=== PATIENT | female | born 1985 | race Caucasian/White ===

== ENCOUNTER 2022-05-28 12:52 | Outpatient (REF) | payer OTHER, SELFPAY ==
[2022-05-28 13:58] LABS: Appearance Urine Clear; Color Urine Yellow; Glucose Urine UA Negative (Negative); Leukocyte Esterase Urine Trace (Negative); Nitrite Urine Negative (Negative); Specific Gravity - Urine >= 1.030 (1.005-1.025); UMIC TRIGGER UA YES; Urine Blood Negative (Negative); Urine Ketones Trace mg/dL (Negative); Urine Protein Trace mg/dL (Neg-Trace)
[2022-05-28 13:59] LABS: C Reactive Protein 0.04 mg/dL (< or = 0.50)
[2022-05-28 14:08] LABS: Bacteria Urine 1+ (None Seen); Hyaline Casts Urine 0-2 /LPF (0-2); WBC Urine 0-5 /HPF (0-5)
[2022-05-28 14:21] LABS: Thyroid Stimulating Hormone 0.66 uIU/mL (0.32-4.0)
[2022-05-28 14:38] LABS: Creatinine Urine 254.25 mg/dL; Protein/Creatinine Ratio, Ur 0.06 (<0.2); Total Protein Urine Random 15 mg/dL (<12)
[2022-05-28 14:41] LABS: Erythrocyte Sedimentation Rate 3 MM/HR (0-20)
[2022-05-31 11:17] LABS: Complement C3 103 mg/dL (83-193)
[2022-05-31 23:21] LABS: Anti DNA DS Antibody 4 IU/mL; Antibody to SS-A Antigen <1.0 NEG AI (<1.0 NEG); Antibody to SS-B Antigen <1.0 NEG AI (<1.0 NEG); SM/Ribonucleoprotein Ab <1.0 NEG AI (<1.0 NEG); Scleroderma 70 Antibody <1.0 NEG AI (<1.0 NEG); Smith Protein <1.0 NEG AI (<1.0 NEG)
[2022-06-01 05:32] LABS: Cardiolipin IgG Ab <2.0 GPL-U/mL; Cardiolipin IgM Ab <2.0 MPL-U/mL
[2022-06-01 10:12] LABS: Anti-Centromere B Antibodies <1.0 NEG AI (<1.0 NEG)
[2022-06-01 15:21] LABS: Anti Nuclear Antibody Screen NEGATIVE (NEGATIVE)
[2022-06-02 12:32] LABS: Vitamin D 25-OH, D2 <4 ng/mL; Vitamin D 25-OH, D3 28 ng/mL; Vitamin D 25-OH, Total 28 ng/mL (30-100)
[2022-06-02 22:02] LABS: DRVVT 1:1 Mix Interpretation Not Indicated; Hexagonal Phase Neutralization Negative (Negative); PTT (LAC) Screen 42 sec (<=40)
[2022-06-04 17:48] LABS: Beta-2 Glycoprotein IgA <2.0 U/mL (<20.0); Beta-2 Glycoprotein IgG <2.0 U/mL (<20.0); Beta-2 Glycoprotein IgM <2.0 U/mL (<20.0)
== END 2022-05-28 12:53 | disposition home or self-care (01) ==
LOC: HO.10HDL 12:52
PROVIDERS: Visit Provider Student in an Organized Health Care Education/Training Program
DX: Z13.21 Encounter for screening for nutritional disorder (principal); I73.00 Raynaud's syndrome without gangrene; M79.10 Myalgia, unspecified site; M32.9 Systemic lupus erythematosus, unspecified
CPT/HCPCS: 36415; 81001; 82306; 82550; 84156; 84443; 85597; 85613; 85652; 85730; 86038; 86039; 86140; 86146; 86147; 86160; 86225; 86235

== ENCOUNTER → 2022-09-29 10:03 | Outpatient (BNVA) | payer OTHER, SELFPAY | PROVIDERS: PCP Family Medicine; Visit Provider Nurse Practitioner Family | DX: G43.109 Migraine with aura, not intractable, without status migrainosus (principal) ==

== ENCOUNTER → 2022-12-13 13:01 | Outpatient (BNVA) | payer OTHER, SELFPAY | PROVIDERS: PCP Family Medicine; Visit Provider Nurse Practitioner Family | DX: Z13.89 Encounter for screening for other disorder (principal) ==

== ENCOUNTER → 2022-12-28 10:59 | Outpatient (BNVA) | payer OTHER, SELFPAY | PROVIDERS: PCP Family Medicine; Visit Provider Student in an Organized Health Care Education/Training Program | DX: Z13.89 Encounter for screening for other disorder (principal) ==

== ENCOUNTER → 2023-02-08 13:01 | Outpatient (REF) | payer OTHER, SELFPAY ==
--- NOTE | 2023-02-08 13:05 | ECG_ITS ---
Test Reason : R42 Blood Pressure : / mmHG Vent. Rate : 093 BPM Atrial Rate : 093 BPM P-R Int : 122 ms QRS Dur : 076 ms QT Int : 368 ms P-R-T Axes : 077 076 032 degrees QTc Int : 457 ms Normal sinus rhythm Possible Left atrial enlargement Nonspecific ST abnormality Abnormal ECG No previous ECGs available Referred By: Randi Quiles Electronically Signed By:ZOE KNOWLES MD
== END ==
LOC: HO.CARD 13:01
PROVIDERS: PCP Family Medicine; Visit Provider Nurse Practitioner Family
DX: R00.0 Tachycardia, unspecified (principal); R42 Dizziness and giddiness
CPT/HCPCS: 93005

== ENCOUNTER 2023-05-02 14:33 | Outpatient (AMB) | payer OTHER, SELFPAY ==
--- NOTE | 2023-05-02 14:34 | MHC.OFFVIS ---
Intake Vital Signs 05/02/23 14:35 Height 5 ft 2 in Weight 127 lb 2 oz BMI 23.2 BP 118/72 Blood Pressure Location Rt brachial Position Sitting Pulse 107 H Pulse Source Pulse Oximeter Pulse Oximetry (%) 99 Oxygen Delivery Method Room Air Intake Visit Reasons: 3m follow up migraines - Confirmed Intake Note: Patient presents for 3 month follow up migraines. Patient states I think the injection might of helped but I think I'm overdue.my insurance was actin weird. Allergies acetaminophen [From Percocet] Allergy (Unknown, Verified 05/02/23 14:40) Unknown latex Allergy (Unknown, Verified 05/02/23 14:40) Unknown oxycodone [From Percocet] Allergy (Unknown, Verified 05/02/23 14:40) Unknown mylar cream Allergy (Mild, Uncoded 05/02/23 14:40) Blister Medication List - Last Reconciled 05/02/23 by ALEXIS Fairchild albuterol sulfate 90 mcg/actuation 2 puffs inhalation Q4H PRN amitriptyline 10 - 20 mg (1 - 2 x 10 mg) PO BEDTIME 30 days cetirizine (Zyrtec) 10 mg PO DAILY PRN clonazepam 0.5 mg PO BID cyclobenzaprine 10 mg PO BID PRN dextroamphetamine-amphetamine 20 mg 1 tab PO BID fluocinonide 0.05% appl topical BID galcanezumab-gnlm (Emgality Pen) 120 mg subcut ONCE 28 days ibuprofen 800 mg PO Q8H meclizine 25 mg PO BEDTIME PRN omeprazole 20 mg PO DAILY ondansetron 4 mg PO Q8H PRN riboflavin (vitamin B2) 50 mg PO DAILY sumatriptan succinate 50 - 100 mg orally at onset of headache, may repeat in 2 hrs PRN; max 2 tabs per day or 4 tabs/week (may take with Ibuprofen) 30 days HPI HPI Comments History of Present Illness Details 38-yr-old female presents for f/u visit. She has not been tolerating CPAP. Her AHI on HST was 5/hr. She has episodes of spacing out and memory issues. She states no one can watch a movie w/ her as she always talk, gets up, changes position. She endorses restlessness in her whole body- when at rest. Her girlfriend tells her she moves a lot in her sleep. She endorses a creepy crawling sensation. She has a hx of nocturnal leg cramps. Has h/o anemia- had ITTP- last ferritin 60s (December 2022). Her brother has RLS. She is currently overdue for the Emgality. She is having 2 headache days per week. She thinks the Rizatriptan works better w/ less side effects than Sumatriptan. [facility] Medical History (Updated 05/07/23 @ 18:32 by ALEXIS Fairchild) ADHD Allergic rhinitis Anemia Anxiety Cutaneous lupus erythematosus Riki-Danlos disease GERD (gastroesophageal reflux disease) History of ITP Insomnia Post concussive syndrome Sleep difficulties Subacute cutaneous lupus erythematosus Surgical History H/O wisdom tooth extraction History of ankle surgery History of kidney surgery Family History Maternal Aunt Breast cancer Acute leukemia Mother Breast cancer CAD (coronary artery disease) Lupus Congenital heart defect Osteoporosis Precancerous skin lesion Paternal Grandmother Melanoma Brain cancer Father Hypertension Graves disease Hypercholesterolemia Kidney stones Brother Hypertension Hypercholesterolemia Social History Alcohol intake: current Alcohol intake frequency: a few times a month Patient Tobacco Use Status: Never used Tobacco Substance Use Type: Marijuana 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 Review of Systems Const All systems reviewed & are unremarkable except as noted in HPI and below Physical Exam Vital Signs: Last Vital Signs Pulse 107 H 05/02/23 14:35 BP 118/72 05/02/23 14:35 Pulse Ox 99 05/02/23 14:35 Oxygen Delivery Method Room Air 05/02/23 14:35 BMI result Body Mass Index 23.2 Const General: cooperative and no acute distress Orientation/consciousness: patient oriented x3 HEENT Head: Yes normocephalic Resp Effort & Inspection: normal respiratory effort and able to speak in complete sentences Neuro General: patient oriented x3, gait normal and CN's II-XI intact bilaterally Cognition (Neuro): normal cognition Motor exam (neuro): 5/5 motor strength present throughout Psych Appearance: grossly normal Mental Status: mental status grossly normal Speech and movement: Normal speech and movement present Affect: normal affect Attitude: cooperative Thought process: Normal thought process present Thought content: Normal thought content present Insight: Good insight present (Psych) Judgement: Good judgement present (Psych) Assessment & Plan Assessment & Plan (1) Altered mental status: Comment: episodes of passing out Code(s): R41.82 - Altered mental status, unspecified (2) Post concussive syndrome: Code(s): F07.81 - Postconcussional syndrome (3) Mild obstructive sleep apnea: Code(s): G47.33 - Obstructive sleep apnea (adult) (pediatric) (4) Migraine with aura: Code(s): G43.109 - Migraine with aura, not intractable, without status migrainosus Plan Pt advised to undergo EEG- d/t spacing out episodes- ? absence seizures vs ADHD. Will check labs for common etiologies of RLS s/s. Continue to try to use CPAP- however can consider mandibular device, PAP titration study. Pt has had normal head CT. Future considerations: Brain MRI. ? For acute headache treatment: Trial Rizatriptan 10mg tab, 1/2 - 1 tab (5-10mg) at onset of headache, may repeat in 2 hours. Max of 2 tabs (200mg) per 24 hours. May adjunct with OTC Tylenol 650mg q 4 hours, Ibuprofen (liquigel) 600mg q 6 hours, or Naproxen (liquigel) 440mg q 12 hrs prn. Previous acute migraine medication trials: Sinus headache tabs. Sumatriptan- worked but not tolerated. Acute migraine medication contraindications: None at this time ? For headache prevention medication: Discussed that preventative medications should be taken routinely as prescribed for best effect, it may take several weeks for full effect to take effect. Continue Riboflavin- take 400mg every am Continue Magnesium- goal is 400mg qhs Continue Amitriptyline 20mg daily at bedtime (taken 9 hrs before need to wake up in am)- would not increase further d/t lightheadedness. Continue Emgality 120mg sc q 4 weeks, as pt is having good clinical effect. Previous migraine prevention medication trials: None Migraine prevention medication contraindications: BBs d/t h/o asthma. Topiramate d/t h/o kidney stones. Aimovig d/t h/o Raynaud's. Future considerations: Botox. ? f/u in 3 months or sooner prn. Orders: Orders EEG electroencephalogram 05/02/23 R41.82 - Altered mental status, unspecified MR head/brain wo con 05/02/23 F07.81 - Postconcussional syndrome, R41.82 - Altered mental status, unspecified, R42 - Dizziness and giddiness Complete Blood Count Auto Diff 05/02/23 D64.9 - Anemia, unspecified IRON PROFILE 05/02/23 D64.9 - Anemia, unspecified Ferritin 05/02/23 D64.9 - Anemia, unspecified Erythrocyte Sedimentation Rate 05/02/23 D64.9 - Anemia, unspecified Medications: New rizatriptan max 2 tabs per day or 4 tabs per week 5 - 10 mg (0.5 - 1 x 10 mg) PO Q2H 21 days PRN 12 tabs 3RF migraine headache rizatriptan max 2 tabs per day or 4 tabs per week 5 - 10 mg (0.5 - 1 x 10 mg) PO Q2H 21 days PRN 12 tabs 3RF migraine headache Discontinued sumatriptan succinate Discontinued Reason: Doctor's Order (0.5 - 1 x 100 mg) 50 - 100 mg orally at onset of headache, may repeat in 2 hrs PRN; max 2 tabs per day or 4 tabs/week (may take with Ibuprofen) 30 days 12 tabs 6RF migraine headache Coding Level of Care Code Est Pt Level 4 (15404) Diagnoses Altered mental status R41.82 Post concussive syndrome F07.81 Mild obstructive sleep apnea G47.33 Migraine with aura G43.109
[2023-05-02 14:35] VITALS: BP 118/72; PULSE 107; O2SAT 99; BMI 23.2
== END 2023-05-02 15:33 | disposition home or self-care (01) ==
PROVIDERS: Visit Provider Nurse Practitioner Family
DX: R41.82 Altered mental status, unspecified (principal); F07.81 Postconcussional syndrome; G47.33 Obstructive sleep apnea (adult) (pediatric); G43.109 Migraine with aura, not intractable, without status migrainosus
CPT/HCPCS: 99214

== ENCOUNTER → 2023-05-02 14:33 | Outpatient (BNVA) | payer OTHER, SELFPAY | PROVIDERS: Visit Provider Nurse Practitioner Family ==

== ENCOUNTER 2023-06-01 12:56 | Outpatient (REF) | payer OTHER, SELFPAY ==
--- NOTE | 2023-06-01 12:59 | EEG_ITS ---
This is a 16 channel EEG with an EKG lead. The patient is reported awake during the tracing. Background EEG rhythm is 12 to 16 hertz 5 to 20 microvolt posteriorly and lower amplitude fast anteriorly. Photic stimulation does not produce any significant abnormality. Hyperventilation is unremarkable. Cardiac lead does not reveal any significant abnormality. No sharp wave spikes or paroxysmal tendency noted. IMPRESSION: Unremarkable EEG. MD KALI Sanabria/ROBERT / [id number]
== END 2023-06-01 12:57 | disposition home or self-care (01) ==
LOC: HO.NEURO 12:56
PROVIDERS: PCP Family Medicine; Visit Provider Nurse Practitioner Family
DX: R41.82 Altered mental status, unspecified (principal)
CPT/HCPCS: 95816

== ENCOUNTER 2023-06-03 19:28 | Outpatient (REF) | payer OTHER, SELFPAY ==
--- NOTE | ~2023-06-03 | MR_ITS ---
EXAMINATION: MR BRAIN WITHOUT CONTRAST CLINICAL INFORMATION: 38-year-old with altered mental status, unspecified. Self-reported lightheadedness and sensitivity to light, migraine. Self-reported history of concussion in 2020. COMPARISON: None TECHNIQUE: Multiplanar multisequence MR imaging of the brain was done without IV contrast. FINDINGS: Brain Volume: Within normal limits within the limitations of qualitative assessment. Structural: No malformations. Brain and Meninges: DWI sequence demonstrates no restricted diffusion to suggest acute or subacute cerebral ischemia. The brain is normal in morphology and signal intensity. No extra-axial fluid collections, space-occupying process or mass effect are identified. Gradient refocused imaging demonstrates no abnormal susceptibility-weighted signal loss to suggest hemorrhage, hemosiderin staining or abnormal mineralization. Ventricles and Subarachnoid Spaces: The ventricular system and subarachnoid spaces are within normal range; there is no hydrocephalus. Orbital Structures: The visualized orbital structures are grossly unremarkable within the limitations of the study. Vascular: Signal voids are noted in the visualized major intracranial vessels. Osseous Structures, Sinuses/Mastoids, Extracranial Soft Tissues: Unremarkable MR/MR head/brain wo con IMPRESSION: Normal noncontrast MRI of the brain.
== END 2023-06-03 19:29 | disposition home or self-care (01) ==
LOC: HO.MRI 19:28
PROVIDERS: PCP Family Medicine; Visit Provider Nurse Practitioner Family
DX: R41.82 Altered mental status, unspecified (principal); F07.81 Postconcussional syndrome; R42 Dizziness and giddiness
CPT/HCPCS: 70551

== ENCOUNTER 2023-08-17 11:36 | Outpatient (AMB) | payer OTHER, SELFPAY ==
--- NOTE | 2023-08-17 11:39 | MHC.OFFVIS ---
Intake Vital Signs 08/17/23 11:44 BP 108/70 Blood Pressure Location Rt brachial Position Sitting Pulse 91 Pulse Source Pulse Oximeter Pulse Oximetry (%) 100 Oxygen Delivery Method Room Air Intake Visit Reasons: 3m follow up migraines / Confirmed Intake Note: Patient presents for 3 month migraines. migraines are still the same. Allergies acetaminophen [From Percocet] Allergy (Unknown, Verified 08/17/23 11:42) Unknown latex Allergy (Unknown, Verified 08/17/23 11:42) Unknown oxycodone [From Percocet] Allergy (Unknown, Verified 08/17/23 11:42) Unknown mylar cream Allergy (Mild, Uncoded 08/17/23 11:42) Blister Medication List - Last Reconciled 08/17/23 by ALEXIS Fairchild albuterol sulfate 90 mcg/actuation 2 puffs inhalation Q4H PRN amitriptyline 10 - 20 mg (1 - 2 x 10 mg) PO BEDTIME 30 days cetirizine (Zyrtec) 10 mg PO DAILY PRN clonazepam 0.5 mg PO BID cyclobenzaprine 10 mg PO BID PRN dextroamphetamine-amphetamine 20 mg 1 tab PO BID fluocinonide 0.05% appl topical BID galcanezumab-gnlm (Emgality Pen) 120 mg subcut ONCE 28 days ibuprofen 800 mg PO Q8H meclizine 25 mg PO BEDTIME PRN omeprazole 20 mg PO DAILY ondansetron 4 mg PO Q8H PRN riboflavin (vitamin B2) 50 mg PO DAILY rizatriptan 5 - 10 mg (0.5 - 1 x 10 mg) PO Q2H PRN 21 days HPI HPI Comments History of Present Illness Details 38-yr-old female presents for f/u visit. Pt denies any significant interval medical changes. Pt reports that she has been having worsening- menstrual cramps and heavy periods. She feels her Emgality is helping, however she continues to have a daily headache. She does not think that Amitriptyline is still helping. She is having increased migraine during her menses. She is having vestibular s/s- feels off-balance especially with certain light exposure. She did send her CPAP back- as she was not tolerating it. Feels more anxious- not sure if anxiety is causing or is d/t her her migraines, h/o concussion. She is undergoing cardiac work-up. Tilt table test was read as normal, however pt states she had orthostatic tachycardia but it was not captured during the test. [facility] Medical History (Updated 05/07/23 @ 18:32 by ALEXIS Fairchild) Allergic rhinitis History of ITP Riki-Danlos disease Anemia Sleep difficulties GERD (gastroesophageal reflux disease) Subacute cutaneous lupus erythematosus Insomnia Cutaneous lupus erythematosus ADHD Anxiety Post concussive syndrome Surgical History History of kidney surgery H/O wisdom tooth extraction History of ankle surgery Family History Maternal Aunt Breast cancer Acute leukemia Mother Breast cancer CAD (coronary artery disease) Lupus Congenital heart defect Osteoporosis Precancerous skin lesion Paternal Grandmother Melanoma Brain cancer Father Hypertension Graves disease Hypercholesterolemia Kidney stones Brother Hypertension Hypercholesterolemia Social History Alcohol intake: current Alcohol intake frequency: a few times a month Patient Tobacco Use Status: Never used Tobacco Substance Use Type: Marijuana 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 Review of Systems Const All systems reviewed & are unremarkable except as noted in HPI and below Physical Exam Vital Signs: Last Vital Signs Pulse 91 08/17/23 11:44 BP 108/70 08/17/23 11:44 Pulse Ox 100 08/17/23 11:44 Oxygen Delivery Method Room Air 08/17/23 11:44 Const General: cooperative and no acute distress Orientation/consciousness: patient oriented x3 HEENT Head: Yes normocephalic Resp Effort & Inspection: normal respiratory effort and able to speak in complete sentences Neuro General: patient oriented x3, gait normal and CN's II-XI intact bilaterally Cognition (Neuro): normal cognition Motor exam (neuro): 5/5 motor strength present throughout Psych Appearance: grossly normal Mental Status: mental status grossly normal Speech and movement: Normal speech and movement present Affect: normal affect Attitude: cooperative Thought process: Normal thought process present Thought content: Normal thought content present Insight: Good insight present (Psych) Judgement: Good judgement present (Psych) Assessment & Plan Assessment & Plan (1) Post concussive syndrome: Code(s): F07.81 - Postconcussional syndrome (2) Migraine with aura: Code(s): G43.109 - Migraine with aura, not intractable, without status migrainosus (3) Tachycardia: Code(s): R00.0 - Tachycardia, unspecified (4) Lightheadedness: Code(s): R42 - Dizziness and giddiness Plan Pt advsied to check standing HR x's 10 min x's 3- ? POTs vs ADHD tx effect. Reviewed tilt-table- read as normal. Reviewed EEG- normal. Reviewed labs for common etiologies of RLS s/s- CBC, ESR- 3, Ferritin- 124, Iron studies- NL Pt returned CPAP- not tolerated. Pt has had normal head CT. Future considerations: Brain MRI. ? For acute headache treatment: Rizatriptan 10mg tab, 1/2 - 1 tab (5-10mg) at onset of headache, may repeat in 2 hours. Max of 2 tabs (200mg) per 24 hours. May adjunct with OTC Tylenol 650mg q 4 hours, Ibuprofen (liquigel) 600mg q 6 hours, or Naproxen (liquigel) 440mg q 12 hrs prn. Start Nerivio qd prn- form signed Previous acute migraine medication trials: Sinus headache tabs. Sumatriptan- worked but not tolerated. Acute migraine medication contraindications: None at this time ? For headache prevention medication: Discussed that preventative medications should be taken routinely as prescribed for best effect, it may take several weeks for full effect to take effect. Continue Riboflavin- take 400mg every am Continue Magnesium- goal is 400mg qhs May wean off Amitriptyline 20mg qhs. Start Venlafaxine ER 37.5mg qd. Start Nerivio neuromodulation stimulation qod. Continue Emgality 120mg sc q 4 weeks, as pt is having good clinical effect. Previous migraine prevention medication trials: None Migraine prevention medication contraindications: BBs d/t h/o asthma. Topiramate d/t h/o kidney stones. Aimovig d/t h/o Raynaud's. Future considerations: Botox. ? f/u in 3 months or sooner prn. Medications: New venlafaxine ER 37.5 mg PO DAILY 30 days 30 caps 3RF Coding Level of Care Code Est Pt Level 4 (32926) Diagnoses Post concussive syndrome F07.81 Migraine with aura G43.109 Tachycardia R00.0 Lightheadedness R42
[2023-08-17 11:44] VITALS: BP 108/70; PULSE 91; O2SAT 100
== END 2023-08-17 12:20 | disposition home or self-care (01) ==
PROVIDERS: PCP Family Medicine; Visit Provider Nurse Practitioner Family
DX: R00.0 Tachycardia, unspecified (principal); F07.81 Postconcussional syndrome; G44.309 Post-traumatic headache, unspecified, not intractable
CPT/HCPCS: 99214

== ENCOUNTER → 2023-08-17 11:36 | Outpatient (BNVA) | payer OTHER, SELFPAY | PROVIDERS: PCP Family Medicine; Visit Provider Nurse Practitioner Family | DX: G43.109 Migraine with aura, not intractable, without status migrainosus (principal); F07.81 Postconcussional syndrome; R00.0 Tachycardia, unspecified; R42 Dizziness and giddiness | CPT/HCPCS: 99212 ==

== ENCOUNTER 2023-12-07 10:00 | Outpatient (AMB) | payer OTHER, SELFPAY ==
[2023-12-07 10:02] VITALS: BP 118/74; PULSE 86; O2SAT 100; BMI 21.4
--- NOTE | 2023-12-07 10:02 | A.OFFVIS_ITS ---
Intake Vital Signs 12/07/23 10:02 Height 5 ft 2 in Weight 117 lb BMI 21.4 BP 118/74 Blood Pressure Location Rt brachial Position Sitting Pulse 86 Pulse Source Pulse Oximeter Pulse Oximetry (%) 100 Oxygen Delivery Method Room Air Intake Visit Reasons: 3 mnts f/u for migraines-Conf Intake Note: Patient presents for 3 month follow up migraines. migraines are good only been getting them around menstruation. Allergies acetaminophen [From Percocet] Allergy (Unknown, Verified 12/07/23 10:05) Unknown latex Allergy (Unknown, Verified 12/07/23 10:05) Unknown oxycodone [From Percocet] Allergy (Unknown, Verified 12/07/23 10:05) Unknown mylar cream Allergy (Mild, Uncoded 12/07/23 10:05) Blister Medication List - Last Reconciled 12/07/23 by ALEXIS Fairchild albuterol sulfate 90 mcg/actuation 2 puffs inhalation Q4H PRN amitriptyline 10 - 20 mg (1 - 2 x 10 mg) PO BEDTIME 30 days cetirizine (Zyrtec) 10 mg PO DAILY PRN clonazepam 0.5 mg PO BID cyclobenzaprine 10 mg PO BID PRN dextroamphetamine-amphetamine 20 mg 1 tab PO BID fluocinonide 0.05% appl topical BID galcanezumab-gnlm (Emgality Pen) 120 mg subcut ONCE 28 days ibuprofen 800 mg PO Q8H meclizine 25 mg PO BEDTIME PRN omeprazole 20 mg PO DAILY ondansetron 4 mg PO Q8H PRN riboflavin (vitamin B2) 50 mg PO DAILY rizatriptan 5 - 10 mg (0.5 - 1 x 10 mg) PO Q2H PRN 21 days venlafaxine ER 37.5 mg PO DAILY 30 days HPI HPI Comments History of Present Illness Details 38-yr-old female presents for f/u visit. Pt denies any significant interval medical changes. Pt has been having some GI s/s- constipation, nausea, anorexia. Is seeing GI- had had work-up, schedued ofr colonoscopy in March, is trying FODmap diet. She has been started on BB d/t POTs. She has noted that she is having increased hand coldness, numbness, tingling, and seeing small reddish dots on her finger sthat feel like tiny scrapes. Her last Ferritin was 124 NL- so stopped Iron. She did not tolerate the Venlafaxine- caused N/V. She can still find herself spacing out at times. Her migraines are better on Emgality. May still have some breakthrough around her menses. Baseline headache characteristics: Severe, aching and throbbing and tightness- some stabbing starts in bi-temporal region and moves up into bifrontal region and up into crown of the head. A/w blurred vision, photophobia, phonophobia, nausea, vomiting, not right in space dizziness, brain fog, fatigue, generalized, red eyes (more so on left), BUE hands and forearms pins and needles. She has noticed more left facial asymmetry. Prodrome symptoms of feels more body tension and congestion. [facility] Medical History (Updated 12/07/23 @ 19:25 by ALEXIS Fairchild) Allergic rhinitis History of ITP Riki-Danlos disease Anemia Sleep difficulties GERD (gastroesophageal reflux disease) Subacute cutaneous lupus erythematosus Insomnia Cutaneous lupus erythematosus ADHD Anxiety Post concussive syndrome Surgical History History of kidney surgery H/O wisdom tooth extraction History of ankle surgery Family History Maternal Aunt Breast cancer Acute leukemia Mother Breast cancer CAD (coronary artery disease) Lupus Congenital heart defect Osteoporosis Precancerous skin lesion Paternal Grandmother Melanoma Brain cancer Father Hypertension Graves disease Hypercholesterolemia Kidney stones Brother Hypertension Hypercholesterolemia Social History Alcohol intake: current Alcohol intake frequency: a few times a month Patient Tobacco Use Status: Never used Tobacco Substance Use Type: Marijuana 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 Physical Exam Vital Signs: Last Vital Signs Pulse 86 12/07/23 10:02 BP 118/74 12/07/23 10:02 Pulse Ox 100 12/07/23 10:02 Oxygen Delivery Method Room Air 12/07/23 10:02 BMI result Body Mass Index 21.4 Const General: cooperative and no acute distress Orientation/consciousness: patient oriented x3 Resp Effort & Inspection: normal respiratory effort and able to speak in complete sentences Neuro General: patient oriented x3 Cranial nerves: Yes CN's II-XII intact bilaterally Cognition (Neuro): normal cognition Psych Appearance: grossly normal Mental Status: mental status grossly normal Speech and movement: Normal speech and movement present Affect: normal affect Attitude: cooperative Assessment & Plan Assessment & Plan (1) Migraine with aura: Code(s): G43.109 - Migraine with aura, not intractable, without status migrainosus (2) Paresthesia of both hands: Code(s): R20.2 - Paresthesia of skin (3) POTS (postural orthostatic tachycardia syndrome): Code(s): G90.A - Postural orthostatic tachycardia syndrome [POTS] (4) Raynaud phenomenon: Code(s): I73.00 - Raynaud's syndrome without gangrene Qualifiers: Raynaud?s-associated gangrene presence: without gangrene Qualified Code(s): I73.00 - Raynaud's syndrome without gangrene Plan Patient is aware of her spacing out episodes: Advised to discuss with her med prescriber adjusting her Adderall dose. For hand coldness and paresthesias: Check labs for common etiologies. It is possible that her beta-fox may be exacerbating her Raynaud's symptoms. Follow-up with her vp celebrity services. Reviewed tilt-table- read as normal. Reviewed EEG- normal. Pt returned CPAP- not tolerated. Pt has had normal head CT. Future considerations: Brain MRI. ? For acute headache treatment: Rizatriptan 10mg tab, 1/2 - 1 tab (5-10mg) at onset of headache, may repeat in 2 hours. Max of 2 tabs (200mg) per 24 hours. May adjunct with OTC Tylenol 650mg q 4 hours, Ibuprofen (liquigel) 600mg q 6 hours, or Naproxen (liquigel) 440mg q 12 hrs prn. Nerivio qd prn- form signed Previous acute migraine medication trials: Sinus headache tabs. Sumatriptan- worked but not tolerated. Acute migraine medication contraindications: None at this time ? For headache prevention medication: Continue Riboflavin- take 400mg every am Continue Magnesium- goal is 400mg qhs May wean off Amitriptyline 20mg qhs. Discontinue Venlafaxine ER 37.5mg qd- not tolerated. Nerivio neuromodulation stimulation qod. Continue Emgality 120mg sc q 4 weeks, as pt is having good clinical effect. Previous migraine prevention medication trials: Venlafaxine ER 37.5mg- not tolerated caused N/V. Migraine prevention medication contraindications: BBs d/t h/o asthma. Topiramate d/t h/o kidney stones. Aimovig d/t h/o Raynaud's. Future considerations: Botox. ? f/u in 6 months or sooner prn. Orders: Orders Complete Blood Count Auto Diff Today D64.9 - Anemia, unspecified, I73.00 - Raynaud's syndrome without gangrene, M32.9 - Systemic lupus erythematosus, unspecified, R20.2 - Paresthesia of skin, R42 - Dizziness and giddiness Vitamin B12 and Folate Today D64.9 - Anemia, unspecified, I73.00 - Raynaud's syndrome without gangrene, M32.9 - Systemic lupus erythematosus, unspecified, R20.2 - Paresthesia of skin, R42 - Dizziness and giddiness Erythrocyte Sedimentation Rate Today D64.9 - Anemia, unspecified, I73.00 - Raynaud's syndrome without gangrene, M32.9 - Systemic lupus erythematosus, unspecified, R20.2 - Paresthesia of skin, R42 - Dizziness and giddiness CRP High Sensitivity Today D64.9 - Anemia, unspecified, I73.00 - Raynaud's syndrome without gangrene, M32.9 - Systemic lupus erythematosus, unspecified, R20.2 - Paresthesia of skin, R42 - Dizziness and giddiness DEYA Reflex Titer and Pattern Today D64.9 - Anemia, unspecified, I73.00 - Raynaud's syndrome without gangrene, M32.9 - Systemic lupus erythematosus, unspecified, R20.2 - Paresthesia of skin, R42 - Dizziness and giddiness Rheumatoid Factor Today D64.9 - Anemia, unspecified, I73.00 - Raynaud's syndrome without gangrene, M32.9 - Systemic lupus erythematosus, unspecified, R20.2 - Paresthesia of skin, R42 - Dizziness and giddiness Comprehensive Met. Panel Today D64.9 - Anemia, unspecified, I73.00 - Raynaud's syndrome without gangrene, M32.9 - Systemic lupus erythematosus, unspecified, R20.2 - Paresthesia of skin, R42 - Dizziness and giddiness TSH reflex Free T4 Today D64.9 - Anemia, unspecified, I73.00 - Raynaud's syndrome without gangrene, M32.9 - Systemic lupus erythematosus, unspecified, R20.2 - Paresthesia of skin, R42 - Dizziness and giddiness Medications: Discontinued venlafaxine ER Discontinued Reason: Doctor's Order 37.5 mg PO DAILY 30 days 30 caps 3RF Coding Level of Care Code Est Pt Level 4 (84140) Diagnoses Migraine with aura G43.109 Paresthesia of both hands R20.2 POTS (postural orthostatic tachycardia syndrome) G90.A Raynaud's phenomenon without gangrene I73.00 Raynaud?s-associated gangrene presence: without gangrene
== END 2023-12-07 11:16 | disposition home or self-care (01) ==
PROVIDERS: PCP Family Medicine; Visit Provider Nurse Practitioner Family
DX: G43.109 Migraine with aura, not intractable, without status migrainosus (principal); R20.2 Paresthesia of skin; G90.A Postural orthostatic tachycardia syndrome [POTS]; I73.00 Raynaud's syndrome without gangrene
CPT/HCPCS: 99214

== ENCOUNTER → 2023-12-07 10:00 | Outpatient (BNVA) | payer OTHER, SELFPAY | PROVIDERS: PCP Family Medicine; Visit Provider Nurse Practitioner Family | DX: G43.109 Migraine with aura, not intractable, without status migrainosus (principal); G90.A Postural orthostatic tachycardia syndrome [POTS]; R20.2 Paresthesia of skin; I73.00 Raynaud's syndrome without gangrene | CPT/HCPCS: 99212 ==

== ENCOUNTER 2023-12-07 11:22 | Outpatient (REF) | payer OTHER, SELFPAY ==
[2023-12-07 18:21] LABS: MANUAL DIFF FLAG NO
[2023-12-07 18:38] LABS: Basophils Absolute Auto 0.1 X10*3/uL (0.0-0.2); Basophils Percent Auto 0.6 % (0-2); Eosinophils Absolute Auto 0.1 X10*3/uL (0.0-0.4); Eosinophils Percent Auto 1.2 % (0-4); Hemoglobin 14.2 g/dl (12.0-16.0); Imm Gran Abs Auto 0.03 X10*3/uL (0.00-0.03); Imm Gran Pct Auto 0.3 % (0.0-0.4); Lymphocytes Absolute Auto 2.4 X10*3/uL (1.2-4.9); Lymphocytes Percent Auto 22.5 % (20-40); Mean Corpuscular HGB Conc 34.6 g/dl (31.0-35.0); Mean Corpuscular Hemoglobin 32.6 pg (27.0-33.0); Mean Corpuscular Volume 94.3 fL (80.0-98.0); Mean Platelet Volume 10.3 fL (9.4-12.3); Monocytes Absolute Auto 0.5 X10*3/uL (0.1-1.2); Monocytes Percent Auto 4.8 % (2-11); Neutrophils Absolute Auto 7.5 x10*3/uL (2.0-8.3); Neutrophils Percent Auto 70.6 % (45-73); Platelet Count 259 X10*3/uL (160-400); Red Blood Count 4.35 X10*6/uL (4.20-5.50); Red Cell Distribution Width 11.9 % (11.0-16.0); White Blood Count 10.6 X10*3/uL (4.8-10.8)
[2023-12-07 19:02] LABS: Rheumatoid Factor < 13.0 IU/mL (<15.0)
[2023-12-07 19:08] LABS: Alanine Aminotransferase 11 U/L (0-31); Albumin Level 4.7 g/dL (3.5-5.0); Alkaline Phosphatase 60 U/L (39-117); Anion Gap 10 (12-20); Aspartate Amino Transferase 15 U/L (5-31); Bilirubin Total 0.4 mg/dL (0.0-1.0); Blood Urea Nitrogen 12 mg/dL (9-16); Calcium 9.5 mg/dL (8.4-10.2); Carbon Dioxide 27 mmol/L (22-29); Chloride 105 mmol/L (96-108); Estimated Glomerular Filt Rate > 60; Glucose Random 97 mg/dL (60-115); Potassium 4.1 mmol/L (3.3-5.1); Sodium 138 mmol/L (135-145); Total Protein 7.4 g/dL (6.5-8.0)
[2023-12-07 19:16] LABS: Erythrocyte Sedimentation Rate 4 MM/HR (0-20)
[2023-12-07 19:29] LABS: Folate 9.2 ng/mL (> or = 4.0); Vitamin B12 421 pg/mL (200-900)
[2023-12-07 21:42] LABS: TSH reflex Free T4 1.68 uIU/mL (0.32-4.0)
[2023-12-08 19:08] LABS: CRP High Sensitivity <0.3 mg/L
[2023-12-12 15:03] LABS: Anti Nuclear Antibody Screen NEGATIVE (NEGATIVE)
== END 2023-12-07 11:23 | disposition home or self-care (01) ==
LOC: HO.HKASLDS 11:22
PROVIDERS: Visit Provider Nurse Practitioner Family
DX: D64.9 Anemia, unspecified (principal); R20.2 Paresthesia of skin; R42 Dizziness and giddiness; M32.9 Systemic lupus erythematosus, unspecified; I73.00 Raynaud's syndrome without gangrene
CPT/HCPCS: 36415; 80053; 82607; 82746; 84443; 85025; 85652; 86038; 86141; 86431

== ENCOUNTER 2024-02-02 14:20 | Outpatient (AMB) | payer OTHER, SELFPAY ==
--- NOTE | 2024-02-02 14:35 | MHC.OFFVIS ---
Vital Signs 02/02/24 14:46 Height 5 ft 2 in Weight 117 lb 8.102 oz BMI 21.5 BP 100/70 Blood Pressure Location Lt brachial Position Sitting Pulse 83 Pulse Oximetry (%) 99 Intake Visit Reasons: Numbness and Tingling in fingers and feet. Intake Note: Patient last seen 06/29/22 presents today with complaints of numbness and tingling of the feet and fingers x 6 months. Patient reports she was diagnosed with POTS and started on propranalol. Since then, she's had a rash that has worsened in different areas of her body. Patient also reports her Raynaud's worsened this winter when compared to others. Allergies acetaminophen [From Percocet] Allergy (Unknown, Verified 02/02/24 14:36) Unknown latex Allergy (Unknown, Verified 02/02/24 14:36) Unknown oxycodone [From Percocet] Allergy (Unknown, Verified 02/02/24 14:36) Unknown mylar cream Allergy (Mild, Uncoded 02/02/24 14:36) Blister Medication List - Last Reconciled 02/02/24 by Ken Herring MD albuterol sulfate 90 mcg/actuation 2 puffs inhalation Q4H PRN amitriptyline 10 - 20 mg (1 - 2 x 10 mg) PO BEDTIME 30 days cetirizine (Zyrtec) 10 mg PO DAILY PRN clonazepam 0.5 mg PO BID dextroamphetamine-amphetamine 20 mg 1 tab PO BID fluocinonide 0.05% appl topical BID galcanezumab-gnlm (Emgality Pen) 120 mg subcut ONCE 28 days ibuprofen 800 mg PO Q8H meclizine 25 mg PO BEDTIME PRN omeprazole 20 mg PO DAILY ondansetron 4 mg PO Q8H PRN riboflavin (vitamin B2) 50 mg PO DAILY rizatriptan 5 - 10 mg (0.5 - 1 x 10 mg) PO Q2H PRN 21 days HPI Comments Details: 39-year-old female with cutaneous lupus returns for follow-up. Patient states that over the last 3-4 months she was diagnosed with POTS after a positive tilt-table test and was started on propranolol. She stated that propranolol did not help her much but been having she has as well as rashes on her fingers associated with tingling, numbness, hands not feeling well. Similar symptoms affecting her feet. She has not had any digital tip ulcers. Propranolol was discontinued about a month ago. She states that she has not getting lupus rashes on her arms but they are not different from before. She has been trying to keep as warm as possible. She has been having worsening migraines and was evaluated recently by neurologist and started on Emgality with significant improvement. Has been having worsening GI issues and scheduled for a colonoscopy soon. Initial history: This is a 37-year-old female With past medical history of ADHD, anxiety, depression, post concussive syndrome, Riki-Danlos and cutaneous lupus who presents for evaluation of SLE. She stated she was diagnosed with cutaneous lupus about 10 years ago. Rashes usually start when she is exposed to the sun. She has had numerous biopsies which all showed SLE. Last of which was this past summer. He was evaluated by green building architect 10 years ago and was not started on meds. She was started on hydroxychloroquine about 10 years ago by teacher of the visually impaired and she took it for 2-3 years which reduced the frequency and severity of her cutaneous lupus. She mentions that recently she has been having more frequent rashes in the summer She had COVID about 1 year ago and she was diagnosed with long COVID over the past few months she has been having worsening upper back and neck pain, as well as sensation of things crawling on her skin as well as tingling and numbness of her extremities. As well as fatigue. She denies blood or froth in urine. She never attempted . Denies DVT/PE Over the last year she has had Raynaud's episodes usually affecting her feet more than her hands, her feet turn white then turn purplish. She rubs her feet and up put socks on and warm up time is about 10 minutes. Never had to go to the emergency room for this condition. Never developed any ulcers. She has difficulty falling and staying asleep. She has been quite anxious recently. There has been a in the family. One of her cousins of an overdose. She mentions that exercise helps her symptoms, she does hot yoga which she likes but she was was counseled to avoid yoga due to her history of Riki-Danlos [facility] Medical History POTS (postural orthostatic tachycardia syndrome) Allergic rhinitis History of ITP Riki-Danlos disease Anemia Sleep difficulties GERD (gastroesophageal reflux disease) Subacute cutaneous lupus erythematosus Insomnia Cutaneous lupus erythematosus ADHD Anxiety Post concussive syndrome Surgical History History of kidney surgery H/O wisdom tooth extraction History of ankle surgery Family History Maternal Aunt Breast cancer Acute leukemia Mother Breast cancer CAD (coronary artery disease) Lupus Congenital heart defect Osteoporosis Precancerous skin lesion Paternal Grandmother Melanoma Brain cancer Father Hypertension Graves disease Hypercholesterolemia Kidney stones Brother Hypertension Hypercholesterolemia Social History Alcohol intake: current Alcohol intake frequency: a few times a month Patient Tobacco Use Status: Never used Tobacco Substance Use Type: Marijuana 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 Review of Systems [employer] Reports tingling Skin/Breast Reports erythema and Reports rash Neuro Reports tingling Physical Exam Vital Signs: Last Vital Signs Pulse 83 02/02/24 14:46 BP 100/70 02/02/24 14:46 Pulse Ox 99 02/02/24 14:46 BMI result Body Mass Index 21.5 Const General: cooperative, healthy appearing, comfortable, no acute distress and well developed Nutritional Appearance: average body habitus Orientation/consciousness: patient oriented x3 Limitations: no limitations HEENT Head: Yes normocephalic and Yes atraumatic Resp Effort & Inspection: normal respiratory effort and able to speak in complete sentences Neuro General: patient oriented x3 Extrem Other: No synovitis today. Few fibromyalgia tender points Normal nailfold capillaroscopy of her fingers and toes On exam patient has a purplish hue to her fingertips. Fingers are cool. picture consistent with Raynaud's. No digital tip ulcers. Livedo reticularis on her ankles today Results Reviewed Results Reviewed: Laboratory Tests 05/28/22 05/28/22 05/28/22 13:00 13:00 13:00 ESR 3 Lupus Anticoag Interp see note Urine RBC Protein/Creatinin Ratio DEYA Screen SS-A/Ro Antibody SS-B/La Antibody Sm (Sarmiento) Antibody SM/JOINT YARNER IgG Antibody Scl-70 Scleroderma Ab Double Strand DNA Ab Centromere B Antibody Beta-2-GPI IgG Ab <2.0 Beta-2-GPI IgA Ab <2.0 Beta-2-GPI IgM Ab <2.0 Anti-Cardiolipin IgG Ab <2.0 Anti-Cardiolipin IgM Ab <2.0 Complement C3 Complement C4 05/28/22 05/28/22 05/28/22 13:00 13:00 13:00 ESR Lupus Anticoag Interp Urine RBC Protein/Creatinin Ratio DEYA Screen NEGATIVE SS-A/Ro Antibody <1.0 NEG SS-B/La Antibody <1.0 NEG Sm (Sarmiento) Antibody <1.0 NEG SM/JOINT YARNER IgG Antibody <1.0 NEG Scl-70 Scleroderma Ab <1.0 NEG Double Strand DNA Ab 4 Centromere B Antibody <1.0 NEG Beta-2-GPI IgG Ab Beta-2-GPI IgA Ab Beta-2-GPI IgM Ab Anti-Cardiolipin IgG Ab Anti-Cardiolipin IgM Ab Complement C3 103 Complement C4 05/28/22 05/28/22 13:30 13:30 ESR Lupus Anticoag Interp Urine RBC 3-5 H Protein/Creatinin Ratio 0.06 DEYA Screen SS-A/Ro Antibody SS-B/La Antibody Sm (Sarmiento) Antibody SM/JOINT YARNER IgG Antibody Scl-70 Scleroderma Ab Double Strand DNA Ab Centromere B Antibody Beta-2-GPI IgG Ab Beta-2-GPI IgA Ab Beta-2-GPI IgM Ab Anti-Cardiolipin IgG Ab Anti-Cardiolipin IgM Ab Complement C3 Complement C4 Assessment & Plan Assessment & Plan (1) Raynaud phenomenon: Code(s): I73.00 - Raynaud's syndrome without gangrene Category: Medical Qualifiers: Raynaud?s-associated gangrene presence: without gangrene Qualified Code(s): I73.00 - Raynaud's syndrome without gangrene Plan: This is a 39-year-old female with biopsy-proven cutaneous lupus who presents for evaluation of new symptoms. Patient was diagnosed with POTS over the last few months and started on propranolol. After propranolol was started it seems like her Raynaud's symptoms have worsened and she has been having erythematous rashes on her hands. Propranolol has been discontinued about a month ago. She has not had any digital tip ulcers. We discussed management of Raynaud's. I suggested optimizing conservative measures for Raynaud's such as keeping core and extremity temperature extra warmth. Consider using a space heaters. Wear gloves. If medication is to be considered, amlodipine can be considered, will start at 2.5 mg daily for 1 week then 5 mg daily. Fluoxetine can be considered but there is some risk of medication interaction with patient's current meds. Patient will think about it. She states that she was referred to an autonomic fisher pound net or trap in [place]. She does not have an appointment yet. Follow-up with me as needed Plan I spent 30 minutes reviewing patient's chart, evaluating patient, counseling patient and documenting in the chart Coding Level of Care Code Est Pt Level 3 (05319) Diagnoses Raynaud's phenomenon without gangrene I73.00 Raynaud?s-associated gangrene presence: without gangrene
[2024-02-02 14:46] VITALS: BP 100/70; PULSE 83; O2SAT 99; BMI 21.5
== END 2024-02-02 15:26 | disposition home or self-care (01) ==
PROVIDERS: PCP Family Medicine; Visit Provider Student in an Organized Health Care Education/Training Program
DX: I73.00 Raynaud's syndrome without gangrene (principal)
CPT/HCPCS: 99213

== ENCOUNTER → 2024-02-02 14:20 | Outpatient (BNVA) | payer OTHER, SELFPAY | PROVIDERS: PCP Family Medicine; Visit Provider Student in an Organized Health Care Education/Training Program | DX: I73.00 Raynaud's syndrome without gangrene (principal); G90.A Postural orthostatic tachycardia syndrome [POTS] | CPT/HCPCS: 99212 ==

== ENCOUNTER 2024-05-10 09:32 | Outpatient (AMB) | payer OTHER, SELFPAY ==
--- NOTE | 2024-05-10 09:32 | MHC.OFFVIS ---
Intake Visit Reasons: Follow up migraines Intake Note: patient presents for follow up Allergies acetaminophen [From Percocet] Allergy (Unknown, Verified 05/10/24 09:33) Unknown latex Allergy (Unknown, Verified 05/10/24 09:33) Unknown oxycodone [From Percocet] Allergy (Unknown, Verified 05/10/24 09:33) Unknown mylar cream Allergy (Mild, Uncoded 05/10/24 09:33) Blister Medication List - Last Reconciled 05/10/24 by ALEXIS Fairchild albuterol sulfate 90 mcg/actuation 2 puffs inhalation Q4H PRN amitriptyline 10 - 20 mg (1 - 2 x 10 mg) PO BEDTIME 30 days cetirizine (Zyrtec) 10 mg PO DAILY PRN clonazepam 0.5 mg PO BID dextroamphetamine-amphetamine 20 mg 1 tab PO BID fluocinonide 0.05% appl topical BID gabapentin 300 mg PO BEDTIME galcanezumab-gnlm (Emgality Pen) 120 mg subcut ONCE 28 days ibuprofen 800 mg PO Q8H meclizine 25 mg PO BEDTIME PRN omeprazole 20 mg PO DAILY ondansetron 4 mg PO Q8H PRN riboflavin (vitamin B2) 50 mg PO DAILY rizatriptan 5 - 10 mg (0.5 - 1 x 10 mg) PO Q2H PRN 21 days HPI Comments Details: 39-yr-old female presents for f/u [facility] visit via [facility]. Pt reports she had CT s/s yrs ago, which were treated. Then a few months ago, she started having increased BUE, R > L, increased hand moving up into her elbows, which includes coldness, numbness, tingling, and seeing small white dots on her fingers. She was having a scraping sensation in her toes and fingertips, maybe like tiny blisters or rash- this did worsen on Propranolol and then improved some after stopping Propranolol. She wonders if some of this sensation is d/t using her hands slightly differently due to the numbness. She feels like her hands and arms feel . She wakes up w/ her hands numb. She states yesterday she had difficulty opening a bag of chips. She has to keep cracking her arms. Since these s/s started, she has seen molecular geneticist- dx'd her w/ POTs, rheumatology- dx;d her w/ Raynaud's, and more recently orthopedics at [facility], who advised her to f/u w/ neuro- as they ?'d if her nerves were on overdrive . Recent BUE EMG/NCS was normal. Pt reports that her migraines are much better. She has been drinking more water, more active. But she has been having more photophobia. She has not taken her Emgality in the last few months. Has not needed to take the Rizatriptan often. She was going to take Rizatriptan twice last week, but was driving and was worried she could have side effects. Thinks her migraines have been worse when her menstrual cycle is worse, but this has also been better. Baseline headache characteristics: Severe, aching and throbbing and tightness- some stabbing starts in bi-temporal region and moves up into bifrontal region and up into crown of the head. A/w blurred vision, photophobia, phonophobia, nausea, vomiting, not right in space dizziness, brain fog, fatigue, generalized, red eyes (more so on left), BUE hands and forearms pins and needles. She has noticed more left facial asymmetry. Prodrome symptoms of feels more body tension and congestion. She is noticing a bit more forgetfulness, prone to trailing off when speaking. She feels her speech is more articulate than after the concussion. She is still prone to spacing out. She may be doing everything or nothing at all. 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 [facility] Medical History (Updated 05/10/24 @ 10:10 by ALEXIS Fairchild) POTS (postural orthostatic tachycardia syndrome) Allergic rhinitis History of ITP Riki-Danlos disease Anemia Sleep difficulties GERD (gastroesophageal reflux disease) Subacute cutaneous lupus erythematosus Insomnia Cutaneous lupus erythematosus ADHD Anxiety Post concussive syndrome Surgical History (Updated 05/10/24 @ 09:35 by KENNY Davis) Hx of colonoscopy History of kidney surgery H/O wisdom tooth extraction History of ankle surgery Family History Maternal Aunt Breast cancer Acute leukemia Mother Breast cancer CAD (coronary artery disease) Lupus Congenital heart defect Osteoporosis Precancerous skin lesion Paternal Grandmother Melanoma Brain cancer Father Hypertension Graves disease Hypercholesterolemia Kidney stones Brother Hypertension Hypercholesterolemia Social History Alcohol intake: current Alcohol intake frequency: a few times a month Patient Tobacco Use Status: Never used Tobacco Substance Use Type: Marijuana 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 Physical Exam Const General: cooperative and no acute distress Orientation/consciousness: patient oriented x3 Resp Effort & Inspection: normal respiratory effort and able to speak in complete sentences Neuro General: patient oriented x3 Cognition (Neuro): normal cognition Psych Appearance: grossly normal Mental Status: mental status grossly normal Speech and movement: Normal speech and movement present Affect: normal affect Attitude: cooperative Telehealth Telehealth Telehealth Platform: [facility]adi Location of provider rendering services: practice address Location of patient: address on file Patient Identification confirmed using: Name, : Yes Telehealth method: video Patient verbally consented to treatment: Yes Patient verbally consented to billing insurance company: Yes Patient informed of any privacy concerns related to visit: Yes Minutes spent on Phone/Video with Pt.: 30 Assessment & Plan Assessment & Plan (1) Paresthesia of both hands: Code(s): R20.2 - Paresthesia of skin Category: Medical (2) Raynaud phenomenon: Code(s): I73.00 - Raynaud's syndrome without gangrene Category: Medical Qualifiers: Raynaud?s-associated gangrene presence: without gangrene Qualified Code(s): I73.00 - Raynaud's syndrome without gangrene (3) Post concussive syndrome: Code(s): F07.81 - Postconcussional syndrome Category: Medical (4) Migraine with aura: Code(s): G43.109 - Migraine with aura, not intractable, without status migrainosus Category: Medical Plan For hand coldness and paresthesias: Reviewed labs- WNL. Tilt-table- read as normal. EEG- normal. Head CT- normal. Sleep study- mild KRANTHI. Pt returned CPAP- not tolerated. Pt stopped propranolol- helped POTs s/s but appears to have worsened Raynaud's symptoms. Discussed low suspicion, but possible that Emgality along w/ Propranol may have exacerbated her Raynaud's s/s- it will take a full 5 months for Emgality to clear from her system. Trial nifedipine 10mg cap- 1 cap qhs x's 2 weeks, then 1 cap bid x's 2 weeks, then 1 cap tid- in hopes this helps BUE paresthesias. Monitor for OH. Increase fluids, salt, electrolytes, sports drinks etc. F/u w/ molecular geneticist as scheduled. Future considerations: Brain MRI. For post-concussive cognitive difficulties: DISPATCHER REFINERY eval & tx for cognitive tx. ? For acute headache treatment: Rizatriptan 10mg tab, 1/2 - 1 tab (5-10mg) at onset of headache, may repeat in 2 hours. Max of 2 tabs (200mg) per 24 hours. May adjunct with OTC Tylenol 650mg q 4 hours, Ibuprofen (liquigel) 600mg q 6 hours, or Naproxen (liquigel) 440mg q 12 hrs prn. Nerivio qd prn- when available Previous acute migraine medication trials: Sinus headache tabs. Sumatriptan- worked but not tolerated. Acute migraine medication contraindications: None at this time ? For headache prevention medication: Continue Riboflavin- take 400mg every am Continue Magnesium- goal is 400mg qhs May continue to hold Emgality 120mg. Previous migraine prevention medication trials: Venlafaxine ER 37.5mg- not tolerated caused N/V. Amitriptyline 20mg qhs- ineffective. Venlafaxine ER 37.5mg qd- not tolerated. Migraine prevention medication contraindications: BBs d/t h/o asthma. Topiramate d/t h/o kidney stones. Aimovig d/t h/o Raynaud's. Future considerations: Botox. ? f/u in 6 months or sooner prn. Orders: Referrals Speech and Hearing Referral F07.81 - Postconcussional syndrome, R41.89 - Other symptoms and signs involving cognitive functions and awareness Medications: New nifedipine 1 cap qhs x's 2 weeks, then 1 cap bid x's 2 weeks,then 1 cap tid orally .; 90 caps 3RF 30 days I73.00 - Raynaud's syndrome without gangrene Coding Level of Care Code Tele Est Pt Level 4 (79674) Diagnoses Paresthesia of both hands R20.2 Raynaud's phenomenon without gangrene I73.00 Raynaud?s-associated gangrene presence: without gangrene Post concussive syndrome F07.81 Migraine with aura G43.109
--- OUTSIDE RECORDS SUMMARY | 2024-05-10 09:34 | XMS_ITS | Continuity of Care Document ---
Author Organization [facility] Address [address] [place] [address]- Care Team Providers Care Lens Mounter Name Role Phone Gian Andrade MD Primary Care Physician Encounter [facility] [place] Date(s): 10/13/20 - 11/12/20 [facility] [address] [place] [address]- Allergies, Adverse Reactions, Alerts Substance Reaction Severity Status Latex Active Percocet 325 Active Immunizations Given and Recorded Vaccine Date Status Refusal Reason tetanus/diphtheria/pertussis, acel(Tdap) 08/30/16 Given influenza virus vaccine, inactivated 1 07/01/16 Re corded 1Location History: Employee health Medications albuterol 0.083% inhalation solution 3 mL = 2.5 mg, Inhalation, Every 4 hours, PRN asthma, # 360 mL, 2 Refills, Maintenance, 12/10/19 14:54:00 EDT, Solution, [facility], 160, cm, 10/31/19 10:52:00 EST, Height Start Date: 12/10/19 Status: Ordered albuterol 90 mcg/inh inhalation powder 2 puffs, Inhalation, Every 4 hours, PRN Wheezing/Shortness of Breath, # 1 each, 1 Refills, Maintenance, 12/11/19 9:37:00 EDT, Powder, [facility], 2 puffs Inhalation Every 4 hours,PRN:Wheezing/Shortness of Breath, 160, cm, 10/31/19 10:52:00 EST... Start Date: 12/11/19 Status: Ordered amphetamine-dextroamphetamine 20 mg oral tablet 1 tablet = 20 mg, By Mouth, 2 times a day, masspat checked may fill for less, # 56 tablet, 0 Refills, Maintenance, 11/12/20 13:31:00 EST, Tablet, [facility]/pharmacy #2024, 1 tablet By Mouth 2 times a day,x28 days,Instr:masspat checked ; may fill for less,... Start Date: 11/12/20 Stop Date: 12/10/20 Status: Ordered busPIRone 10 mg oral tablet 10 mg, 1, tablet, By Mouth, 2 times a day, # 180 tablet, Refills 1, Tot. Refills 1, Soft Stop, 09/02/20 8:17:00 EST, Route to Pharmacy Electronically, [facility]/pharmacy #2024, 160, cm, 07/30/20 9:37:00 EST, Height, 49.9, kg, 02/07/20 10:53:00 EDT, Dry Weight Start Date: 09/02/20 Status: Ordered cyclobenzaprine 10 mg oral tablet 10 mg, 1, tablet, By Mouth, 2 times a day, PRN, # 30 tablet, Refills 1, Tot. Refills 1, Maintenance, for spasm, 01/14/21 9:27:00 EDT, Route to Pharmacy Electronically, [facility]/pharmacy #2024, 160, cm, 02/07/20 10:53:00 EDT, Height, 49.9, kg, 02/07/20 10:5... Start Date: 01/14/21 Status: Ordered cyclobenzaprine 10 mg oral tablet 10 mg, 1, tablet, By Mouth, 2 times a day, PRN, # 30 tablet, Refills 1, Tot. Refills 1, Acute 01/14/21 9:27:00 EDT, for spasm, 01/15/20 9:27:00 EDT, Route to Pharmacy Electronically, [facility]/pharmacy #2024, 160, cm, 01/09/20 9:04:00 EDT, Height Start Date: 01/15/20 Stop Date: 01/14/21 Status: Ordered KlonoPIN 0.5 mg oral tablet 1 tablet = 0.5 mg, By Mouth, 2 times a day, PRN Anxiety, Masspat checked 08/01/2020 May fill for less, # 60 tablet, 1 Refills, Maintenance, 08/01/20 15:29:00 EST, Tablet, [facility]/pharmacy #2024, increasing dose, 08/06/20, 160, cm, 07/30/20 9:37:00 EST, H... Start Date: 08/01/20 Status: Ordered omeprazole 20 mg oral enteric coated capsule 1 capsule = 20 mg, By Mouth, Daily, # 90 capsule, 0 Refills, Maintenance, 10/06/20 12:13:00 EST, ECCapsule, [facility]/pharmacy #2025, aware of celexa, 160, cm, 07/30/20 9:37:00 EST, Height, 49.9, kg, 02/07/20 10:53:00 EDT, Dry Weight Start Date: 10/06/20 Status: Ordered ondansetron 4 mg oral tablet, disintegrating = 4 mg, By Mouth, 3 times a day, PRN Nausea, # 60 tablet, 1 Refills, Maintenance, 03/13/20 16:39:00EDT, Tablet, [facility], 160, cm, 03/05/20 9:49:00 EDT, Height, 49.9, kg, 02/07/20 10:53:00EDT, Dry Weight Start Date: 03/13/20 Status: Ordered Plaquenil = 200 mg, By Mouth, Daily, 0 Refills, Maintenance, 10/11/16 10:18:04 Start Date: 10/11/16 Status: Ordered ZyrTEC-D 5 mg-120 mg oral tablet, extended release 1 tablet, By Mouth, 2 times a day, # 180 tablet, 1 Refills, Maintenance, 03/13/20 15:14:00 EDT, ER Tablet, [facility], 1 tablet By Mouth 2 times a day,x90 days, 160, cm, 03/05/20 9:49:00 EDT,Height, 49.9, kg, 02/07/20 10:53:00 EDT, Dry Weight Start Date: 03/13/20 Stop Date: 09/09/20 Status: Ordered Problem List Condition Effective Dates Status Health Status Inform ant Abdominal pain(Confirmed) Active Perennial allergic rhinitis(Confirmed) Active Perennial allergic rhinitis(Confirmed) Active Anemia(Confirmed) Active Chronic lower back pain(Confirmed) Active Cutaneous lupus erythematosus(Confirmed) Active Ovarian cyst(Confirmed) Active Riki-Danlos disease(Confirmed) Active History of ITP(Confirmed) Active Kidney stone(Confirmed) Active Asthma(Confirmed) Active Depression with anxiety(Confirmed) Active Small intestinal bacterial overgrowth(Confirmed) 01/06/16 Active Social History Social History Type Response Smoking Status Never smoker entered on: 04/21/15 Sex
--- OUTSIDE RECORDS SUMMARY | 2024-05-10 09:34 | XMS_ITS | Continuity of Care Document ---
Author Organization [facility] Address [address] [place] [address]- Care Team Providers Care Rn Neurosurgical Name Role Phone Gian Andrade MD Primary Care Physician [place] [facility] 01/14/22 [facility] [address] [place] [address]- Encounter Diagnosis ADD (attention deficit disorder)(Discharge Diagnosis) - 01/07/22 Benzodiazepine dependence(Discharge Diagnosis) - 01/07/22 Cutaneous lupus erythematosus(Discharge Diagnosis) - 01/07/22 Riki-Danlos disease(Discharge Diagnosis) - 01/07/22 Dizziness(Discharge Diagnosis) - 01/07/22 Insomnia(Discharge Diagnosis) - 01/07/22 Postconcussion syndrome(Discharge Diagnosis) - 01/07/22 History of COVID-19(Discharge Diagnosis) - 01/07/22 Attending Physician: Gian Andrade MD Allergies, Adverse Reactions, Alerts Substance Reaction Severity Status Latex Active Percocet Active Immunizations Given and Recorded Vaccine Date Status Refusal Reason influenza virus vaccine, inactivated 09/22/21 Michael rded influenza virus vaccine, inactivated 07/23/20 Michael rded influenza virus vaccine, inactivated 06/19/18 Michael rded influenza virus vaccine, inactivated 1 07/01/16 Re corded SARS-CoV-2 (COVID-19) mRNA BNT-162b2 vac 10/07/20 Recorded SARS-CoV-2 (COVID-19) mRNA BNT-162b2 vac 09/16/20 Recorded tetanus/diphtheria/pertussis, acel(Tdap) 08/30/16 Given 1Location History: Employee health Medications albuterol 0.083% inhalation solution 3 mL = 2.5 mg, Inhalation, Every 4 hours, PRN asthma, # 360 mL, 2 Refills, Maintenance, 12/10/19 14:54:00 EDT, Solution, [facility]/pharmacy #2025, 160, cm, 10/31/19 10:52:00 EST, Height Start Date: 12/10/19 Status: Ordered amphetamine-dextroamphetamine 20 mg oral tablet 1 tablet = 20 mg, By Mouth, 2 times a day, for 90 days, masspat checked may fill for less, # 180 tablet, 0 Refills, Hard Stop 02/02/22 15:51:00 EDT, 11/04/21 15:51:00 EST, Tablet, [facility], cm, 10/12/21 10:40:00 EST, Height, 60, kg, 0... Start Date: 11/04/21 Stop Date: 02/02/22 Status: Ordered amphetamine-dextroamphetamine 20 mg oral tablet 1 tablet = 20 mg, By Mouth, 2 times a day, masspat checked may fill for less, # 180 tablet, 0 Refills, Maintenance, 12/31/21 14:04:00 EDT, Tablet, [facility]/pharmacy #2025, 1 tablet By Mouth 2 times a day,x90 days,Instr:masspat checked ; may fill for less... Start Date: 12/31/21 Stop Date: 03/31/22 Status: Ordered busPIRone 10 mg oral tablet 10 mg, 1, tablet, By Mouth, 2 times a day, # 180 tablet, Refills 1, Tot. Refills 1, Soft Stop, 11/02/21 14:38:00 EST, Route to Pharmacy Electronically, [facility], 160, cm, 10/12/21 10:40:00 EST, Height, 60, kg, 05/29/21 10:55:00 ED... Start Date: 11/02/21 Status: Ordered cyclobenzaprine 10 mg oral tablet 10 mg, 1, tablet, By Mouth, 2 times a day, PRN, # 30 tablet, Refills 1, Tot. Refills 1, Maintenance, for spasm, 01/14/21 9:27:00 EDT, Route to Pharmacy Electronically, [facility]/pharmacy #2025, 160, cm, 02/07/20 10:53:00 EDT, Height, 49.9, kg, 02/07/20 10:5... Start Date: 01/14/21 Status: Ordered fluticasone 50 mcg/inh nasal spray 1 sprays, Nares, Both, 2 times a day, For post nasal drip, # 3 each, 1 Refills, Maintenance, 11/05/21 10:04:00 EST, [place], [facility], Partial fill upon patient request if the prescription is for a schedule II opioid drug., 1 sprays... Start Date: 11/05/21 Status: Ordered ibuprofen 800 mg oral tablet 1, tablet, By Mouth, 3 times a day, # 270 tablet, Refills 1, Tot. Refills 1, Maintenance, 04/21/21 8:59:00 EDT, Route to Pharmacy Electronically, [facility], 160, cm, 01/22/21 13:16:00 EDT, Height, 54.6, kg, 01/22/21 13:16:00 EDT, D... Start Date: 04/21/21 Status: Ordered KlonoPIN 0.5 mg oral tablet 1 tablet = 0.5 mg, By Mouth, 2 times a day, PRN Anxiety, for 90 days, Masspat checked May fill for less, # 180 tablet, 1 Refills, Hard Stop 05/02/22 14:59:00 EDT, 11/03/21 14:59:00 EST, Tablet, [facility]/pharmacy #2024, increasing dose, 160, cm, 10/12/21... Start Date: 11/03/21 Stop Date: 05/02/22 Status: Ordered KlonoPIN 0.5 mg oral tablet 1 tablet = 0.5 mg, By Mouth, 2 times a day, PRN Anxiety, Masspat checked May fill for less, # 180 tablet, 1 Refills, Maintenance, 12/31/21 14:05:00 EDT, Tablet, [facility]/pharmacy #202, increasing dose, 160, cm, 12/16/21 10:34:00 EDT, Height, 60, kg, ... Start Date: 12/31/21 Stop Date: 06/29/22 Status: Ordered meclizine 25 mg oral tablet 1 tablet = 25 mg, By Mouth, Daily at bedtime, PRN Other, take one tab po qhs prn moderate vertigo, # 8 tablet, 1 Refills, Soft Stop, 12/16/21 11:06:00 EDT, [facility]/pharmacy #2024, Partial fill upon patient request if the prescription is for a schedule II... Start Date: 12/16/21 Status: Ordered omeprazole 20 mg oral enteric coated capsule 1 capsule = 20 mg, By Mouth, Daily, # 90 capsule, 0 Refills, Maintenance, 11/02/21 10:38:00 EST, ECCapsule, [facility]/pharmacy #2024, aware of celexa, 160, cm, 10/12/21 10:40:00 EST, Height, 60, kg, 05/29/21 10:55:00 EDT, Dry Weight Start Date: 11/02/21 Status: Ordered ondansetron 4 mg oral tablet, disintegrating = 4 mg, By Mouth, 3 times a day, PRN Nausea, # 60 tablet, 1 Refills, Maintenance, 11/04/21 15:52:00EST, Tablet, [facility]/pharmacy #2024, 160, cm, 10/12/21 10:40:00 EST, Height, 60, kg, 05/29/21 10:55:00 EDT, Dry Weight Start Date: 11/04/21 Status: Ordered ZyrTEC-D 5 mg-120 mg oral tablet, extended release 1 tablet, By Mouth, 2 times a day, # 180 tablet, 1 Refills, Maintenance, 12/25/20 15:51:00 EDT, ER Tablet, [facility], 1 tablet By Mouth 2 times a day,x90 days, 160, cm, 07/30/20 9:37:00 EST, Height, 49.9, kg, 02/07/20 10:53:00 EDT,... Start Date: 12/25/20 Stop Date: 06/23/21 Status: Ordered Problem List Condition Effective Dates Status Health Status Inform ant Perennial allergic rhinitis(Confirmed) Active ADD (attention deficit disorder)(Confirmed) Active Back pain(Confirmed) Active Benzodiazepine dependence(Confirmed) Active Post-COVID syndrome(Confirmed) Active 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 History of nephrolithiasis(Confirmed) Active History of ITP(Confirmed) Active History of COVID-19(Confirmed) Active Insomnia(Confirmed) Active Postconcussion syndrome(Confirmed) Active Small intestinal bacterial overgrowth(Confirmed) 01/06/16 Active Diagnosis Diagnosis Type Effective Dates Health Status Clinical Service Informant ADD (attention deficit disorder) Discharge Diagnosis 01/07/22 Benzodiazepine dependence Discharge Diagnosis 01/07/22 Cutaneous lupus erythematosus Discharge Diagnosis 01/07/22 Riki-Danlos disease Discharge Diagnosis 01/07/22 Dizziness Discharge Diagnosis 01/07/22 Insomnia Discharge Diagnosis 01/07/22 Postconcussion syndrome Discharge Diagnosis 01/07/22 History of COVID-19 Discharge Diagnosis 01/07/22 Vital Signs Most recent to oldest [Reference Range]: 1 Height 160 cm (01/07/22 9:42 AM) Weight 58.3 kg (01/07/22 9:42 AM) Oxygen Saturation [94-100 %] 99 % (01/07/22 9:42 AM) Pulse Rate [55-90 bpm] 88 bpm (01/07/22 9:42 AM) Body Mass Index [18.5-24.99] 22.77 (01/07/22 9:42 AM) Blood Pressure [90-138/55-84 mm Hg] 110/ 78mm Hg (01/07/22 9:42 AM) Blood pressure sites Arm, left (01/07/22 9:42 AM) Weight Obtained Via Standing scale (01/07/22 9:42 AM) Social History Social History Type Response Smoking Status Never smoker entered on: 04/21/15 Sex
--- OUTSIDE RECORDS SUMMARY | 2024-05-10 09:34 | XMS_ITS | Continuity of Care Document ---
Author Organization [facility] Address [address] [place] [address]- Care Team Providers Care Patternmaker All Around Name Role Phone Gian Andrade MD Primary Care Physician Encounter [facility] [place] Date(s): 02/10/22 - 03/12/22 [facility] [address] [place] [address]- Allergies, Adverse Reactions, Alerts Substance Reaction Severity [...] Refills, Maintenance, 12/10/19 14:54:00 EDT, Solution, [facility], 160, cm, 10/31/19 10:52:00 EST, Height Start Date: 12/10/19 Status: Ordered amphetamine-dextroamphetamine 20 mg oral tablet 1 tablet = 20 mg, By Mouth, 2 times a day, masspat checked may fill for less, # 180 tablet, 0 Refills, Maintenance, 02/11/22 17:00:00 EDT, Tablet, [facility], 1 tablet By Mouth 2 times a day,x90 days,Instr:masspat checked ; january... Start Date: 02/11/22 Stop Date: 05/12/22 Status: Ordered busPIRone 10 mg oral tablet [...] 01/14/21 9:27:00 EDT, Route to Pharmacy Electronically, [facility]/pharmacy #2025, 160, cm, 02/07/20 10:53:00 EDT, Height, 49.9, kg, 02/07/20 10:5... Start Date: 01/14/21 Status: Ordered fluticasone 50 mcg/inh nasal spray 1 sprays, Nares, Both, 2 times a day, For post nasal drip, # 3 each, 1 Refills, Maintenance, 11/05/21 10:04:00 EST, [place], [facility], Partial fill upon patient request if the prescription is for a schedule II opioid drug., 1 sprays... Start Date: 11/05/21 Status: Ordered ibuprofen 800 mg oral tablet 1, tablet, By Mouth, 3 times a day, # 270 tablet, Refills 1, Tot. Refills 1, Maintenance, 04/21/21 8:59:00 EDT, Route to Pharmacy Electronically, [facility], 160, cm, 01/22/21 13:16:00 EDT, Height, 54.6, kg, 01/22/21 13:16:00 EDT, D... Start Date: 04/21/21 Status: Ordered KlonoPIN 0.5 mg oral tablet 1 tablet = 0.5 mg, By Mouth, 2 times a day, PRN Anxiety, for 90 days, Masspat checked May fill for less, # 180 tablet, 1 Refills, Hard Stop 08/10/22 17:00:00 EST, 02/11/22 17:00:00 EDT, Tablet, [facility], increasing dose, 160, cm... Start Date: 02/11/22 Stop Date: 08/10/22 Status: Ordered meclizine 25 mg oral tablet 1 tablet = 25 mg, By Mouth, Daily at bedtime, PRN Other, take one tab po qhs prn moderate vertigo, # 8 tablet, 1 Refills, Soft Stop, 12/16/21 11:06:00 EDT, [facility], Partial fill upon patient request if the prescription is for a schedule II... Start Date: 12/16/21 Status: Ordered omeprazole 20 mg oral enteric coated capsule 1 capsule = 20 mg, By Mouth, Daily, # 90 capsule, 0 Refills, Maintenance, 02/11/22 14:21:00 EDT, ECCapsule, [facility], aware of celexa, 160, cm, 01/07/22 9:42:00 EDT, Height, 60,kg, 05/29/21 10:55:00 EDT, Dry Weight Start Date: 02/11/22 Status: Ordered ondansetron 4 mg oral tablet, disintegrating = 4 mg, By Mouth, 3 times a day, PRN Nausea, TAKE ONLY NEEDED, # 120 tablet, 0 Refills, Maintenance, 02/11/22 14:20:00 EDT, Tablet, [facility], 160, cm, 01/07/22 9:42:00 EDT, Height, 60, kg, 05/29/21 10:55:00 EDT, Dry Weight Start Date: 02/11/22 Status: Ordered ZyrTEC-D 5 mg-120 mg oral [...]
--- OUTSIDE RECORDS SUMMARY | 2024-05-10 09:34 | XMS_ITS | Continuity of Care Document ---
Author Organization [facility] Address [address] [place] [address]- Care Team Providers Care Taxicab Driver Name Role Phone Gian Andrade MD Primary Care Physician Encounter [facility] Date(s): 12/16/21 - 12/23/21 [facility] [address] [place] [address]- Encounter Diagnosis Vertigo(Discharge Diagnosis) - 12/16/21 ADD (attention deficit disorder)(Discharge Diagnosis) - 12/16/21 Benzodiazepine dependence(Discharge Diagnosis) - 12/16/21 Depression with anxiety(Discharge Diagnosis) - 12/16/21 Post-COVID syndrome(Discharge Diagnosis) - 12/16/21 Attending Physician: Libra Perez NP Referring Physician: Gian Andrade MD Allergies, Adverse Reactions, Alerts Substance Reaction Severity Status Latex Active Percocet Active Immunizations Given and Recorded Vaccine Date Status Refusal Reason SARS-CoV-2 (COVID-19) mRNA BNT-162b2 vac 10/07/20 Recorded SARS-CoV-2 (COVID-19) mRNA BNT-162b2 vac 09/16/20 Recorded influenza virus vaccine, inactivated 07/23/20 Michael rded influenza virus vaccine, inactivated 06/19/18 Michael rded influenza virus vaccine, inactivated 1 07/01/16 Re corded tetanus/diphtheria/pertussis, acel(Tdap) 08/30/16 Given 1Location History: Employee [...] less, # 180 tablet, 0 Refills, Maintenance, 11/04/21 15:51:00 EST, Tablet, [facility]/pharmacy #2025, 1 tablet By Mouth 2 times a day,x90 days,Instr:masspat checked ; may fill for less... Start Date: 11/04/21 Stop Date: 02/02/22 Status: Ordered busPIRone 10 mg oral tablet [...] 01/14/21 9:27:00 EDT, Route to Pharmacy Electronically, [facility]/pharmacy #2025, 160, cm, 02/07/20 10:53:00 EDT, Height, 49.9, kg, 02/07/20 10:5... Start Date: 01/14/21 Status: Ordered fluticasone 50 mcg/inh nasal spray 1 sprays, Nares, Both, 2 times a day, For post nasal drip, # 3 each, 1 Refills, Maintenance, 11/05/21 10:04:00 EST, [place], [facility], Partial fill upon [...] less, # 180 tablet, 1 Refills, Maintenance, 11/03/21 14:59:00 EST, Tablet, [facility], increasing dose, 160, cm, 10/12/21 10:40:00 EST, Height, 60, kg, ... Start Date: 11/03/21 Stop Date: 05/02/22 Status: Ordered meclizine 25 mg oral tablet 1 tablet = 25 mg, By Mouth, Daily at bedtime, PRN Other, take one tab po qhs prn moderate vertigo, # 8 tablet, 1 Refills, Soft Stop, 12/16/21 11:06:00 EDT, [facility], Partial fill upon patient request if the prescription is for a schedule II... Start Date: 12/16/21 Status: Ordered omeprazole 20 mg oral enteric coated capsule 1 capsule = 20 mg, By Mouth, Daily, # 90 capsule, 0 Refills, Maintenance, 11/02/21 10:38:00 EST, ECCapsule, [facility], aware of celexa, 160, cm, 10/12/21 10:40:00 EST, Height, 60, kg, 05/29/21 10:55:00 EDT, Dry Weight Start Date: 11/02/21 Status: Ordered ondansetron 4 mg oral tablet, disintegrating = 4 mg, By Mouth, 3 times a day, PRN Nausea, # 60 tablet, 1 Refills, Maintenance, 11/04/21 15:52:00EST, Tablet, [facility], 160, cm, 10/12/21 10:40:00 EST, Height, 60, [...] of nephrolithiasis(Confirmed) Active History of ITP(Confirmed) Active Depression with anxiety(Confirmed) Active Encounter for well woman exa m with routine gynecological exam(Confirmed) Active Small intestinal bacterial overgrowth(Confirmed) 01/06/16 Active Diagnosis Diagnosis Type Effective Dates Health Status Clinical Service Informant Vertigo Discharge Diagnosis 12/16/21 ADD (attention deficit disorder) Discharge Diagnosis 12/16/21 Benzodiazepine dependence Discharge Diagnosis 12/16/21 Depression with anxiety Discharge Diagnosis 12/16/21 Post-COVID syndrome Discharge Diagnosis 12/16/21 Vital Signs Most recent to oldest [Reference Range]: 1 2 Height 160 cm (12/16/21 10:34 AM) 160 cm (12/16/21 10:30 AM) Weight 55.9 kg (12/16/21 10:30 AM) Oxygen Saturation [94-100 %] 96 % (12/16/21 10:30 AM) Pulse Rate [55-90 bpm] 93 bpm *H* (12/16/21 10:30 AM) Body Mass Index [18.5-24.99] 21.84 (12/16/21 10:30 AM) Blood Pressure [90-138/55-84 mm Hg] 139/ 70mm Hg *H* (12/16/21 10:30 AM) Respiratory Rate [16-30 br/min] 20 br/mi n (12/16/21 10:30 AM) Blood pressure sites Arm, left (4/6/22 10:30 AM) Social History Social History Type Response Smoking Status Never smoker entered on: 04/21/15 Sex
--- OUTSIDE RECORDS SUMMARY | 2024-05-10 09:34 | XMS_ITS | Continuity of Care Document ---
Author Organization [facility] Address [address] [place] [address]- Care Team Providers Care Admitting Office Escort Name Role Phone Gian Andrade MD Primary Care Physician Encounter [facility] Date(s): 01/22/21 - 01/29/21 [facility] [address] [place] [address]- Encounter Diagnosis Back pain(Discharge Diagnosis) - 01/22/21 Depression with anxiety(Discharge Diagnosis) - 01/22/21 ADD (attention deficit disorder)(Discharge Diagnosis) - 01/22/21 Benzodiazepine dependence(Discharge Diagnosis) - 01/22/21 Attending Physician: Gian Andrade MD Allergies, Adverse [...] 1 Refills, Maintenance, 12/11/19 9:37:00 EDT, Powder, [facility]/pharmacy #2024, 2 puffs Inhalation Every 4 hours,PRN:Wheezing/Shortness of Breath, 160, cm, 10/31/19 10:52:00 EST... Start Date: 12/11/19 Status: Ordered amphetamine-dextroamphetamine 20 mg oral tablet 1 tablet = 20 mg, By Mouth, 2 times a day, masspat checked may fill for less, # 56 tablet, 0 Refills, Maintenance, 12/17/20 15:58:00 EDT, Tablet, [facility]/pharmacy #2024, 1 tablet By Mouth 2 times a day,x28 days,Instr:masspat checked ; may fill for less,... Start Date: 12/17/20 Stop Date: 01/14/21 Status: Ordered busPIRone 10 mg oral tablet 10 mg, 1, tablet, By Mouth, 2 times a day, # 180 tablet, Refills 1, Tot. Refills 1, Soft Stop, 12/25/20 11:32:00 EDT, Route to Pharmacy Electronically, [facility], 160, cm, 07/30/20 9:37:00 EST, Height, 49.9, kg, 02/07/20 10:53:00 E... Start Date: 12/25/20 Status: Ordered cyclobenzaprine 10 mg oral tablet 10 mg, 1, tablet, By Mouth, 2 times a day, PRN, # 30 tablet, Refills 1, Tot. Refills 1, Maintenance, for spasm, 01/14/21 9:27:00 EDT, Route to Pharmacy Electronically, [facility]/pharmacy #202, 160, cm, 02/07/20 10:53:00 EDT, Height, 49.9, kg, 02/07/20 10:5... Start Date: 01/14/21 Status: Ordered KlonoPIN 0.5 mg oral tablet 1 tablet = 0.5 mg, By Mouth, 2 times a day, PRN Anxiety, Masspat checked May fill for less, # 60 tablet, 1 Refills, Maintenance, 11/21/20 12:12:00 EST, Tablet, [facility]/pharmacy #2024, increasing dose, 160, cm, 07/30/20 9:37:00 EST, Height, 49.9, kg, ... Start Date: 11/21/20 Status: Ordered omeprazole 20 mg oral enteric coated capsule 1 capsule = 20 mg, By Mouth, Daily, # 90 capsule, 0 Refills, Maintenance, 12/29/20 13:29:00 EDT, ECCapsule, [facility]/pharmacy #202, aware of celexa, 160, cm, 07/30/20 9:37:00 EST, Height, 49.9, kg, 02/07/20 10:53:00 EDT, Dry Weight Start Date: 12/29/20 Status: Ordered ondansetron 4 mg oral tablet, disintegrating = 4 mg, By Mouth, 3 times a day, PRN Nausea, # 60 tablet, 1 Refills, Maintenance, 12/31/20 14:47:00EDT, Tablet, [facility]/pharmacy #2024, 160, cm, 07/30/20 9:37:00 EST, Height, 49.9, kg, 02/07/20 10:53:00EDT, Dry Weight Start Date: 12/31/20 Status: Ordered ZyrTEC-D 5 mg-120 mg oral [...] Active Back pain(Confirmed) Active Benzodiazepine dependence(Confirmed) Active 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 History of nephrolithiasis(Confirmed) Active History of ITP(Confirmed) Active Depression with anxiety(Confirmed) Active Encounter for well woman exa m with routine gynecological exam(Confirmed) Active Small intestinal bacterial overgrowth(Confirmed) 01/06/16 Active Diagnosis Diagnosis Type Effective Dates Health Status Clinical Service Informant Depression with anxiety Discharge Diagnosis 01/22/21 ADD (attention deficit disorder) Discharge Diagnosis 01/22/21 Back pain Discharge Diagnosis 01/22/21 Benzodiazepine dependence Discharge Diagnosis 01/22/21 Vital Signs Most recent to oldest [Reference Range]: 1 Height 160 cm (01/22/21 11:13 AM) Pulse Rate [55-90 bpm] 92 bpm *H* (01/22/21 11:13 AM) Blood Pressure [90-138/55-84 mm Hg] 120/ 77mm Hg (01/22/21 11:13 AM) Blood pressure sites Arm, left (01/22/21 11:13 AM) Social History Social History Type Response Smoking Status Never smoker entered on: 04/21/15 Sex
--- OUTSIDE RECORDS SUMMARY | 2024-05-10 09:34 | XMS_ITS | Continuity of Care Document ---
Author Organization [facility] Address [address] [place] [address]- Care Team Providers Care Bankman Name Role Phone Lupe EL, Gian Lincoln Primary Care Physician Encounter [facility] Date(s): 07/29/20 - 08/28/20 [facility] [address] [place] [address]- Allergies, Adverse Reactions, Alerts Substance Reaction Severity [...] Refills, Maintenance, 12/11/19 9:37:00 EDT, Powder, [facility], 2 puffs Inhalation Every 4 hours,PRN:Wheezing/Shortness of Breath, 160, cm, 10/31/19 10:52:00 EST... Start Date: 12/11/19 Status: Ordered amphetamine-dextroamphetamine 20 mg oral tablet 1 tablet = 20 mg, By Mouth, 2 times a day, masspat checked 08/27/2020 may fill for less, # 56 tablet, 0 Refills, Maintenance, 08/28/20 14:11:00 EST, Tablet, [facility]/pharmacy #2024, 1 tablet By Mouth 2 times a day,x28 days,Instr:masspat checked 08/27/2020... Start Date: 08/28/20 Stop Date: 09/25/20 Status: Ordered busPIRone 10 mg oral tablet See Instructions, TAKE 1 TABLET BY MOUTH TWICE A DAY, # 180 tablet, Refills 3, Tot. Refills 3, SoftStop, 07/06/19 14:25:16 EDT, Instructions Replace Required Details, Route to Pharmacy Electronically, [id number], [facility] Start Date: 07/06/19 Status: Ordered cyclobenzaprine 10 mg oral tablet 10 mg, 1, tablet, By Mouth, 2 times a day, PRN, # 30 tablet, Refills 1, Tot. Refills 1, Maintenance, for spasm, 01/14/21 9:27:00 EDT, Route to Pharmacy Electronically, [facility]/pharmacy #2024, 160, cm, 02/07/20 10:53:00 EDT, Height, 49.9, kg, 02/07/20 10:5... Start Date: 01/14/21 Status: Ordered cyclobenzaprine 10 mg oral tablet 10 mg, 1, tablet, By Mouth, 2 times a day, PRN, # 30 tablet, Refills 1, Tot. Refills 1, Acute 01/14/21 9:27:00 EDT, for spasm, 01/15/20 9:27:00 EDT, Route to Pharmacy Electronically, [facility]/pharmacy #2024, 160, cm, 01/09/20 9:04:00 EDT, Height Start Date: 01/15/20 Stop Date: 01/14/21 Status: Ordered KlonoPIN 0.5 mg oral tablet 1 tablet = 0.5 mg, By Mouth, 2 times a day, PRN Anxiety, Masspat checked 08/01/2020 May fill for less, # 60 tablet, 1 Refills, Maintenance, 08/01/20 15:29:00 EST, Tablet, [facility]/pharmacy #2024, increasing dose, 08/06/20, 160, cm, 07/30/20 9:37:00 EST, H... Start Date: 08/01/20 Status: Ordered omeprazole 20 mg oral enteric coated capsule 1 capsule = 20 mg, By Mouth, Daily, # 90 capsule, 1 Refills, Maintenance, 12/10/19 14:55:00 EDT, ECCapsule, [facility], aware of celexa, 160, cm, 10/31/19 10:52:00 EST, Height Start Date: 12/10/19 Status: Ordered ondansetron 4 mg oral tablet, [...] Maintenance, 03/13/20 15:14:00 EDT, ER Tablet, [facility], 1 tablet By Mouth 2 times [...]
--- OUTSIDE RECORDS SUMMARY | 2024-05-10 09:34 | XMS_ITS | Continuity of Care Document ---
Author Organization [facility] Address [address] [place] [id number]- Care Team Providers Care Internal Communications Specialist Name Role Phone Gian Andrade MD Primary Care Physician Encounter [facility] Date(s): 03/27/24 - 04/26/[address] [address]- Allergies, Adverse Reactions, Alerts Substance Reaction Severity Status lidocaine-prilocaine topical Eruption Active Percocet 5/325 Active Latex Active Immunizations Given and Recorded Vaccine Date [...] mg, By Mouth, 2 times a day, Masspat checked DNF 04/08/2024, # 56 tablet, 0 Refills, Maintenance, 03/30/24 16:39:00 EDT, Tablet, [facility], Ok to fill early, Masspat checked , Patient may fill for less, 1 tablet By Mouth 2 time... Start Date: 03/30/24 Stop Date: 04/27/24 Status: Ordered clonazePAM 0.5 mg oral tablet 1 tablet = 0.5 mg, By Mouth, 2 times a day, PRN Anxiety, # 60 tablet, 1 Refills, Maintenance, 04/13/24 15:16:00 EDT, Tablet, [facility]/pharmacy #202, Partial fill upon patient request if the prescription is for a schedule II opioid drug., 160, cm, 03/28/24... Start Date: 04/13/24 Status: Ordered cyclobenzaprine 10 mg oral tablet 1, tablet, By Mouth, 2 times a day, PRN, # 30 tablet, Refills 1, Maintenance, NEEDED FOR SPASMS,FOR, 01/24/24 8:14:00 EDT, Route to Pharmacy Electronically, [id number], 158, cm, 01/03/24 14:54:00 EDT, Height, 56.3, kg, 08/25/23 14:33:00 EST, D... Start Date: 01/24/24 Stop Date: 02/08/24 Status: Ordered Emgality 0 Refills, Maintenance, 04/19/23 15:48:00 EDT, Partial fill upon patient request if the prescription is for a schedule II opioid drug. Start Date: 04/19/23 Status: Ordered fluticasone 50 mcg/inh nasal spray 1 sprays, Nares, Both, 2 times a day, For post nasal drip, # 3 each, 1 Refills, Maintenance, 11/05/21 10:04:00 EST, [place], [facility], Partial fill upon patient request if the prescription is for a schedule II opioid drug., 1 sprays... Start Date: 11/05/21 Status: Ordered gabapentin 300 mg oral capsule 300 mg, 1, capsule, By Mouth, Daily at bedtime, # 30 capsule, Refills 0, Tot. Refills 0, Maintenance, 02/15/24 16:16:00 EDT, Route to Pharmacy Electronically, [facility]/pharmacy #2024, Partial fill upon patient request if the prescription is for a schedule... Start Date: 02/15/24 Status: Ordered meclizine 25 mg oral tablet 1 tablet = 25 mg, By Mouth, Daily at bedtime, PRN Other, take one tab po qhs prn moderate vertigo, # 8 tablet, 1 Refills, Soft Stop, 12/16/21 11:06:00 EDT, [facility]/pharmacy #2025, Partial fill upon patient request if the prescription is for a schedule II... Start Date: 12/16/21 Status: Ordered ondansetron 4 mg oral tablet, disintegrating = 4 mg, By Mouth, 3 times a day, PRN Nausea, TAKE ONLY NEEDED, # 120 tablet, 0 Refills, Maintenance, 02/11/22 14:20:00 EDT, Tablet, [facility], 160, cm, 01/07/22 9:42:00 EDT, Height, 60, kg, 05/29/21 10:55:00 EDT, Dry Weight Start Date: 02/11/22 Status: Ordered propranolol 10 mg oral tablet 1, tablet, By Mouth, 3 times a day, # 270 tablet, Refills 1, Maintenance, 02/07/24 8:11:00 EDT, Route to [facility]acy Electronically, [id number], 158, cm, 01/03/24 14:54:00 EDT, Height, 56.3, kg, 08/25/23 14:33:00 EST, Dry Weight Start Date: 02/07/24 Status: Ordered rizatriptan 10 mg oral tablet 0 Refills, Maintenance, 09/23/23 12:44:00 EST, Partial fill upon patient request if the prescription is for a schedule II opioid drug. Start Date: 09/23/23 Status: Ordered Vitamin B2 By Mouth, Daily, 0 Refills, Maintenance, 09/23/23 12:43:00 EST, Partial fill upon patient request if the prescription is for a schedule II opioid drug. Start Date: 09/23/23 Status: Ordered ZyrTEC-D 5 mg-120 mg oral tablet, extended release 1 tablet, By Mouth, 2 times a day, for 90 days, # 180 tablet, 1 Refills, Hard Stop 10/15/24 14:59:00 EST, 04/18/24 14:59:00 EDT, ER Tablet, [facility]/pharmacy #2025, 1 tablet By Mouth 2 times a day,x90 days, 160, cm, 03/28/24 10:28:00 EDT, Height, 52.7, kg,... Start Date: 04/18/24 Stop Date: 10/15/24 Status: Ordered ZyrTEC-D 5 mg-120 mg oral tablet, extended release 1 tablet, By Mouth, 2 times a day, # 180 tablet, 1 Refills, Maintenance, 12/25/23 14:07:00 EDT, ER Tablet, [facility], 1 tablet By Mouth 2 times a day,x90 days, 160, cm, 06/30/23 14:20:00 EDT, Height Start Date: 12/25/23 Stop Date: 06/22/24 Status: Ordered Problem List Condition Confirmation Course Effective Dates Status H ealth Status Informant Perennial allergic rhinitis Confirmed Active Anxiety Confirmed Active ADD (attention deficit disorder) Confirmed Active Back pain Confirmed Active Benzodiazepine dependence Confirmed Active Chronic insomnia Confirmed Active Post-COVID syndrome Confirmed Active Cutaneous lupus erythematosus Confirmed Active Dysmenorrhea Confirmed Active Riki-Danlos disease Confirmed Active Family history of breast cancer Confirmed Active History of nephrolithiasis Confirmed Active History of ITP Confirmed Active History of COVID-19 Confirmed Active Postconcussion syndrome Confirmed Active RLS (restless legs syndrome) Confirmed Active Social History Social History Type Response Smoking Status Never smoker entered on: 04/21/15 Sex Patient Care team information Care Team Personnel Name: Gian Andrade MD Position: [facility] Physician - Primary Care Member Role: PCP Address: Address: [address] [place] [id number] Name: Delfino Barber RN Position: [facility] RN Member Role: Primary Care Nurse Care Team Related Persons Name: VERONICA ANDREWS Address: [address] [place] [address] Name: KEY OVALLE Address: [address] [place], [place] Name: ALCON BAIG Address[address] [place] [address]
--- OUTSIDE RECORDS SUMMARY | 2024-05-10 09:34 | XMS_ITS | Continuity of Care Document ---
Author Organization [facility] Address [address] [place] [address]- Care Team Providers Care Highway Painter Helper Name Role Phone Gian Andrade MD Primary Care Physician Encounter 08/18/23 - 08/25/23 [facility] [address], [address] [place] [address]- Attending Physician: Negra Robbins MD Admitting Physician: Negra Robbins MD Referring Physician: Negra Robbins MD Allergies, Adverse Reactions, Alerts Substance Reaction Severity Status lidocaine-prilocaine topical Eruption Active Latex Active Percocet 5/325 Active Immunizations Given and Recorded Vaccine Date [...] PRN Wheezing/Shortness of Breath, # 1 each, 11 Refills, Maintenance, 08/10/21 10:44:00 EST, Powder, [facility]/pharmacy #2024, 2 puffs Inhalation Every 4 hours,PRN:Wheezing/Shortness of Breath, 160, cm, 08/10/21 9:23:00 ES... Start Date: 08/10/21 Status: Ordered amiTRIPTYLINE By Mouth, Daily at bedtime, 0 Refills, Maintenance, 10/26/22 8:56:00 EST, Partial fill upon patientrequest if the prescription is for a schedule II opioid drug. Start Date: 10/26/22 Status: Ordered amphetamine-dextroamphetamine 20 mg oral tablet 1 tablet = 20 mg, By Mouth, 2 times a day, Masspat checked DNF 08/19/2023, # 56 tablet, 0 Refills, Maintenance, 08/09/23 10:59:00 EST, Tablet, [facility]/pharmacy #2024, Ok to fill early, Masspat checked , Patient may fill for less, 1 tablet By Mouth 2 time... Start Date: 08/09/23 Stop Date: 09/06/23 Status: Ordered cyclobenzaprine 10 mg oral tablet 1, tablet, By Mouth, 2 times a day, PRN, TAKE ONLY NEEDED FOR SPASMS, # 30 tablet, Refills 1, Tot. Refills 1, Maintenance, NEEDED FOR SPASMS, 06/28/23 14:05:00 EDT, Route to Pharmacy Electronically, [facility]/pharmacy #2024, 160, cm, 05/25/23 16:00:00... Start Date: 06/28/23 Stop Date: 07/28/23 Status: Ordered Emgality 0 Refills, Maintenance, 04/19/23 15:48:00 EDT, Partial fill upon patient request if the prescription is for a schedule II opioid drug. Start Date: 04/19/23 Status: Ordered fluticasone 50 mcg/inh nasal spray 1 sprays, Nares, Both, 2 times a day, For post nasal drip, # 3 each, 1 Refills, Maintenance, 11/05/21 10:04:00 EST, [place], [facility], Partial fill upon [...] 2 times a day, PRN Anxiety, for 30 days, Masspat checked May fill for less, # 60 tablet, 1 Refills, Hard Stop 08/27/23 15:43:00 EST, 06/28/23 15:43:00 EDT, Tablet, [facility]/pharmacy #2024, increasing dose, 160, cm, 05/25/23 1... Start Date: 06/28/23 Stop Date: 08/27/23 Status: Ordered KlonoPIN 0.5 mg oral tablet 1 tablet = 0.5 mg, By Mouth, 2 times a day, PRN Anxiety, for 30 days, Masspat checked May fill for less, # 60 tablet, 1 Refills, Hard Stop 08/29/23 14:42:00 EST, 06/30/23 14:42:00 EDT, Tablet, [facility]/pharmacy #2024, increasing dose, 160, cm, 06/30/23 1... Start Date: 06/30/23 Stop Date: 08/29/23 Status: Ordered meclizine 25 mg oral tablet [...] 20 mg oral enteric coated capsule 1 capsule, By Mouth, Daily, # 90 capsule, 0 Refills, Maintenance, 06/08/22 5:58:00 EDT, [facility], 160, cm, 01/07/22 9:42:00 EDT, Height, 60, kg, 05/29/21 10:55:00 EDT, Dry Weight Start Date: 06/08/22 Status: Ordered ondansetron 4 mg oral tablet, [...] # 180 tablet, 1 Refills, Hard Stop 12/25/23 14:07:00 EDT, 06/28/23 14:07:00 EDT, ER Tablet, [facility], 160, cm, 05/25/23 16:00:00 EDT, Height Start Date: 06/28/23 Stop Date: 12/25/23 Status: Ordered ZyrTEC-D 5 mg-120 mg oral [...] Confirmed Active Cutaneous lupus erythematosus Confirmed Active Excessive daytime sleepiness Confirmed Active Dysmenorrhea Confirmed Active Riki-Danlos disease Confirmed Active Family history of breast cancer Confirmed Active History of nephrolithiasis Confirmed Active History of ITP Confirmed Active History of COVID-19 Confirmed Active Postconcussion syndrome Confirmed Active RLS (restless legs syndrome) Confirmed Active Results Radiology Reports * Exam Date Time Procedure Performing Provider Status 08/18/23 1:10 PM US Pelvic Transvaginal Belinda Murdock; Auth (Verified) Notes: (US Pelvic Transvaginal) Reason For Exam: Dysmenorrhea RESULT: US Pelvic Transvaginal US Pelvic Transabdominal, US Pelvic Transvaginal Reason: Dysmenorrhea. COMPARISON: CT Abdomen and Pelvis 12/28/2015. TECHNIQUE: Transabdominal and transvaginal ultrasound with grayscale and color Doppler analysis. FINDINGS: UTERUS: Size: 7.7 x 3.4 x 4.8 cm, volume 65.7 cc. Endometrial thickness: 1.3 cm. Morphology: Possible arcuate configuration with normal echotexture. RIGHT OVARY: Size: 3.5 x 3.0 x 2.0 cm, volume 11.3 cc. Morphology: Normal echotexture. Physiologic corpus luteum is visualized. No pathologic cysts or mass. Normal color Doppler appearance. LEFT OVARY: Size: 2.3 x 1.6 x 2.4 cm, volume 4.5 cc. Morphology: Normal echotexture. No pathologic cysts or mass. Normal color Doppler appearance. ADNEXA: Small amount of free fluid in the right adnexa, likely physiologic. IMPRESSION: Normal pelvic ultrasound. WSN: [id number] Ordering Physician: Negra Robbins Dictated By: Luis Bernabe MD Dictated Date/Time: 08/18/23 5:33 pm Reviewed By: Luis Bernabe MD Signed By: Luis Bernabe MD Signed Date/Time: 08/18/23 5:33 pm Transcribed By: GINA Transcribed Date/Time: 08/18/23 3:48 pm * Exam Date Time Procedure Performing Provider Status 08/18/23 1:10 PM US Pelvic Transabdominal Harsh Murdock a; Auth (Verified) Notes: (US Pelvic Transabdominal) Reason For Exam: Dysmenorrhea RESULT: US Pelvic Transabdominal US Pelvic Transabdominal, US Pelvic Transvaginal Reason: Dysmenorrhea. COMPARISON: CT Abdomen and Pelvis 12/28/2015. TECHNIQUE: Transabdominal and transvaginal ultrasound with grayscale and color Doppler analysis. FINDINGS: UTERUS: Size: 7.7 x 3.4 x 4.8 cm, volume 65.7 cc. Endometrial thickness: 1.3 cm. Morphology: Possible arcuate configuration with normal echotexture. RIGHT OVARY: Size: 3.5 x 3.0 x 2.0 cm, volume 11.3 cc. Morphology: Normal echotexture. Physiologic corpus luteum is visualized. No pathologic cysts or mass. Normal color Doppler appearance. LEFT OVARY: Size: 2.3 x 1.6 x 2.4 cm, volume 4.5 cc. Morphology: Normal echotexture. No pathologic cysts or mass. Normal color Doppler appearance. ADNEXA: Small amount of free fluid in the right adnexa, likely physiologic. IMPRESSION: Normal pelvic ultrasound. WSN: [id number] Ordering Physician: Negra Robbins Dictated By: Luis Bernabe MD Dictated Date/Time: 08/18/23 5:33 pm Reviewed By: Luis Bernabe MD Signed By: Luis Bernabe MD Signed Date/Time: 08/18/23 5:33 pm Transcribed By: GINA Transcribed Date/Time: 08/18/23 3:48 pm Social History Social History Type Response Smoking Status Never smoker entered on: 04/21/15 Sex Patient Care team information Care Team Personnel Name: Gian Andrade MD Position: [facility] Physician - Primary Care Member Role: PCP Address: Address: [address] [place] [address] Name: Delfino Barber RN Position: [facility] RN Member Role: Primary Care Nurse Name: Negra Robbins MD Position: [facility] DIGITAL ASSOCIATE MEDIA DIRECTOR MD Med Service: Vascular Surgery Member Role: Referring Physician Address: Address: [address] [place] [address] Women's Health Dehydrator Operator - [address] Care Team Related Persons Name: VERONICA ANDREWS Address: [address] [place] [address] Name: KEY OVALLE Address: [address] [place] [address] Name: ALCON BAIG Address: [address] [place] [address]
--- OUTSIDE RECORDS SUMMARY | 2024-05-10 09:34 | XMS_ITS | Continuity of Care Document ---
Author Organization [facility] Address [address] [place] [address]- Care Team Providers Care Services Host Name Role Phone Gian Andrade MD Primary Care Physician Encounter [facility] Date(s): 03/29/24 - 04/28/24 [facility] [address] [place] [address]- Allergies, Adverse Reactions, Alerts Substance Reaction Severity Status lidocaine-prilocaine topical Eruption Active Percocet 325 Active Latex Active Immunizations Given and Recorded [...] Refills, Maintenance, 12/10/19 14:54:00 EDT, [facility], [facility] 160, cm, 10/31/19 10:52:00 EST, Height Start Date: 12/10/19 Status: Ordered amphetamine-dextroamphetamine 20 mg oral tablet 1 tablet = 20 mg, By Mouth, 2 times a day, Masspat checked DNF 04/08/2024, # 56 tablet, 0 Refills, Maintenance, 03/30/24 16:39:00 EDT, Tablet, [facility]/pharmacy #2025, Ok to fill early, Masspat checked , Patient may fill for less, 1 tablet By Mouth 2 time... Start Date: 03/30/24 Stop Date: 04/27/24 Status: Ordered clonazePAM 0.5 mg oral tablet 1 tablet = 0.5 mg, By Mouth, 2 times a day, PRN Anxiety, # 60 tablet, 1 Refills, Maintenance, 04/13/24 15:16:00 EDT, Tablet, [facility]/pharmacy #202, Partial fill upon patient request if the prescription is for a schedule II opioid drug., 160, cm, 03/28/24... Start Date: 04/13/24 Status: Ordered cyclobenzaprine 10 mg oral tablet 1, tablet, By Mouth, 2 times a day, PRN, # 30 tablet, Refills 1, Maintenance, NEEDED FOR SPASMS,FOR, 01/24/24 8:14:00 EDT, Route to Pharmacy Electronically, [id number], 158, cm, 01/03/24 14:54:00 EDT, Height, 56.3, [...] each, 1 Refills, Maintenance, 11/05/21 10:04:00 EST, [place], [facility], Partial fill upon patient request if the prescription is for a schedule II opioid drug., 1 sprays... Start Date: 11/05/21 Status: Ordered gabapentin 300 mg oral capsule 300 mg, 1, capsule, By Mouth, Daily at bedtime, # 30 capsule, Refills 0, Tot. Refills 0, Maintenance, 02/15/24 16:16:00 EDT, Route to Pharmacy Electronically, [facility]/pharmacy #2024, Partial fill upon patient request if the prescription is for a schedule... Start Date: 02/15/24 Status: Ordered meclizine 25 mg oral tablet 1 tablet = 25 mg, By Mouth, Daily at bedtime, PRN Other, take one tab po qhs prn moderate vertigo, # 8 tablet, 1 Refills, Soft Stop, 12/16/21 11:06:00 EDT, [facility]/pharmacy #2025, Partial fill upon patient request if [...] 02/07/24 8:11:00 EDT, Route to Pharmacy Electronically, [id number], 158, cm, 01/03/24 14:54:00 EDT, Height, 56.3, [...] 14:59:00 EST, 04/18/24 14:59:00 EDT, ER Tablet, [facility], 1 tablet [...] Team Personnel Name: Gian Andrade MD Position: [facility] Physician - Primary Care Member Role: PCP Address: Address: [address] [place] [id number] Name: Delfino Barber RN Position: [facility] RN Member Role: Primary Care Nurse Care Team Related Persons Name: VERONICA ANDREWS Address: [address] [place] [address] Name: KEY OVALLE Address: [address] [place], [place] Name: ALCON BAIG Address: [address] [address]
--- OUTSIDE RECORDS SUMMARY | 2024-05-10 09:34 | XMS_ITS | Continuity of Care Document ---
Author Organization [facility] Address [address] [place] [id number]- Care Team Providers Care First Aid Nurse Name Role Phone Lupe EL, Gian Lincoln Primary Care Physician Encounter [facility] Date(s): 09/29/22 - 10/29/22 [facility] [address] [place] [id number] Attending Physician: AdmPercy teague Admitting Physician: AdmtrPercy Referring Physician: Admtr, Ar8 Allergies, Adverse Reactions, Alerts Substance Reaction Severity Status Latex Active Percocet 5325 Active Immunizations Given and Recorded Vaccine Date [...] 11 Refills, Maintenance, 08/10/21 10:44:00 EST, Pow[place], [facility]/pharmacy #2025, 2 puffs Inhalation Every 4 hours,PRN:Wheezing/Shortness [...] less, # 180 tablet, 0 Refills, Maintenance, 08/27/22 12:40:00 EST, Tablet, [facility]/pharmacy #2025, 1 tablet By Mouth 2 times a day,x90 days,Instr:masspat checked ; may fill for less... Start Date: 08/27/22 Stop Date: 11/25/22 Status: Ordered amphetamine-dextroamphetamine 20 mg oral tablet 1 tablet = 20 mg, By Mouth, 2 times a day, masspat checked may fill for less, # 180 tablet, 0 Refills, Maintenance, 09/24/22 17:21:00 EST, Tablet, [facility]/pharmacy #2025, 1 tablet By Mouth 2 times a day,x90 days,Instr:masspat checked ; may fill for less... Start Date: 09/24/22 Stop Date: 12/23/22 Status: Ordered busPIRone 10 mg oral tablet [...] 1, Tot. Refills 1, Maintenance, for spasm, 08/30/22 13:33:00 EST, [facility] to [facility], [facility], 160, cm, 01/07/22 9:42:00 EDT, Height, 60, kg, 05/29/21 10:55:... Start Date: 08/30/22 Status: Ordered fluticasone 50 mcg/inh nasal spray 1 sprays, Nares, Both, 2 times a day, For post nasal drip, # 3 each, 1 Refills, Maintenance, 11/05/21 10:04:00 EST, [place], [facility], Partial fill upon [...] # 180 tablet, 1 Refills, Hard Stop 02/23/23 16:52:00 EDT, 08/27/22 16:52:00 EST, Tablet, [facility], increasing dose, 160, cm... 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 Confirmed Active Excessive daytime sleepiness Confirmed Active Riki-Danlos disease Confirmed Active Family history of breast cancer Confirmed Active History of nephrolithiasis Confirmed Active History of ITP Confirmed Active History of COVID-19 Confirmed Active Postconcussion syndrome Confirmed Active RLS (restless legs syndrome) Confirmed Active Small intestinal bacterial overgrowth Confirmed 01/06/16 Active Social History Social History Type Response Smoking Status Never smoker entered on: 04/21/15 Sex Patient Care team information Care Team Personnel Name: Gian Andrade MD Position: [facility] Primary Care Physician Member Role: PCP Address: Address: [address] [place] [address]- [place] Name: Delfino Barber Position: S RN Member Role: Primary Care Nurse Care Team Related Persons Name: ALCON BAIG Address: [address] [place] [address]
--- OUTSIDE RECORDS SUMMARY | 2024-05-10 09:34 | XMS_ITS | Continuity of Care Document ---
Author Organization [facility] Address [address] [place] [address]- Care Team Providers Care Tenant Selector Name Role Phone Lupe EL, Gian Lincoln Primary Care Physician Encounter [facility] Date(s): 08/22/23 - 09/21/23 [facility] [address] [place] [address]- Allergies, Adverse Reactions, Alerts Substance Reaction Severity Status lidocaine-prilocaine topical Eruption Active Percocet Active Latex Active Immunizations Given and Recorded [...] 11 Refills, Maintenance, 08/10/21 10:44:00 EST, [place], [facility], 2 puffs Inhalation Every [...] 0 Refills, Maintenance, 08/09/23 10:59:00 EST, Tablet, [facility]/pharmacy #2024, Ok to fill early, Masspat checked [...] 06/28/23 14:05:00 EDT, Route to Pharmacy Electronically, [facility]/pharmacy #2024, 160, cm, 05/25/23 16:00:00... Start Date: [...] each, 1 Refills, Maintenance, 11/05/21 10:04:00 EST, [place], [facility], Partial fill upon [...] EDT, D... Start Date: 04/21/21 Status: Ordered meclizine 25 mg oral tablet [...] Refills, Maintenance, 02/11/22 14:20:00 EDT, Tablet, [facility], 160, cm, 01/07/22 9:42:00 EDT, Height, 60, kg, 05/29/21 10:55:00 EDT, Dry Weight Start Date: 02/11/22 Status: Ordered Cheri 3 mg-0.03 mg oral tablet 1 tablet, By Mouth, Daily, # 28 tablet, 11 Refills, Maintenance, 09/01/23 11:42:00 EST, Tablet, [facility], Partial fill upon patient request if the prescription is for a schedule II opioid drug., 1 tablet By Mouth Daily, 158, cm, 08/25/23 14:... Start Date: 09/01/23 Status: Ordered ZyrTEC-D 5 mg-120 mg oral [...] Team Personnel Name: Gian Andrade MD Position: [facility] Physician - Primary Care Member Role: PCP Address: Address: [address] [place] [id number]- Name: Delfino Barber RN Position: [facility] RN Member Role: Primary Care Nurse Care Team Related Persons Name: VERONICA ANDREWS Address: [address] [place] [address] Name: KEY OVALLE Address: [address] [place], [place] Name: ALCON BAIG Address: [address] [place] [address]
--- OUTSIDE RECORDS SUMMARY | 2024-05-10 09:34 | XMS_ITS | Continuity of Care Document ---
Author Organization [facility] Address [address] [place] [address]- Care Team Providers Care Airframe Technical Officer Name Role Phone Gian Andrade MD Primary Care Physician Encounter [facility] Date(s): 06/05/21 - 07/05/21 [facility] [address] [place] [address]- Allergies, Adverse Reactions, Alerts Substance Reaction Severity [...] less, # 180 tablet, 0 Refills, Maintenance, 06/12/21 14:42:00 EDT, Tablet, [facility], 1 tablet By Mouth 2 times a day,x90 days,Instr:masspat checked ; january fi... Start Date: 06/12/21 Stop Date: 09/10/21 Status: Ordered busPIRone 10 mg oral tablet 10 mg, 1, tablet, By Mouth, 2 times a day, # 180 tablet, Refills 1, Tot. Refills 1, Soft Stop, 12/25/20 11:32:00 EDT, Route to Pharmacy Electronically, [facility], 160, cm, 07/30/20 9:37:00 EST, Height, 49.9, kg, 02/07/20 10:53:00 E... Start Date: 12/25/20 Status: Ordered cyclobenzaprine 10 mg oral tablet 10 mg, 1, tablet, By Mouth, 2 times a day, PRN, # 30 tablet, Refills 1, Tot. Refills 1, Maintenance, for spasm, 01/14/21 9:27:00 EDT, Route to Pharmacy Electronically, [facility]/pharmacy #2025, 160, cm, 02/07/20 10:53:00 EDT, Height, 49.9, kg, 02/07/20 10:5... Start Date: 01/14/21 Status: Ordered ibuprofen 800 mg oral tablet 1, tablet, By Mouth, 3 times a day, # 270 tablet, Refills 1, Tot. Refills 1, Maintenance, 04/21/21 8:59:00 EDT, Route to Pharmacy Electronically, [facility], 160, cm, 01/22/21 13:16:00 EDT, Height, 54.6, kg, 01/22/21 13:16:00 EDT, D... Start Date: 04/21/21 Status: Ordered KlonoPIN 0.5 mg oral tablet 1 tablet = 0.5 mg, By Mouth, 2 times a day, PRN Anxiety, Masspat checked May fill for less, # 180 tablet, 1 Refills, Maintenance, 02/11/21 12:38:00 EDT, Tablet, [facility], increasing dose, 160, cm, 01/22/21 13:16:00 EDT, Height,... Start Date: 02/11/21 Status: Ordered omeprazole 20 mg oral enteric coated capsule 1 capsule = 20 mg, By Mouth, Daily, # 90 capsule, 1 Refills, Maintenance, 04/21/21 9:00:00 EDT, EC Capsule, [facility], aware of celexa, 160, cm, 01/22/21 13:16:00 EDT, Height, 54.6, kg, 01/22/21 13:16:00 EDT, Dry Weight Start Date: 04/21/21 Status: Ordered ondansetron 4 mg oral tablet, disintegrating = 4 mg, By Mouth, 3 times a day, PRN Nausea, # 60 tablet, 1 Refills, Maintenance, 03/23/21 15:52:00EDT, Tablet, [facility]/pharmacy #2025, 160, cm, 01/22/21 13:16:00 EDT, Height, 54.6, kg, 01/22/21 13:16:00 EDT, Dry Weight Start Date: 03/23/21 Status: Ordered ZyrTEC-D 5 mg-120 mg oral [...]
--- OUTSIDE RECORDS SUMMARY | 2024-05-10 09:34 | XMS_ITS | Continuity of Care Document ---
Author Organization [facility] Address [address] [place] [address]- Care Team Providers Care Cop Examiner Name Role Phone Gian Andrade MD Primary Care Physician Encounter [facility] Date(s): 01/22/21 - 02/21/21 [facility] [address] [place] [address]- Attending Physician: Admtr, Percy Admitting Physician: Admtr, Percy Referring Physician: Admtr, Ar8 Allergies, Adverse Reactions, [...] 1 Refills, Maintenance, 12/11/19 9:37:00 EDT, Powder, [facility]/pharmacy #2024, 2 puffs Inhalation Every 4 hours,PRN:Wheezing/Shortness of Breath, 160, cm, 10/31/19 10:52:00 EST... Start Date: 12/11/19 Status: Ordered amphetamine-dextroamphetamine 20 mg oral tablet 1 tablet = 20 mg, By Mouth, 2 times a day, masspat checked may fill for less, # 56 tablet, 0 Refills, Maintenance, 12/17/20 15:58:00 EDT, Tablet, [facility]/pharmacy #2024, 1 tablet By Mouth 2 times [...] 01/14/21 9:27:00 EDT, Route to Pharmacy Electronically, [facility]/pharmacy #2024, 160, cm, 02/07/20 10:53:00 EDT, Height, [...] 0 Refills, Maintenance, 12/29/20 13:29:00 EDT, ECCapsule, [facility]/pharmacy #202, aware of celexa, 160, cm, 07/30/20 9:37:00 EST, Height, 49.9, kg, 02/07/20 10:53:00 EDT, Dry Weight Start Date: 12/29/20 Status: Ordered ondansetron 4 mg oral tablet, disintegrating = 4 mg, By Mouth, 3 times a day, PRN Nausea, # 60 tablet, 1 Refills, Maintenance, 12/31/20 14:47:00EDT, Tablet, [facility]/pharmacy #2024, 160, cm, 07/30/20 9:37:00 EST, Height, [...]
--- OUTSIDE RECORDS SUMMARY | 2024-05-10 09:34 | XMS_ITS | Continuity of Care Document ---
Author Organization [facility] Address [address] [place] [address]- Care Team Providers Care Undercover Cop Name Role Phone Gian Andrade MD Primary Care Physician Encounter [facility] [place] Date(s): 12/26/23 - 01/25/24 [facility] [address] [place] [address]- Allergies, Adverse Reactions, Alerts Substance Reaction Severity Status lidocaine-prilocaine topical Eruption Active Latex Active Percocet Active Immunizations Given and [...] 2 times a day, Masspat checked DNF 01/06/2024, # 56 tablet, 0 Refills, Maintenance, 12/30/23 12:00:00 EDT, Tablet, [facility]/pharmacy #2025, Ok to fill early, Masspat checked , Patient may fill for less, 1 tablet By Mouth 2 time... Start Date: 12/30/23 Stop Date: 01/27/24 Status: Ordered clonazePAM 0.5 mg oral tablet 1 tablet = 0.5 mg, By Mouth, 2 times a day, PRN Anxiety, # 60 tablet, 1 Refills, Maintenance, 12/27/23 14:42:00 EDT, Tablet, [facility]/pharmacy #202, Partial fill upon patient request if the prescription is for a schedule II opioid drug., 158, cm, 11/22/23... Start Date: 12/27/23 Status: Ordered cyclobenzaprine 10 mg oral tablet 1, tablet, By Mouth, 2 times a day, PRN, # 30 tablet, Refills 1, Maintenance, NEEDED FOR SPASMS,FOR, 01/24/24 8:14:00 EDT, Route to Pharmacy Electronically, [facility] STORE [id number], 158, cm, 01/03/24 14:54:00 EDT, Height, 56.3, [...] each, 1 Refills, Maintenance, 11/05/21 10:04:00 EST, [place], [facility], Partial fill upon patient request if the prescription is for a schedule II opioid drug., 1 sprays... Start Date: 11/05/21 Status: Ordered meclizine 25 mg oral tablet [...] Dry Weight Start Date: 02/11/22 Status: Ordered PEG-3350 with Electrolytes Lemon (Eqv-GoLYTELY) oral powder for reconstitution See Instructions, By Mouth Drink 8 oz of the fluid every hour X 4 hours. Take a 4 hour rest. May then take 8 oz o the fluid every hour X 2 hours., # 1 each, 0 Refills, Maintenance, 11/25/23 17:27:00 EDT, [facility]/pharmacy #2025, Partial fill upon higinio... Start Date: 11/25/23 Status: Ordered propranolol 10 mg oral tablet 10 mg, 1, tablet, By Mouth, 3 times a day, # 90 tablet, Refills 3, Tot. Refills 3, Maintenance, 11/09/23 9:56:00 EST, Route to Pharmacy Electronically, [facility]/pharmacy #202, Partial fill upon patient request if the prescription is for a schedule II opio... Start Date: 11/09/23 Status: Ordered rizatriptan 10 mg oral tablet [...] Care team information Care Team Personnel Name: Lupe EL, Gian Lincoln Position: [facility] Physician - Primary Care Member Role: PCP Address: Address: [address] [place] [address] Name: Delfino Barber RN Position: [facility] RN Member Role: Primary Care Nurse Care Team Related Persons Name: VERONICA ANDREWS Address: [address] [place] [address] Name: KEY OVALLE Address: [address] [place] [address] Name: ALCON BAIG Address: [address] [place] [address]
--- OUTSIDE RECORDS SUMMARY | 2024-05-10 09:34 | XMS_ITS | Continuity of Care Document ---
Author Organization [facility] Address [address] [place] [address]- Care Team Providers Care Sales Specialist Name Role Phone Lupe EL, Gian Lincoln Primary Care Physician [place] [facility] 10/26/22 - 11/25/22 [facility] [address] [place] [address]- Attending Physician: AdmPercy teague Admitting Physician: AdmtrPercy Referring Physician: Admtr ArCalin Allergies, Adverse Reactions, Alerts Substance Reaction Severity Status Percocet Active Latex Active Immunizations Given and [...] 11 Refills, Maintenance, 08/10/21 10:44:00 EST, Powder, [facility]/pharmacy #2024, 2 puffs Inhalation Every 4 [...] 0 Refills, Maintenance, 08/27/22 12:40:00 EST, Tablet, [facility]/pharmacy #2024, 1 tablet By Mouth 2 times a day,x90 days,Instr:masspat checked ; may fill for less... Start Date: 08/27/22 Stop Date: 11/25/22 Status: Ordered amphetamine-dextroamphetamine 20 mg oral tablet 1 tablet = 20 mg, By Mouth, 2 times a day, masspat checked may fill for less, # 180 tablet, 0 Refills, Maintenance, 09/24/22 17:21:00 EST, Tablet, [facility]/pharmacy #2024, 1 tablet By Mouth 2 times a day,x90 days,Instr:masspat checked ; may fill for less... Start Date: 09/24/22 Stop Date: 12/23/22 Status: Ordered cyclobenzaprine 10 mg oral tablet 10 mg, 1, tablet, By Mouth, 2 times a day, PRN, # 30 tablet, Refills 1, Tot. Refills 1, Maintenance, for spasm, 08/30/22 13:33:00 EST, Route to Pharmacy Electronically, [facility]/pharmacy #2024, 160, cm, 01/07/22 9:42:00 EDT, Height, 60, kg, 05/29/21 10:55:... Start Date: 08/30/22 Status: Ordered fluticasone 50 mcg/inh nasal spray 1 sprays, Nares, Both, 2 times a day, For post nasal drip, # 3 each, 1 Refills, Maintenance, 11/05/21 10:04:00 EST, [place], [facility], Partial fill upon [...] 1 Refills, Soft Stop, 12/16/21 11:06:00 EDT, [facility]/pharmacy #2024, Partial fill upon [...] Team Personnel Name: Gian Andrade MD Position: [facility] Primary Care Physician Member Role: PCP Address: Address: [address] [place] [id number]- Name: Delfino Barber Position: [facility] RN Member Role: Primary Care Nurse Care Team Related Persons Name: ALCON BAIG Address: home [address] [place] [address]
--- OUTSIDE RECORDS SUMMARY | 2024-05-10 09:34 | XMS_ITS | Continuity of Care Document ---
Author Organization [facility] Address [address] [place] [address]- Care Team Providers Care Furniture Packer Name Role Phone Gian Andrade MD Primary Care Physician Encounter [facility] [place] Date(s): 01/11/22 - 02/10/[address] [address] Attending Physician: Admtr, Ar8 Admitting Physician: Admtr, Ar8 Referring Physician: Admtr, Ar8 Allergies, Adverse Reactions, [...] 0 Refills, Maintenance, 12/31/21 14:04:00 EDT, Tablet, [facility]/pharmacy #2025, 1 tablet By Mouth 2 times a day,x90 days,Instr:masspat checked ; may fill for less... Start Date: 12/31/21 Stop Date: 03/31/22 Status: Ordered busPIRone 10 mg oral tablet 10 mg, 1, tablet, By Mouth, 2 times a day, # 180 tablet, Refills 1, Tot. Refills 1, Soft Stop, 11/02/21 14:38:00 EST, Route to Pharmacy Electronically, [facility], 160, cm, 10/12/21 10:40:00 EST, Height, 60, kg, 05/29/21 10:55:00 ED... Start Date: 11/02/21 Status: Ordered cyclobenzaprine 10 mg oral tablet 10 mg, 1, tablet, By Mouth, 2 times a day, PRN, # 30 tablet, Refills 1, Tot. Refills 1, Maintenance, for spasm, 01/14/21 9:27:00 EDT, Route to Pharmacy Electronically, [facility]/pharmacy #2025, 160, cm, 02/07/20 10:53:00 EDT, Height, 49.9, kg, 02/07/20 10:5... Start Date: 01/14/21 Status: Ordered fluticasone 50 mcg/inh nasal spray 1 sprays, Nares, Both, 2 times a day, For post nasal drip, # 3 each, 1 Refills, Maintenance, 11/05/21 10:04:00 EST, [place], [facility], Partial fill upon patient request if the prescription is for a schedule II opioid drug., 1 sprays... Start Date: 11/05/21 Status: Ordered ibuprofen 800 mg oral tablet 1, tablet, By Mouth, 3 times a day, # 270 tablet, Refills 1, Tot. Refills 1, Maintenance, 04/21/21 8:59:00 EDT, Route to Pharmacy Electronically, [facility], 160, cm, 01/22/21 13:16:00 EDT, Height, 54.6, kg, 01/22/21 13:16:00 EDT, D... Start Date: 04/21/21 Status: Ordered KlonoPIN 0.5 mg oral tablet 1 tablet = 0.5 mg, By Mouth, 2 times a day, PRN Anxiety, for 90 days, Masspat checked May fill for less, # 180 tablet, 1 Refills, Hard Stop 05/02/22 14:59:00 EDT, 11/03/21 14:59:00 EST, Tablet, [facility], increasing dose, 160, cm, 10/12/21... Start Date: 11/03/21 Stop Date: 05/02/22 Status: Ordered KlonoPIN 0.5 mg oral tablet 1 tablet = 0.5 mg, By Mouth, 2 times a day, PRN Anxiety, Masspat checked May fill for less, # 180 tablet, 1 Refills, Maintenance, 02/09/22 7:25:00 EDT, Tablet, [facility], increasing dose, 160, cm, 01/07/22 9:42:00 EDT, Height, 60, kg, 05/29... Start Date: 02/09/22 Stop Date: 08/08/22 Status: Ordered KlonoPIN 0.5 mg oral tablet 1 tablet = 0.5 mg, By Mouth, 2 times a day, PRN Anxiety, for 90 days, Masspat checked May fill for less, # 180 tablet, 1 Refills, Hard Stop 06/29/22 14:05:00 EDT, 12/31/21 14:05:00 EDT, Tablet, [facility], increasing dose, 160, cm, 12/16/21... Start Date: 12/31/21 Stop Date: 06/29/22 Status: [...] Refills, Maintenance, 11/02/21 10:38:00 EST, ECCapsule, [facility], aware of celexa, 160, cm, 10/12/21 10:40:00 EST, Height, 60, kg, 05/29/21 10:55:00 EDT, Dry Weight Start Date: 11/02/21 Status: Ordered ondansetron 4 mg oral tablet, disintegrating = 4 mg, By Mouth, 3 times a day, PRN Nausea, # 60 tablet, 1 Refills, Maintenance, 11/04/21 15:52:00EST, Tablet, [facility]/pharmacy #2024, 160, cm, 10/12/21 10:40:00 EST, Height, [...]
--- OUTSIDE RECORDS SUMMARY | 2024-05-10 09:34 | XMS_ITS | Continuity of Care Document ---
Author Organization [facility] Address [address] [place] [address]- Care Team Providers Care Compliance Testing Analyst Name Role Phone Lupe EL, Gian Lincoln Primary Care Physician Encounter [facility] [place] Date(s): 08/19/23 - 09/18/23 [facility] [address] [place] [address]- Allergies, Adverse Reactions, Alerts Substance Reaction Severity [...] Refills, Maintenance, 08/09/23 10:59:00 EST, Tablet, [facility]/pharmacy #2024, Ok to fill early, Masspat [...] 14:05:00 EDT, Route to Pharmacy Electronically, [facility]/pharmacy #2024, 160, cm, 05/25/23 16:00:00... Start [...] each, 1 Refills, Maintenance, 11/05/21 10:04:00 EST, [place], [facility], Partial fill upon [...] Refills, Maintenance, 02/11/22 14:20:00 EDT, Tablet, [facility], 160, cm, 01/07/22 9:42:00 EDT, [...] Team Personnel Name: Gian Andrade MD Position: [facility] Physician - Primary Care Member Role: PCP Address: Address: [address] [place] [id number]- Name: Delfino Barber RN Position: [facility] RN Member Role: Primary Care Nurse Care Team Related Persons Name: VERONICA ANDREWS Address: [address] [place] [address] Name: KEY OVALLE Address: [address] [place], [place] Name: ALCON BAIG Address: [address] [place] [address]
--- OUTSIDE RECORDS SUMMARY | 2024-05-10 09:34 | XMS_ITS | Continuity of Care Document ---
Author Organization [facility] Address [address] [place] [address]- Care Team Providers Care Aquatic Instructor Name Role Phone Lupe EL, Gian Lincoln Primary Care Physician Encounter [facility] [place] Date(s): 09/08/23 - 10/08/23 [facility] [address] [place], [place] [address] Allergies, Adverse Reactions, Alerts Substance Reaction Severity [...] 2 times a day, Masspat checked DNF 10/06/2023, # 56 tablet, 0 Refills, Maintenance, 09/29/23 22:15:00 EST, Tablet, [facility]/pharmacy #2025, Ok to fill early, Masspat checked , Patient may fill for less, 1 tablet By Mouth 2 time... Start Date: 09/29/23 Stop Date: 10/27/23 Status: Ordered clonazePAM 0.5 mg oral tablet 0 Refills, Maintenance, 09/23/23 12:44:00 EST, Partial fill upon patient request if the prescription is for a schedule II opioid drug. Start Date: 09/23/23 Status: Ordered cyclobenzaprine 10 mg oral tablet 1, tablet, By Mouth, 2 times a day, PRN, TAKE ONLY NEEDED FOR SPASMS, # 30 tablet, Refills 1, Tot. Refills 1, Maintenance, NEEDED FOR SPASMS, 06/28/23 14:05:00 EDT, Route to Pharmacy Electronically, [facility]/pharmacy #2024, 160, cm, 05/25/23 16:00:00... Start [...] each, 1 Refills, Maintenance, 11/05/21 10:04:00 EST, [place], [facility], Partial fill upon patient request if the prescription is for a schedule II opioid drug., 1 sprays... Start Date: 11/05/21 Status: Ordered meclizine 25 mg oral tablet 1 tablet = 25 mg, By Mouth, Daily at bedtime, PRN Other, take one tab po qhs prn moderate vertigo, # 8 tablet, 1 Refills, Soft Stop, 12/16/21 11:06:00 EDT, [facility]/pharmacy #202, Partial fill upon patient request if [...] By Mouth, 2 times a day, # 60 tablet, Refills 3, Tot. Refills 3, Maintenance, 09/23/23 13:04:00 EST, Route to Pharmacy Electronically, [facility]/pharmacy #2025, Partial fill upon patient request if the prescription is for a schedule II opi... Start Date: 09/23/23 Status: Ordered rizatriptan 10 mg oral tablet [...] Refills, Maintenance, 12/25/23 14:07:00 EDT, ER Tablet, [facility]/pharmacy #2025, 1 tablet By Mouth [...] Team Personnel Name: Gian Andrade MD Position: [facility] Physician - Primary Care Member Role: PCP Address: Address: [address] [place] [address] Name: Delfino Barber RN Position: [facility] RN Member Role: Primary Care Nurse Care Team Related Persons Name: VERONICA ANDREWS Address: [address] [place] [address] Name: KEY OVALLE Address: [address] [place] [address] Name: ALCON BAIG Address: [address] [place] [address]
--- OUTSIDE RECORDS SUMMARY | 2024-05-10 09:34 | XMS_ITS | Continuity of Care Document ---
Author Organization [facility] Address [address] [place] [address]- Care Team Providers Care Line Installation Supervisor Name Role Phone Gian Andrade MD Primary Care Physician [place] [facility] [place] Date(s): 12/31/20 - 01/30/21 [facility] [address] [place] [address]- Allergies, Adverse Reactions, Alerts Substance Reaction Severity [...] 0 Refills, Maintenance, 12/17/20 15:58:00 EDT, Tablet, [facility]/pharmacy #2024, 1 tablet By Mouth 2 times [...] to Pharmacy Electronically, [facility]/pharmacy #2024, 160, cm, 02/07/20 10:53:00 EDT, Height, 49.9, kg, 02/07/20 10:5... Start Date: 01/14/21 Status: Ordered KlonoPIN 0.5 mg oral tablet 1 tablet = 0.5 mg, By Mouth, 2 times a day, PRN Anxiety, Masspat checked May fill for less, # 60 tablet, 1 Refills, Maintenance, 11/21/20 12:12:00 EST, Tablet, [facility]/pharmacy #202, increasing dose, 160, cm, 07/30/20 9:37:00 EST, Height, 49.9, kg, 05/... Start Date: 11/21/20 Status: Ordered omeprazole 20 mg oral enteric coated capsule 1 capsule = 20 mg, By Mouth, Daily, # 90 capsule, 0 Refills, Maintenance, 12/29/20 13:29:00 EDT, ECCapsule, [facility], aware of celexa, 160, cm, 07/30/20 9:37:00 EST, Height, 49.9, kg, 02/07/20 10:53:00 EDT, Dry Weight Start Date: 12/29/20 Status: Ordered ondansetron 4 mg oral tablet, disintegrating = 4 mg, By Mouth, 3 times a day, PRN Nausea, # 60 tablet, 1 Refills, Maintenance, 12/31/20 14:47:00EDT, Tablet, [facility], 160, cm, 07/30/20 9:37:00 EST, Height, 49.9, [...]
--- OUTSIDE RECORDS SUMMARY | 2024-05-10 09:34 | XMS_ITS | Continuity of Care Document ---
Author Organization [facility] Address [address] [place] [address]- Care Team Providers Care Hair Rooting Machine Operator Name Role Phone Gian Andrade MD Primary Care Physician Encounter [facility] [place] Date(s): 05/08/22 - 09/05/22 [facility] [address] [place] [id number] Attending Physician: Ricky Lauren MD Admitting Physician: Ricky Lauren MD Referring Physician: Gian Andrade MD Allergies, Adverse Reactions, Alerts Substance Reaction Severity Status Latex Active Percocet 5/325 Active Immunizations Given [...] 11 Refills, Maintenance, 08/10/21 10:44:00 EST, Powder, [facility]/pharmacy #2024, 2 puffs Inhalation Every 4 hours,PRN:Wheezing/Shortness of Breath, 160, cm, 08/10/21 9:23:00 ES... Start Date: 08/10/21 Status: Ordered amphetamine-dextroamphetamine 20 mg oral tablet 1 tablet = 20 mg, By Mouth, 2 times a day, masspat checked may fill for less, # 180 tablet, 0 Refills, Maintenance, 08/27/22 12:40:00 EST, Tablet, [facility]/pharmacy #2024, 1 tablet By Mouth 2 times a day,x90 days,Instr:masspat checked ; may fill for less... Start Date: 08/27/22 Stop Date: 11/25/22 Status: Ordered amphetamine-dextroamphetamine 20 mg oral tablet 1 tablet = 20 mg, By Mouth, 2 times a day, for 90 days, masspat checked may fill for less, # 180 tablet, 0 Refills, Hard Stop 09/07/22 19:57:00 EST, 06/09/22 19:57:00 EDT, Tablet, [facility], 160, cm, 01/07/22 9:42:00 EDT, Height,... Start Date: 06/09/22 Stop Date: 09/07/22 Status: Ordered amphetamine-dextroamphetamine 20 mg oral tablet 1 tablet = 20 mg, By Mouth, 2 times a day, masspat checked may fill for less, # 180 tablet, 0 Refills, Maintenance, 08/27/22 16:52:00 EST, Tablet, [facility], 1 tablet By Mouth 2 times a day,x90 days,Instr:masspat checked ; may fi... Start Date: 08/27/22 Stop Date: 11/25/22 Status: Ordered busPIRone 10 mg oral tablet [...] 08/30/22 13:33:00 EST, Route to Pharmacy Electronically, [facility]/pharmacy #2025, 160, cm, 01/07/22 9:42:00 EDT, Height, 60, kg, 05/29/21 10:55:... 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 History of nephrolithiasis Confirmed Active History of ITP Confirmed Active History of COVID-19 Confirmed Active Insomnia Confirmed Active Postconcussion syndrome Confirmed Active Small intestinal bacterial overgrowth Confirmed 01/06/16 Active Social History Social History Type Response Smoking Status Never smoker entered on: 04/21/15 Sex Patient Care team information Care Team Personnel Name: Gian Andrade MD Position: [facility] Primary Care Physician Member Role: PCP Address: Address: [address] [place] [address]- Name: Delfino Barber Position: [facility] RN Member Role: Primary Care Nurse Care Team Related Persons Name: ALCON BAIG Address: [address] [address]
--- OUTSIDE RECORDS SUMMARY | 2024-05-10 09:34 | XMS_ITS | Continuity of Care Document ---
Author Organization [facility] Address [address] [place] [address]- Care Team Providers Care Rug Backing Stenciler Name Role Phone Lupe EL, Gian Lincoln Primary Care Physician Encounter [facility] [place] Date(s): 05/17/23 - 06/16/23 [facility] [address] [place], [place] [address] Allergies, Adverse Reactions, Alerts Substance Reaction [...] Mouth, 2 times a day, masspat checked DNF 06/21/2023, # 56 tablet, 0 Refills, Maintenance, 06/10/23 17:29:00 EDT, Tablet, [facility], 1 tablet By Mouth 2 times a day,x28 days,Instr:masspat checked; DNF 06/21/2023, 160, cm... Start Date: 06/10/23 Stop Date: 07/08/23 Status: Ordered amphetamine-dextroamphetamine 20 mg oral tablet 1 tablet = 20 mg, By Mouth, 2 times a day, masspat checked may fill for less, # 180 tablet, 0 Refills, Maintenance, 08/27/22 12:40:00 EST, Tablet, [facility]/pharmacy #2024, 1 tablet By Mouth 2 times a day,x90 days,Instr:masspat checked ; may fill for less... Start Date: 08/27/22 Stop Date: 11/25/22 Status: Ordered amphetamine-dextroamphetamine 20 mg oral tablet 1 tablet = 20 mg, By Mouth, 2 times a day, for 28 days, masspat checked may fill for less, # 56 tablet, 0 Refills, Hard Stop 06/20/23 15:30:00 EDT, 05/23/23 15:30:00 EDT, Tablet, [facility], 160, cm, 04/26/23 12:59:00 EDT, Height, 60, kg, ... Start Date: 05/23/23 Stop Date: 06/20/23 Status: Ordered cyclobenzaprine 10 mg oral tablet 1, tablet, By Mouth, 2 times a day, PRN, # 30 tablet, Refills 1, Maintenance, NEEDED FOR SPASMS,12/20/22 11:12:00 EDT, Route to Pharmacy Electronically, [id number], 160, cm, 10/26/22 8:55:00EST, Height, 60, kg, 05/29/21 10:55:00 EDT, Dry Weight Start Date: 12/20/22 Status: Ordered Emgality 0 Refills, Maintenance, 04/19/23 15:48:00 EDT, Partial fill upon patient request if the prescription is for a schedule II opioid drug. Start Date: 04/19/23 Status: Ordered fluticasone 50 mcg/inh nasal spray 1 sprays, Nares, Both, 2 times a day, For post nasal drip, # 3 each, 1 Refills, Maintenance, 11/05/21 10:04:00 EST, [place], [facility], Partial fill upon patient request if the prescription is for a schedule II opioid drug., 1 sprays... Start Date: 11/05/21 Status: Ordered ibuprofen 800 mg oral tablet 1, tablet, By Mouth, 3 times a day, # 270 tablet, Refills 1, Tot. Refills 1, Maintenance, 04/21/21 8:59:00 EDT, Route to Pharmacy Electronically, [facility], 160, cm, 01/22/21 13:16:00 EDT, [...] Team Personnel Name: Gian Andrade MD Position: [facility] Physician - Primary Care Member Role: PCP Address: Address: [address] [place] [id number]- Name: Delfino Barber RN Position: [facility] RN Member Role: Primary Care Nurse Care Team Related Persons Name: VERONICA ANDREWS Address: home [address] [place] [id number] Name: KEY OVALLE Address: [address] [place] [address] Name: ALCON BAIG Address: [address] [place] [address]
--- OUTSIDE RECORDS SUMMARY | 2024-05-10 09:34 | XMS_ITS | Continuity of Care Document ---
Author Organization [facility] Address [address] [place] [address]- Care Team Providers Care Hydro Generation Manager Name Role Phone Gian Andrade MD Primary Care Physician [facility] [facility] [place] 01/03/23 - 02/02/23 [facility] [address] [place] [address]- Allergies, Adverse Reactions, Alerts Substance Reaction Severity [...] 0 Refills, Maintenance, 08/27/22 12:40:00 EST, Tablet, [facility]/pharmacy #2025, 1 tablet By Mouth 2 times a day,x90 days,Instr:masspat checked ; may fill for less... Start Date: 08/27/22 Stop Date: 11/25/22 Status: Ordered amphetamine-dextroamphetamine 20 mg oral tablet 1 tablet = 20 mg, By Mouth, 2 times a day, masspat checked may fill for less, # 60 tablet, 0 Refills, Maintenance, 12/30/22 23:23:00 EDT, Tablet, [facility]/pharmacy #2025, 1 tablet By Mouth 2 times a day,x30 days,Instr:masspat checked ; may fill for less,... Start Date: 12/30/22 Stop Date: 01/29/23 Status: Ordered cyclobenzaprine 10 mg oral tablet 1, tablet, By Mouth, 2 times a day, PRN, # 30 tablet, Refills 1, Maintenance, NEEDED FOR SPASMS,12/20/22 11:12:00 EDT, Route to Pharmacy Electronically, [id number], 160, cm, 10/26/22 8:55:00EST, Height, 60, kg, 05/29/21 10:55:00 EDT, Dry Weight Start Date: 12/20/22 Status: Ordered fluticasone 50 mcg/inh nasal spray 1 sprays, Nares, Both, 2 times a day, For post nasal drip, # 3 each, 1 Refills, Maintenance, 11/05/21 10:04:00 EST, [place], [facility], Partial fill upon [...] 1 Refills, Soft Stop, 12/16/21 11:06:00 EDT, [facility]/pharmacy #2024, Partial fill upon patient request [...] Name: Gian Andrade MD Position: [facility] Physician - Primary Care Member Role: PCP Address: Address: [address] [place] [phone]- Name: Delfino Barber Position: [facility] RN Member Role: Primary Care Nurse Care Team Related Persons Name: VERONICA ANDREWS Address: [place] [address] [place] [address] Name: KEY OVALLE Address: [address] [place], [place] Name: ALCON BAIG Address: [address] [address] [place] [address]
--- OUTSIDE RECORDS SUMMARY | 2024-05-10 09:34 | XMS_ITS | Continuity of Care Document ---
Author Organization [facility] Address [address] [place] [address]- Care Team Providers Care Flame Gouger Name Role Phone Gian Andrade MD Primary Care Physician [place] [facility] [place]20 [facility] [address] [place] [address]- [facility] Encounter Diagnosis Concussion without loss of consciousness(Discharge Diagnosis) - 05/27/20 Discomfort of right ear(Discharge Diagnosis) - 05/27/20 Attending Physician: Gian Andrade MD Allergies, Adverse [...] Mouth, 2 times a day, masspat checked 05/14/2020 may fill for less, # 56 tablet,0 Refills, Maintenance, 05/14/20 14:08:00 EDT, Tablet, [facility]/pharmacy #2024, last rx ., 1 tablet By Mouth 2 times a day,x28 days,Instr:masspat ch... Start Date: 05/14/20 Stop Date: 06/11/20 Status: Ordered busPIRone 10 mg oral tablet See Instructions, TAKE 1 TABLET BY MOUTH TWICE A DAY, # 180 tablet, Refills 3, Tot. Refills 3, SoftStop, 07/06/19 14:25:16 EDT, Instructions Replace Required Details, Route to Pharmacy Electronically, [id number], [facility] Start Date: 07/06/19 Status: Ordered cyclobenzaprine 10 mg oral tablet 10 mg, 1, tablet, By Mouth, 2 times a day, PRN, # 30 tablet, Refills 1, Tot. Refills 1, Maintenance, for spasm, 01/14/21 9:27:00 EDT, Route to Pharmacy Electronically, [facility]/pharmacy #2024, 160, cm, 02/07/20 10:53:00 EDT, Height, 49.9, kg, 02/07/20 10:5... Start Date: 01/14/21 Status: Ordered cyclobenzaprine 10 mg oral tablet 10 mg, 1, tablet, By Mouth, 2 times a day, PRN, # 30 tablet, Refills 1, Tot. Refills 1, Acute 01/14/21 9:27:00 EDT, for spasm, 01/15/20 9:27:00 EDT, Route to Pharmacy Electronically, [facility]/pharmacy #2024, 160, cm, 01/09/20 9:04:00 EDT, Height Start Date: 01/15/20 Stop Date: 01/14/21 Status: Ordered KlonoPIN 0.5 mg oral tablet 1 tablet = 0.5 mg, By Mouth, 2 times a day, PRN Anxiety, Masspat checked 05/14/2020 May fill for less, # 60 tablet, 0 Refills, Maintenance, 05/14/20 14:08:00 EDT, Tablet, [facility]/pharmacy #202, increasingdose, 05/14/20, 160, cm, 04/28/20 15:39:00 EDT, He... Start Date: 05/14/20 Status: Ordered omeprazole 20 mg oral enteric coated capsule 1 capsule = 20 mg, By Mouth, Daily, # 90 capsule, 1 Refills, Maintenance, 12/10/19 14:55:00 EDT, ECCapsule, [facility]/pharmacy #2024, aware of celexa, 160, cm, 10/31/19 10:52:00 EST, Height Start Date: 12/10/19 Status: Ordered ondansetron 4 mg oral tablet, disintegrating = 4 mg, By Mouth, 3 times a day, PRN Nausea, # 60 tablet, 1 Refills, Maintenance, 03/13/20 16:39:00EDT, Tablet, [facility]/pharmacy #2024, 160, cm, 03/05/20 9:49:00 EDT, Height, 49.9, kg, 02/07/20 10:53:00EDT, Dry Weight Start Date: 03/13/20 Status: Ordered Plaquenil = 200 mg, By Mouth, Daily, 0 Refills, Maintenance, 10/11/16 10:18:04 Start Date: 10/11/16 Status: Ordered ZyrTEC-D 5 mg-120 mg oral tablet, extended release 1 tablet, By Mouth, 2 times a day, # 180 tablet, 1 Refills, Maintenance, 03/13/20 15:14:00 EDT, ER Tablet, [facility]/pharmacy #2024, 1 tablet By Mouth 2 times a day,x90 days, 160, cm, 03/05/20 9:49:00 EDT,Height, 49.9, kg, 02/07/20 10:53:00 EDT, Dry Weight Start Date: 03/13/20 Stop Date: 09/09/20 Status: Ordered ZyrTEC-D 5 mg-120 mg oral tablet, extended release 1 tablet, By Mouth, 2 times a day, for 90 days, # 180 tablet, 1 Refills, Hard Stop 06/07/20 14:55:00 EDT, 12/10/19 14:55:00 EDT, ER Tablet, [facility], 160, cm, 10/31/19 10:52:00 EST, Height Start Date: 12/10/19 Stop Date: 06/07/20 Status: Ordered Problem List Condition Effective Dates [...] Effective Dates Health Status Clinical Service Informant Concussion without loss of consciousness Discharge Diagnosis 05/27/20 Discomfort of right ear Discharge Diagnosis 05/27/20 Vital Signs Most recent to oldest [Reference Range]: 1 Height 160 cm (05/27/20 10:37 AM) Social History Social History Type Response Smoking Status Never smoker entered on: 04/21/15 Sex
--- OUTSIDE RECORDS SUMMARY | 2024-05-10 09:34 | XMS_ITS | Continuity of Care Document ---
Author Organization [facility] Address [address] [place] [id number]- Care Team Providers Care Case Resource Manager Name Role Phone Lupe EL, Gian Lincoln Primary Care Physician En[place] [facility] [place] Date(s): 08/11/23 - 09/18/23 [facility] [address] [place] [id number] Attending Physician: Not on Staff, Attending MD Allergies, Adverse Reactions, Alerts Substance Reaction [...] 0 Refills, Maintenance, 08/09/23 10:59:00 EST, Tablet, [facility]/pharmacy #2024, Ok to fill early, Masspat [...] 06/28/23 14:05:00 EDT, Route to Pharmacy Electronically, [facility]/pharmacy #2024, 160, cm, 05/25/23 16:00:00... Start [...] each, 1 Refills, Maintenance, 11/05/21 10:04:00 EST, [place], [facility], Partial fill upon [...] 0 Refills, Maintenance, 06/08/22 5:58:00 EDT, [facility], 160, cm, 01/07/22 9:42:00 EDT, Height, 60, kg, 05/29/21 10:55:00 EDT, Dry Weight Start Date: 06/08/22 Status: Ordered ondansetron 4 mg oral tablet, disintegrating = 4 mg, By Mouth, 3 times a day, PRN Nausea, TAKE ONLY NEEDED, # 120 tablet, 0 Refills, Maintenance, 02/11/22 14:20:00 EDT, Tablet, [facility], 160, cm, 01/07/22 9:42:00 EDT, Height, 60, kg, 05/29/21 10:55:00 EDT, Dry Weight Start Date: 02/11/22 Status: Ordered Cheri 3 mg-0.03 mg oral tablet 1 tablet, By Mouth, Daily, # 28 tablet, 11 Refills, Maintenance, 09/01/23 11:42:00 EST, [facility]t, [facility], Partial fill upon patient request [...] team information Care Team Personnel Name: Gian Anrdade MD Position: [facility] Physician - Primary Care Member Role: PCP Address: Address: [address] [place] [address]- Name: Delfino Barber RN Position: [facility] RN Member Role: Primary Care Nurse Care Team Related Persons Name: VERONICA ANDREWS Address: [address] [place] [address] Name: KEY OVALLE Address: home [address] [place], [place] Name: ALCON BAIG Address: [address] [place] [address]
--- OUTSIDE RECORDS SUMMARY | 2024-05-10 09:34 | XMS_ITS | Continuity of Care Document ---
Author Organization [facility] Address [address] [place] [address]- Care Team Providers Care Systems Testing Laboratory Technician Name Role Phone Gian Andrade MD Primary Care Physician En[place] [facility] [place] Date(s): 08/25/22 - 09/24/22 [facility] [address] [place] [address]- Allergies, Adverse Reactions, Alerts Substance Reaction Severity [...] Refills, Maintenance, 08/10/21 10:44:00 EST, [place], [facility], 2 puffs Inhalation Every 4 hours,PRN:Wheezing/Shortness of Breath, 160, cm, 08/10/21 9:23:00 ES... Start Date: 08/10/21 Status: Ordered amphetamine-dextroamphetamine 20 mg oral tablet 1 tablet = 20 mg, By Mouth, 2 times a day, masspat checked may fill for less, # 180 tablet, 0 Refills, Maintenance, 08/27/22 12:40:00 EST, Tablet, [facility]/pharmacy #2025, 1 tablet By Mouth 2 times a day,x90 days,Instr:masspat checked ; may fill for less... Start Date: 08/27/22 Stop Date: 11/25/22 Status: Ordered amphetamine-dextroamphetamine 20 mg oral tablet 1 tablet = 20 mg, By Mouth, 2 times a day, masspat checked may fill for less, # 180 tablet, 0 Refills, Maintenance, 09/24/22 17:21:00 EST, Tablet, [facility]/pharmacy #2024, 1 tablet By Mouth [...] 08/30/22 13:33:00 EST, Route to Pharmacy Electronically, [facility]/pharmacy #2025, 160, cm, 01/07/22 9:42:00 EDT, Height, 60, kg, 05/29/21 10:55:... Start Date: 08/30/22 Status: Ordered fluticasone 50 mcg/inh nasal spray 1 sprays, Nares, Both, 2 times a day, For post nasal drip, # 3 each, 1 Refills, Maintenance, 11/05/21 10:04:00 EST, [place], [facility], Partial fill upon [...] 1 Refills, Soft Stop, 12/16/21 11:06:00 EDT, [facility]/pharmacy #2024, Partial fill upon patient [...] Team Personnel Name: Gian Andrade MD Position: [facility] Primary Care Physician Member Role: PCP Address: [facility] [place] [address]- Name: Delfino Barber Position: [facility] RN Member Role: Primary Care Nurse Care Team Related Persons Name: ALCON BAIG Address: home [address] [place] [id number]
--- OUTSIDE RECORDS SUMMARY | 2024-05-10 09:34 | XMS_ITS | Continuity of Care Document ---
Author Organization [facility] Address [address] [place] [address]- Care Team Providers Care Reception Name Role Phone Gian Andrade MD Primary Care Physician [place] [facility] [place] 09/21/22 - 10/21/22 [facility] [address] [place] [address]- Allergies, Adverse Reactions, Alerts Substance Reaction Severity [...] 0 Refills, Maintenance, 08/27/22 12:40:00 EST, Tablet, [facility]/pharmacy #2025, 1 tablet By Mouth 2 times a day,x90 days,Instr:masspat checked ; may fill for less... Start Date: 08/27/22 Stop Date: 11/25/22 Status: Ordered amphetamine-dextroamphetamine 20 mg oral tablet 1 tablet = 20 mg, By Mouth, 2 times a day, masspat checked may fill for less, # 180 tablet, 0 Refills, Maintenance, 09/24/22 17:21:00 EST, Tablet, [facility]/pharmacy #2024, 1 tablet By Mouth 2 [...] 13:33:00 EST, Route to Pharm[facility]ically, [facility], 160, cm, 01/07/22 9:42:00 EDT, Height, 60, kg, 05/29/21 10:55:... Start Date: 08/30/22 Status: Ordered fluticasone 50 mcg/inh nasal spray 1 sprays, Nares, Both, 2 times a day, For post nasal drip, # 3 each, 1 Refills, Maintenance, 11/05/21 10:04:00 EST, [place], [facility], Partial fill upon [...] 1 Refills, Soft Stop, 12/16/21 11:06:00 EDT, [facility]/pharmacy #2024, Partial fill upon patient request [...] sleepiness Confirmed Active Riki-Danlos disease Confirmed Active History [...] Team Personnel Name: Gian Andrade MD Position: [facility] Primary Care Physician Member Role: PCP Address: [facility] [place] [address]- Name: Delfino Barber Position: [facility] RN Member Role: Primary Care Nurse Care Team Related Persons Name: ALCON BAIG Address: home [address] [place] [id number]
--- OUTSIDE RECORDS SUMMARY | 2024-05-10 09:34 | XMS_ITS | Continuity of Care Document ---
Author Organization [facility] Address [address] [place] [address]- Care Team Providers Care Driver Utility Worker Name Role Phone Gian Andrade MD Primary Care Physician [place] [facility] [place](s[place] 12/13/22 - 01/12/23 [facility] [address] [place] [address]- Allergies, Adverse Reactions, Alerts Substance Reaction Severity [...] 0 Refills, Maintenance, 08/27/22 12:40:00 EST, Tablet, [facility]/pharmacy #2025, 1 tablet By Mouth 2 times a day,x90 days,Instr:masspat checked ; may fill for less... Start Date: 08/27/22 Stop Date: 11/25/22 Status: Ordered amphetamine-dextroamphetamine 20 mg oral tablet 1 tablet = 20 mg, By Mouth, 2 times a day, masspat checked may fill for less, # 60 tablet, 0 Refills, Maintenance, 12/30/22 23:23:00 EDT, Tablet, [facility]/pharmacy #2025, 1 tablet By Mouth 2 times a day,x30 days,Instr:masspat checked ; may fill for less,... Start Date: 12/30/22 Stop Date: 01/29/23 Status: Ordered cyclobenzaprine 10 mg oral tablet 1, tablet, By Mouth, 2 times a day, PRN, # 30 tablet, Refills 1, Maintenance, NEEDED FOR SPASMS,12/20/22 11:12:00 EDT, Route to Pharmacy Electronically, [id number], 160, cm, 10/26/22 8:55:00EST, Height, 60, kg, 05/29/21 10:55:00 EDT, Dry Weight Start Date: 12/20/22 Status: Ordered fluticasone 50 mcg/inh nasal spray 1 sprays, Nares, Both, 2 times a day, For post nasal drip, # 3 each, 1 Refills, Maintenance, 11/05/21 10:04:00 EST, [place], [facility], Partial fill upon [...] 1 Refills, Soft Stop, 12/16/21 11:06:00 EDT, [facility]/pharmacy #2029, Partial fill upon patient request if the [...] Team Personnel Name: Gian Andrade MD Position: [facility] Primary Care Physician Member Role: PCP Address: Address: [address] [place] [id number]- Name: Delfino Barber Position: [facility] RN Member Role: Primary Care Nurse Care Team Related Persons Name: VERONICA ANDREWS Address: [address] [place] [address] Name: KEY OVALLE Address: [address] [place], [place] Name: ALCON BAIG Address: [address] [place] [address]
--- OUTSIDE RECORDS SUMMARY | 2024-05-10 09:35 | XMS_ITS | Continuity of Care Document ---
Author Organization [facility] Address [address] [place] [address]- Care Team Providers Care Senior Data Scientist Name Role Phone Gian Andrade MD Primary Care Physician [place] [facility] [place](s): 05/01/20 - 06/04/20 [facility] [address] [place] [address]- [facility] Attending Physician: Gian Andrade MD Allergies, Adverse [...] tablet,0 Refills, Maintenance, 05/14/20 14:08:00 EDT, Tablet, [facility]/pharmacy #2024, last rx ., 1 tablet By Mouth 2 times a day,x28 days,Instr:masspat ch... Start Date: 05/14/20 Stop Date: 06/11/20 Status: Ordered busPIRone 10 mg oral tablet See Instructions, TAKE 1 TABLET BY MOUTH TWICE A DAY, # 180 tablet, Refills 3, Tot. Refills 3, SoftStop, 07/06/19 14:25:16 EDT, Instructions Replace Required Details, Route to Pharmacy Electronically, [id number], [facility]/pharmac... Start Date: 07/06/19 Status: Ordered cyclobenzaprine 10 mg oral tablet 10 mg, 1, tablet, By Mouth, 2 times a day, PRN, # 30 tablet, Refills 1, Tot. Refills 1, Maintenance, for spasm, 01/14/21 9:27:00 EDT, Route to Pharmacy Electronically, [facility]/pharmacy #2024, 160, cm, 02/07/20 10:53:00 EDT, Height, 49.9, kg, 02/07/20 10:5... Start Date: 01/14/21 Status: Ordered cyclobenzaprine 10 mg oral tablet 10 mg, 1, tablet, By Mouth, 2 times a day, PRN, # 30 tablet, Refills 1, Tot. Refills 1, Acute 01/14/21 9:27:00 EDT, for spasm, 01/15/20 9:27:00 EDT, Route to Pharmacy Electronically, [facility]/pharmacy #2024, 160, cm, 01/09/20 9:04:00 EDT, Height Start Date: 01/15/20 Stop Date: 01/14/21 Status: Ordered KlonoPIN 0.5 mg oral tablet 1 tablet = 0.5 mg, By Mouth, 2 times a day, PRN Anxiety, Masspat checked 05/14/2020 May fill for less, # 60 tablet, 0 Refills, Maintenance, 05/14/20 14:08:00 EDT, Tablet, [facility]/pharmacy #2024, increasingdose, 05/14/20, 160, cm, 04/28/20 15:39:00 EDT, He... Start Date: 05/14/20 Status: Ordered omeprazole 20 mg oral enteric coated capsule 1 capsule = 20 mg, By Mouth, Daily, # 90 capsule, 1 Refills, Maintenance, 12/10/19 14:55:00 EDT, ECCapsule, [facility]/pharmacy #2024, aware of celexa, 160, cm, 10/31/19 10:52:00 EST, Height Start Date: 12/10/19 Status: Ordered ondansetron 4 mg oral tablet, disintegrating = 4 mg, By Mouth, 3 times a day, PRN Nausea, # 60 tablet, 1 Refills, Maintenance, 03/13/20 16:39:00EDT, Tablet, [facility]/pharmacy #2024, 160, cm, 03/05/20 9:49:00 EDT, Height, 49.9, kg, 02/07/20 10:53:00EDT, Dry Weight Start Date: 03/13/20 Status: Ordered Plaquenil = 200 mg, By Mouth, Daily, 0 Refills, Maintenance, 10/11/16 10:18:04 Start Date: 10/11/16 Status: Ordered ZyrTEC-D 5 mg-120 mg oral tablet, extended release 1 tablet, By Mouth, 2 times a day, # 180 tablet, 1 Refills, Maintenance, 03/13/20 15:14:00 EDT, ER Tablet, [facility]/pharmacy #2024, 1 tablet By [...] 14:55:00 EDT, 12/10/19 14:55:00 EDT, ER Tablet, [facility]/pharmacy #2024, 160, cm, 10/31/19 10:52:00 EST, Height [...]
--- OUTSIDE RECORDS SUMMARY | 2024-05-10 09:35 | XMS_ITS | Continuity of Care Document ---
Author Organization [facility] Address [address] [place] [address]- Care Team Providers Care Facility Service Associate Name Role Phone Lupe EL, Gian Lincoln Primary Care Physician Encounter [facility] [place] Date(s): 11/09/23 - 12/09/23 [facility] [address] [place], [place] [address] Allergies, Adverse Reactions, Alerts Substance Reaction [...] 2 times a day, Masspat checked DNF 12/06/2023, # 56 tablet, 0 Refills, Maintenance, 12/01/23 14:33:00 EDT, Tablet, [facility]/pharmacy #2025, Ok to fill early, Masspat checked , Patient may fill for less, 1 tablet By Mouth 2 time... Start Date: 12/01/23 Stop Date: 12/29/23 Status: Ordered clonazePAM 0.5 mg oral tablet [...] Tot. Refills 1, Maintenance, NEEDED FOR SPASMS, 11/09/23 9:24:00 EST, Route to Pharmacy Electronically, [facility]/pharmacy #2024, 158, cm, 09/23/23 12:44:00... Start Date: 11/09/23 Stop Date: 12/09/23 Status: Ordered Emgality 0 Refills, Maintenance, 04/19/23 15:48:00 EDT, Partial fill upon patient request if the prescription is for a schedule II opioid drug. Start Date: 04/19/23 Status: Ordered fluticasone 50 mcg/inh nasal spray 1 sprays, Nares, Both, 2 times a day, For post nasal drip, # 3 each, 1 Refills, Maintenance, 11/05/21 10:04:00 EST, [place], [facility], Partial fill upon patient request if the prescription is for a schedule II opioid drug., 1 sprays... Start Date: 11/05/21 Status: Ordered meclizine 25 mg oral tablet 1 tablet = 25 mg, By Mouth, Daily at bedtime, PRN Other, take one tab po qhs prn moderate vertigo, # 8 tablet, 1 Refills, Soft Stop, 12/16/21 11:06:00 EDT, [facility]/pharmacy #2025, Partial fill upon patient request if [...] each, 0 Refills, Maintenance, 11/25/23 17:27:00 EDT, [facility]/pharmacy #2025, Partial fill upon higinio... Start Date: 11/25/23 Status: Ordered propranolol 10 mg oral tablet 10 mg, 1, tablet, By Mouth, 3 times a day, # 90 tablet, Refills 3, Tot. Refills 3, Maintenance, 11/09/23 9:56:00 EST, Route to Pharmacy Electronically, [facility]/pharmacy #2025, Partial fill upon patient request if [...] Refills, Maintenance, 12/25/23 14:07:00 EDT, ER Tablet, [facility]/pharmacy #2025, 1 tablet By Mouth 2 times [...] Team Personnel Name: Gian Andrade MD Position: [facility] Physician - Primary Care Member Role: PCP Address: Address: [address] [place] [address] Name: Delfino Barber RN Position: [facility] RN Member Role: Primary Care Nurse Care Team Related Persons Name: VERONICA ANDREWS Address: home [address] [place] [id number] Name: KEY OVALLE Address: [address] [place] [address] Name: ALCON BAIG Address: [address] [place] [address]
--- OUTSIDE RECORDS SUMMARY | 2024-05-10 09:35 | XMS_ITS | Continuity of Care Document ---
Author Organization [facility] Address [address] [place] [address]- Care Team Providers Care Blasting Miner Name Role Phone Lupe EL, Gian Lincoln Primary Care Physician Encounter [facility] Date(s): 10/22/20 - 12/22/[address] [address]- Discharge Disposition: A-D/C Home Attending Physician: Gian Andrade MD Admitting Physician: Gian Andrade MD Referring Physician: Gian Andrade MD Allergies, [...] 0 Refills, Maintenance, 12/17/20 15:58:00 EDT, Tablet, [facility]/pharmacy #2025, 1 tablet By Mouth 2 times a day,x28 days,Instr:masspat checked ; may fill for less,... Start Date: 12/17/20 Stop Date: 01/14/21 Status: Ordered busPIRone 10 mg oral tablet 10 mg, 1, tablet, By Mouth, 2 times a day, # 180 tablet, Refills 1, Tot. Refills 1, Soft Stop, 09/02/20 8:17:00 EST, Route to Pharmacy Electronically, [facility]/pharmacy #2024, 160, cm, 07/30/20 9:37:00 EST, Height, 49.9, kg, 02/07/20 10:53:00 EDT, Dry Weight Start Date: 09/02/20 Status: Ordered cyclobenzaprine 10 mg oral tablet 10 mg, 1, tablet, By Mouth, 2 times a day, PRN, # 30 tablet, Refills 1, Tot. Refills 1, Maintenance, for spasm, 01/14/21 9:27:00 EDT, Route to Pharmacy Electronically, [facility]/pharmacy #2024, 160, cm, 02/07/20 10:53:00 EDT, Height, 49.9, kg, 02/07/20 10:5... Start Date: 01/14/21 Status: Ordered cyclobenzaprine 10 mg oral tablet 10 mg, 1, tablet, By Mouth, 2 times a day, PRN, # 30 tablet, Refills 1, Tot. Refills 1, Acute 01/14/21 9:27:00 EDT, for spasm, 01/15/20 9:27:00 EDT, Route to Pharmacy Electronically, [facility]/pharmacy #5, 160, cm, 01/09/20 9:04:00 EDT, Height Start Date: 01/15/20 Stop Date: 01/14/21 Status: Ordered KlonoPIN 0.5 mg oral tablet 1 tablet = 0.5 mg, By Mouth, 2 times a day, PRN Anxiety, Masspat checked May fill for less, # 60 tablet, 1 Refills, Maintenance, 11/21/20 12:12:00 EST, Tablet, [facility]/pharmacy #202, increasing dose, 160, cm, 07/30/20 9:37:00 EST, Height, 49.9, kg, ... Start Date: 11/21/20 Status: Ordered omeprazole 20 mg oral enteric coated capsule 1 capsule = 20 mg, By Mouth, Daily, # 90 capsule, 0 Refills, Maintenance, 10/06/20 12:13:00 EST, ECCapsule, [facility]/pharmacy #202, aware of celexa, 160, cm, 07/30/20 9:37:00 EST, Height, 49.9, kg, 02/07/20 10:53:00 EDT, Dry Weight Start Date: 10/06/20 Status: Ordered ondansetron 4 mg oral tablet, disintegrating = 4 mg, By Mouth, 3 times a day, PRN Nausea, # 60 tablet, 1 Refills, Maintenance, 03/13/20 16:39:00EDT, Tablet, [facility]/pharmacy #2024, 160, cm, 03/05/20 9:49:00 EDT, Height, 49.9, kg, 02/07/20 10:53:00EDT, Dry Weight Start Date: 03/13/20 Status: Ordered Plaquenil = 200 mg, By Mouth, Daily, 0 Refills, Maintenance, 10/11/16 10:18:04 Start Date: 10/11/16 Status: Ordered ZyrTEC-D 5 mg-120 mg oral tablet, extended release 1 tablet, By Mouth, 2 times a day, # 180 tablet, 1 Refills, Maintenance, 03/13/20 15:14:00 EDT, ER Tablet, [facility]/pharmacy #202, 1 tablet By Mouth 2 times a [...]
--- OUTSIDE RECORDS SUMMARY | 2024-05-10 09:35 | XMS_ITS | Continuity of Care Document ---
Author Organization [facility] Address [address] [place] [address]- Care Team Providers Care Computer Software Engineer Name Role Phone Gian Andrade MD Primary Care Physician Encounter [facility] Date(s): 07/04/20 - 07/11/20 [facility] [address] [place] [address]- [facility] Encounter Diagnosis Post concussive syndrome(Discharge Diagnosis) - 07/04/20 Attending Physician: Gian Andrade MD Allergies, Adverse [...] less, # 56 tablet, 0 Refills, Maintenance, 06/17/20 10:13:00 EDT, Tablet, [facility]/pharmacy #2024, last rx ., 1 tablet By Mouth 2 times a day,x28 days,Instr:masspat checked; ma... Start Date: 06/17/20 Stop Date: 07/15/20 Status: Ordered busPIRone 10 mg oral tablet See Instructions, TAKE 1 TABLET BY MOUTH TWICE A DAY, # 180 tablet, Refills 3, Tot. Refills 3, SoftStop, 07/06/19 14:25:16 EDT, Instructions Replace Required Details, Route to Pharmacy Electronically, [id number], [facility]/pharmac... Start Date: 07/06/19 Status: Ordered cyclobenzaprine 10 mg oral tablet 10 mg, 1, tablet, By Mouth, 2 times a day, PRN, # 30 tablet, Refills 1, Tot. Refills 1, Maintenance, for spasm, 01/14/21 9:27:00 EDT, Route to Pharmacy Electronically, [facility]/pharmacy #2024, 160, cm, 02/07/20 10:53:00 EDT, Height, 49.9, kg, 02/07/20 10:5... Start Date: 01/14/21 Status: Ordered cyclobenzaprine 10 mg oral tablet 10 mg, 1, tablet, By Mouth, 2 times a day, PRN, # 30 tablet, Refills 1, Tot. Refills 1, Acute 01/14/21 9:27:00 EDT, for spasm, 01/15/20 9:27:00 EDT, Route to Pharmacy Electronically, [facility]/pharmacy #2024, 160, cm, 01/09/20 9:04:00 EDT, Height Start Date: 01/15/20 Stop Date: 01/14/21 Status: Ordered ibuprofen 800 mg oral tablet 800 mg, 1, tablet, By Mouth, 3 times a day, # 90 tablet, Refills 2, Tot. Refills 2, Acute 07/20/20 12:41:00 EST, 06/19/20 12:41:00 EDT, Route to Pharmacy Electronically, [facility]/pharmacy #2024, 160, cm, 05/27/20 10:37:00 EDT, Height, 49.9, kg, 02/07/20 10... Start Date: 06/19/20 Stop Date: 07/20/20 Status: Ordered KlonoPIN 0.5 mg oral tablet 1 tablet = 0.5 mg, By Mouth, 2 times a day, PRN Anxiety, Masspat checked 06/10/2020 May fill for less, # 60 tablet, 1 Refills, Maintenance, 06/10/20 13:11:00 EDT, Tablet, [facility]/pharmacy #202, increasing dose, 160, cm, 05/27/20 10:37:00 EDT, Height, 49.... Start Date: 06/10/20 Status: Ordered omeprazole 20 mg oral enteric coated capsule 1 capsule = 20 mg, By Mouth, Daily, # 90 capsule, 1 Refills, Maintenance, 12/10/19 14:55:00 EDT, ECCapsule, [facility]/pharmacy #2024, aware of celexa, 160, cm, 10/31/19 10:52:00 EST, Height Start Date: 12/10/19 Status: Ordered ondansetron 4 mg oral tablet, disintegrating = 4 mg, By Mouth, 3 times a day, PRN Nausea, # 60 tablet, 1 Refills, Maintenance, 03/13/20 16:39:00EDT, Tablet, [facility]/pharmacy #2024, 160, cm, 03/05/20 9:49:00 EDT, Height, 49.9, kg, 02/07/20 10:53:00EDT, Dry Weight Start Date: 03/13/20 Status: Ordered Plaquenil = 200 mg, By Mouth, Daily, 0 Refills, Maintenance, 10/11/16 10:18:04 Start Date: 10/11/16 Status: Ordered ZyrTEC-D 5 mg-120 mg oral tablet, extended release 1 tablet, By Mouth, 2 times a day, # 180 tablet, 1 Refills, Maintenance, 03/13/20 15:14:00 EDT, ER Tablet, [facility]/pharmacy #202, 1 tablet By Mouth 2 times [...] Effective Dates Health Status Clinical Service Informant Post concussive syndrome Discharge Diagnosis 07/04/20 Social History Social History Type Response Smoking Status Never smoker entered on: 04/21/15 Sex
--- OUTSIDE RECORDS SUMMARY | 2024-05-10 09:35 | XMS_ITS | Continuity of Care Document ---
Author Organization [facility] Address [address] [place] [address]- Care Team Providers Care Senior Interaction Designer Name Role Phone Gian Andrade MD Primary Care Physician Encounter [facility] Date(s): 11/30/22 - 12/30/22 [facility] [address] [place], [place] [address] Allergies, Adverse Reactions, Alerts Substance Reaction Severity [...] 0 Refills, Maintenance, 08/27/22 12:40:00 EST, Tablet, [facility]/pharmacy #2024, 1 tablet By Mouth 2 times a day,x90 days,Instr:masspat checked ; may fill for less... Start Date: 08/27/22 Stop Date: 11/25/22 Status: Ordered amphetamine-dextroamphetamine 20 mg oral tablet 1 tablet = 20 mg, By Mouth, 2 times a day, masspat checked may fill for less, # 60 tablet, 0 Refills, Maintenance, 12/30/22 23:23:00 EDT, Tablet, [facility]/pharmacy #2024, 1 tablet By Mouth 2 times a day,x30 days,Instr:masspat checked ; may fill for less,... Start Date: 12/30/22 Stop Date: 01/29/23 Status: Ordered cyclobenzaprine 10 mg oral tablet 1, tablet, By Mouth, 2 times a day, PRN, # 30 tablet, Refills 1, Maintenance, NEEDED FOR SPASMS,12/20/22 11:12:00 EDT, Route to Pharmacy Electronically, [facility] STORE [id number], 160, cm, 10/26/22 8:55:00EST, Height, 60, kg, 05/29/21 10:55:00 EDT, Dry Weight Start Date: 12/20/22 Status: Ordered fluticasone 50 mcg/inh nasal spray 1 sprays, Nares, Both, 2 times a day, For post nasal drip, # 3 each, 1 Refills, Maintenance, 11/05/21 10:04:00 EST, [place], [facility], Partial fill upon [...] 1 Refills, Soft Stop, 12/16/21 11:06:00 EDT, [facility]/pharmacy #[id number], Partial fill upon patient request if the [...] MD Position: [facility] Primary Care Physician Member Role: PCP Address: Address: [address] [place] [id number]- Name: Delfino Barber Position: [facility] RN Member Role: Primary Care Nurse Care Team Related Persons Name: ALCON BAIG Address: [address] [place] [address]
--- OUTSIDE RECORDS SUMMARY | 2024-05-10 09:35 | XMS_ITS | Continuity of Care Document ---
Author Organization [facility] Address [address] [place] [address]- Care Team Providers Care Wheat Combine Driver Name Role Phone Gian Andrade MD Primary Care Physician Encounter [facility] [place] [place] Date(s): 02/07/24 - 02/14/24 [facility] [address] [place] [address]- Encounter Diagnosis Left ankle pain(Discharge Diagnosis) - 02/07/24 Paresthesia(Discharge Diagnosis) - 02/07/24 ADD (attention deficit disorder)(Discharge Diagnosis) - 02/07/24 Attending Physician: Gian Andrade MD Allergies, Adverse [...] 2 times a day, Masspat checked DNF 02/06/2024, # 56 tablet, 0 Refills, Maintenance, 02/01/24 15:28:00 EDT, Tablet, [facility]/pharmacy #2025, Ok to fill early, Masspat checked , Patient may fill for less, 1 tablet By Mouth 2 time... Start Date: 02/01/24 Stop Date: 02/29/24 Status: Ordered clonazePAM 0.5 mg oral tablet 1 tablet = 0.5 mg, By Mouth, 2 times a day, PRN Anxiety, # 60 tablet, 1 Refills, Maintenance, 12/27/23 14:42:00 EDT, Tablet, [facility]/pharmacy #2024, Partial fill upon patient request if the prescription is for a schedule II opioid drug., 158, cm, 11/22/23... Start Date: 12/27/23 Status: Ordered cyclobenzaprine 10 mg oral tablet 1, tablet, By Mouth, 2 times a day, PRN, # 30 tablet, Refills 1, Maintenance, NEEDED FOR SPASMS,FOR, 01/24/24 8:14:00 EDT, Route to Pharmacy Electronically, [facility] STORE [id number], 158, cm, 01/03/24 14:54:00 EDT, Height, 56.3, [...] each, 1 Refills, Maintenance, 11/05/21 10:04:00 EST, Vendor, [facility], Partial fill upon patient request if the prescription is for a schedule II opioid drug., 1 sprays... Start Date: 11/05/21 Status: Ordered meclizine 25 mg oral tablet 1 tablet = 25 mg, By Mouth, Daily at bedtime, PRN Other, take one tab po qhs prn moderate vertigo, # 8 tablet, 1 Refills, Soft Stop, 12/16/21 11:06:00 EDT, [facility]/pharmacy #2025, Partial fill upon patient request [...] each, 0 Refills, Maintenance, 11/25/23 17:27:00 EDT, [facility]/pharmacy #2025, Partial fill upon higinio... Start Date: 11/25/23 Status: Ordered propranolol 10 mg oral tablet 1, tablet, By Mouth, 3 times a day, # 270 tablet, Refills 1, Maintenance, 02/07/24 8:11:00 EDT, Route to Pharmacy Electronically, [facility] STORE [id number], 158, cm, 01/03/24 14:54:00 EDT, Height, 56.3, [...] Active RLS (restless legs syndrome) Confirmed Active Diagnosis Diagnosis Type Effective Dates Health Status Clinical Service Informant Left ankle pain Discharge Diagnosis 02/07/24 Paresthesia Discharge Diagnosis 02/07/24 ADD (attention deficit disorder) Discharge Diagnosis 02/07/24 Vital Signs Most recent to oldest [Reference Range]: 1 Height 158.0 cm (02/07/24 10:25 AM) Weight 52.1 kg (02/07/24 10:25 AM) Oxygen Saturation [94-100 %] 100 % (02/07/24 10:25 AM) Pulse Rate [55-90 bpm] 100 bpm *H* (02/07/24 10:25 AM) Body Mass Index [18.5-24.99 kg/m2] 20.87 kg/m2 (02/07/24 10:25 AM) Blood Pressure [90-138/55-84 mm Hg] 107/ 74mm Hg (02/07/24 10:25 AM) Mode of Delivery (Oxygen) Room air (02/07/24 10:25 AM) Blood pressure sites Arm, right (02/07/24 10:25 AM) Weight Obtained Via Standing scale (02/07/24 10:25 AM) Social History Social History Type Response Smoking Status Never smoker entered on: 04/21/15 Sex Patient Care team information Care Team Personnel Name: Gian Andrade MD Position: [facility] Physician - Primary Care Member Role: PCP Address: Address[facility] [place] [address]- Name: Delfino Barber RN Position: [facility] RN Member Role: Primary Care Nurse Care Team Related Persons Name: VERONICA ANDREWS Address: [address] [place] [address] Name: KEY OVALLE Address: [address] [place] [address] Name: ALCON BAIG Address: [address] [place] [address]
--- OUTSIDE RECORDS SUMMARY | 2024-05-10 09:35 | XMS_ITS | Continuity of Care Document ---
Author Organization [facility] Address [address] [place] [address]- Care Team Providers Care Photo Finish Photographer Name Role Phone Lupe EL, Gian Lincoln Primary Care Physician Encounter [facility] Date(s): 12/24/22 - 01/23/[address] [address]- Allergies, Adverse Reactions, Alerts Substance Reaction Severity Status Percocet 5/325 Active Latex Active Immunizations Given [...] 0 Refills, Maintenance, 08/27/22 12:40:00 EST, Tablet, [facility]/pharmacy #2024, 1 tablet By Mouth 2 times a day,x90 days,Instr:masspat checked ; may fill for less... Start Date: 08/27/22 Stop Date: 11/25/22 Status: Ordered amphetamine-dextroamphetamine 20 mg oral tablet 1 tablet = 20 mg, By Mouth, 2 times a day, masspat checked may fill for less, # 60 tablet, 0 Refills, Maintenance, 12/30/22 23:23:00 EDT, Tablet, [facility]/pharmacy #2024, 1 tablet By Mouth 2 times a day,x30 days,Instr:masspat checked ; may fill for less,... Start Date: 12/30/22 Stop Date: 01/29/23 Status: Ordered cyclobenzaprine 10 mg oral tablet 1, tablet, By Mouth, 2 times a day, PRN, # 30 tablet, Refills 1, Maintenance, NEEDED FOR SPASMS,12/20/22 11:12:00 EDT, Route to Pharmacy Electronically, [facility] STORE [id number], 160, cm, 10/26/22 8:55:00EST, Height, 60, kg, 05/29/21 10:55:00 EDT, Dry Weight Start Date: 12/20/22 Status: Ordered fluticasone 50 mcg/inh nasal spray 1 sprays, Nares, Both, 2 times a day, For post nasal drip, # 3 each, 1 Refills, Maintenance, 11/05/21 10:04:00 EST, [place], [facility], Partial fill upon [...] 1 Refills, Soft Stop, 12/16/21 11:06:00 EDT, [facility]/pharmacy #1021, Partial fill upon patient request if the [...] Personnel Name: Gian Andrade MD Position: [facility] Primary Care Physician Member Role: PCP Address: Address: [address] [place] [address]- Name: Delfino Barber Position: [facility] RN Member Role: Primary Care Nurse Care Team Related Persons Name: VERONICA ANDREWS Address: [address] [place] [address] Name: KEY OVALLE Address: [address] [place], [place] Name: ALCON BAIG Address: [address] [place] [address]
--- OUTSIDE RECORDS SUMMARY | 2024-05-10 09:35 | XMS_ITS | Continuity of Care Document ---
Author Organization [facility] Address [address] [place] [address]- Care Team Providers Care Churner Name Role Phone Gian Andrade MD Primary Care Physician Encounter [facility] Date(s): 07/22/23 - 08/21/23 [facility] [address] [place] [address]- Allergies, Adverse Reactions, Alerts Substance Reaction Severity [...] each, 1 Refills, Maintenance, 11/05/21 10:04:00 EST, [place], [facility], Partial fill upon [...] 15:43:00 EST, 06/28/23 15:43:00 EDT, Tablet, [facility]/pharmacy #2024, increasing dose, 160, cm, 05/25/23 1... Start Date: 06/28/23 Stop Date: 08/27/23 Status: Ordered KlonoPIN 0.5 mg oral tablet 1 tablet = 0.5 mg, By Mouth, 2 times a day, PRN Anxiety, for 30 days, Masspat checked May fill for less, # 60 tablet, 1 Refills, Hard Stop 08/29/23 14:42:00 EST, 06/30/23 14:42:00 EDT, Tablet, [facility]/pharmacy #2024, increasing dose, 160, cm, 06/30/23 1... Start Date: 06/30/23 Stop Date: 08/29/23 Status: Ordered meclizine 25 mg oral tablet 1 tablet = 25 mg, By Mouth, Daily at bedtime, PRN Other, take one tab po qhs prn moderate vertigo, # 8 tablet, 1 Refills, Soft Stop, 12/16/21 11:06:00 EDT, [facility]/pharmacy #2024, Partial fill upon patient request [...] Team Personnel Name: Gian Andrade MD Position: [facility] Physician - Primary Care Member Role: PCP Address: Address: [address] [place] [address]- Name: Delfino Barber RN Position: [facility] RN Member Role: Primary Care Nurse Care Team Related Persons Name: VERONICA ANDREWS Address: [address] [place] [address] Name: KEY OVALLE Address: [address] [place] [address] Name: ALCON BAIG Address: [address] [place] [address]
--- OUTSIDE RECORDS SUMMARY | 2024-05-10 09:35 | XMS_ITS | Continuity of Care Document ---
Author Organization [facility] Address [address] [place] [address]- Care Team Providers Care Printer Operator Name Role Phone Lupe EL, Gian Lincoln Primary Care Physician Encounter [facility] Date(s): 08/30/23 - 09/29/23 [facility] [address] [place] [address]- Allergies, Adverse Reactions, Alerts Substance Reaction Severity [...] 0 Refills, Maintenance, 09/29/23 22:15:00 EST, Tablet, [facility]/pharmacy #2025, Ok to fill [...] 06/28/23 14:05:00 EDT, Route to Pharmacy Electronically, [facility]/pharmacy #202, 160, cm, 05/25/23 16:00:00... Start Date: 06/28/23 [...] each, 1 Refills, Maintenance, 11/05/21 10:04:00 EST, [place], [facility], Partial fill upon patient request if the prescription is for a schedule II opioid drug., 1 sprays... Start Date: 11/05/21 Status: Ordered meclizine 25 mg oral tablet 1 tablet = 25 mg, By Mouth, Daily at bedtime, PRN Other, take one tab po qhs prn moderate vertigo, # 8 tablet, 1 Refills, Soft Stop, 12/16/21 11:06:00 EDT, [facility]/pharmacy #2025, Partial fill upon [...] 09/23/23 13:04:00 EST, Route to Pharmacy Electronically, [facility]/pharmacy #2025, Partial fill upon [...] Refills, Maintenance, 12/25/23 14:07:00 EDT, ER Tablet, [facility]/pharmacy #2025, 1 tablet By [...] Gian Andrade MD Position: [facility] Physician - Primary Care Member Role: PCP Address: Address: [address] [place] [address] Name: Delfino Barber RN Position: [facility] RN Member Role: Primary Care Nurse Care Team Related Persons Name: VERONICA ANDREWS Address: [address] [place] [address] Name: KEY OVALLE Address: [address] [place] [address] Name: ALCON BAIG Address: [address] [place] [address]
--- OUTSIDE RECORDS SUMMARY | 2024-05-10 09:35 | XMS_ITS | Continuity of Care Document ---
Author Organization [facility] Address [address] [place] [address]- Care Team Providers Care Correctional Program Officer Name Role Phone Gian Andrade MD Primary Care Physician En[place] [facility] Date(s): 03/24/23 - 04/23/23 [facility] [address] [place] [address]- Allergies, Adverse Reactions, Alerts Substance Reaction Severity [...] 0 Refills, Maintenance, 08/27/22 12:40:00 EST, Tablet, [facility]/pharmacy #2025, 1 tablet By Mouth 2 times a day,x90 days,Instr:masspat checked ; may fill for less... Start Date: 08/27/22 Stop Date: 11/25/22 Status: Ordered amphetamine-dextroamphetamine 20 mg oral tablet 1 tablet = 20 mg, By Mouth, 2 times a day, masspat checked may fill for less, # 60 tablet, 0 Refills, Maintenance, 03/28/23 12:00:00 EDT, Tablet, [facility]/pharmacy #2025, 1 tablet By Mouth 2 times a day,x30 days,Instr:masspat checked; may fill for less, 1... Start Date: 03/28/23 Stop Date: 04/27/23 Status: Ordered cyclobenzaprine 10 mg oral tablet 1, tablet, By Mouth, 2 times a day, PRN, # 30 tablet, Refills 1, Maintenance, NEEDED FOR SPASMS,12/20/22 11:12:00 EDT, Route to Pharmacy Electronically, [facility] STORE [address], 160, cm, 10/26/22 8:55:00EST, Height, 60, kg, [...] each, 1 Refills, Maintenance, 11/05/21 10:04:00 EST, [place], [facility], Partial fill upon [...] Refills, Soft Stop, 12/16/21 11:06:00 EDT, [facility]/pharmacy #2025, Partial fill upon patient request if [...] Personnel Name: Lupe EL, Gian Lincoln Position: [facility] Physician - Primary Care Member Role: PCP Address: Address: [address] [place] [id number]- Name: Delfino Barber Position: [facility] RN Member Role: Primary Care Nurse Care Team Related Persons Name: VERONICA ANDREWS Address: [address] [place] [address] Name: KEY OVALLE Address: [address] [place], [place] Name: ALCON BAIG Address: [address] [place] [address]
--- OUTSIDE RECORDS SUMMARY | 2024-05-10 09:35 | XMS_ITS | Continuity of Care Document ---
Author Organization [facility] Address [address] [place] [address]- Care Team Providers Care Christmas Tree Grower Name Role Phone Gian Andrade MD Primary Care Physician En[place] [facility] Date(s): 07/30/21 - 08/29/21 [facility] [address] [place] [address]- Attending Physician: Admtr, [id number] Admitting Physician: Admtr, [...] less, # 180 tablet, 0 Refills, Maintenance, 08/21/21 15:54:00 EST, Tablet, [facility], 1 tablet By Mouth 2 times a day,x90 days,Instr:masspat checked ; january... Start Date: 08/21/21 Stop Date: 11/19/21 Status: Ordered busPIRone 10 mg oral tablet [...] 9:27:00 EDT, Route to Pharmacy Electronically, [facility]/pharmacy #202, 160, cm, 02/07/20 10:53:00 EDT, Height, [...] less, # 180 tablet, 1 Refills, Maintenance, 07/30/21 16:53:00 EST, Tablet, [facility]/pharmacy #2025, increasing dose, 160, cm, 06/12/21 11:11:00 EDT, Height, 60, kg, 09/... Start Date: 07/30/21 Stop Date: 01/26/22 Status: Ordered omeprazole 20 mg oral enteric [...] Nausea, # 60 tablet, 1 Refills, Maintenance, 07/30/21 10:38:00EST, Tablet, [facility]/pharmacy #2025, 160, cm, 06/12/21 11:11:00 EDT, Height, 60, kg, 05/29/21 10:55:00 EDT, Dry Weight Start Date: 07/30/21 Status: Ordered ZyrTEC-D 5 mg-120 mg oral [...]
--- OUTSIDE RECORDS SUMMARY | 2024-05-10 09:35 | XMS_ITS | Continuity of Care Document ---
Author Organization [facility] Address [address] [place] [address]- Care Team Providers Care Nutrition Services Assistant Name Role Phone Gian Andrade MD Primary Care Physician Encounter [facility] [place] [place] Date(s): 10/10/20 - 11/09/20 [facility] [address] [place] [address]- Allergies, Adverse Reactions, Alerts Substance Reaction Severity [...] Mouth, 2 times a day, masspat checked 10/03/2020 may fill for less, # 56 tablet, 0 Refills, Maintenance, 10/03/20 16:38:00 EST, Tablet, [facility]/pharmacy #2024, 1 tablet By Mouth 2 times a day,x28 days,Instr:masspat checked 10/03/2020;... Start Date: 10/03/20 Stop Date: 10/31/20 Status: Ordered busPIRone 10 mg oral tablet 10 mg, 1, tablet, By Mouth, 2 times a day, # 180 tablet, Refills 1, Tot. Refills 1, Soft Stop, 09/02/20 8:17:00 EST, Route to Pharmacy Electronically, [facility]/pharmacy #2024, 160, cm, 07/30/20 9:37:00 EST, Height, 49.9, kg, 02/07/20 10:53:00 EDT, Dry Weight Start Date: 09/02/20 Status: Ordered cyclobenzaprine 10 mg oral tablet 10 mg, 1, tablet, By Mouth, 2 times a day, PRN, # 30 tablet, Refills 1, Tot. Refills 1, Maintenance, for spasm, 01/14/21 9:27:00 EDT, Route to Pharmacy Electronically, [facility]/pharmacy #2024, 160, cm, 02/07/20 10:53:00 EDT, Height, 49.9, kg, 02/07/20 10:5... Start Date: 01/14/21 Status: Ordered cyclobenzaprine 10 mg oral tablet 10 mg, 1, tablet, By Mouth, 2 times a day, PRN, # 30 tablet, Refills 1, Tot. Refills 1, Acute 01/14/21 9:27:00 EDT, for spasm, 01/15/20 9:27:00 EDT, Route to Pharmacy Electronically, [facility]/pharmacy #2024, 160, cm, 01/09/20 9:04:00 EDT, Height Start Date: 01/15/20 Stop Date: 01/14/21 Status: Ordered KlonoPIN 0.5 mg oral tablet 1 tablet = 0.5 mg, By Mouth, 2 times a day, PRN Anxiety, Masspat checked 08/01/2020 May fill for less, # 60 tablet, 1 Refills, Maintenance, 08/01/20 15:29:00 EST, Tablet, [facility]/pharmacy #202, increasing dose, 08/06/20, 160, cm, 07/30/20 9:37:00 EST, H... Start Date: 08/01/20 Status: Ordered omeprazole 20 mg oral enteric coated capsule 1 capsule = 20 mg, By Mouth, Daily, # 90 capsule, 0 Refills, Maintenance, 10/06/20 12:13:00 EST, ECCapsule, [facility]/pharmacy #202, aware of celexa, 160, cm, 07/30/20 9:37:00 EST, Height, 49.9, kg, 02/07/20 10:53:00 EDT, Dry Weight Start Date: 10/06/20 Status: Ordered ondansetron 4 mg oral tablet, disintegrating = 4 mg, By Mouth, 3 times a day, PRN Nausea, # 60 tablet, 1 Refills, Maintenance, 03/13/20 16:39:00EDT, Tablet, [facility]/pharmacy #202, 160, cm, 03/05/20 9:49:00 EDT, Height, 49.9, kg, 02/07/20 10:53:00EDT, Dry Weight Start Date: 03/13/20 Status: Ordered Plaquenil = 200 mg, By Mouth, Daily, 0 Refills, Maintenance, 10/11/16 10:18:04 Start Date: 10/11/16 Status: Ordered ZyrTEC-D 5 mg-120 mg oral tablet, extended release 1 tablet, By Mouth, 2 times a day, # 180 tablet, 1 Refills, Maintenance, 03/13/20 15:14:00 EDT, ER Tablet, [facility]/pharmacy #202, 1 tablet By Mouth [...]
--- OUTSIDE RECORDS SUMMARY | 2024-05-10 09:35 | XMS_ITS | Continuity of Care Document ---
Author Organization [facility] Address [address] [place] [address]- Care Team Providers Care Finish Grinder Name Role Phone Gian Andrade MD Primary Care Physician Encounter [facility] Date(s): 08/31/22 - 09/30/22 [facility] [address] [place] [address]- Allergies, Adverse Reactions, Alerts Substance Reaction Severity [...] 0 Refills, Maintenance, 08/27/22 12:40:00 EST, Tablet, [facility]/pharmacy #2025, 1 tablet By Mouth 2 times a day,x90 days,Instr:masspat checked ; may fill for less... Start Date: 08/27/22 Stop Date: 11/25/22 Status: Ordered amphetamine-dextroamphetamine 20 mg oral tablet 1 tablet = 20 mg, By Mouth, 2 times a day, masspat checked may fill for less, # 180 tablet, 0 Refills, Maintenance, 09/24/22 17:21:00 EST, Tablet, [facility]/pharmacy #2024, 1 tablet By Mouth 2 [...] 08/30/22 13:33:00 EST, Route to Pharmacy Electronically, [facility]/pharmacy #2025, 160, cm, 01/07/22 9:42:00 EDT, Height, 60, kg, 05/29/21 10:55:... Start Date: 08/30/22 Status: Ordered fluticasone 50 mcg/inh nasal spray 1 sprays, Nares, Both, 2 times a day, For post nasal drip, # 3 each, 1 Refills, Maintenance, 11/05/21 10:04:00 EST, [place], [facility], Partial fill upon [...] 1 Refills, Soft Stop, 12/16/21 11:06:00 EDT, [facility]/pharmacy #2024, Partial fill upon patient request [...] Team Personnel Name: Gian Andrade MD Position: [facility] Primary Care Physician Member Role: PCP Address: Address: [address] [place] [address]- Name: Delfino Barber Position: [facility] RN Member Role: Primary Care Nurse Care Team Related Persons Name: ALCON BAIG Address: home [address] [place] [id number]
--- OUTSIDE RECORDS SUMMARY | 2024-05-10 09:35 | XMS_ITS | Continuity of Care Document ---
Author Organization [facility] Address [address] [place] [address]- Care Team Providers Care Mitering Machine Operator Name Role Phone Gian Andrade MD Primary Care Physician Encounter [facility] Date(s): 12/17/20 - 01/16/21 [facility] [address] [place] [address]- Allergies, Adverse Reactions, Alerts Substance Reaction Severity [...] 0 Refills, Maintenance, 12/17/20 15:58:00 EDT, Tablet, [facility]/pharmacy #2024, 1 tablet By Mouth [...] 01/14/21 9:27:00 EDT, Route to Pharmacy Electronically, [facility]/pharmacy #2024, 160, cm, 02/07/20 10:53:00 EDT, Height, 49.9, kg, 02/07/20 10:5... Start Date: 01/14/21 Status: Ordered KlonoPIN 0.5 mg oral tablet 1 tablet = 0.5 mg, By Mouth, 2 times a day, PRN Anxiety, Masspat checked May fill for less, # 60 tablet, 1 Refills, Maintenance, 11/21/20 12:12:00 EST, Tablet, [facility]/pharmacy #2024, increasing dose, 160, cm, 07/30/20 9:37:00 EST, Height, 49.9, kg, 05/... Start Date: 11/21/20 Status: Ordered omeprazole 20 mg oral enteric coated capsule 1 capsule = 20 mg, By Mouth, Daily, # 90 capsule, 0 Refills, Maintenance, 12/29/20 13:29:00 EDT, ECCapsule, [facility]/pharmacy #2024, aware of celexa, 160, cm, 07/30/20 9:37:00 [...] Dry Weight Start Date: 12/31/20 Status: Ordered Plaquenil = 200 mg, By [...]
--- OUTSIDE RECORDS SUMMARY | 2024-05-10 09:36 | XMS_ITS | Continuity of Care Document ---
Author Organization [facility] Address [address] [place] [address]- Care Team Providers Care Real Estate Agent Name Role Phone Gian Andrade MD Primary Care Physician Encounter [facility] Date(s): 05/26/21 - 06/02/21 [facility] [address] [place] [address]- Attending Physician: Not on Staff, Attending MD Referring Physician: Gian Andrade MD Allergies, [...] less, # 56 tablet, 0 Refills, Maintenance, 03/18/21 7:46:00 EDT, Tablet, [facility]/pharmacy #2025, 1 tablet By Mouth 2 times a day,x28 days,Instr:masspat checked ; may fill for less,... Start Date: 03/18/21 Stop Date: 04/15/21 Status: Ordered busPIRone 10 mg oral tablet 10 mg, 1, tablet, By Mouth, 2 times a day, # 180 tablet, Refills 1, Tot. Refills 1, Soft Stop, 12/25/20 11:32:00 EDT, Route to Pharmacy Electronically, [facility], 160, cm, 07/30/20 9:37:00 EST, Height, 49.9, kg, 02/07/20 10:53:00 E... Start Date: 12/25/20 Status: Ordered cyclobenzaprine 10 mg oral tablet 10 mg, 1, tablet, By Mouth, 2 times a day, PRN, # 30 tablet, Refills 1, Tot. Refills 1, Maintenance, for spasm, 01/14/21 9:27:00 EDT, Route to Pharmacy Electronically, [facility]/pharmacy #2024, 160, cm, 02/07/20 10:53:00 EDT, Height, 49.9, kg, 02/07/20 10:5... Start Date: 01/14/21 Status: Ordered ibuprofen 800 mg oral tablet 1, tablet, By Mouth, 3 times a day, # 270 tablet, Refills 1, Tot. Refills 1, Maintenance, 04/21/21 8:59:00 EDT, Route to Pharmacy Electronically, [facility], 160, cm, 01/22/21 13:16:00 EDT, [...] tablet, 1 Refills, Maintenance, 03/23/21 15:52:00EDT, Tablet, [facility]/pharmacy #2025, 160, cm, 01/22/21 13:16:00 [...]
--- OUTSIDE RECORDS SUMMARY | 2024-05-10 09:36 | XMS_ITS | Continuity of Care Document ---
Author Organization [facility] Address [address] [place] [address]- Care Team Providers Care Mutton Puncher Name Role Phone Gian Andrade MD Primary Care Physician En[place] [facility] Date(s): 02/28/24 - 03/06/24 [facility] [address] [place] [address]- Encounter Diagnosis Annual physical exam(Discharge Diagnosis) - 02/28/24 Attending Physician: Gian Andrade MD Allergies, Adverse [...] 2 times a day, Masspat checked DNF 03/09/2024, # 56 tablet, 0 Refills, Maintenance, 03/02/24 7:01:00 EDT, Tablet, [facility]/pharmacy #2025, Ok to fill early, Masspat checked , Patient may fill for less, 1 tablet By Mouth 2 times... Start Date: 03/02/24 Stop Date: 03/30/24 Status: Ordered clonazePAM 0.5 mg oral tablet 1 tablet = 0.5 mg, By Mouth, 2 times a day, PRN Anxiety, # 60 tablet, 1 Refills, Maintenance, 12/27/23 14:42:00 EDT, Tablet, [facility]/pharmacy #202, Partial fill upon patient request if the prescription is for a schedule II opioid drug., 158, cm, 11/22/23... Start Date: 12/27/23 Status: Ordered cyclobenzaprine 10 mg oral tablet 1, tablet, By Mouth, 2 times a day, PRN, # 30 tablet, Refills 1, Maintenance, NEEDED FOR SPASMS,FOR, 01/24/24 8:14:00 EDT, Route to Pharmacy Electronically, [id number], 158, cm, 01/03/24 14:54:00 EDT, Height, 56.3, [...] each, 1 Refills, Maintenance, 11/05/21 10:04:00 EST, [place], [facility], Partial fill upon patient request if the prescription is for a schedule II opioid drug., 1 sprays... Start Date: 11/05/21 Status: Ordered gabapentin 300 mg oral capsule 300 mg, 1, capsule, By Mouth, Daily at bedtime, # 30 capsule, Refills 0, Tot. Refills 0, Maintenance, 02/15/24 16:16:00 EDT, Route to Pharmacy Electronically, [facility]/pharmacy #2025, Partial fill upon patient request if the prescription is for a schedule... Start Date: 02/15/24 Status: Ordered meclizine 25 mg oral tablet 1 tablet = 25 mg, By Mouth, Daily at bedtime, PRN Other, take one tab po qhs prn moderate vertigo, # 8 tablet, 1 Refills, Soft Stop, 12/16/21 11:06:00 EDT, [facility]/pharmacy #2025, Partial fill upon [...] each, 0 Refills, Maintenance, 11/25/23 17:27:00 EDT, [facility]/pharmacy #2025, Partial fill upon higinio... Start Date: 11/25/23 Status: Ordered propranolol 10 mg oral tablet 1, tablet, By Mouth, 3 times a day, # 270 tablet, Refills 1, Maintenance, 02/07/24 8:11:00 EDT, Route to Pharmacy Electronically, [id number], 158, cm, 01/03/24 14:54:00 EDT, Height, 56.3, [...] Diagnosis Diagnosis Type Effective Dates Health Status Cl inical Service Informant Annual physical exam Discharge Diagnosis 02/28/24 Vital Signs Most recent to oldest [Reference Range]: 1 Height 158.0 cm (02/28/24 11:29 AM) Weight 52.9 kg (02/28/24 11:29 AM) Oxygen Saturation [94-100 %] 99 % (02/28/24 11:29 AM) Pulse Rate [55-90 bpm] 99 bpm *H* (02/28/24 11:29 AM) Body Mass Index [18.5-24.99 kg/m2] 21.19 kg/m2 (02/28/24 11:29 AM) Blood Pressure [90-138/55-84 mm Hg] 124/ 84mm Hg (02/28/24 11:29 AM) Mode of Delivery (Oxygen) Room air (02/28/24 11:29 AM) Blood pressure sites Arm, right (02/28/24 11:29 AM) Weight Obtained Via Pediatric scale (02/28/24 11:29 AM) Social History Social History Type Response Smoking Status Never smoker entered on: 04/21/15 Sex Patient Care team information Care Team Personnel Name: Gian Andrade MD Position: [facility] Physician - Primary Care Member Role: PCP Address: Address: [address] [place] [address] Name: Delfino Barber RN Position: [facility] RN Member Role: Primary Care Nurse Care Team Related Persons Name: VERONICA ANDREWS Address: [address] [place] [address] Name: KEY OVALLE Address: [address] [place] [address] Name: ALCON BAIG Address: [address] [place] [address]
--- OUTSIDE RECORDS SUMMARY | 2024-05-10 09:36 | XMS_ITS | Continuity of Care Document ---
Author Organization [facility] Address [address] [place] [address]- Care Team Providers Care Bag Machine Set Up Operator Name Role Phone Lupe EL, Gian Lincoln Primary Care Physician Encounter [facility] Date(s): 07/29/20 - 08/28/20 [facility] [address] [place] [address]- Allergies, Adverse Reactions, Alerts Substance Reaction Severity [...] 0 Refills, Maintenance, 08/28/20 14:11:00 EST, Tablet, [facility]/pharmacy #2024, 1 tablet By Mouth 2 times a day,x28 days,Instr:masspat checked 08/27/2020... Start Date: 08/28/20 Stop Date: 09/25/20 Status: Ordered busPIRone 10 mg oral tablet See Instructions, TAKE 1 TABLET BY MOUTH TWICE A DAY, # 180 tablet, Refills 3, Tot. Refills 3, SoftStop, 07/06/19 14:25:16 EDT, Instructions Replace Required Details, Route to Pharmacy Electronically, [id number], [facility] Start Date: 07/06/19 Status: Ordered cyclobenzaprine 10 mg oral tablet 10 mg, 1, tablet, By Mouth, 2 times a day, PRN, # 30 tablet, Refills 1, Tot. Refills 1, Maintenance, for spasm, 01/14/21 9:27:00 EDT, Route to Pharmacy Electronically, [facility]/pharmacy #2024, 160, cm, 02/07/20 10:53:00 EDT, Height, 49.9, kg, 02/07/20 10:5... Start Date: 01/14/21 Status: Ordered cyclobenzaprine 10 mg oral tablet 10 mg, 1, tablet, By Mouth, 2 times a day, PRN, # 30 tablet, Refills 1, Tot. Refills 1, Acute 01/14/21 9:27:00 EDT, for spasm, 01/15/20 9:27:00 EDT, Route to Pharmacy Electronically, [facility]/pharmacy #2024, 160, cm, 01/09/20 9:04:00 EDT, Height Start Date: 01/15/20 Stop Date: 01/14/21 Status: Ordered KlonoPIN 0.5 mg oral tablet 1 tablet = 0.5 mg, By Mouth, 2 times a day, PRN Anxiety, Masspat checked 08/01/2020 May fill for less, # 60 tablet, 1 Refills, Maintenance, 08/01/20 15:29:00 EST, Tablet, [facility]/pharmacy #2024, increasing dose, 08/06/20, 160, cm, [...]
--- OUTSIDE RECORDS SUMMARY | 2024-05-10 09:36 | XMS_ITS | Continuity of Care Document ---
Author Organization [facility] Address [address] [place] [address]- Care Team Providers Care Charter Coach Driver Name Role Phone Gian Andrade MD Primary Care Physician Encounter [facility] Date(s): 06/16/23 - 07/16/23 [facility] [address] [place] [address]- Allergies, Adverse Reactions, Alerts Substance Reaction Severity [...] 0 Refills, Maintenance, 08/27/22 12:40:00 EST, Tablet, [facility]/pharmacy #2025, 1 tablet By Mouth 2 times a day,x90 days,Instr:masspat checked ; may fill for less... Start Date: 08/27/22 Stop Date: 11/25/22 Status: Ordered amphetamine-dextroamphetamine 20 mg oral tablet 1 tablet = 20 mg, By Mouth, 2 times a day, for 28 days, masspat checked, # 56 tablet, 0 Refills, Hard Stop 07/26/23 15:43:00 EST, 06/28/23 15:43:00 EDT, Tablet, [facility]/pharmacy #2025, 160, cm, 05/25/23 16:00:00 EDT, Height Start Date: 06/28/23 Stop Date: 07/26/23 Status: Ordered amphetamine-dextroamphetamine 20 mg oral tablet 1 tablet = 20 mg, By Mouth, 2 times a day, masspat checked, # 56 tablet, 0 Refills, Maintenance, 06/30/23 14:42:00 EDT, Tablet, [facility]/pharmacy #2025, 1 tablet By Mouth 2 times a day,x28 days,Instr:masspat checked, 160, cm, 06/30/23 14:20:00 EDT, Height Start Date: 06/30/23 Stop Date: 07/28/23 Status: Ordered cyclobenzaprine 10 mg oral tablet 1, tablet, By Mouth, 2 times a day, PRN, TAKE ONLY NEEDED FOR SPASMS, # 30 tablet, Refills 1, Tot. Refills 1, Maintenance, NEEDED FOR SPASMS, 06/28/23 14:05:00 EDT, Route to Pharmacy Electronically, [facility]/pharmacy #2025, 160, cm, 05/25/23 16:00:00... Start Date: 06/28/23 [...] each, 1 Refills, Maintenance, 11/05/21 10:04:00 EST, [place], [facility], Partial fill upon [...] 08/27/23 15:43:00 EST, 06/28/23 15:43:00 EDT, Tablet, [facility]/pharmacy #2025, increasing dose, 160, cm, 05/25/23 1... Start Date: 06/28/23 Stop Date: 08/27/23 Status: Ordered KlonoPIN 0.5 mg oral tablet 1 tablet = 0.5 mg, By Mouth, 2 times a day, PRN Anxiety, for 30 days, Masspat checked May fill for less, # 60 tablet, 1 Refills, Hard Stop 08/29/23 14:42:00 EST, 06/30/23 14:42:00 EDT, Tablet, [facility]/pharmacy #202, increasing dose, 160, cm, 06/30/23 1... Start Date: 06/30/23 Stop Date: 08/29/23 Status: Ordered meclizine 25 mg oral tablet 1 tablet = 25 mg, By Mouth, Daily at bedtime, PRN Other, take one tab po qhs prn moderate vertigo, # 8 tablet, 1 Refills, Soft Stop, 12/16/21 11:06:00 EDT, [facility]/pharmacy #202, Partial fill upon [...] 14:07:00 EDT, 06/28/23 14:07:00 EDT, ER Tablet, [facility]/pharmacy #202, 160, cm, 05/25/23 16:00:00 EDT, Height Start [...] MD Position: [facility] Physician - Primary Care Member Role: PCP Address: Address: [address] [place] [address] Name: Elisabeth CHENEY, Delfino Position: [facility] RN Member Role: Primary Care Nurse Care Team Related Persons Name: VERONICA ANDREWS Address: [address] [place] [address] Name: KEY OVALLE Address: [address] [place], [place] Name: ALCON BAIG Address: [place] [address] [place] [address]
--- OUTSIDE RECORDS SUMMARY | 2024-05-10 09:36 | XMS_ITS | Continuity of Care Document ---
Author Organization [facility] Address [address] [place] [address]- Care Team Providers Care Staff Development Coordinator Name Role Phone Gian Andrade MD Primary Care Physician Encounter [facility] Date(s): 02/28/24 - 03/29/24 [facility] [address] [place] [address]- Attending Physician: Admtr, Ar8 Admitting Physician: Admtr, [...] 0 Refills, Maintenance, 03/02/24 7:01:00 EDT, Tablet, [facility]/pharmacy #2025, Ok to fill early, Masspat checked , Patient may fill for less, 1 tablet By Mouth 2 times... Start Date: 03/02/24 Stop Date: 03/30/24 Status: Ordered clonazePAM 0.5 mg oral tablet 1 tablet = 0.5 mg, By Mouth, 2 times a day, PRN Anxiety, # 60 tablet, 1 Refills, Maintenance, 12/27/23 14:42:00 EDT, Tablet, [facility]/pharmacy #202, Partial fill upon patient request if the prescription is for a schedule II opioid drug., 158, cm, 11/22/23... Start Date: 12/27/23 Status: Ordered cyclobenzaprine 10 mg oral tablet 1, tablet, By Mouth, 2 times a day, PRN, # 30 tablet, Refills 1, Maintenance, NEEDED FOR SPASMS,FOR, 01/24/24 8:14:00 EDT, Route to Pharmacy Electronically, [id number], 158, cm, 01/03/24 14:54:00 EDT, Height, 56.3, [...] each, 1 Refills, Maintenance, 11/05/21 10:04:00 EST, [place], [facility], Partial fill upon patient request if the prescription is for a schedule II opioid drug., 1 sprays... Start Date: 11/05/21 Status: Ordered gabapentin 300 mg oral capsule 300 mg, 1, capsule, By Mouth, Daily at bedtime, # 30 capsule, Refills 0, Tot. Refills 0, Maintenance, 02/15/24 16:16:00 EDT, Route to Pharmacy Electronically, [facility]/pharmacy #2025, Partial fill upon patient request if the prescription is for a schedule... Start Date: 02/15/24 Status: Ordered meclizine 25 mg oral tablet 1 tablet = 25 mg, By Mouth, Daily at bedtime, PRN Other, take one tab po qhs prn moderate vertigo, # 8 tablet, 1 Refills, Soft Stop, 12/16/21 11:06:00 EDT, [facility]/pharmacy #2025, Partial fill upon patient [...] 02/07/24 8:11:00 EDT, Route to Pharmacy Electronically, [facility], 158, cm, 01/03/24 14:54:00 EDT, Height, 56.3, [...] Status Never smoker entered on: 04/21/15 Sex Laboratory * Event Display: Non Lab Results Authored Date: Radiology * Event Display: MRI Head, Non- Authored Date: * Event Display: CT Scan Hand/Wrist, Non- Authored Date: Patient Care team information Care Team Personnel Name: Lupe EL, Gian Lincoln Position: [facility] Physician - Primary Care Member Role: PCP Address: Address: [address] [place] [address]- Name: Delfino Barber RN Position: [facility] RN Member Role: Primary Care Nurse Care Team Related Persons Name: VERONICA ANDREWS Address: [address] [place] [address] Name: KEY OVALLE Address: [address] [place], [place] Name: ALCON BAIG Address: [address] [place], [place]
--- OUTSIDE RECORDS SUMMARY | 2024-05-10 09:36 | XMS_ITS | Continuity of Care Document ---
Author Organization [facility] Address [address] [facility] [place] [address]- Care Team Providers Care Seamer Operator Name Role Phone Gian Andrade MD Primary Care Physician Encounter 02/05/20 - 02/12/20 [facility] [address], [address] [place] [address]- [phone] Attending Physician: Gian Andrade MD Admitting Physician: [...] Mouth, 2 times a day, masspat checked 01/28/2020 may fill for less, # 56 tablet, 0 Refills, Maintenance, 01/28/20 13:41:00 EDT, Tablet, [facility], 1 tablet By Mouth 2 times a day,x28 days,Instr:masspat checked 01/28/2020;... Start Date: 01/28/20 Stop Date: 02/25/20 Status: Ordered busPIRone 10 mg oral tablet See Instructions, TAKE 1 TABLET BY MOUTH TWICE A DAY, # 180 tablet, Refills 3, Tot. Refills 3, SoftStop, 07/06/19 14:25:16 EDT, Instructions Replace Required Details, Route to Pharmacy Electronically, [id number], [facility] Start Date: 07/06/19 Status: Ordered cyclobenzaprine 10 mg oral tablet 10 mg, 1, tablet, By Mouth, 2 times a day, PRN, # 30 tablet, Refills 1, Tot. Refills 1, Acute 01/14/21 9:27:00 EDT, for spasm, 01/15/20 9:27:00 EDT, Route to Pharmacy Electronically, [facility]/pharmacy #2024, 160, cm, 01/09/20 9:04:00 EDT, Height Start Date: 01/15/20 Stop Date: 01/14/21 Status: Ordered KlonoPIN 0.5 mg oral tablet 1 tablet = 0.5 mg, By Mouth, 2 times a day, PRN Anxiety, Masspat checked May fill for less, # 60 tablet, 1 Refills, Maintenance, 02/11/20 12:45:00 EDT, Tablet, [facility], increasing dose, 160, cm, 02/07/20 10:53:00 EDT, Height, 49.9, kg, 05... Start Date: 02/11/20 Status: Ordered omeprazole 20 mg oral enteric coated capsule 1 capsule = 20 mg, By Mouth, Daily, # 90 capsule, 1 Refills, Hard Stop 04/22/20 9:15:00 EDT, 09/25/19 9:15:00 EST, EC Capsule, [facility], aware of celexa, 160, cm, 07/06/19 14:11:00 EDT, Height Start Date: 09/25/19 Stop Date: 04/22/20 Status: Ordered omeprazole 20 mg oral enteric coated capsule 1 capsule = 20 mg, By Mouth, Daily, # 90 capsule, 1 Refills, Maintenance, 12/10/19 14:55:00 EDT, ECCapsule, [facility], aware of celexa, 160, cm, 10/31/19 10:52:00 EST, Height Start Date: 12/10/19 Status: Ordered Plaquenil = 200 mg, By Mouth, Daily, 0 Refills, Maintenance, 10/11/16 10:18:04 Start Date: 10/11/16 Status: Ordered Zofran ODT 4 mg oral tablet, disintegrating 1 tablet = 4 mg, By Mouth, 3 times a day, PRN Nausea, # 60 tablet, 1 Refills, Maintenance, 10/25/2012:07:00 EST, [facility], 160, cm, 07/06/19 14:11:00 EDT, Height Start Date: 10/25/19 Status: Ordered ZyrTEC-D 5 mg-120 mg oral tablet, extended release 1 tablet, By Mouth, 2 times a day, # 180 tablet, 1 Refills, Maintenance, 06/07/20 14:55:00 EDT, ER Tablet, [facility], 1 tablet By Mouth 2 times a day,x90 days, 160, cm, 01/09/20 9:04:00 EDT,Height Start Date: 06/07/20 Stop Date: 12/04/20 Status: Ordered ZyrTEC-D 5 mg-120 mg oral [...] Active Small intestinal bacterial overgrowth(Confirmed) 01/06/16 Active Lupus(Confirmed) Active Social History Social History Type Response Smoking Status Never smoker entered on: 04/21/15 Sex
--- OUTSIDE RECORDS SUMMARY | 2024-05-10 09:36 | XMS_ITS | Continuity of Care Document ---
Author Organization [facility] Address [address] [place] [address]- Care Team Providers Care Multiskill Operator Name Role Phone Lupe EL, Gian Lincoln Primary Care Physician Encounter [facility] Date(s): 08/10/23 - 10/25/23 [facility] [address] [place] [id number] Discharge Disposition: A-D/C Home Attending Physician: Mg Wright MDwvsurekha Admitting Physician: Tyshawn AGUILAR, Dayami Varghese Referring Physician: Negra Robbins MD Allergies, Adverse [...] 0 Refills, Maintenance, 09/29/23 22:15:00 EST, Tablet, [facility]/pharmacy #2025, Ok to fill early, Masspat checked [...] 06/28/23 14:05:00 EDT, Route to Pharmacy Electronically, [facility]/pharmacy #2024, 160, cm, 05/25/23 16:00:00... Start Date: [...] each, 1 Refills, Maintenance, 11/05/21 10:04:00 EST, [place], [facility], Partial fill upon [...] 12/16/21 11:06:00 EDT, [facility]/pharmacy #2024, Partial fill upon patient request if [...] 09/23/23 13:04:00 EST, Route to Pharmacy Electronically, [facility]/pharmacy #2025, Partial fill upon patient request if [...] Refills, Maintenance, 12/25/23 14:07:00 EDT, ER Tablet, [facility]/pharmacy #2025, 1 tablet By Mouth 2 times [...] Active RLS (restless legs syndrome) Confirmed Active Vital Signs Most recent to oldest [Reference Range]: 1 Height 158.0 cm (08/25/23 2:33 PM) Weight 56.3 kg (08/25/23 2:33 PM) Oxygen Saturation [94-100 %] 99 % (08/25/23 2:33 PM) Pulse Rate [55-90 bpm] 93 bpm *H* (08/25/23 2:33 PM) Body Mass Index [18.5-24.99 kg/m2] 22.55 kg/m2 (08/25/23 2:33 PM) Blood Pressure [90-138/55-84 mm Hg] 131/ 83mm Hg (08/25/23 2:33 PM) Temperature [96.8-100.4 DegF] 98.6 DegF (08/25/23 2:33 PM) Mode of Delivery (Oxygen) Room air (08/25/23 2:33 PM) Blood pressure sites Arm, right (08/25/23 2:33 PM) Temperature Route Temporal (08/25/23 2:33 PM) Dry Weight 56.3 kg (08/25/23 2:33 PM) Weight Obtained Via Standing scale (08/25/23 2:33 PM) Dry Weight Obtained Via Standing scale (08/25/23 2:33 PM) Social History Social History Type Response Smoking Status Never smoker entered on: 04/21/15 Sex Patient Care team information Care Team Personnel Name: Gian Andrade MD Position: [facility] Physician - Primary Care Member Role: PCP Address: Address: [address] [place] [address]- Name: Delfino Barber RN Position: [facility] RN Member Role: Primary Care Nurse Name: Negra Robbins MD Position: [facility] HUMAN RESOURCES ASSISTANT MD Med Service: Vascular Surgery Member Role: Referring Physician Address: Address: [address] [facility] [place] [address]- Name: Cande Wright MD Position: [facility] Physician - Oncology Med Service: Hematology & Oncology Member Role: Attending Physician Address: Address: [address] [place] [address] [place] [address]- Care Team Related Persons Name: VERONICA ANDREWS Address: [address] [place] [address] Name: KEY OVALLE Address: [address] [place] [address] Name: ALCON BAIG Address: [address] [place] [address]
--- OUTSIDE RECORDS SUMMARY | 2024-05-10 09:36 | XMS_ITS | Continuity of Care Document ---
Author Organization [facility] Address [address] [place] [address]- Care Team Providers Care Appraiser Real Estate Name Role Phone Gian Andrade MD Primary Care Physician Encounter [facility] Date(s): 06/28/23 - 07/28/23 [facility] [address] [place] [address]- Allergies, Adverse Reactions, Alerts Substance Reaction Severity [...] mg, By Mouth, 2 times a day, ICD10: F90.0, # 56 tablet, 0 Refills, Maintenance, 07/22/23 12:46:00 EST, Tablet, [facility]/pharmacy #2025, Ok to fill early, Masspat checked , Patient may fill for less, 1 tablet By Mouth 2 times a day,x28 days,In... Start Date: 07/22/23 Stop Date: 08/19/23 Status: Ordered cyclobenzaprine 10 mg oral tablet 1, tablet, By Mouth, 2 times a day, PRN, TAKE ONLY NEEDED FOR SPASMS, # 30 tablet, Refills 1, Tot. Refills 1, Maintenance, NEEDED FOR SPASMS, 06/28/23 14:05:00 EDT, Route to Pharmacy Electronically, [facility]/pharmacy #2025, 160, cm, 05/25/23 16:00:00... Start Date: [...] each, 1 Refills, Maintenance, 11/05/21 10:04:00 EST, [place], [facility], Partial fill upon [...] 08/27/23 15:43:00 EST, 06/28/23 15:43:00 EDT, Tablet, [facility]/pharmacy #2024, increasing dose, 160, cm, 05/25/23 1... Start Date: 06/28/23 Stop Date: 08/27/23 Status: Ordered KlonoPIN 0.5 mg oral tablet 1 tablet = 0.5 mg, By Mouth, 2 times a day, PRN Anxiety, for 30 days, Masspat checked May fill for less, # 60 tablet, 1 Refills, Hard Stop 08/29/23 14:42:00 EST, 06/30/23 14:42:00 EDT, Tablet, [facility]/pharmacy #2024, increasing dose, 160, cm, 06/30/23 1... Start Date: 06/30/23 Stop Date: 08/29/23 Status: Ordered meclizine 25 mg oral tablet 1 tablet = 25 mg, By Mouth, Daily at bedtime, PRN Other, take one tab po qhs prn moderate vertigo, # 8 tablet, 1 Refills, Soft Stop, 12/16/21 11:06:00 EDT, [facility]/pharmacy #2024, Partial fill upon patient request if [...] 14:07:00 EDT, 06/28/23 14:07:00 EDT, ER Tablet, [facility]/pharmacy #2025, 160, cm, 05/25/23 16:00:00 EDT, Height [...] Team Personnel Name: Gian Andrade MD Position: [facility] Physician - Primary Care Member Role: PCP Address: Address: [address] [place] [address]- Name: Elisabeth CHENEY, Delfino Position: [facility] RN Member Role: Primary Care Nurse Care Team Related Persons Name: VERONICA ANDREWS Address: [address] [place] [address] Name: KEY OVALLE Address: [address] [place] [address] Name: ALCON BAIG Address: [address] [place] [address]
--- OUTSIDE RECORDS SUMMARY | 2024-05-10 09:36 | XMS_ITS | Continuity of Care Document ---
Author Organization [facility] Address [address] [place] [address]- Care Team Providers Care Wax Coating Machine Tender Name Role Phone Lupe EL, Gian Lincoln Primary Care Physician [place] [facility] [place] 11/02/21 - 12/02/21 [facility] [address] [place] [address]- Allergies, Adverse Reactions, Alerts Substance Reaction Severity [...] 0 Refills, Maintenance, 11/04/21 15:51:00 EST, Tablet, [facility], 1 tablet By Mouth 2 times a day,x90 days,Instr:masspat checked ; may fill for less... Start Date: 11/04/21 Stop Date: 02/02/22 Status: Ordered busPIRone 10 mg oral tablet 10 mg, 1, tablet, By Mouth, 2 times a day, # 180 tablet, Refills 1, Tot. Refills 1, Soft Stop, 11/02/21 14:38:00 EST, Route to Pharmacy Electronically, [facility], 160, cm, 10/12/21 10:40:00 EST, Height, 60, kg, 05/29/21 10:55:00 ED... Start Date: 11/02/21 Status: Ordered cyclobenzaprine 10 mg oral tablet 10 mg, 1, tablet, By Mouth, 2 times a day, PRN, # 30 tablet, Refills 1, Tot. Refills 1, Maintenance, for spasm, 01/14/21 9:27:00 EDT, Route to Pharmacy Electronically, [facility]/pharmacy #2025, 160, cm, 02/07/20 10:53:00 EDT, Height, 49.9, kg, 02/07/20 10:5... Start Date: 01/14/21 Status: Ordered fluticasone 50 mcg/inh nasal spray 1 sprays, Nares, Both, 2 times a day, For post nasal drip, # 3 each, 1 Refills, Maintenance, 11/05/21 10:04:00 EST, [place], [facility], Partial fill upon patient request if the prescription is for a schedule II opioid drug., 1 sprays... Start Date: 11/05/21 Status: Ordered ibuprofen 800 mg oral tablet 1, tablet, By Mouth, 3 times a day, # 270 tablet, Refills 1, Tot. Refills 1, Maintenance, 04/21/21 8:59:00 EDT, Route to Pharmacy Electronically, [facility], 160, cm, 01/22/21 13:16:00 EDT, Height, 54.6, kg, 01/22/21 13:16:00 EDT, D... Start Date: 04/21/21 Status: Ordered KlonoPIN 0.5 mg oral tablet 1 tablet = 0.5 mg, By Mouth, 2 times a day, PRN Anxiety, Masspat checked May fill for less, # 180 tablet, 1 Refills, Maintenance, 11/03/21 14:59:00 EST, Tablet, [facility], increasing dose, 160, cm, 10/12/21 10:40:00 EST, Height, 60, kg, ... Start Date: 11/03/21 Stop Date: 05/02/22 Status: Ordered omeprazole 20 mg oral enteric [...] 1 Refills, Maintenance, 11/04/21 15:52:00EST, Tablet, [facility], 160, cm, 10/12/21 10:40:00 EST, Height, [...]
--- OUTSIDE RECORDS SUMMARY | 2024-05-10 09:36 | XMS_ITS | Continuity of Care Document ---
Author Organization [facility] Address [address] [place] [address]- Care Team Providers Care Respiratory Therapy Instructor Name Role Phone Lupe EL, Gian Lincoln Primary Care Physician Encounter [facility] Date(s): 08/16/23 - 09/15/23 [facility] [address] [place] [address]- Allergies, Adverse Reactions, Alerts Substance Reaction Severity [...] 0 Refills, Maintenance, 08/09/23 10:59:00 EST, Tablet, [facility]/pharmacy #2024, Ok to fill early, [...] 06/28/23 14:05:00 EDT, Route to Pharmacy Electronically, [facility]/pharmacy #2024, 160, cm, 05/25/23 16:00:00... [...] each, 1 Refills, Maintenance, 11/05/21 10:04:00 EST, [place], [facility], Partial fill upon [...] Refills, Maintenance, 02/11/22 14:20:00 EDT, Tablet, [facility], 160, cm, 01/07/22 9:42:00 EDT, [...] Team Personnel Name: Gian Andrade MD Position: [facility] Physician - Primary Care Member Role: PCP Address: Address: [address] [place] [address]- Name: Delfino Barber RN Position: [facility] RN Member Role: Primary Care Nurse Care Team Related Persons Name: VERONICA ANDREWS Address: [address] [place] [address] Name: KEY OVALLE Address: [address] [place], [place] Name: ALCON BAIG Address: [address] [place] [address]
--- OUTSIDE RECORDS SUMMARY | 2024-05-10 09:36 | XMS_ITS | Continuity of Care Document ---
Author Organization [facility] Address [address] [place] [address]- Care Team Providers Care Fruit And Vegetable Classer Name Role Phone Gian Andrade MD Primary Care Physician Encounter [facility] Date(s): 01/31/24 - 02/07/24 [facility] [address] [place] [address]- Attending Physician: Not on Staff, Attending MD [...] 0 Refills, Maintenance, 02/01/24 15:28:00 EDT, Tablet, [facility]/pharmacy #2025, Ok to fill early, Masspat checked , Patient may fill for less, 1 tablet By Mouth 2 time... Start Date: 02/01/24 Stop Date: 02/29/24 Status: Ordered clonazePAM 0.5 mg oral tablet 1 tablet = 0.5 mg, By Mouth, 2 times a day, PRN Anxiety, # 60 tablet, 1 Refills, Maintenance, 12/27/23 14:42:00 EDT, Tablet, [facility]/pharmacy #202, Partial fill upon patient request if the prescription is for a schedule II opioid drug., 158, cm, 11/22/23... Start Date: 12/27/23 Status: Ordered cyclobenzaprine 10 mg oral tablet 1, tablet, By Mouth, 2 times a day, PRN, # 30 tablet, Refills 1, Maintenance, NEEDED FOR SPASMS,FOR, 01/24/24 8:14:00 EDT, Route to Pharmacy Electronically, [id number], 158, cm, 01/03/24 14:54:00 EDT, Height, 56.3, [...] each, 1 Refills, Maintenance, 11/05/21 10:04:00 EST, [place], [facility], Partial fill upon [...] each, 0 Refills, Maintenance, 11/25/23 17:27:00 EDT, [facility]/pharmacy #2024, Partial fill upon higinio... Start Date: 11/25/23 Status: Ordered propranolol 10 mg oral tablet 1, tablet, By Mouth, 3 times a day, # 270 tablet, Refills 1, Maintenance, 02/07/24 8:11:00 EDT, Route to Pharmacy Electronically, [facility] [id number], 158, cm, 01/03/24 14:54:00 EDT, Height, 56.3, [...] Team Personnel Name: Gian Andrade MD Position: [facility] Physician - Primary Care Member Role: PCP Address: Address: [address] [place] [address] Name: Elisabeth CHENEY, Delfino Position: [facility] RN Member Role: Primary Care Nurse Care Team Related Persons Name: VERONICA ANDREWS Address: [address] [place] [address] Name: KEY OVALLE Address: [address] [place], [place] Name: ALCON BAIG Address: [place] [address] [place] [address]
--- OUTSIDE RECORDS SUMMARY | 2024-05-10 09:36 | XMS_ITS | Continuity of Care Document ---
Author Organization [facility] Address [address] [place] [address]- Care Team Providers Care Flow Specialist Name Role Phone Gian Andrade MD Primary Care Physician En[place] [facility] Date(s): 06/12/21 - 06/19/21 [facility] [address] [place] [address]- Encounter Diagnosis COVID-19(Discharge Diagnosis) - 06/12/21 ADD (attention deficit disorder)(Discharge Diagnosis) - 06/12/21 Benzodiazepine dependence(Discharge Diagnosis) - 06/12/21 Attending Physician: Gian Andrade MD Allergies, Adverse [...] 1 Refills, Maintenance, 12/11/19 9:37:00 EDT, Powder, [facility]/pharmacy #2024, 2 puffs Inhalation Every 4 hours,PRN:Wheezing/Shortness [...] day,x90 days,Instr:masspat checked ; january... Start Date: 06/12/21 Stop Date: 09/10/21 Status: Ordered busPIRone 10 mg oral tablet 10 mg, 1, tablet, By Mouth, 2 times a day, # 180 tablet, Refills 1, Tot. Refills 1, Soft Stop, 12/25/20 11:32:00 EDT, Route to Pharmacy Electronically, [facility], 160, cm, 07/30/20 9:37:00 EST, Height, 49.9, kg, 02/07/20 10:53:00 E... Start Date: 12/25/20 Status: Ordered cyclobenzaprine 10 mg oral tablet 10 mg, 1, tablet, By Mouth, 2 times a day, PRN, # 30 tablet, Refills 1, Tot. Refills 1, Maintenance, for spasm, 01/14/21 9:27:00 EDT, Route to Pharmacy Electronically, [facility]/pharmacy #2024, 160, cm, 02/07/20 10:53:00 EDT, Height, 49.9, kg, 02/07/20 10:5... Start Date: 01/14/21 Status: Ordered ibuprofen 800 mg oral tablet 1, tablet, By Mouth, 3 times a day, # 270 tablet, Refills 1, Tot. Refills 1, Maintenance, 04/21/21 8:59:00 EDT, Route to Pharmacy Electronically, [facility], 160, cm, 01/22/21 13:16:00 EDT, [...] tablet, 1 Refills, Maintenance, 03/23/21 15:52:00EDT, Tablet, [facility], 160, cm, 01/22/21 13:16:00 EDT, Height, [...] Effective Dates Health Status Clinical Service Informant COVID-19 Discharge Diagnosis 06/12/21 ADD (attention deficit disorder) Discharge Diagnosis 06/12/21 Benzodiazepine dependence Discharge Diagnosis 06/12/21 Vital Signs Most recent to oldest [Reference Range]: 1 Height 160 cm (06/12/21 11:11 AM) Social History Social History Type Response Smoking Status Never smoker entered on: 04/21/15 Sex
--- OUTSIDE RECORDS SUMMARY | 2024-05-10 09:36 | XMS_ITS | Continuity of Care Document ---
Author Organization [facility] Address [address] [place] [address]- Care Team Providers Care Government Services Professional Name Role Phone Lupe EL, Gian Lincoln Primary Care Physician Encounter [facility] Date(s): 09/08/23 - 10/08/23 [facility] [address] [place], [place] [address] Allergies, Adverse Reactions, Alerts Substance Reaction Severity [...] 0 Refills, Maintenance, 09/29/23 22:15:00 EST, Tablet, [facility]/pharmacy #2025, Ok to fill early, Masspat [...] 06/28/23 14:05:00 EDT, Route to Pharmacy Electronically, [facility]/pharmacy #2024, 160, cm, 05/25/23 16:00:00... Start [...] each, 1 Refills, Maintenance, 11/05/21 10:04:00 EST, [place], [facility], Partial fill upon patient request if the prescription is for a schedule II opioid drug., 1 sprays... Start Date: 11/05/21 Status: Ordered meclizine 25 mg oral tablet 1 tablet = 25 mg, By Mouth, Daily at bedtime, PRN Other, take one tab po qhs prn moderate vertigo, # 8 tablet, 1 Refills, Soft Stop, 12/16/21 11:06:00 EDT, [facility]/pharmacy #202, Partial fill upon patient request [...] 09/23/23 13:04:00 EST, Route to Pharmacy Electronically, [facility]/pharmacy #2025, Partial fill upon patient request [...] Refills, Maintenance, 12/25/23 14:07:00 EDT, ER Tablet, [facility]/pharmacy #2025, 1 tablet By Mouth 2 [...] Primary Care Member Role: PCP Address: Address: [address] [place] [address] Name: Delfino Barber RN Position: [facility] RN Member Role: Primary Care Nurse Care Team Related Persons Name: VERONICA ANDREWS Address: [address] [place] [address] Name: KEY OVALLE Address: [address] [place] [address] Name: ALCON BAIG Address: [address] [place] [address]
--- OUTSIDE RECORDS SUMMARY | 2024-05-10 09:36 | XMS_ITS | Continuity of Care Document ---
Author Organization [facility] Address [address] [place] [address]- Care Team Providers Care Mobile Home Park Manager Name Role Phone Gian Andrade MD Primary Care Physician Encounter [facility] Date(s): 07/29/20 - 08/28/20 [facility] [address] [place] [address]- Allergies, Adverse Reactions, Alerts Substance Reaction Severity [...] 0 Refills, Maintenance, 08/28/20 14:11:00 EST, Tablet, [facility]/pharmacy #2024, 1 tablet By Mouth 2 times a day,x28 days,Instr:masspat checked 08/27/2020... Start Date: 08/28/20 Stop Date: 09/25/20 Status: Ordered busPIRone 10 mg oral tablet See Instructions, TAKE 1 TABLET BY MOUTH TWICE A DAY, # 180 tablet, Refills 3, Tot. Refills 3, SoftStop, 07/06/19 14:25:16 EDT, Instructions Replace Required Details, Route to Pharmacy Electronically, [id number], [facility] Start Date: 07/06/19 Status: Ordered cyclobenzaprine 10 mg oral tablet 10 mg, 1, tablet, By Mouth, 2 times a day, PRN, # 30 tablet, Refills 1, Tot. Refills 1, Maintenance, for spasm, 01/14/21 9:27:00 EDT, Route to Pharmacy Electronically, [facility]/pharmacy #2024, 160, cm, 02/07/20 10:53:00 EDT, Height, 49.9, kg, 02/07/20 10:5... Start Date: 01/14/21 Status: Ordered cyclobenzaprine 10 mg oral tablet 10 mg, 1, tablet, By Mouth, 2 times a day, PRN, # 30 tablet, Refills 1, Tot. Refills 1, Acute 01/14/21 9:27:00 EDT, for spasm, 01/15/20 9:27:00 EDT, Route to Pharmacy Electronically, [facility]/pharmacy #2024, 160, cm, 01/09/20 9:04:00 EDT, Height Start Date: 01/15/20 Stop Date: 01/14/21 Status: Ordered KlonoPIN 0.5 mg oral tablet 1 tablet = 0.5 mg, By Mouth, 2 times a day, PRN Anxiety, Masspat checked 08/01/2020 May fill for less, # 60 tablet, 1 Refills, Maintenance, 08/01/20 15:29:00 EST, Tablet, [facility]/pharmacy #2024, increasing dose, 08/06/20, 160, cm, 07/30/20 9:37:00 EST, H... Start Date: 08/01/20 Status: Ordered omeprazole 20 mg oral enteric coated capsule 1 capsule = 20 mg, By Mouth, Daily, # 90 capsule, 1 Refills, Maintenance, 12/10/19 14:55:00 EDT, ECCapsule, [facility]/pharmacy #202, aware of celexa, 160, cm, 10/31/19 10:52:00 EST, Height Start Date: 12/10/19 Status: Ordered ondansetron 4 mg oral tablet, disintegrating = 4 mg, By Mouth, 3 times a day, PRN Nausea, # 60 tablet, 1 Refills, Maintenance, 03/13/20 16:39:00EDT, Tablet, [facility]/pharmacy #202, 160, cm, 03/05/20 9:49:00 [...] Refills, Maintenance, 03/13/20 15:14:00 EDT, ER Tablet, [facility]/pharmacy #2024, 1 tablet By Mouth [...]
--- OUTSIDE RECORDS SUMMARY | 2024-05-10 09:36 | XMS_ITS | Continuity of Care Document ---
Author Organization [facility] Address [address] [place] [address]- Care Team Providers Care Compliance Advisor Name Role Phone Gian Andrade MD Primary Care Physician Encounter [facility] Date(s): 12/14/22 - 01/13/23 [facility] [address] [place] [address]- Allergies, Adverse Reactions, Alerts Substance Reaction Severity [...] 0 Refills, Maintenance, 08/27/22 12:40:00 EST, Tablet, [facility]/pharmacy #2025, 1 tablet By Mouth 2 times a day,x90 days,Instr:masspat checked ; may fill for less... Start Date: 08/27/22 Stop Date: 11/25/22 Status: Ordered amphetamine-dextroamphetamine 20 mg oral tablet 1 tablet = 20 mg, By Mouth, 2 times a day, masspat checked may fill for less, # 60 tablet, 0 Refills, Maintenance, 12/30/22 23:23:00 EDT, Tablet, [facility]/pharmacy #2025, 1 tablet By Mouth 2 times a day,x30 days,Instr:masspat checked ; may fill for less,... Start Date: 12/30/22 Stop Date: 01/29/23 Status: Ordered cyclobenzaprine 10 mg oral tablet 1, tablet, By Mouth, 2 times a day, PRN, # 30 tablet, Refills 1, Maintenance, NEEDED FOR SPASMS,12/20/22 11:12:00 EDT, Route to Pharmacy Electronically, [id number], 160, cm, 10/26/22 8:55:00EST, Height, 60, kg, 05/29/21 10:55:00 EDT, Dry Weight Start Date: 12/20/22 Status: Ordered fluticasone 50 mcg/inh nasal spray 1 sprays, Nares, Both, 2 times a day, For post nasal drip, # 3 each, 1 Refills, Maintenance, 11/05/21 10:04:00 EST, [place], [facility], Partial fill upon [...] 1 Refills, Soft Stop, 12/16/21 11:06:00 EDT, [facility]/pharmacy #2028, Partial fill upon patient request if the [...] Team Personnel Name: Gian Andrade MD Position: [facility] Primary Care Physician Member Role: PCP Address: Address: [address] [place] [address]- Name: Delfino Barber Position: [facility] RN Member Role: Primary Care Nurse Care Team Related Persons Name: VERONICA ANDREWS Address: [address] [place] [address] Name: KEY OVALLE Address: [address] [place], [place] Name: ALCON BAIG Address: [address] [place] [address]
--- OUTSIDE RECORDS SUMMARY | 2024-05-10 09:36 | XMS_ITS | Continuity of Care Document ---
Author Organization [facility] Address [address] [place] [address]- Care Team Providers Care Windows Server Architect Name Role Phone Gian Andrade MD Primary Care Physician [place] [facility] [place] 04/22/22 - 05/26/22 [facility] [address] [place] [address]- Attending Physician: Gian Andrade MD Allergies, Adverse [...] Refills, Maintenance, 08/10/21 10:44:00 EST, [facility], [facility], 2 puffs Inhalation Every 4 hours,PRN:Wheezing/Shortness of [...] days,Instr:masspat checked ; january fi... Start Date: 02/11/22 Stop Date: 05/12/22 Status: Ordered busPIRone 10 mg oral tablet 10 mg, 1, tablet, By Mouth, 2 times a day, # 180 tablet, Refills 1, Tot. Refills 1, Soft Stop, 11/02/21 14:38:00 EST, Route to Pharmacy Electronically, [facility], 160, cm, 10/12/21 10:40:00 EST, Height, 60, kg, 05/29/21 10:55:00 ED... Start Date: 11/02/21 Status: Ordered cyclobenzaprine 10 mg oral tablet 10 mg, 1, tablet, By Mouth, 2 times a day, PRN, # 30 tablet, Refills 1, Tot. Refills 1, Maintenance, for spasm, 01/14/21 9:27:00 EDT, Route to Pharmacy Electronically, [facility]/pharmacy #2024, 160, cm, 02/07/20 10:53:00 EDT, Height, 49.9, kg, 02/07/20 10:5... Start Date: 01/14/21 Status: Ordered fluticasone 50 mcg/inh nasal spray 1 sprays, Nares, Both, 2 times a day, For post nasal drip, # 3 each, 1 Refills, Maintenance, 11/05/21 10:04:00 EST, [place], [facility], Partial fill upon [...] Status Never smoker entered on: 04/21/15 Sex Care Team Personnel Name: Gian Andrade MD Address: [address] [place] [id number]
--- OUTSIDE RECORDS SUMMARY | 2024-05-10 09:36 | XMS_ITS | Continuity of Care Document ---
Author Organization [facility] Address [address] [place] [address]- Care Team Providers Care Car Repairer Name Role Phone Lupe EL, Gian Lincoln Primary Care Physician [place] [facility] [place] 01/22/21 - 01/29/21 [facility] [address] [place] [address]- Attending Physician: Nerga Robbins MD Allergies, Adverse Reactions, Alerts Substance [...] 0 Refills, Maintenance, 12/17/20 15:58:00 EDT, Tablet, [facility]/pharmacy #2024, 1 tablet By Mouth [...] 01/14/21 9:27:00 EDT, Route to Pharmacy Electronically, [facility]/pharmacy #2024, 160, cm, 02/07/20 10:53:00 EDT, Height, 49.9, kg, 02/07/20 10:5... Start Date: 01/14/21 Status: Ordered KlonoPIN 0.5 mg oral tablet 1 tablet = 0.5 mg, By Mouth, 2 times a day, PRN Anxiety, Masspat checked May fill for less, # 60 tablet, 1 Refills, Maintenance, 11/21/20 12:12:00 EST, [facility], [facility], increasing dose, 160, cm, 07/30/20 9:37:00 EST, Height, 49.9, kg, ... Start Date: 11/21/20 Status: Ordered omeprazole 20 mg oral enteric coated capsule 1 capsule = 20 mg, By Mouth, Daily, # 90 capsule, 0 Refills, Maintenance, 12/29/20 13:29:00 EDT, ECCapsule, [facility]/pharmacy #2025, aware of celexa, 160, cm, 07/30/20 9:37:00 EST, Height, 49.9, kg, 02/07/20 10:53:00 EDT, Dry Weight Start Date: 12/29/20 Status: Ordered ondansetron 4 mg oral tablet, disintegrating = 4 mg, By Mouth, 3 times a day, PRN Nausea, # 60 tablet, 1 Refills, Maintenance, 12/31/20 14:47:00EDT, Tablet, [facility]/pharmacy #2024, 160, cm, 07/30/20 9:37:00 [...] Active Small intestinal bacterial overgrowth(Confirmed) 01/06/16 Active Vital Signs Most recent to oldest [Reference Range]: 1 Height 160 cm (01/22/21 1:16 PM) Weight 54.6 kg (01/22/21 1:16 PM) Body Mass Index [18.5-24.99] 21.33 (01/22/21 1:16 PM) Blood Pressure [90-138/55-84 mm Hg] 110/ 68mm Hg (01/22/21 1:16 PM) Blood pressure sites Arm, left (01/22/21 1:16 PM) Dry Weight 54.6 kg (01/22/21 1:16 PM) Weight Obtained Via Standing scale (01/22/21 1:16 PM) Dry Weight Obtained Via Standing scale (01/22/21 1:16 PM) Social History Social History Type Response Smoking Status Never smoker entered on: 04/21/15 Sex
--- OUTSIDE RECORDS SUMMARY | 2024-05-10 09:36 | XMS_ITS | Continuity of Care Document ---
Author Organization [facility] Address [address] [place] [address]- Care Team Providers Care Bindery Library Technical Assistant Name Role Phone Gian Andrade MD Primary Care Physician [place] [facility] [place] 09/[place]/21 [facility] [address] [place] [address]- Allergies, Adverse Reactions, Alerts Substance Reaction Severity [...] days,Instr:masspat checked ; january fi... Start Date: 08/21/21 Stop Date: 11/19/21 Status: [...] 01/14/21 9:27:00 EDT, Route to Pharmacy Electronically, [facility]/pharmacy #2024, 160, cm, 02/07/20 10:53:00 EDT, Height, 49.9, kg, 02/07/20 10:5... Start Date: 01/14/21 Status: Ordered ibuprofen 800 mg oral tablet 1, tablet, By Mouth, 3 times a day, # 270 tablet, Refills 1, Tot. Refills 1, Maintenance, 04/21/21 8:59:00 EDT, Route to Pharmacy Electronically, [facility], 160, cm, 01/22/21 13:16:00 EDT, Height, 54.6, kg, 01/22/21 13:16:00 EDT, D... Start Date: 04/21/21 Status: Ordered KlonoPIN 0.5 mg oral tablet 1 tablet = 0.5 mg, By Mouth, 2 times a day, PRN Anxiety, Masspat checked May fill for less, # 180 tablet, 1 Refills, Maintenance, 07/30/21 16:53:00 EST, Tablet, [facility]/pharmacy #2025, increasing dose, 160, cm, 06/12/21 11:11:00 EDT, Height, 60, kg, ... Start Date: 07/30/21 Stop Date: 01/26/22 Status: [...]
--- OUTSIDE RECORDS SUMMARY | 2024-05-10 09:36 | XMS_ITS | Continuity of Care Document ---
Author Organization [facility] Address [address] [place] [address]- Care Team Providers Care Benefits Coordinator Name Role Phone Gian Andrade MD Primary Care Physician [place] [facility] [place] 01/07/24 [facility] [address] [place] [address]- Allergies, Adverse Reactions, Alerts Substance Reaction Severity [...] 0 Refills, Maintenance, 12/30/23 12:00:00 EDT, Tablet, [facility]/pharmacy #2025, Ok to fill early, Masspat checked , Patient may fill for less, 1 tablet By Mouth 2 time... Start Date: 12/30/23 Stop Date: 01/27/24 Status: Ordered clonazePAM 0.5 mg oral tablet 1 tablet = 0.5 mg, By Mouth, 2 times a day, PRN Anxiety, # 60 tablet, 1 Refills, Maintenance, 12/27/23 14:42:00 EDT, Tablet, [facility]/pharmacy #202, Partial fill upon patient request if the prescription is for a schedule II opioid drug., 158, cm, 11/22/23... Start Date: 12/27/23 Status: Ordered cyclobenzaprine 10 mg oral tablet 1, tablet, By Mouth, 2 times a day, PRN, TAKE ONLY NEEDED FOR SPASMS, # 30 tablet, Refills 1, Maintenance, NEEDED FOR SPASMS,INSTR, 01/02/24 12:16:00 EDT, Route to Pharmacy Electronically, [id number], 158, cm, 11/22/23 9:52:00 EDT, Height,... Start Date: 01/02/24 Status: Ordered Emgality 0 Refills, Maintenance, 04/19/23 15:48:00 EDT, Partial fill upon patient request if the prescription is for a schedule II opioid drug. Start Date: 04/19/23 Status: Ordered fluticasone 50 mcg/inh nasal spray 1 sprays, Nares, Both, 2 times a day, For post nasal drip, # 3 each, 1 Refills, Maintenance, 11/05/21 10:04:00 EST, [place], [facility], Partial fill upon [...] each, 0 Refills, Maintenance, 11/25/23 17:27:00 EDT, [facility]/pharmacy #2025, Partial fill upon higinio... Start Date: 11/25/23 Status: Ordered propranolol 10 mg oral tablet 10 mg, 1, tablet, By Mouth, 3 times a day, # 90 tablet, Refills 3, Tot. Refills 3, Maintenance, 11/09/23 9:56:00 EST, Route to Pharmacy Electronically, [facility]/pharmacy #2025, Partial fill upon patient request [...] Team Personnel Name: Gian Andrade MD Position: [facility] Physician - Primary Care Member Role: PCP Address: Address: [address] [place] [address] Name: Delfino Barber RN Position: [facility] RN Member Role: Primary Care Nurse Care Team Related Persons Name: VERONICA ANDREWS Address: [address] [place] [address] Name: KEY OVALLE Address: [address] [place] [address] Name: ALCON BAIG Address: [address] [place] [address]
--- OUTSIDE RECORDS SUMMARY | 2024-05-10 09:36 | XMS_ITS | Continuity of Care Document ---
Author Organization [facility] Address [address] [place] [address]- Care Team Providers Care Signs Cleaner Name Role Phone Gian Andrade MD Primary Care Physician [place] [facility] [place] 03/13/21 [facility] [address] [place] [address]- Allergies, Adverse Reactions, Alerts Substance Reaction Severity [...] 0 Refills, Maintenance, 12/17/20 15:58:00 EDT, Tablet, [facility]/pharmacy #2025, 1 tablet By Mouth 2 times [...] 01/14/21 9:27:00 EDT, Route to Pharmacy Electronically, [facility]/pharmacy #2025, 160, cm, 02/07/20 10:53:00 EDT, Height, [...] tablet, 1 Refills, Maintenance, 12/31/20 14:47:00EDT, Tablet, [facility]/pharmacy #2025, 160, cm, 07/30/20 9:37:00 EST, Height, [...]
--- OUTSIDE RECORDS SUMMARY | 2024-05-10 09:36 | XMS_ITS | Continuity of Care Document ---
Author Organization [facility] Address [address] [place] [address]- Care Team Providers Care Collection Support Specialist Name Role Phone Gian Andrade MD Primary Care Physician En[place] [facility] [place] Date(s): 04/24/20 - 05/24/[address] [facility] [address] [place] [address]- [facility] Allergies, Adverse Reactions, Alerts Substance Reaction Severity [...] Refills, Maintenance, 12/11/19 9:37:00 EDT, Powder, [facility], 2 puffs Inhalation Every 4 hours,PRN:Wheezing/Shortness of Breath, 160, cm, 10/31/19 10:52:00 EST... Start Date: 12/11/19 Status: Ordered amphetamine-dextroamphetamine 20 mg oral tablet 1 tablet = 20 mg, By Mouth, 2 times a day, masspat checked 05/14/2020 may fill for less, # 56 tablet,0 Refills, Maintenance, 05/14/20 14:08:00 EDT, Tablet, [facility]/pharmacy #2024, last rx ., 1 tablet By Mouth 2 times a day,x28 days,Instr:masspat ch... Start Date: 05/14/20 Stop Date: 06/11/20 Status: Ordered busPIRone 10 mg oral tablet See Instructions, TAKE 1 TABLET BY MOUTH TWICE A DAY, # 180 tablet, Refills 3, Tot. Refills 3, SoftStop, 07/06/19 14:25:16 EDT, Instructions Replace Required Details, Route to Pharmacy Electronically, [id number], [facility] Start Date: 07/06/19 Status: Ordered cyclobenzaprine 10 mg oral tablet 10 mg, 1, tablet, By Mouth, 2 times a day, PRN, # 30 tablet, Refills 1, Tot. Refills 1, Maintenance, for spasm, 01/14/21 9:27:00 EDT, Route to Pharmacy Electronically, [facility]/pharmacy #2024, 160, cm, 02/07/20 10:53:00 EDT, Height, 49.9, kg, 02/07/20 10:5... Start Date: 01/14/21 Status: Ordered cyclobenzaprine 10 mg oral tablet 10 mg, 1, tablet, By Mouth, 2 times a day, PRN, # 30 tablet, Refills 1, Tot. Refills 1, Acute 01/14/21 9:27:00 EDT, for spasm, 01/15/20 9:27:00 EDT, Route to Pharmacy Electronically, [facility]/pharmacy #2024, 160, cm, 01/09/20 9:04:00 EDT, Height Start Date: 01/15/20 Stop Date: 01/14/21 Status: Ordered KlonoPIN 0.5 mg oral tablet 1 tablet = 0.5 mg, By Mouth, 2 times a day, PRN Anxiety, Masspat checked 05/14/2020 May fill for less, # 60 tablet, 0 Refills, Maintenance, 05/14/20 14:08:00 EDT, Tablet, [facility]/pharmacy #2024, increasingdose, 05/14/20, 160, cm, 04/28/20 15:39:00 EDT, He... Start Date: 05/14/20 Status: Ordered omeprazole 20 mg oral enteric coated capsule 1 capsule = 20 mg, By Mouth, Daily, # 90 capsule, 1 Refills, Maintenance, 12/10/19 14:55:00 EDT, ECCapsule, [facility]/pharmacy #2025, aware of celexa, 160, cm, 10/31/19 10:52:00 EST, Height Start Date: 12/10/19 Status: Ordered ondansetron 4 mg oral tablet, disintegrating = 4 mg, By Mouth, 3 times a day, PRN Nausea, # 60 tablet, 1 Refills, Maintenance, 03/13/20 16:39:00EDT, Tablet, [facility]/pharmacy #202, 160, cm, 03/05/20 9:49:00 EDT, Height, 49.9, kg, 02/07/20 10:53:00EDT, Dry Weight Start Date: 03/13/20 Status: Ordered Plaquenil = 200 mg, By Mouth, Daily, 0 Refills, Maintenance, 10/11/16 10:18:04 Start Date: 10/11/16 Status: Ordered ZyrTEC-D 5 mg-120 mg oral tablet, extended release 1 tablet, By Mouth, 2 times a day, # 180 tablet, 1 Refills, Maintenance, 03/13/20 15:14:00 EDT, ER Tablet, [facility]/pharmacy #202, 1 tablet By Mouth 2 times [...] 14:55:00 EDT, 12/10/19 14:55:00 EDT, ER Tablet, [facility]/pharmacy #2025, 160, cm, 10/31/19 10:52:00 EST, [...]
--- OUTSIDE RECORDS SUMMARY | 2024-05-10 09:36 | XMS_ITS | Continuity of Care Document ---
Author Organization [facility] Address [address] [place] [address]- Care Team Providers Care Director Television Name Role Phone Lupe EL, Gian Lincoln Primary Care Physician [place] [facility] [place] 12/02/21 [facility] [address] [place] [address]- Allergies, Adverse Reactions, Alerts Substance Reaction Severity [...] 14:38:00 EST, Route to Pharmacy Electronically, [facility], 160, cm, 10/12/21 10:40:00 EST, Height, 60, kg, 05/29/21 10:55:00 ED... Start Date: 11/02/21 Status: Ordered cyclobenzaprine 10 mg oral tablet 10 mg, 1, tablet, By Mouth, 2 times a day, PRN, # 30 tablet, Refills 1, Tot. Refills 1, Maintenance, for spasm, 01/14/21 9:27:00 EDT, Route to Pharmacy Electronically, [facility]/pharmacy #2025, 160, cm, 02/07/20 10:53:00 EDT, Height, 49.9, kg, 02/07/20 10:5... Start Date: 01/14/21 Status: Ordered fluticasone 50 mcg/inh nasal spray 1 sprays, Nares, Both, 2 times a day, For post nasal drip, # 3 each, 1 Refills, Maintenance, 11/05/21 10:04:00 EST, [place], [facility], Partial fill upon patient request if the prescription is for a schedule II opioid drug., 1 sprays... Start Date: 11/05/21 Status: Ordered ibuprofen 800 mg oral tablet 1, tablet, By Mouth, 3 times a day, # 270 tablet, Refills 1, Tot. Refills 1, Maintenance, 04/21/21 8:59:00 EDT, Route to Pharmacy Electronically, [facility], 160, cm, 01/22/21 13:16:00 EDT, [...]
--- OUTSIDE RECORDS SUMMARY | 2024-05-10 09:36 | XMS_ITS | Continuity of Care Document ---
Author Organization [facility] Address [address] [place] [address]- Care Team Providers Care Print Production Associate Name Role Phone Gian Andrade MD Primary Care Physician [place] [facility] [place] Date(s): 10/13/20 - 11/12/20 [facility] [address] [place] [address]- Allergies, Adverse Reactions, Alerts Substance Reaction Severity [...] 0 Refills, Maintenance, 11/12/20 13:31:00 EST, Tablet, [facility]/pharmacy #2024, 1 tablet By Mouth [...] [facility]/pharmacy #2024, 160, cm, 01/09/20 9:04:00 EDT, Height Start Date: 01/15/20 Stop Date: 01/14/21 Status: Ordered KlonoPIN 0.5 mg oral tablet 1 tablet = 0.5 mg, By Mouth, 2 times a day, PRN Anxiety, Masspat checked 08/01/2020 May fill for less, # 60 tablet, 1 Refills, Maintenance, 08/01/20 15:29:00 EST, Tablet, [facility]/pharmacy #2024, increasing dose, 08/06/20, 160, cm, 07/30/20 9:37:00 EST, H... Start Date: 08/01/20 Status: Ordered omeprazole 20 mg oral enteric coated capsule 1 capsule = 20 mg, By Mouth, Daily, # 90 capsule, 0 Refills, Maintenance, 10/06/20 12:13:00 EST, ECCapsule, [facility]/pharmacy #2025, aware of celexa, 160, [...]
--- OUTSIDE RECORDS SUMMARY | 2024-05-10 09:36 | XMS_ITS | Continuity of Care Document ---
Author Organization [facility] Address [address] [place] [address]- Care Team Providers Care Medical Claims Representative Name Role Phone Lupe EL, Gian Lincoln Primary Care Physician [place] [facility] [place] 10/07/23 - 11/06/23 [facility] [address] [place], [place] [address] Allergies, Adverse Reactions, Alerts Substance Reaction [...] 2 times a day, Masspat checked DNF 11/06/2023, # 56 tablet, 0 Refills, Maintenance, 11/02/23 13:09:00 EST, Tablet, [facility]/pharmacy #2025, Ok to fill early, Masspat checked , Patient may fill for less, 1 tablet By Mouth 2 time... Start Date: 11/02/23 Stop Date: 11/30/23 Status: Ordered clonazePAM 0.5 mg oral tablet [...] 06/28/23 14:05:00 EDT, Route to Pharmacy Electronically, [facility]/pharmacy #2024, 160, cm, 05/25/23 16:00:00... Start Date: [...] each, 1 Refills, Maintenance, 11/05/21 10:04:00 EST, [place], [facility], Partial fill upon patient request if the prescription is for a schedule II opioid drug., 1 sprays... Start Date: 11/05/21 Status: Ordered meclizine 25 mg oral tablet 1 tablet = 25 mg, By Mouth, Daily at bedtime, PRN Other, take one tab po qhs prn moderate vertigo, # 8 tablet, 1 Refills, Soft Stop, 12/16/21 11:06:00 EDT, [facility]/pharmacy #2025, Partial fill upon patient request if [...] 09/23/23 13:04:00 EST, Route to Pharmacy Electronically, [facility]/pharmacy #2025, Partial fill upon patient request if [...] Refills, Maintenance, 12/25/23 14:07:00 EDT, ER Tablet, [facility]/pharmacy #2025, 1 tablet By Mouth 2 times [...] Team Personnel Name: Gian Andrade MD Position: [facility] Physician - Primary Care Member Role: PCP Address: Address: [address] [place] [address] Name: Delfino Barber RN Position: [facility] RN Member Role: Primary Care Nurse Care Team Related Persons Name: VERONICA ANDREWS Address: [address] [place] [address] Name: KEY OVALLE Address: [address] [place] [address] Name: ALCON BAIG Address: [address] [place] [address]
--- OUTSIDE RECORDS SUMMARY | 2024-05-10 09:36 | XMS_ITS | Continuity of Care Document ---
Author Organization [facility] Address [address] [place] [address]- Care Team Providers Care Motion Picture Critic Name Role Phone Gian Andrade MD Primary Care Physician Encounter [facility] Date(s): 06/16/20 - 07/16/20 [facility] [address] [place] [address]- [facility] Allergies, Adverse Reactions, Alerts Substance [...] 0 Refills, Maintenance, 06/17/20 10:13:00 EDT, Tablet, [facility]/pharmacy #2024, last rx ., 1 tablet By Mouth 2 times a day,x28 days,Instr:masspat checked; ma... Start Date: 06/17/20 Stop Date: 07/15/20 Status: Ordered busPIRone 10 mg oral tablet See Instructions, TAKE 1 TABLET BY MOUTH TWICE A DAY, # 180 tablet, Refills 3, Tot. Refills 3, SoftStop, 07/06/19 14:25:16 EDT, Instructions Replace Required Details, Route to Pharmacy Electronically, [id number], [facility] Start Date: 07/06/19 Status: Ordered cyclobenzaprine 10 mg oral tablet 10 mg, 1, tablet, By Mouth, 2 times a day, PRN, # 30 tablet, Refills 1, Tot. Refills 1, Maintenance, for spasm, 01/14/21 9:27:00 EDT, Route to Pharmacy Electronically, [facility]/pharmacy #2024, 160, cm, 02/07/20 10:53:00 EDT, Height, 49.9, kg, 02/07/20 10:5... Start Date: 01/14/21 Status: Ordered cyclobenzaprine 10 mg oral tablet 10 mg, 1, tablet, By Mouth, 2 times a day, PRN, # 30 tablet, Refills 1, Tot. Refills 1, Acute 01/14/21 9:27:00 EDT, for spasm, 01/15/20 9:27:00 EDT, Route to Pharmacy Electronically, [facility]/pharmacy #2024, 160, cm, 01/09/20 9:04:00 EDT, Height Start Date: 01/15/20 Stop Date: 01/14/21 Status: Ordered ibuprofen 800 mg oral tablet 800 mg, 1, tablet, By Mouth, 3 times a day, # 90 tablet, Refills 2, Tot. Refills 2, Acute 07/20/20 12:41:00 EST, 06/19/20 12:41:00 EDT, Route to Pharmacy Electronically, [facility]/pharmacy #2024, 160, cm, 05/27/20 10:37:00 EDT, Height, 49.9, kg, 02/07/20 10... Start Date: 06/19/20 Stop Date: 07/20/20 Status: Ordered KlonoPIN 0.5 mg oral tablet 1 tablet = 0.5 mg, By Mouth, 2 times a day, PRN Anxiety, Masspat checked 06/10/2020 May fill for less, # 60 tablet, 1 Refills, Maintenance, 06/10/20 13:11:00 EDT, Tablet, [facility]/pharmacy #2024, increasing dose, 160, cm, 05/27/20 10:37:00 EDT, Height, 49.... Start Date: 06/10/20 Status: Ordered omeprazole 20 mg oral enteric coated capsule 1 capsule = 20 mg, By Mouth, Daily, # 90 capsule, 1 Refills, Maintenance, 12/10/19 14:55:00 EDT, ECCapsule, [facility]/pharmacy #2024, aware of celexa, 160, cm, 10/31/19 10:52:00 EST, Height Start Date: 12/10/19 Status: Ordered ondansetron 4 mg oral tablet, disintegrating = 4 mg, By Mouth, 3 times a day, PRN Nausea, # 60 tablet, 1 Refills, Maintenance, 03/13/20 16:39:00EDT, Tablet, [facility]/pharmacy #2024, 160, cm, 03/05/20 9:49:00 EDT, Height, 49.9, kg, 02/07/20 10:53:00EDT, Dry Weight Start Date: 03/13/20 Status: Ordered Plaquenil = 200 mg, By Mouth, Daily, 0 Refills, Maintenance, 10/11/16 10:18:04 Start Date: 10/11/16 Status: Ordered ZyrTEC-D 5 mg-120 mg oral tablet, extended release 1 tablet, By Mouth, 2 times a day, # 180 tablet, 1 Refills, Maintenance, 03/13/20 15:14:00 EDT, ER Tablet, [facility]/pharmacy #2024, 1 tablet By Mouth 2 times [...]
--- OUTSIDE RECORDS SUMMARY | 2024-05-10 09:36 | XMS_ITS | Continuity of Care Document ---
Author Organization [facility] Address [address] [place] [address]- Care Team Providers Care Community Health Navigator Name Role Phone Gian Andrade MD Primary Care Physician Encounter [facility] [place] Date(s): 11/21/20 - 12/21/20 [facility] [address] [place] [address]- Allergies, Adverse Reactions, Alerts Substance Reaction Severity [...] Maintenance, 12/17/20 15:58:00 EDT, Tablet, [facility]/pharmacy #2024, 1 tablet By Mouth 2 times a day,x28 days,Instr:masspat checked ; may fill for less,... Start Date: 12/17/20 Stop Date: 01/14/21 Status: Ordered busPIRone 10 mg oral tablet 10 mg, 1, tablet, By Mouth, 2 times a day, # 180 tablet, Refills 1, Tot. Refills 1, Soft Stop, 09/02/20 8:17:00 EST, Route to Pharmacy Electronically, [facility]/pharmacy #2024, 160, cm, 07/30/20 9:37:00 EST, Height, 49.9, kg, 02/07/20 10:53:00 EDT, Dry Weight Start Date: 09/02/20 Status: Ordered cyclobenzaprine 10 mg oral tablet 10 mg, 1, tablet, By Mouth, 2 times a day, PRN, # 30 tablet, Refills 1, Tot. Refills 1, Maintenance, for spasm, 01/14/21 9:27:00 EDT, Route to Pharmacy Electronically, [facility]/pharmacy #2024, 160, cm, 02/07/20 10:53:00 EDT, Height, 49.9, kg, 02/07/20 10:5... Start Date: 01/14/21 Status: Ordered cyclobenzaprine 10 mg oral tablet 10 mg, 1, tablet, By Mouth, 2 times a day, PRN, # 30 tablet, Refills 1, Tot. Refills 1, Acute 01/14/21 9:27:00 EDT, for spasm, 01/15/20 9:27:00 EDT, Route to Pharmacy Electronically, [facility]/pharmacy #2024, 160, cm, 01/09/20 9:04:00 EDT, Height Start Date: 01/15/20 Stop Date: 01/14/21 Status: Ordered KlonoPIN 0.5 mg oral tablet 1 tablet = 0.5 mg, By Mouth, 2 times a day, PRN Anxiety, Masspat checked May fill for less, # 60 tablet, 1 Refills, Maintenance, 11/21/20 12:12:00 EST, Tablet, [facility]/pharmacy #2024, increasing dose, 160, cm, 07/30/20 9:37:00 EST, Height, 49.9, kg, /... Start Date: 11/21/20 Status: Ordered omeprazole 20 mg oral enteric coated capsule 1 capsule = 20 mg, By Mouth, Daily, # 90 capsule, 0 Refills, Maintenance, 10/06/20 12:13:00 EST, ECCapsule, [facility]/pharmacy #2025, aware of celexa, 160, cm, 07/30/20 [...]
--- OUTSIDE RECORDS SUMMARY | 2024-05-10 09:36 | XMS_ITS | Continuity of Care Document ---
Author Organization [facility] [place] Address [address] [place] [address]- Care Team Providers Care Proposal Writer Name Role Phone Gian Andrade MD Primary Care Physician Encounter [facility] Date(s): 11/22/23 - 12/22/23 [facility] [address] [place], [place] [address] Attending Physician: Admtr, Percy Admitting Physician: AdmtrPercy Referring Physician: Admtr, Ar8 [...] 0 Refills, Maintenance, 12/01/23 14:33:00 EDT, Tablet, [facility]/pharmacy #202, Ok to fill early, Masspat checked [...] 11/09/23 9:24:00 EST, Route to Pharmacy Electronically, [facility]/pharmacy #2024, 158, cm, 09/23/23 12:44:00... Start Date: [...] each, 1 Refills, Maintenance, 11/05/21 10:04:00 EST, [place], [facility], Partial fill upon patient request if the prescription is for a schedule II opioid drug., 1 sprays... Start Date: 11/05/21 Status: Ordered meclizine 25 mg oral tablet 1 tablet = 25 mg, By Mouth, Daily at bedtime, PRN Other, take one tab po qhs prn moderate vertigo, # 8 tablet, 1 Refills, Soft Stop, 12/16/21 11:06:00 EDT, [facility]/pharmacy #202, Partial fill upon patient request if [...] each, 0 Refills, Maintenance, 11/25/23 17:27:00 EDT, [facility]/pharmacy #2025, Partial fill upon higinio... Start Date: 11/25/23 Status: Ordered propranolol 10 mg oral tablet 10 mg, 1, tablet, By Mouth, 3 times a day, # 90 tablet, Refills 3, Tot. Refills 3, Maintenance, 11/09/23 9:56:00 EST, [facility], Partial fill upon patient request [...] Team Personnel Name: Gian Andrade MD Position: [facility] Physician - Primary Care Member Role: PCP Address: Address: [address] [place] [address] Name: Delfino Barber RN Position: [facility] RN Member Role: Primary Care Nurse Care Team Related Persons Name: VERONICA ANDREWS Address: [address] [place] [address] Name: KEY OVALLE Address: [address] [place] [address] Name: ALCON BAIG Address: [address] [place] [address]
--- OUTSIDE RECORDS SUMMARY | 2024-05-10 09:36 | XMS_ITS | Continuity of Care Document ---
Author Organization [facility] Address [address] [place] [address]- Care Team Providers Care Tierce Filler Name Role Phone Gian Andrade MD Primary Care Physician Encounter [facility] [place] Date(s): 02/24/24 - 03/25/24 [facility] [address] [place] [address]- Allergies, Adverse Reactions, Alerts Substance Reaction Severity [...] 0 Refills, Maintenance, 03/02/24 7:01:00 EDT, Tablet, [facility]/pharmacy #2025, Ok to fill early, Masspat checked , Patient may fill for less, 1 tablet By Mouth 2 times... Start Date: 03/02/24 Stop Date: 03/30/24 Status: Ordered clonazePAM 0.5 mg oral tablet 1 tablet = 0.5 mg, By Mouth, 2 times a day, PRN Anxiety, # 60 tablet, 1 Refills, Maintenance, 12/27/23 14:42:00 EDT, Tablet, [facility]/pharmacy #202, Partial fill upon patient request if the prescription is for a schedule II opioid drug., 158, cm, 11/22/23... Start Date: 12/27/23 Status: Ordered cyclobenzaprine 10 mg oral tablet 1, tablet, By Mouth, 2 times a day, PRN, # 30 tablet, Refills 1, Maintenance, NEEDED FOR SPASMS,FOR, 01/24/24 8:14:00 EDT, Route to Pharmacy Electronically, [id number], 158, cm, 01/03/24 14:54:00 EDT, Height, 56.3, [...] each, 1 Refills, Maintenance, 11/05/21 10:04:00 EST, [place], [facility], Partial fill upon patient request if the prescription is for a schedule II opioid drug., 1 sprays... Start Date: 11/05/21 Status: Ordered gabapentin 300 mg oral capsule 300 mg, 1, capsule, By Mouth, Daily at bedtime, # 30 capsule, Refills 0, Tot. Refills 0, Maintenance, 02/15/24 16:16:00 EDT, Route to Pharmacy Electronically, [facility]/pharmacy #2024, Partial fill upon patient request if the prescription is for a schedule... Start Date: 02/15/24 Status: Ordered meclizine 25 mg oral tablet 1 tablet = 25 mg, By Mouth, Daily at bedtime, PRN Other, take one tab po qhs prn moderate vertigo, # 8 tablet, 1 Refills, Soft Stop, 12/16/21 11:06:00 EDT, [facility]/pharmacy #2025, Partial fill upon patient request if the prescription is for a schedule II... Start Date: 12/16/21 Status: Ordered NuLYTELY Lemon Qawalangin oral powder for reconstitution 240 mL, By Mouth, Every 10 minutes, # 1 each, 0 Refills, Maintenance, 03/23/24 11:15:00 EDT, REC Powder, [facility], Partial fill upon patient request if the prescription is for a schedule IIopioid drug., 158, cm, 02/28/24 11:29:00 EDT, Heigh... Start Date: 03/23/24 Status: Ordered ondansetron 4 mg oral tablet, [...] each, 0 Refills, Maintenance, 11/25/23 17:27:00 EDT, [facility]/pharmacy #2025, Partial fill upon higinio... Start Date: 11/25/23 Status: Ordered propranolol 10 mg oral tablet 1, tablet, By Mouth, 3 times a day, # 270 tablet, Refills 1, Maintenance, 02/07/24 8:11:00 EDT, Route to Pharmacy Electronically, [id number], 158, cm, 01/03/24 14:54:00 EDT, Height, 56.3, [...] Team Personnel Name: Gian Andrade MD Position: [facility] Physician - Primary Care Member Role: PCP Address: Address: [address] [place] [id number]- Name: Delfino Barber RN Position: [facility] RN Member Role: Primary Care Nurse Care Team Related Persons Name: VERONICA ANDREWS Address: [address] [place] [address] Name: KEY OVALLE Address: [address] [place] [address] Name: ALCON BAIG Address: [address] [place] [address]
--- OUTSIDE RECORDS SUMMARY | 2024-05-10 09:36 | XMS_ITS | Continuity of Care Document ---
Author Organization [facility] Address [address] [place] [address]- Care Team Providers Care Grid Molder Name Role Phone Gian Andrade MD Primary Care Physician Encounter [facility] [place] Date(s): 01/18/21 - 02/17/21 [facility] [address] [place] [address]- Allergies, Adverse Reactions, Alerts Substance Reaction Severity [...] 0 Refills, Maintenance, 12/17/20 15:58:00 EDT, Tablet, [facility]/pharmacy #2025, 1 tablet By [...] 01/14/21 9:27:00 EDT, Route to Pharmacy Electronically, [facility]/pharmacy #2025, 160, cm, 02/07/20 10:53:00 EDT, [...] tablet, 1 Refills, Maintenance, 12/31/20 14:47:00EDT, Tablet, [facility]/pharmacy #2025, 160, cm, 07/30/20 9:37:00 EST, Height, [...]
--- OUTSIDE RECORDS SUMMARY | 2024-05-10 09:36 | XMS_ITS | Continuity of Care Document ---
Author Organization [facility] Address [address] [address]- Care Team Providers Care Plush Weaver Name Role Phone Gian Andrade MD Primary Care Physician [place] [facility] [place] Date(s): 07/01/23 - 07/31/23 [facility] [address] [address]- Attending Physician: Admtr, [id number] Admitting Physician: Admtr, [...] 11 Refills, Maintenance, 08/10/21 10:44:00 EST, Powder, [facility]/pharmacy #2025, 2 puffs Inhalation Every 4 hours,PRN:Wheezing/Shortness [...] 0 Refills, Maintenance, 07/22/23 12:46:00 EST, Tablet, [facility]/pharmacy #2025, Ok to fill early, Masspat [...] 06/28/23 14:05:00 EDT, Route to Pharmacy Electronically, [facility]/pharmacy #2025, 160, cm, 05/25/23 16:00:00... Start [...] each, 1 Refills, Maintenance, 11/05/21 10:04:00 EST, [place], [facility], Partial fill upon [...] 08/27/23 15:43:00 EST, 06/28/23 15:43:00 EDT, Tablet, [facility]/pharmacy #2024, increasing dose, 160, cm, 05/25/23 1... Start Date: 06/28/23 Stop Date: 08/27/23 Status: Ordered KlonoPIN 0.5 mg oral tablet 1 tablet = 0.5 mg, By Mouth, 2 times a day, PRN Anxiety, for 30 days, Masspat checked May fill for less, # 60 tablet, 1 Refills, Hard Stop 08/29/23 14:42:00 EST, 06/30/23 14:42:00 EDT, Tablet, [facility]/pharmacy #2024, increasing dose, 160, cm, 06/30/23 [...] Team Personnel Name: Gian Andrade MD Position: [facility] Physician - Primary Care Member Role: PCP Address: Address: [address] [place] [address]- Name: Delfino Barber RN Position: [facility] RN Member Role: Primary Care Nurse Care Team Related Persons Name: VERONICA ANDREWS Address: [address] [place] [address] Name: KEY OVALLE Address: [address] [place] [address] Name: ALCON BAIG Address: [address] [place] [address]
--- OUTSIDE RECORDS SUMMARY | 2024-05-10 09:37 | XMS_ITS | Continuity of Care Document ---
Author Organization [facility] Address [address] [place] [address]- Care Team Providers Care Representative Phlebotomy Services Name Role Phone Gian Andrade MD Primary Care Physician Encounter [facility] [place] Date(s): 01/09/20 - 01/16/20 [facility] [address] [place] [address]- [place] Encounter Diagnosis Nausea(Discharge Diagnosis) - 01/09/20 Abdominal pain(Discharge Diagnosis) - 01/09/20 Neck pain(Discharge Diagnosis) - 01/09/20 Attending Physician: Gian Andrade MD Allergies, Adverse [...] Mouth, 2 times a day, masspat checked 12/19/2019 may fill for less, # 56 tablet,0 Refills, Maintenance, 12/19/19 9:38:00 EDT, Tablet, [facility]/pharmacy #2024, 1 tablet By Mouth 2 timesa day,x28 days,Instr:masspat checked 12/19/2019; may... Start Date: 12/19/19 Stop Date: 01/16/20 Status: Ordered busPIRone 10 mg oral tablet See Instructions, TAKE 1 TABLET BY MOUTH TWICE A DAY, # 180 tablet, Refills 3, Tot. Refills 3, SoftStop, 07/06/19 14:25:16 EDT, Instructions Replace Required Details, Route to Pharmacy Electronically, [id number], [facility] Start Date: 07/06/19 Status: Ordered cyclobenzaprine 10 mg oral tablet 10 mg, 1, tablet, By Mouth, 2 times a day, PRN, # 30 tablet, Refills 1, Tot. Refills 1, Acute 01/14/21 9:27:00 EDT, for spasm, 01/15/20 9:27:00 EDT, Route to Pharmacy Electronically, [facility]/pharmacy #2024, 160, cm, 01/09/20 9:04:00 EDT, Height Start Date: 01/15/20 Stop Date: 01/14/21 Status: Ordered KlonoPIN 0.5 mg oral tablet 1 tablet = 0.5 mg, By Mouth, 2 times a day, PRN Anxiety, Masspat checked 01/10/2020, # 60 tablet, 1 Refills, Maintenance, 01/11/20 9:10:00 EDT, Tablet, [facility]/pharmacy #2024, increasing dose, 160, cm, 01/09/20 9:04:00 EDT, Height Start Date: 01/11/20 Status: Ordered omeprazole 20 mg oral enteric [...] Refills, Maintenance, 12/10/19 14:55:00 EDT, ECCapsule, [facility], aware of celexa, 160, cm, 10/31/19 10:52:00 EST, Height Start Date: 12/10/19 Status: Ordered Plaquenil = 200 mg, By Mouth, Daily, 0 Refills, Maintenance, 10/11/16 10:18:04 Start Date: 10/11/16 Status: Ordered Zofran ODT 4 mg oral tablet, disintegrating 1 tablet = 4 mg, By Mouth, 3 times a day, PRN Nausea, # 60 tablet, 1 Refills, Maintenance, 10/25/2012:07:00 EST, [facility], 160, cm, 07/06/19 14:11:00 EDT, Height Start Date: 10/25/19 Status: Ordered ZyrTEC-D 5 mg-120 mg oral tablet, extended release 1 tablet, By Mouth, 2 times a day, # 180 tablet, 1 Refills, Maintenance, 12/10/19 14:55:00 EDT, ER Tablet, [facility], 1 tablet By Mouth 2 times a day,x90 days, 160, cm, 10/31/19 10:52:00 EST, Height Start [...] with anxiety(Confirmed) Active Small intestinal bacterial overgrowth(Confirmed) 4/26/16 Active Lupus(Confirmed) Active Diagnosis Diagnosis Type Effective Dates Health Status Cl inical Service Informant Nausea Discharge Diagnosis 01/09/20 Abdominal pain Discharge Diagnosis 01/09/20 Neck pain Discharge Diagnosis 01/09/20 Vital Signs Most recent to oldest [Reference Range]: 1 Height 160 cm (01/09/20 9:04 AM) Social History Social History Type Response Smoking Status Never smoker entered on: 04/21/15 Sex
--- OUTSIDE RECORDS SUMMARY | 2024-05-10 09:37 | XMS_ITS | Continuity of Care Document ---
Author Organization [facility] Address [address] [place] [address]- Care Team Providers Care Wad Printing Machine Operator Name Role Phone Lupe EL, Gian Lincoln Primary Care Physician [place] [facility] [place]/06/20 [facility] [address] [place] [address]- [place] States Attending Physician: Eunice Pascal MD Allergies, Adverse Reactions, Alerts Substance Reaction [...] 0 Refills, Maintenance, 01/28/20 13:41:00 EDT, Tablet, [facility]/pharmacy #2024, 1 tablet By Mouth 2 times a day,x28 days,Instr:masspat checked 01/28/2020;... Start Date: 01/28/20 Stop Date: 02/25/20 Status: Ordered busPIRone 10 mg oral tablet See Instructions, TAKE 1 TABLET BY MOUTH TWICE A DAY, # 180 tablet, Refills 3, Tot. Refills 3, SoftStop, 07/06/19 14:25:16 EDT, Instructions Replace Required Details, Route to Pharmacy Electronically, [id number], [facility]/pharmac... Start Date: 07/06/19 Status: Ordered cyclobenzaprine 10 mg oral tablet 10 mg, 1, tablet, By Mouth, 2 times a day, PRN, # 30 tablet, Refills 1, Tot. Refills 1, Acute 01/14/21 9:27:00 EDT, for spasm, 01/15/20 9:27:00 EDT, Route to Pharmacy Electronically, [facility]/pharmacy #2024, 160, cm, 01/09/20 9:04:00 EDT, Height Start Date: 01/15/20 Stop Date: 01/14/21 Status: Ordered KlonoPIN 0.5 mg oral tablet 1 tablet = 0.5 mg, By Mouth, 2 times a day, PRN Anxiety, Masspat checked 01/10/2020, # 60 tablet, 1 Refills, Maintenance, 01/11/20 9:10:00 EDT, Tablet, [facility]/pharmacy #2024, increasing dose, 160, cm, 01/09/20 9:04:00 EDT, Height Start Date: 01/11/20 Status: Ordered omeprazole 20 mg oral enteric coated capsule 1 capsule = 20 mg, By Mouth, Daily, # 90 capsule, 1 Refills, Hard Stop 04/22/20 9:15:00 EDT, 09/25/19 9:15:00 EST, EC Capsule, [facility]/pharmacy #2024, aware of celexa, 160, cm, 07/06/19 14:11:00 EDT, Height Start Date: 09/25/19 Stop Date: 04/22/20 Status: Ordered omeprazole 20 mg oral enteric coated capsule 1 capsule = 20 mg, By Mouth, Daily, # 90 capsule, 1 Refills, Maintenance, 12/10/19 14:55:00 EDT, ECCapsule, [facility]/pharmacy #2024, aware of celexa, 160, cm, 10/31/19 10:52:00 EST, Height Start Date: 12/10/19 Status: Ordered Plaquenil = 200 mg, By Mouth, Daily, 0 Refills, Maintenance, 10/11/16 10:18:04 Start Date: 10/11/16 Status: Ordered Zofran ODT 4 mg oral tablet, disintegrating 1 tablet = 4 mg, By Mouth, 3 times a day, PRN Nausea, # 60 tablet, 1 Refills, Maintenance, 10/25/2012:07:00 EST, [facility]/pharmacy #2024, 160, cm, 07/06/19 14:11:00 EDT, Height Start Date: 10/25/19 Status: Ordered ZyrTEC-D 5 mg-120 mg oral tablet, extended release 1 tablet, By Mouth, 2 times a day, # 180 tablet, 1 Refills, Maintenance, 06/07/20 14:55:00 EDT, ER Tablet, [facility], 1 tablet By Mouth 2 times a day,x90 days, 160, cm, 01/09/20 9:04:00 EDT,Height Start Date: 06/07/20 Stop Date: 12/04/20 Status: Ordered ZyrTEC-D 5 mg-120 mg oral tablet, extended release 1 tablet, By Mouth, 2 times a day, for 90 days, # 180 tablet, 1 Refills, Hard Stop 06/07/20 14:55:00 EDT, 12/10/19 14:55:00 EDT, ER Tablet, [facility], 160, cm, 10/31/19 10:52:00 EST, Height Start [...]
--- OUTSIDE RECORDS SUMMARY | 2024-05-10 09:37 | XMS_ITS | Continuity of Care Document ---
Author Organization [facility] Address [address] [place] [address]- Care Team Providers Care Point Of Care Technician Name Role Phone Gian Andrade MD Primary Care Physician Encounter [facility] [place] Date(s): 05/02/20 - 06/01/20 [facility] [address] [place] [address] Allergies, Adverse Reactions, Alerts Substance Reaction Severity [...] tablet,0 Refills, Maintenance, 05/14/20 14:08:00 EDT, Tablet, [facility]/pharmacy #2024, last rx ., 1 tablet By Mouth 2 times a day,x28 days,Instr:masspat ch... Start Date: 05/14/20 Stop Date: 06/11/20 Status: Ordered busPIRone 10 mg oral tablet See Instructions, TAKE 1 TABLET BY MOUTH TWICE A DAY, # 180 tablet, Refills 3, Tot. Refills 3, SoftStop, 07/06/19 14:25:16 EDT, Instructions Replace Required Details, Route to Pharmacy Electronically, [id number], [facility] Start Date: 07/06/19 Status: Ordered cyclobenzaprine [...] 01/15/20 9:27:00 EDT, Route to Pharmacy Electronically, [facility]/pharmacy #2024, 160, cm, 01/09/20 9:04:00 EDT, Height Start Date: 01/15/20 Stop Date: 01/14/21 Status: Ordered KlonoPIN 0.5 mg oral tablet 1 tablet = 0.5 mg, By Mouth, 2 times a day, PRN Anxiety, Masspat checked 05/14/2020 May fill for less, # 60 tablet, 0 Refills, Maintenance, 05/14/20 14:08:00 EDT, Tablet, [facility]/pharmacy #2024, increasingdose, 05/14/20, 160, cm, 04/28/20 15:39:00 EDT, He... Start Date: 05/14/20 Status: Ordered ofloxacin 0.3% otic solution 5, drops, Ears, Both, 2 times a day, for 7 days, # 5 mL, Refills 0, Tot. Refills 0, Acute, 06/03/2011:00:00 EDT, 05/27/20 11:00:00 EDT, Route to Pharmacy Electronically, [facility]/pharmacy #2024 Solution,160, cm, 05/27/20 10:37:00 EDT, Height, 49.9, kg, 0... Start Date: 05/27/20 Stop Date: 06/03/20 Status: Ordered omeprazole 20 mg oral enteric coated capsule 1 capsule = 20 mg, By Mouth, Daily, # 90 capsule, 1 Refills, Maintenance, 12/10/19 14:55:00 EDT, ECCapsule, [facility]/pharmacy #2024, aware of celexa, 160, cm, 10/31/19 10:52:00 EST, Height Start Date: 12/10/19 Status: Ordered ondansetron 4 mg oral tablet, disintegrating = 4 mg, By Mouth, 3 times a day, PRN Nausea, # 60 tablet, 1 Refills, Maintenance, 03/13/20 16:39:00EDT, Tablet, [facility]/pharmacy #2024, 160, cm, 03/05/20 9:49:00 [...] Refills, Maintenance, 03/13/20 15:14:00 EDT, ER Tablet, [facility]/pharmacy #2024, 1 tablet [...] 14:55:00 EDT, 12/10/19 14:55:00 EDT, ER Tablet, [facility]/pharmacy #2025, 160, cm, 10/31/19 10:52:00 EST, Height [...]
--- OUTSIDE RECORDS SUMMARY | 2024-05-10 09:37 | XMS_ITS | Continuity of Care Document ---
Author Organization [facility] Address [address] [place] [address]- Care Team Providers Care Test Pilot Name Role Phone Lupe EL, Gian Lincoln Primary Care Physician [place] [facility] [place]/22 [facility] [address] [place], [place] [address] Allergies, Adverse Reactions, Alerts Substance Reaction Severity [...] 14:38:00 EST, Route to Pharmacy Electronically, [facility], 160, cm, 10/12/21 10:40:00 EST, Height, 60, kg, 05/29/21 10:55:00 ED... Start Date: 11/02/21 Status: Ordered cyclobenzaprine 10 mg oral tablet 10 mg, 1, tablet, By Mouth, 2 times a day, PRN, # 30 tablet, Refills 1, Tot. Refills 1, Maintenance, for spasm, 01/14/21 9:27:00 EDT, Route to Pharmacy Electronically, [facility]/pharmacy #5, 160, cm, 02/07/20 10:53:00 EDT, Height, 49.9, kg, 02/07/20 10:5... Start Date: 01/14/21 Status: Ordered fluticasone 50 mcg/inh nasal spray 1 sprays, Nares, Both, 2 times a day, For post nasal drip, # 3 each, 1 Refills, Maintenance, 11/05/21 10:04:00 EST, [place], [facility], Partial fill upon patient request if the prescription is for a schedule II opioid drug., 1 sprays... Start Date: 11/05/21 Status: Ordered ibuprofen 800 mg oral tablet 1, tablet, By Mouth, 3 times a day, # 270 tablet, Refills 1, Tot. Refills 1, Maintenance, 04/21/21 8:59:00 EDT, Route to Pharmacy Electronically, [facility], 160, cm, 01/22/21 13:16:00 EDT, [...]
--- OUTSIDE RECORDS SUMMARY | 2024-05-10 09:37 | XMS_ITS | Continuity of Care Document ---
Author Organization [facility] Address [address] [place] [address]- Care Team Providers Care Sheet Roller Operator Name Role Phone Gian Andrade MD Primary Care Physician Encounter [facility] [place] Date(s): 06/30/23 - 07/07/23 [facility] [address] [place] [address]- Encounter Diagnosis ADD (attention deficit disorder)(Discharge Diagnosis) - 06/30/23 Anxiety(Discharge Diagnosis) - 06/30/23 Neck pain(Discharge Diagnosis) - 06/30/23 Attending Physician: Gian Andrade MD Allergies, Adverse [...] Refills, Maintenance, 08/27/22 12:40:00 EST, Tablet, [facility]/pharmacy #2025, 1 tablet By Mouth 2 times a day,x90 days,Instr:masspat checked ; may fill for less... Start Date: 08/27/22 Stop Date: 11/25/22 Status: Ordered amphetamine-dextroamphetamine 20 mg oral tablet 1 tablet = 20 mg, By Mouth, 2 times a day, for 28 days, masspat checked, # 56 tablet, 0 Refills, Hard Stop 07/26/23 15:43:00 EST, 06/28/23 15:43:00 EDT, Tablet, [facility]/pharmacy #2025, 160, cm, 05/25/23 16:00:00 EDT, Height Start Date: 06/28/23 Stop Date: 07/26/23 Status: Ordered amphetamine-dextroamphetamine 20 mg oral tablet 1 tablet = 20 mg, By Mouth, 2 times a day, masspat checked, # 56 tablet, 0 Refills, Maintenance, 06/30/23 14:42:00 EDT, Tablet, [facility], 1 tablet By Mouth [...] [facility]/pharmacy #2024, 160, cm, 05/25/23 16:00:00... Start Date: [...] each, 1 Refills, Maintenance, 11/05/21 10:04:00 EST, [place], [facility], Partial fill upon [...] 08/27/23 15:43:00 EST, 06/28/23 15:43:00 EDT, Tablet, [facility]/pharmacy #2024, increasing dose, 160, cm, 05/25/23 1... Start Date: 06/28/23 Stop Date: 08/27/23 Status: Ordered KlonoPIN 0.5 mg oral tablet 1 tablet = 0.5 mg, By Mouth, 2 times a day, PRN Anxiety, for 30 days, Masspat checked May fill for less, # 60 tablet, 1 Refills, Hard Stop 08/29/23 14:42:00 EST, 06/30/23 14:42:00 EDT, Tablet, [facility], increasing dose, 160, cm, 06/30/23 1... [...] Refills, Maintenance, 02/11/22 14:20:00 EDT, Tablet, [facility], 160, cm, 01/07/22 9:42:00 EDT, Height, 60, kg, 05/29/21 10:55:00 EDT, Dry Weight Start Date: 02/11/22 Status: Ordered ZyrTEC-D 5 mg-120 mg oral tablet, extended release 1 tablet, By Mouth, 2 times a day, for 90 days, # 180 tablet, 1 Refills, Hard Stop 12/25/23 14:07:00 EDT, 06/28/23 14:07:00 EDT, ER Tablet, [facility], 160, cm, 05/25/23 16:00:00 EDT, Height [...] Dates Health Status Cl inical Service Informant ADD (attention deficit disorder) Discharge Diagnosis 06/30/23 Anxiety Discharge Diagnosis 06/30/23 Neck pain Discharge Diagnosis 06/30/23 Vital Signs Most recent to oldest [Reference Range]: 1 Height 160 cm (06/30/23 2:20 PM) Weight 54 kg (06/30/23 2:20 PM) Body Mass Index [18.5-24.99 kg/m2] 21.09 kg/m2 (06/30/23 2:20 PM) Weight Obtained Via Standing scale (06/30/23 2:20 PM) Social History Social History Type Response Smoking Status Never smoker entered on: 04/21/15 Sex Patient Care team information Care Team Personnel Name: Gian Andrade MD Position: [facility] Physician - Primary Care Member Role: PCP Address: Address: [address] [place] [id number]- Name: Delfino Barber RN Position: [facility] RN Member Role: Primary Care Nurse Care Team Related Persons Name: VERONICA ANDREWS Address: [address] [place] [address] Name: KEY OVALLE Address: [address] [place] [address] Name: ALCON BAIG Address: [address] [place] [address]
--- OUTSIDE RECORDS SUMMARY | 2024-05-10 09:37 | XMS_ITS | Continuity of Care Document ---
Author Organization [facility] ter Address [address] [place] [address]- Care Team Providers Care Boat Puller Name Role Phone Gian Andrade MD Primary Care Physician Encounter [facility] [place] [place] Date(s): 10/31/19 - 10/31/[address] [address]- [facility] Attending Physician: Dionte KIER OPERATOR, Arielle [place] Allergies, Adverse Reactions, Alerts Substance Reaction Severity Status Latex Active Percocet Active Immunizations Given and Recorded Vaccine Date Status Refusal Reason tetanus/diphtheria/pertussis, acel(Tdap) 08/30/16 Given influenza virus vaccine, inactivated 1 07/01/16 Re corded 1Location History: Employee health Medications albuterol 0.083% inhalation solution 3 mL = 2.5 mg, Inhalation, Every 4 hours, PRN asthma, # 360 mL, 2 Refills, Maintenance, 10/11/17 16:20:40, Solution Start Date: 10/11/17 Status: Ordered amphetamine-dextroamphetamine 20 mg oral tablet 1 tablet = 20 mg, By Mouth, 2 times a day, masspat checked 10/25/2019 may fill for less, # 56 tablet, 0 Refills, Maintenance, 10/25/19 13:18:00 EST, Tablet, [facility], 1 tablet By Mouth 2 times a day,x28 days,Instr:masspat checked 10/25/2019;... Start Date: 10/25/19 Stop Date: 11/22/19 Status: Ordered busPIRone 10 mg oral tablet See Instructions, TAKE 1 TABLET BY MOUTH TWICE A DAY, # 180 tablet, Refills 3, Tot. Refills 3, SoftStop, 07/06/19 14:25:16 EDT, Instructions Replace Required Details, Route to Pharmacy Electronically, [id number], [facility]/pharmac... Start Date: 07/06/19 Status: Ordered ibuprofen 800 mg oral tablet 800 mg, 1, tablet, By Mouth, 3 times a day, # 90 tablet, Refills 2, Tot. Refills 2, Acute 11/23/19 13:09:00 EDT, 10/25/19 13:08:00 EST, Route to Pharmacy Electronically, [facility]/pharmacy #2024, 160, cm, 07/06/19 14:11:00 EDT, Height Start Date: 10/25/19 Stop Date: 11/23/19 Status: Ordered KlonoPIN 0.5 mg oral tablet 1 tablet = 0.5 mg, By Mouth, 2 times a day, PRN Anxiety, Masspat checked 09/25/2019, # 60 tablet, 0 Refills, Maintenance, 09/25/19 10:46:00 EST, Tablet, [facility]/pharmacy #2024, increasing dose, 160, cm, 07/06/19 14:11:00 EDT, Height Start Date: 09/25/19 Status: Ordered omeprazole 20 mg oral enteric coated capsule 1 capsule = 20 mg, By Mouth, Daily, # 90 capsule, 1 Refills, Hard Stop 04/22/20 9:15:00 EDT, 09/25/19 9:15:00 EST, EC Capsule, [facility]/pharmacy #2024, aware of celexa, 160, cm, 07/06/19 14:11:00 EDT, Height Start Date: 09/25/19 Stop Date: 04/22/20 Status: Ordered omeprazole 20 mg oral enteric coated capsule 1 capsule = 20 mg, By Mouth, Daily, # 90 capsule, 1 Refills, Maintenance, 04/22/20 9:15:00 EDT, EC Capsule, [facility]/pharmacy #2024, aware of celexa, 160, cm, 07/06/19 14:11:00 EDT, Height Start Date: 04/22/20 Status: Ordered Plaquenil = 200 mg, By Mouth, Daily, 0 Refills, Maintenance, 10/11/16 10:18:04 Start Date: 10/11/16 Status: Ordered Zofran ODT 4 mg oral tablet, disintegrating 1 tablet = 4 mg, By Mouth, 3 times a day, PRN Nausea, # 60 tablet, 1 Refills, Maintenance, 10/25/2012:07:00 EST, [facility]/pharmacy #2025, 160, cm, 07/06/19 14:11:00 EDT, Height Start Date: 10/25/19 Status: Ordered ZyrTEC-D 5 mg-120 mg oral tablet, extended release 1 tablet, By Mouth, 2 times a day, # 180 tablet, 1 Refills, Maintenance, 01/24/19 10:26:04 EDT, ER Tablet, 1 tablet By Mouth 2 times a day,x90 days Start Date: 01/24/19 Stop Date: 07/23/19 Status: Ordered Problem List Condition Effective Dates [...]
--- OUTSIDE RECORDS SUMMARY | 2024-05-10 09:37 | XMS_ITS | Continuity of Care Document ---
Author Organization [facility] Address [address] [place] [address]- Care Team Providers Care Texture Artist Name Role Phone Gian Andrade MD Primary Care Physician Encounter [facility] [place] Date(s): 12/17/20 - 01/16/21 [facility] [address] [place] [address]- Allergies, Adverse Reactions, Alerts Substance Reaction Severity [...] 12:12:00 EST, Tablet, [facility]/pharmacy #2024, increasing dose, 160, cm, 07/30/20 9:37:00 EST, Height, 49.9, kg, 05/... Start Date: 11/21/20 Status: Ordered omeprazole 20 mg oral enteric coated capsule 1 capsule = 20 mg, By Mouth, Daily, # 90 capsule, 0 Refills, Maintenance, 12/29/20 13:29:00 EDT, ECCapsule, [facility]/pharmacy #2024, aware of celexa, 160, cm, [...]
--- OUTSIDE RECORDS SUMMARY | 2024-05-10 09:37 | XMS_ITS | Continuity of Care Document ---
Author Organization [facility] Address [address] [place] [address]- Care Team Providers Care Director Of Community Center Name Role Phone Gian Andrade MD Primary Care Physician Encounter [facility] [place] Date(s): 02/03/23 - 03/05/23 [facility] [address] [place] [address]- Allergies, Adverse Reactions, Alerts Substance Reaction Severity [...] 0 Refills, Maintenance, 08/27/22 12:40:00 EST, Tablet, [facility], 1 tablet By Mouth 2 times a day,x90 days,Instr:masspat checked ; may fill for less... Start Date: 08/27/22 Stop Date: 11/25/22 Status: Ordered amphetamine-dextroamphetamine 20 mg oral tablet 1 tablet = 20 mg, By Mouth, 2 times a day, masspat checked Adderall 20mg LFD: 12/31/2022 #60 for 30 days ok to fill KARMA: 12/23/2022 CSA: 12/23/2022 UTOX: 12/23/2022 may fill for less, # 60 tablet, 0 Refills, Maintenance, 02/04/23 13:47:00 EDT,... Start Date: 02/04/23 Stop Date: 03/06/23 Status: Ordered cyclobenzaprine 10 mg oral tablet 1, tablet, By Mouth, 2 times a day, PRN, # 30 tablet, Refills 1, Maintenance, NEEDED FOR SPASMS,12/20/22 11:12:00 EDT, Route to Pharmacy Electronically, [id number], 160, cm, 10/26/22 8:55:00EST, Height, 60, kg, 05/29/21 10:55:00 EDT, Dry Weight Start Date: 12/20/22 Status: Ordered fluticasone 50 mcg/inh nasal spray 1 sprays, Nares, Both, 2 times a day, For post nasal drip, # 3 each, 1 Refills, Maintenance, 11/05/21 10:04:00 EST, [place], [facility], Partial fill upon [...] 1 Refills, Soft Stop, 12/16/21 11:06:00 EDT, [facility]/pharmacy #2024, Partial fill upon patient request [...] Team Personnel Name: Gian Andrade MD Position: [facility] Physician - Primary Care Member Role: PCP Address: Address: [address] [place] [address] Name: Delfino Barber Position: [facility] RN Member Role: Primary Care Nurse Care Team Related Persons Name: VERONICA ANDREWS Address: [address] [place] [address] Name: KEY OVALLE Address: [address] [place], [place] Name: ALCON BAIG Address: [address] [place] [address]
--- OUTSIDE RECORDS SUMMARY | 2024-05-10 09:37 | XMS_ITS | Continuity of Care Document ---
Author Organization [facility] ter Address [address] [place] [address]- Care Team Providers Care Silver Lap Machine Tender Name Role Phone Lupe EL, Gian [place] Primary Care Physician [place] [facility] [place] - 10/02/[address] [address]- [facility] Attending Physician: Mechelle Aguilar MD Allergies, Adverse Reactions, Alerts Substance Reaction [...] Mouth, 2 times a day, masspat checked 09/25/2019 may fill for less, # 56 tablet, 0 Refills, Maintenance, 09/25/19 10:46:00 EST, Tablet, [facility], 1 tablet By Mouth 2 times a day,x28 days,Instr:masspat checked 09/25/2019;... Start Date: 09/25/19 Stop Date: 10/23/19 Status: Ordered busPIRone 10 mg oral tablet See Instructions, TAKE 1 TABLET BY MOUTH TWICE A DAY, # 180 tablet, Refills 3, Tot. Refills 3, SoftStop, 07/06/19 14:25:16 EDT, Instructions Replace Required Details, Route to Pharmacy Electronically, [id number], [facility]/pharmac... Start Date: 07/06/19 Status: Ordered ibuprofen 800 mg oral tablet 800 mg, 1, tablet, By Mouth, 3 times a day, # 90 tablet, Refills 2, Tot. Refills 2, Acute 12/27/19 11:46:00 EDT, 09/27/19 11:44:00 EST, Route to Pharmacy Electronically, [facility]/pharmacy #2024, 160, cm, 07/06/19 14:11:00 EDT, Height Start Date: 09/27/19 Stop Date: 12/27/19 Status: Ordered KlonoPIN 0.5 mg oral tablet 1 tablet = 0.5 mg, By Mouth, 2 times a day, PRN Anxiety, Masspat checked 09/25/2019, # 60 tablet, 0 Refills, Maintenance, 09/25/19 10:46:00 EST, Tablet, [facility]/pharmacy #2024, increasing dose, 160, cm, 07/06/19 14:11:00 EDT, Height Start Date: 09/25/19 Status: Ordered omeprazole 20 mg oral enteric coated capsule 1 capsule = 20 mg, By Mouth, Daily, # 90 capsule, 1 Refills, Maintenance, 09/25/19 9:15:00 EST, EC Capsule, [facility]/pharmacy #2024, aware of celexa, 160, cm, 07/06/19 14:11:00 EDT, Height Start Date: 09/25/19 Stop Date: 04/22/20 Status: Ordered Ortho Tri-Cyclen Lo oral tablet 1 tablet, By Mouth, Daily, # 84 tablet, 0 Refills, Maintenance, 12/28/16 15:29:17, Tablet, 1 tabletBy Mouth Daily Start Date: 12/28/16 Status: Ordered Plaquenil = 200 mg, By Mouth, Daily, 0 Refills, Maintenance, 10/11/16 10:18:04 Start Date: 10/11/16 Status: Ordered Zofran ODT 4 mg oral tablet, disintegrating 1 tablet = 4 mg, By Mouth, 3 times a day, PRN Nausea, # 60 tablet, 0 Refills, Maintenance, :17:00 EST, [facility], 160, cm, 07/06/19 14:11:00 EDT, Height Start Date: 09/25/19 Status: Ordered ZyrTEC-D 5 mg-120 mg oral [...]
--- OUTSIDE RECORDS SUMMARY | 2024-05-10 09:37 | XMS_ITS | Continuity of Care Document ---
Author Organization [facility] Address [address] [place] [address]- Care Team Providers Care Methods Analyst Data Processing Name Role Phone Lupe EL, Gian [place] Primary Care Physician [place] [facility] [place] 11/02/21 - 12/02/21 [facility] [address] [place], [place] [address] Allergies, Adverse Reactions, Alerts Substance [...] 14:38:00 EST, Route to Pharmacy Electronically, [facility], 160, cm, 10/12/21 10:40:00 EST, Height, 60, kg, 05/29/21 10:55:00 ED... Start Date: 11/02/21 Status: Ordered cyclobenzaprine 10 mg oral tablet 10 mg, 1, tablet, By Mouth, 2 times a day, PRN, # 30 tablet, Refills 1, Tot. Refills 1, Maintenance, for spasm, 01/14/21 9:27:00 EDT, Route to Pharmacy Electronically, [facility]/pharmacy #2025, 160, cm, 02/07/20 10:53:00 EDT, Height, 49.9, kg, 02/07/20 10:5... Start Date: 01/14/21 Status: Ordered fluticasone 50 mcg/inh nasal spray 1 sprays, Nares, Both, 2 times a day, For post nasal drip, # 3 each, 1 Refills, Maintenance, 11/05/21 10:04:00 EST, [place], [facility], Partial fill upon patient request if the prescription is for a schedule II opioid drug., 1 sprays... Start Date: 11/05/21 Status: Ordered ibuprofen 800 mg oral tablet 1, tablet, By Mouth, 3 times a day, # 270 tablet, Refills 1, Tot. Refills 1, Maintenance, 04/21/21 8:59:00 EDT, Route to Pharmacy Electronically, [facility], 160, cm, 01/22/21 13:16:00 EDT, [...]
--- OUTSIDE RECORDS SUMMARY | 2024-05-10 09:37 | XMS_ITS | Continuity of Care Document ---
Author Organization [facility] Address [address] [place] [address]- Care Team Providers Care Credit Collections Manager Name Role Phone Gian Andrade MD Primary Care Physician En[place] [facility] [place] Date(s): 05/20/20 - 06/19/20 [facility] [address] [place] [address]- [facility] Allergies, Adverse Reactions, Alerts Substance Reaction Severity [...] Refills, Maintenance, 06/17/20 10:13:00 EDT, Tablet, [facility]/pharmacy #2024, last rx ., 1 tablet By Mouth 2 times a day,x28 days,Instr:masspat checked; ma... Start Date: 06/17/20 Stop Date: 07/15/20 Status: Ordered busPIRone 10 mg oral tablet See Instructions, TAKE 1 TABLET BY MOUTH TWICE A DAY, # 180 tablet, Refills 3, Tot. Refills 3, SoftStop, 07/06/19 14:25:16 EDT, Instructions Replace Required Details, Route to Pharmacy Electronically, [id number], [facility] Start Date: 07/06/19 Status: Ordered cyclobenzaprine 10 mg oral tablet 10 mg, 1, tablet, By Mouth, 2 times a day, PRN, # 30 tablet, Refills 1, Tot. Refills 1, Maintenance, for spasm, 01/14/21 9:27:00 EDT, Route to Pharmacy Electronically, [facility]/pharmacy #2024, 160, cm, 02/07/20 10:53:00 EDT, Height, 49.9, kg, 02/07/20 10:5... Start Date: 01/14/21 Status: Ordered cyclobenzaprine 10 mg oral tablet 10 mg, 1, tablet, By Mouth, 2 times a day, PRN, # 30 tablet, Refills 1, Tot. Refills 1, Acute 01/14/21 9:27:00 EDT, for spasm, 01/15/20 9:27:00 EDT, Route to Pharmacy Electronically, [facility]/pharmacy #2024, 160, cm, 01/09/20 9:04:00 EDT, Height Start Date: 01/15/20 Stop Date: 01/14/21 Status: Ordered ibuprofen 800 mg oral tablet 800 mg, 1, tablet, By Mouth, 3 times a day, # 90 tablet, Refills 2, Tot. Refills 2, Acute 07/20/20 12:41:00 EST, 06/19/20 12:41:00 EDT, Route to Pharmacy Electronically, [facility]/pharmacy #2024, 160, cm, 05/27/20 10:37:00 EDT, Height, 49.9, kg, 02/07/20 10... Start Date: 06/19/20 Stop Date: 07/20/20 Status: Ordered KlonoPIN 0.5 mg oral tablet 1 tablet = 0.5 mg, By Mouth, 2 times a day, PRN Anxiety, Masspat checked 06/10/2020 May fill for less, # 60 tablet, 1 Refills, Maintenance, 06/10/20 13:11:00 EDT, Tablet, [facility]/pharmacy #2024, increasing dose, 160, cm, 05/27/20 10:37:00 EDT, Height, 49.... Start Date: 06/10/20 Status: Ordered omeprazole 20 mg oral enteric coated capsule 1 capsule = 20 mg, By Mouth, Daily, # 90 capsule, 1 Refills, Maintenance, 12/10/19 14:55:00 EDT, ECCapsule, [facility]/pharmacy #2024, aware of celexa, 160, cm, 10/31/19 10:52:00 EST, Height Start Date: 12/10/19 Status: Ordered ondansetron 4 mg oral tablet, disintegrating = 4 mg, By Mouth, 3 times a day, PRN Nausea, # 60 tablet, 1 Refills, Maintenance, 03/13/20 16:39:00EDT, Tablet, [facility]/pharmacy #2024, 160, cm, 03/05/20 9:49:00 EDT, Height, 49.9, kg, 02/07/20 10:53:00EDT, Dry Weight Start Date: 03/13/20 Status: Ordered Plaquenil = 200 mg, By Mouth, Daily, 0 Refills, Maintenance, 10/11/16 10:18:04 Start Date: 10/11/16 Status: Ordered ZyrTEC-D 5 mg-120 mg oral tablet, extended release 1 tablet, By Mouth, 2 times a day, # 180 tablet, 1 Refills, Maintenance, 03/13/20 15:14:00 EDT, ER Tablet, [facility]/pharmacy #2024, 1 tablet By Mouth 2 times [...]
--- OUTSIDE RECORDS SUMMARY | 2024-05-10 09:37 | XMS_ITS | Continuity of Care Document ---
Author Organization [facility] Address [address] [place] [address]- Care Team Providers Care Vice President Business Development Name Role Phone Gian Andrade MD Primary Care Physician [place] [facility] [place] 03/19[place] - 04/18/24 [facility] [address] [place] [address]- Allergies, Adverse Reactions, Alerts Substance Reaction Severity [...] Refills, Maintenance, 03/30/24 16:39:00 EDT, Tablet, [facility]/pharmacy #2025, Ok to fill early, Masspat checked , Patient may fill for less, 1 tablet By Mouth 2 time... Start Date: 03/30/24 Stop Date: 04/27/24 Status: Ordered clonazePAM 0.5 mg oral tablet 1 tablet = 0.5 mg, By Mouth, 2 times a day, PRN Anxiety, # 60 tablet, 1 Refills, Maintenance, 04/13/24 15:16:00 EDT, Tablet, [facility]/pharmacy #202, Partial fill upon patient request if the prescription is for a schedule II opioid drug., 160, cm, 03/28/24... Start Date: 04/13/24 Status: Ordered cyclobenzaprine 10 mg oral tablet 1, tablet, By Mouth, 2 times a day, PRN, # 30 tablet, Refills 1, Maintenance, NEEDED FOR SPASMS,FOR, 01/24/24 8:14:00 EDT, Route to Pharmacy Electronically, [id number], 158, cm, 01/03/24 14:54:00 EDT, Height, 56.3, [...] each, 1 Refills, Maintenance, 11/05/21 10:04:00 EST, [place], [facility], Partial fill upon patient request if the prescription is for a schedule II opioid drug., 1 sprays... Start Date: 11/05/21 Status: Ordered gabapentin 300 mg oral capsule 300 mg, 1, capsule, By Mouth, Daily at bedtime, # 30 capsule, Refills 0, Tot. Refills 0, Maintenance, 02/15/24 16:16:00 EDT, Route to Pharmacy Electronically, [facility]/pharmacy #2024, Partial fill upon patient request if the prescription is for a schedule... Start Date: 02/15/24 Status: Ordered meclizine 25 mg oral tablet 1 tablet = 25 mg, By Mouth, Daily at bedtime, PRN Other, take one tab po qhs prn moderate vertigo, # 8 tablet, 1 Refills, Soft Stop, 12/16/21 11:06:00 EDT, [facility]/pharmacy #2025, Partial fill upon patient request if [...] 8:11:00 EDT, Route to Pharmacy Electronically, [id number], 158, cm, 01/03/24 14:54:00 EDT, Height, 56.3, [...] Team Personnel Name: Gian Andrade MD Position: [facility] Physician - Primary Care Member Role: PCP Address: Address: [address] [place] [id number] Name: Delfino Barber RN Position: [facility] RN Member Role: Primary Care Nurse Care Team Related Persons Name: VERONICA ANDREWS Address: [address] [place] [address] Name: KEY OVALLE Address: [address] [place], [place] Name: ALCON BAIG Address: [address] [address]
--- OUTSIDE RECORDS SUMMARY | 2024-05-10 09:37 | XMS_ITS | Continuity of Care Document ---
Author Organization [facility] Address [address] [place] [address]- Care Team Providers Care Polygraph Examiner Name Role Phone Gian Andrade MD Primary Care Physician En[place] [facility] [place](s): 03/05/20 - 03/12/20 [facility] [address] [place] [address]- [place] Encounter Diagnosis Anxiety(Discharge Diagnosis) - 03/05/20 Attending Physician: Gian Andrade MD Allergies, Adverse [...] Mouth, 2 times a day, masspat checked 03/10/2020 may fill for less, # 56 tablet, 0 Refills, Maintenance, 03/11/20 8:51:00 EDT, Tablet, [facility]/pharmacy #2024, last rx ., 1 tablet By Mouth 2 times a day,x28 days,Instr:masspat ch... Start Date: 03/11/20 Stop Date: 04/08/20 Status: Ordered amphetamine-dextroamphetamine 20 mg oral tablet 1 tablet = 20 mg, By Mouth, 2 times a day, for 28 days, masspat checked 01/28/2020 may fill for less, # 56 tablet, 0 Refills, Hard Stop 04/02/20 10:15:00 EDT, 03/05/20 10:15:00 EDT, Tablet, [facility]/pharmacy #2024, 160, cm, 03/05/20 9:49:00 EDT, Height, 49... Start Date: 03/05/20 Stop Date: 04/02/20 Status: Ordered busPIRone 10 mg oral tablet See Instructions, TAKE 1 TABLET BY MOUTH TWICE A DAY, # 180 tablet, Refills 3, Tot. Refills 3, SoftStop, 07/06/19 14:25:16 EDT, Instructions Replace Required Details, Route to Pharmacy Electronically, [id number], [facility]/pharmac... Start Date: 07/06/19 Status: Ordered cyclobenzaprine 10 mg oral tablet 10 mg, 1, tablet, By Mouth, 2 times a day, PRN, # 30 tablet, Refills 1, Tot. Refills 1, Maintenance, for spasm, 01/14/21 9:27:00 EDT, Route to Pharmacy Electronically, [facility]/pharmacy #2024, 160, cm, 02/07/20 10:53:00 EDT, Height, 49.9, kg, 02/07/20 10:5... Start Date: 01/14/21 Status: Ordered cyclobenzaprine 10 mg oral tablet 10 mg, 1, tablet, By Mouth, 2 times a day, PRN, # 30 tablet, Refills 1, Tot. Refills 1, Acute 01/14/21 9:27:00 EDT, for spasm, 01/15/20 9:27:00 EDT, Route to Pharmacy Electronically, [facility]/pharmacy #2024, 160, cm, 01/09/20 9:04:00 EDT, Height Start Date: 01/15/20 Stop Date: 01/14/21 Status: Ordered KlonoPIN 0.5 mg oral tablet 1 tablet = 0.5 mg, By Mouth, 2 times a day, PRN Anxiety, Masspat checked May fill for less, # 60 tablet, 1 Refills, Maintenance, 02/11/20 12:45:00 EDT, Tablet, [facility]/pharmacy #202, increasing dose, 160, cm, 02/07/20 10:53:00 EDT, Height, 49.9, kg, 05... Start Date: 02/11/20 Status: Ordered omeprazole 20 mg oral enteric coated capsule 1 capsule = 20 mg, By Mouth, Daily, # 90 capsule, 1 Refills, Hard Stop 04/22/20 9:15:00 EDT, 09/25/19 9:15:00 EST, EC Capsule, [facility]/pharmacy #2024, aware of celexa, 160, cm, 07/06/19 14:11:00 EDT, Height Start Date: 09/25/19 Stop Date: 04/22/20 Status: Ordered omeprazole 20 mg oral enteric coated capsule 1 capsule = 20 mg, By Mouth, Daily, # 90 capsule, 1 Refills, Maintenance, 12/10/19 14:55:00 EDT, ECCapsule, [facility]/pharmacy #2024, aware of celexa, 160, cm, 10/31/19 10:52:00 EST, Height Start Date: 12/10/19 Status: Ordered Plaquenil = 200 mg, By Mouth, Daily, 0 Refills, Maintenance, 10/11/16 10:18:04 Start Date: 10/11/16 Status: Ordered Zofran ODT 4 mg oral tablet, disintegrating 1 tablet = 4 mg, By Mouth, 3 times a day, PRN Nausea, # 60 tablet, 1 Refills, Maintenance, 10/25/2012:07:00 EST, [facility]/pharmacy #202, 160, cm, 07/06/19 14:11:00 EDT, Height Start Date: 10/25/19 Status: Ordered ZyrTEC-D 5 mg-120 mg oral tablet, extended release 1 tablet, By Mouth, 2 times a day, # 180 tablet, 1 Refills, Maintenance, 06/07/20 14:55:00 EDT, ER Tablet, [facility], 1 [...] Diagnosis Diagnosis Type Effective Dates Health Status Clini wendy Service Informant Anxiety Discharge Diagnosis 03/05/20 Vital Signs Most recent to oldest [Reference Range]: 1 Height 160 cm (03/05/20 9:49 AM) Social History Social History Type Response Smoking Status Never smoker entered on: 04/21/15 Sex
--- OUTSIDE RECORDS SUMMARY | 2024-05-10 09:37 | XMS_ITS | Continuity of Care Document ---
Author Organization [facility] Address [address] [place] [address]- Care Team Providers Care Artificial Stone Applicator Name Role Phone Lupe EL, Gian [place] Primary Care Physician Encounter [facility] Date(s): 10/25/22 - 11/24/22 [facility] [address] [place] [address]- Allergies, Adverse Reactions, Alerts Substance Reaction Severity [...] 0 Refills, Maintenance, 08/27/22 12:40:00 EST, Tablet, [facility]/pharmacy #2024, 1 tablet By Mouth 2 times a day,x90 days,Instr:masspat checked ; may fill for less... Start Date: 08/27/22 Stop Date: 11/25/22 Status: Ordered amphetamine-dextroamphetamine 20 mg oral tablet 1 tablet = 20 mg, By Mouth, 2 times a day, masspat checked may fill for less, # 180 tablet, 0 Refills, Maintenance, 09/24/22 17:21:00 EST, Tablet, [facility]/pharmacy #2024, 1 tablet By Mouth 2 times a day,x90 days,Instr:masspat checked ; may fill for less... Start Date: 09/24/22 Stop Date: 12/23/22 Status: Ordered cyclobenzaprine 10 mg oral tablet 10 mg, 1, tablet, By Mouth, 2 times a day, PRN, # 30 tablet, Refills 1, Tot. Refills 1, Maintenance, for spasm, 08/30/22 13:33:00 EST, Route to Pharmacy Electronically, [facility]/pharmacy #2024, 160, cm, 01/07/22 9:42:00 EDT, Height, 60, kg, 05/29/21 10:55:... Start Date: 08/30/22 Status: Ordered fluticasone 50 mcg/inh nasal spray 1 sprays, Nares, Both, 2 times a day, For post nasal drip, # 3 each, 1 Refills, Maintenance, 11/05/21 10:04:00 EST, [place], [facility], Partial fill upon [...] 1 Refills, Soft Stop, 12/16/21 11:06:00 EDT, [facility]/pharmacy #4977, Partial fill upon patient request if the [...] Andrade MD Position: [facility] Primary Care Physician Member Role: PCP Address: Address: [address] [place] [address]- Name: Delfino Barber Position: [facility] RN Member Role: Primary Care Nurse Care Team Related Persons Name: ALCON BAIG Address: home [address] [place] [id number]
--- OUTSIDE RECORDS SUMMARY | 2024-05-10 09:37 | XMS_ITS | Continuity of Care Document ---
Author Organization [facility] Address [address] [place] [address]- Care Team Providers Care Patrol Man Name Role Phone Gian Andrade MD Primary Care Physician Encounter [facility] Date(s): 12/25/20 - 01/24/21 [facility] [address] [place] [address]- Allergies, Adverse Reactions, Alerts Substance Reaction Severity [...] Refills, Maintenance, 12/17/20 15:58:00 EDT, Tablet, [facility]/pharmacy #2025, 1 tablet By Mouth 2 times [...] Refills, Maintenance, 11/21/20 12:12:00 EST, Tablet, [facility]/pharmacy #202, increasing dose, 160, cm, 07/30/20 9:37:00 EST, Height, 49.9, kg, 05... Start Date: 11/21/20 Status: Ordered omeprazole 20 mg oral enteric coated capsule 1 capsule = 20 mg, By Mouth, Daily, # 90 capsule, 0 Refills, Maintenance, 12/29/20 13:29:00 EDT, ECCapsule, [facility]/pharmacy #2025, aware of celexa, 160, cm, 07/30/20 9:37:00 EST, Height, 49.9, kg, 02/07/20 10:53:00 EDT, Dry Weight Start Date: 12/29/20 Status: Ordered ondansetron 4 mg oral tablet, disintegrating = 4 mg, By Mouth, 3 times a day, PRN Nausea, # 60 tablet, 1 Refills, Maintenance, 12/31/20 14:47:00EDT, Tablet, [facility]/pharmacy #202, 160, cm, 07/30/20 9:37:00 EST, Height, 49.9, [...] Benzodiazepine dependence(Confirmed) Active Cutaneous lupus erythematosus(Confirmed) Active Ovarian cyst(Confirmed) Active Riki-Danlos disease(Confirmed) Active History of nephrolithiasis(Confirmed) Active History of ITP(Confirmed) Active Depression with anxiety(Confirmed) Active Small intestinal bacterial overgrowth(Confirmed) 01/06/16 Active Social History Social History Type Response Smoking Status Never smoker entered on: 04/21/15 Sex
--- OUTSIDE RECORDS SUMMARY | 2024-05-10 09:37 | XMS_ITS | Continuity of Care Document ---
Author Organization [facility] Address [address] [place] [address]- Care Team Providers Care Steam Conditioning Operator Name Role Phone Gian Andrade MD Primary Care Physician Encounter [facility] Date(s): 01/15/20 - 01/22/20 [facility] [address] [place] [address]- [place] Attending Physician: Gordy Tijerina MD Referring Physician: Gian Andrade MD Allergies, [...] tablet,0 Refills, Maintenance, 12/19/19 9:38:00 EDT, Tablet, [facility]/pharmacy #2024, 1 tablet By Mouth 2 timesa day,x28 days,Instr:masspat checked 12/19/2019; may... Start Date: 12/19/19 Stop Date: 01/16/20 Status: Ordered busPIRone 10 mg oral tablet See Instructions, TAKE 1 TABLET BY MOUTH TWICE A DAY, # 180 tablet, Refills 3, Tot. Refills 3, SoftStop, 07/06/19 14:25:16 EDT, Instructions Replace Required Details, Route to Pharmacy Electronically, [id number], [facility]/pharmac... Start Date: 07/06/19 Status: Ordered cyclobenzaprine 10 mg oral tablet 10 mg, 1, tablet, By Mouth, 2 times a day, PRN, # 30 tablet, Refills 1, Tot. Refills 1, Acute 01/14/21 9:27:00 EDT, for spasm, 01/15/20 9:27:00 EDT, Route to Pharmacy Electronically, [facility]/pharmacy #2024, 160, cm, 01/09/20 9:04:00 EDT, Height Start Date: 01/15/20 Stop Date: 01/14/21 Status: Ordered KlonoPIN 0.5 mg oral tablet 1 tablet = 0.5 mg, By Mouth, 2 times a day, PRN Anxiety, Masspat checked 01/10/2020, # 60 tablet, 1 Refills, Maintenance, 01/11/20 9:10:00 EDT, Tablet, [facility]/pharmacy #2024, increasing dose, 160, cm, 01/09/20 [...] 1 Refills, Maintenance, 12/10/19 14:55:00 EDT, ECCapsule, [facility]/pharmacy #2025, aware of celexa, 160, cm, [...] Refills, Maintenance, 10/25/2012:07:00 EST, [facility]/pharmacy #2024, 160, cm, 07/06/19 14:11:00 EDT, Height Start Date: 10/25/19 Status: Ordered ZyrTEC-D 5 mg-120 mg oral tablet, extended release 1 tablet, By Mouth, 2 times a day, # 180 tablet, 1 Refills, Maintenance, 06/07/20 14:55:00 EDT, ER Tablet, [facility]/pharmacy #2024, 1 tablet By Mouth 2 times a day,x90 days, 160, cm, 01/09/20 9:04:00 EDT,Height Start Date: 06/07/20 Stop Date: 12/04/20 Status: Ordered ZyrTEC-D 5 mg-120 mg oral tablet, extended release 1 tablet, By Mouth, 2 times a day, for 90 days, # 180 tablet, 1 Refills, Hard Stop 06/07/20 14:55:00 EDT, 12/10/19 14:55:00 EDT, ER Tablet, [facility]/pharmacy #2025, 160, cm, 10/31/19 10:52:00 EST, [...]
--- OUTSIDE RECORDS SUMMARY | 2024-05-10 09:37 | XMS_ITS | Continuity of Care Document ---
Author Organization [facility] Address [address] [place] [address]- Care Team Providers Care Speech Therapy Assistant Name Role Phone Gian Andrade MD Primary Care Physician Encounter [facility] Date(s): 06/19/20 - 07/19/20 [facility] [address] [place] [address]- Allergies, Adverse Reactions, Alerts Substance Reaction Severity [...] 0 Refills, Maintenance, 06/17/20 10:13:00 EDT, Tablet, [facility]/pharmacy #2024, last rx ., 1 tablet By Mouth 2 times a day,x28 days,Instr:masspat checked; ma... Start Date: 06/17/20 Stop Date: 07/15/20 Status: Ordered busPIRone 10 mg oral tablet See Instructions, TAKE 1 TABLET BY MOUTH TWICE A DAY, # 180 tablet, Refills 3, Tot. Refills 3, SoftStop, 07/06/19 14:25:16 EDT, Instructions Replace Required Details, Route to Pharmacy Electronically, [id number], [facility] Start Date: 07/06/19 Status: Ordered cyclobenzaprine 10 mg oral tablet 10 mg, 1, tablet, By Mouth, 2 times a day, PRN, # 30 tablet, Refills 1, Tot. Refills 1, Maintenance, for spasm, 01/14/21 9:27:00 EDT, Route to Pharmacy Electronically, [facility]/pharmacy #2024, 160, cm, 02/07/20 10:53:00 EDT, Height, 49.9, kg, 02/07/20 10:5... Start Date: 01/14/21 Status: Ordered cyclobenzaprine 10 mg oral tablet 10 mg, 1, tablet, By Mouth, 2 times a day, PRN, # 30 tablet, Refills 1, Tot. Refills 1, Acute 01/14/21 9:27:00 EDT, for spasm, 01/15/20 9:27:00 EDT, Route to Pharmacy Electronically, [facility]/pharmacy #2024, 160, cm, 01/09/20 9:04:00 EDT, Height Start Date: 01/15/20 Stop Date: 01/14/21 Status: Ordered ibuprofen 800 mg oral tablet 800 mg, 1, tablet, By Mouth, 3 times a day, # 90 tablet, Refills 2, Tot. Refills 2, Acute 07/20/20 12:41:00 EST, 06/19/20 12:41:00 EDT, Route to Pharmacy Electronically, [facility]/pharmacy #2024, 160, cm, 05/27/20 10:37:00 EDT, Height, 49.9, kg, 02/07/20 10... Start Date: 06/19/20 Stop Date: 07/20/20 Status: Ordered KlonoPIN 0.5 mg oral tablet 1 tablet = 0.5 mg, By Mouth, 2 times a day, PRN Anxiety, Masspat checked 06/10/2020 May fill for less, # 60 tablet, 1 Refills, Maintenance, 06/10/20 13:11:00 EDT, Tablet, [facility]/pharmacy #2024, increasing dose, 160, cm, 05/27/20 10:37:00 EDT, Height, 49.... Start Date: 06/10/20 Status: Ordered omeprazole 20 mg oral enteric coated capsule 1 capsule = 20 mg, By Mouth, Daily, # 90 capsule, 1 Refills, Maintenance, 12/10/19 14:55:00 EDT, ECCapsule, [facility]/pharmacy #2024, aware of celexa, 160, cm, 10/31/19 10:52:00 EST, Height Start Date: 12/10/19 Status: Ordered ondansetron 4 mg oral tablet, disintegrating = 4 mg, By Mouth, 3 times a day, PRN Nausea, # 60 tablet, 1 Refills, Maintenance, 03/13/20 16:39:00EDT, Tablet, [facility]/pharmacy #2024, 160, cm, 03/05/20 9:49:00 EDT, Height, 49.9, kg, 02/07/20 10:53:00EDT, Dry Weight Start Date: 03/13/20 Status: Ordered Plaquenil = 200 mg, By Mouth, Daily, 0 Refills, Maintenance, 10/11/16 10:18:04 Start Date: 10/11/16 Status: Ordered ZyrTEC-D 5 mg-120 mg oral tablet, extended release 1 tablet, By Mouth, 2 times a day, # 180 tablet, 1 Refills, Maintenance, 03/13/20 15:14:00 EDT, ER Tablet, [facility]/pharmacy #2024, 1 tablet By Mouth 2 times [...]
--- OUTSIDE RECORDS SUMMARY | 2024-05-10 09:37 | XMS_ITS | Continuity of Care Document ---
Author Organization [facility] Address [address] [place] [address]- Care Team Providers Care Healthcare Technician Name Role Phone Gian Andrade MD Primary Care Physician Encounter [facility] Date(s): 03/19/24 - 04/18/24 [facility] [address] [place] [address]- Allergies, Adverse Reactions, Alerts Substance Reaction Severity [...] 0 Refills, Maintenance, 03/30/24 16:39:00 EDT, Tablet, [facility]/pharmacy #2025, Ok to fill early, Masspat checked , Patient may fill for less, 1 tablet By Mouth 2 time... Start Date: 03/30/24 Stop Date: 04/27/24 Status: Ordered clonazePAM 0.5 mg oral tablet 1 tablet = 0.5 mg, By Mouth, 2 times a day, PRN Anxiety, # 60 tablet, 1 Refills, Maintenance, 04/13/24 15:16:00 EDT, Tablet, [facility]/pharmacy #202, Partial fill upon patient request if the prescription is for a schedule II opioid drug., 160, cm, 03/28/24... Start Date: 04/13/24 Status: Ordered cyclobenzaprine 10 mg oral tablet 1, tablet, By Mouth, 2 times a day, PRN, # 30 tablet, Refills 1, Maintenance, NEEDED FOR SPASMS,FOR, 01/24/24 8:14:00 EDT, Route to Pharmacy Electronically, [id number], 158, cm, 01/03/24 14:54:00 EDT, Height, 56.3, [...] each, 1 Refills, Maintenance, 11/05/21 10:04:00 EST, [place], [facility], Partial fill upon patient request if the prescription is for a schedule II opioid drug., 1 sprays... Start Date: 11/05/21 Status: Ordered gabapentin 300 mg oral capsule 300 mg, 1, capsule, By Mouth, Daily at bedtime, # 30 capsule, Refills 0, Tot. Refills 0, Maintenance, 02/15/24 16:16:00 EDT, Route to Pharmacy Electronically, [facility]/pharmacy #2024, Partial fill upon patient request if the prescription is for a schedule... Start Date: 02/15/24 Status: Ordered meclizine 25 mg oral tablet 1 tablet = 25 mg, By Mouth, Daily at bedtime, PRN Other, take one tab po qhs prn moderate vertigo, # 8 tablet, 1 Refills, Soft Stop, 12/16/21 11:06:00 EDT, [facility]/pharmacy #2025, Partial fill upon patient [...] 02/07/24 8:11:00 EDT, Route to Pharmacy Electronically, [facility], 158, cm, 01/03/24 14:54:00 EDT, Height, 56.3, [...] Team Personnel Name: Gian Andrade MD Position: [facility] Physician - Primary Care Member Role: PCP Address: Address: [address] [place] [address] Name: Delfino Barber RN Position: [facility] RN Member Role: Primary Care Nurse Care Team Related Persons Name: VERONICA ANDREWS Address: [address] [place] [address] Name: KEY OVALLE Address: [address] [place], [place] Name: ALCON BAIG Address: [address] [address]
--- OUTSIDE RECORDS SUMMARY | 2024-05-10 09:37 | XMS_ITS | Continuity of Care Document ---
Author Organization [facility] Address [address] [place] [address]- Care Team Providers Care Recorder Helper Seismograph Name Role Phone Gian Andrade MD Primary Care Physician Encounter [facility] Date(s): 09/01/20 - 10/01/20 [facility] [address] [place] [address]- Allergies, Adverse Reactions, Alerts Substance Reaction Severity [...] 0 Refills, Maintenance, 08/28/20 14:11:00 EST, Tablet, [facility]/pharmacy #2024, 1 tablet By Mouth 2 times a day,x28 days,Instr:masspat checked 08/27/2020... Start Date: 08/28/20 Stop Date: 09/25/20 Status: Ordered busPIRone 10 mg oral tablet 10 mg, 1, tablet, By Mouth, 2 times a day, # 180 tablet, Refills 1, Tot. Refills 1, Soft Stop, 09/02/20 8:17:00 EST, Route to Pharmacy Electronically, [facility]/pharmacy #2024, 160, cm, 07/30/20 9:37:00 EST, Height, 49.9, kg, 02/07/20 10:53:00 EDT, Dry Weight Start Date: 09/02/20 Status: Ordered cyclobenzaprine 10 mg oral tablet 10 mg, 1, tablet, By Mouth, 2 times a day, PRN, # 30 tablet, Refills 1, Tot. Refills 1, Maintenance, for spasm, 01/14/21 9:27:00 EDT, Route to Pharmacy Electronically, [facility]/pharmacy #2024, 160, cm, 02/07/20 10:53:00 EDT, Height, 49.9, kg, 02/07/20 10:5... Start Date: 01/14/21 Status: Ordered cyclobenzaprine 10 mg oral tablet 10 mg, 1, tablet, By Mouth, 2 times a day, PRN, # 30 tablet, Refills 1, Tot. Refills 1, Acute 01/14/21 9:27:00 EDT, for spasm, 01/15/20 9:27:00 EDT, Route to Pharmacy Electronically, [facility]/pharmacy #2024, 160, cm, 01/09/20 9:04:00 EDT, Height Start Date: 01/15/20 Stop Date: 01/14/21 Status: Ordered KlonoPIN 0.5 mg oral tablet 1 tablet = 0.5 mg, By Mouth, 2 times a day, PRN Anxiety, Masspat checked 08/01/2020 May fill for less, # 60 tablet, 1 Refills, Maintenance, 08/01/20 15:29:00 EST, Tablet, [facility]/pharmacy #2024, increasing dose, 08/06/20, 160, cm, 07/30/20 9:37:00 EST, H... Start Date: 08/01/20 Status: Ordered omeprazole 20 mg oral enteric coated capsule 1 capsule = 20 mg, By Mouth, Daily, # 90 capsule, 1 Refills, Maintenance, 12/10/19 14:55:00 EDT, ECCapsule, [facility]/pharmacy #2024, aware of celexa, 160, cm, 10/31/19 10:52:00 EST, Height Start Date: 12/10/19 Status: Ordered ondansetron 4 mg oral tablet, disintegrating = 4 mg, By Mouth, 3 times a day, PRN Nausea, # 60 tablet, 1 Refills, Maintenance, 03/13/20 16:39:00EDT, Tablet, [facility]/pharmacy #2024, 160, cm, 03/05/20 9:49:00 EDT, Height, 49.9, kg, 02/07/20 10:53:00EDT, Dry Weight Start Date: 03/13/20 Status: Ordered Plaquenil = 200 mg, By Mouth, Daily, 0 Refills, Maintenance, 10/11/16 10:18:04 Start Date: 10/11/16 Status: Ordered ZyrTEC-D 5 mg-120 mg oral tablet, extended release 1 tablet, By Mouth, 2 times a day, # 180 tablet, 1 Refills, Maintenance, 03/13/20 15:14:00 EDT, ER Tablet, [facility]/pharmacy #2024, 1 tablet By Mouth [...]
--- OUTSIDE RECORDS SUMMARY | 2024-05-10 09:37 | XMS_ITS | Continuity of Care Document ---
Author Organization [facility] Address [address] [place] [address]- Care Team Providers Care Material Processor Name Role Phone Gian Andrade MD Primary Care Physician Encounter [facility] Date(s): 09/16/20 - 10/16/20 [facility] [address] [place] [address]- Allergies, Adverse Reactions, Alerts Substance Reaction Severity [...] 0 Refills, Maintenance, 10/03/20 16:38:00 EST, Tablet, [facility]/pharmacy #2024, 1 tablet By Mouth 2 times a day,x28 days,Instr:masspat checked 10/03/2020;... Start Date: 10/03/20 Stop Date: 10/31/20 Status: Ordered busPIRone 10 mg oral tablet 10 mg, 1, tablet, By Mouth, 2 times a day, # 180 tablet, Refills 1, Tot. Refills 1, Soft Stop, 09/02/20 8:17:00 EST, Route to Pharmacy Electronically, [facility]/pharmacy #2024, 160, cm, 07/30/20 9:37:00 EST, Height, 49.9, kg, 02/07/20 10:53:00 EDT, Dry Weight Start Date: 09/02/20 Status: Ordered cyclobenzaprine 10 mg oral tablet 10 mg, 1, tablet, By Mouth, 2 times a day, PRN, # 30 tablet, Refills 1, Tot. Refills 1, Maintenance, for spasm, 01/14/21 9:27:00 EDT, Route to Pharmacy Electronically, [facility]/pharmacy #2024, 160, cm, 02/07/20 10:53:00 EDT, Height, 49.9, kg, 02/07/20 10:5... Start Date: 01/14/21 Status: Ordered cyclobenzaprine 10 mg oral tablet 10 mg, 1, tablet, By Mouth, 2 times a day, PRN, # 30 tablet, Refills 1, Tot. Refills 1, Acute 01/14/21 9:27:00 EDT, for spasm, 01/15/20 9:27:00 EDT, Route to Pharmacy Electronically, [facility]/pharmacy #2024, 160, cm, 01/09/20 9:04:00 EDT, Height Start Date: 01/15/20 Stop Date: 01/14/21 Status: Ordered KlonoPIN 0.5 mg oral tablet 1 tablet = 0.5 mg, By Mouth, 2 times a day, PRN Anxiety, Masspat checked 08/01/2020 May fill for less, # 60 tablet, 1 Refills, Maintenance, 08/01/20 15:29:00 EST, Tablet, [facility]/pharmacy #202, increasing dose, 08/06/20, 160, cm, 07/30/20 9:37:00 EST, H... Start Date: 08/01/20 Status: Ordered omeprazole 20 mg oral enteric coated capsule 1 capsule = 20 mg, By Mouth, Daily, # 90 capsule, 0 Refills, Maintenance, 10/06/20 12:13:00 EST, ECCapsule, [facility]/pharmacy #202, aware of celexa, 160, cm, 07/30/20 9:37:00 EST, Height, 49.9, kg, 02/07/20 10:53:00 EDT, Dry Weight Start Date: 10/06/20 Status: Ordered ondansetron 4 mg oral tablet, disintegrating = 4 mg, By Mouth, 3 times a day, PRN Nausea, # 60 tablet, 1 Refills, Maintenance, 03/13/20 16:39:00EDT, Tablet, [facility]/pharmacy #202, 160, cm, 03/05/20 9:49:00 [...] Refills, Maintenance, 03/13/20 15:14:00 EDT, ER Tablet, [facility]/pharmacy #202, 1 tablet By Mouth [...]
--- OUTSIDE RECORDS SUMMARY | 2024-05-10 09:37 | XMS_ITS | Continuity of Care Document ---
Author Organization [facility] Address [address] [place] [address]- Care Team Providers Care Pasteurizing Machine Operator Name Role Phone Gian Andrade MD Primary Care Physician Encounter [facility] [place] Date(s): 05/20/20 - 06/19/20 [facility] [address] [place] [address]- [facility] Allergies, Adverse Reactions, Alerts Substance Reaction Severity [...] 0 Refills, Maintenance, 06/17/20 10:13:00 EDT, Tablet, [facility]/pharmacy #2024, last rx ., 1 tablet By Mouth 2 times a day,x28 days,Instr:masspat checked; ma... Start Date: 06/17/20 Stop Date: 07/15/20 Status: Ordered busPIRone 10 mg oral tablet See Instructions, TAKE 1 TABLET BY MOUTH TWICE A DAY, # 180 tablet, Refills 3, Tot. Refills 3, SoftStop, 07/06/19 14:25:16 EDT, Instructions Replace Required Details, Route to Pharmacy Electronically, [id number], [facility] Start Date: 07/06/19 Status: Ordered cyclobenzaprine [...] 06/19/20 12:41:00 EDT, Route to Pharmacy Electronically, [facility]/pharmacy #2024, 160, cm, 05/27/20 10:37:00 EDT, Height, 49.9, kg, 02/07/20 10... Start Date: 06/19/20 Stop Date: 07/20/20 Status: Ordered KlonoPIN 0.5 mg oral tablet 1 tablet = 0.5 mg, By Mouth, 2 times a day, PRN Anxiety, Masspat checked 06/10/2020 May fill for less, # 60 tablet, 1 Refills, Maintenance, 06/10/20 13:11:00 EDT, Tablet, [facility]/pharmacy #2024, increasing dose, 160, cm, 05/27/20 10:37:00 EDT, Height, 49.... Start Date: 06/10/20 Status: Ordered omeprazole 20 mg oral enteric coated capsule 1 capsule = 20 mg, By Mouth, Daily, # 90 capsule, 1 Refills, Maintenance, 12/10/19 14:55:00 EDT, ECCapsule, [facility]/pharmacy #2024, aware of celexa, 160, cm, 10/31/19 10:52:00 EST, Height Start Date: 12/10/19 Status: Ordered ondansetron 4 mg oral tablet, disintegrating = 4 mg, By Mouth, 3 times a day, PRN Nausea, # 60 tablet, 1 Refills, Maintenance, 03/13/20 16:39:00EDT, Tablet, [facility]/pharmacy #2024, 160, cm, 03/05/20 9:49:00 [...] 15:14:00 EDT, ER Tablet, [facility]/pharmacy #2024, 1 tablet By Mouth [...]
--- OUTSIDE RECORDS SUMMARY | 2024-05-10 09:37 | XMS_ITS | Continuity of Care Document ---
Author Organization [facility] Address [address] [place] [address]- Care Team Providers Care Founder President And Ceo Name Role Phone Gian Andrade MD Primary Care Physician [place] [facility] [place]/28[place]22 - 01/27/23 [facility] [address] [place] [address]- Allergies, Adverse Reactions, Alerts Substance Reaction Severity [...] 0 Refills, Maintenance, 08/27/22 12:40:00 EST, Tablet, [facility]/pharmacy #2025, 1 tablet By Mouth 2 times a day,x90 days,Instr:masspat checked ; may fill for less... Start Date: 08/27/22 Stop Date: 11/25/22 Status: Ordered amphetamine-dextroamphetamine 20 mg oral tablet 1 tablet = 20 mg, By Mouth, 2 times a day, masspat checked may fill for less, # 60 tablet, 0 Refills, Maintenance, 12/30/22 23:23:00 EDT, Tablet, [facility]/pharmacy #2025, 1 tablet By Mouth 2 times a day,x30 days,Instr:masspat checked ; may fill for less,... Start Date: 12/30/22 Stop Date: 01/29/23 Status: Ordered cyclobenzaprine 10 mg oral tablet 1, tablet, By Mouth, 2 times a day, PRN, # 30 tablet, Refills 1, Maintenance, NEEDED FOR SPASMS,12/20/22 11:12:00 EDT, Route to Pharmacy Electronically, [id number], 160, cm, 10/26/22 8:55:00EST, Height, 60, kg, 05/29/21 10:55:00 EDT, Dry Weight Start Date: 12/20/22 Status: Ordered fluticasone 50 mcg/inh nasal spray 1 sprays, Nares, Both, 2 times a day, For post nasal drip, # 3 each, 1 Refills, Maintenance, 11/05/21 10:04:00 EST, [place], [facility], Partial fill upon [...] 1 Refills, Soft Stop, 12/16/21 11:06:00 EDT, [facility]/pharmacy #2021, Partial fill upon patient request if the [...] Gian Andrade MD Position: [facility] Primary Care Physician Member Role: PCP Address: Address: [address] [place] [id number]- Name: Delfino Barber Position: [facility] RN Member Role: Primary Care Nurse Care Team Related Persons Name: VERONICA ANDREWS Address: [address] [place] [address] Name: KEY OVALLE Address: [address] [place], [place] Name: ALCON BAIG Address: [address] [place] [address]
--- OUTSIDE RECORDS SUMMARY | 2024-05-10 09:37 | XMS_ITS | Continuity of Care Document ---
Author Organization [facility] Address [address] [place] [address]- Care Team Providers Care Care Management Coordinator Name Role Phone Gian Andrade MD Primary Care Physician [place] [facility] Date(s): 08/31/22 - 09/30/22 [facility] [address] [place] [address]- Allergies, Adverse Reactions, Alerts Substance Reaction Severity [...] Maintenance, 08/27/22 12:40:00 EST, Tablet, [facility]/pharmacy #2025, 1 tablet By Mouth 2 times a day,x90 days,Instr:masspat checked ; may fill for less... Start Date: 08/27/22 Stop Date: 11/25/22 Status: Ordered amphetamine-dextroamphetamine 20 mg oral tablet 1 tablet = 20 mg, By Mouth, 2 times a day, masspat checked may fill for less, # 180 tablet, 0 Refills, Maintenance, 09/24/22 17:21:00 EST, Tablet, [facility]/pharmacy #2024, 1 tablet By [...] 08/30/22 13:33:00 EST, Route to Pharmacy Electronically, [facility]/pharmacy #2025, 160, cm, 01/07/22 9:42:00 EDT, Height, 60, kg, 05/29/21 10:55:... Start Date: 08/30/22 Status: Ordered fluticasone 50 mcg/inh nasal spray 1 sprays, Nares, Both, 2 times a day, For post nasal drip, # 3 each, 1 Refills, Maintenance, 11/05/21 10:04:00 EST, [place], [facility], Partial fill upon [...] Soft Stop, 12/16/21 11:06:00 EDT, [facility]/pharmacy #2024, Partial fill upon [...] Team Personnel Name: Gian Andrade MD Position: [facility] Primary Care Physician Member Role: PCP Address: Address: [address] [place] [address]- Name: Delfino Barber Position: [facility] RN Member Role: Primary Care Nurse Care Team Related Persons Name: ALCON BAIG Address: home [address] [place] [id number]
--- OUTSIDE RECORDS SUMMARY | 2024-05-10 09:37 | XMS_ITS | Continuity of Care Document ---
Author Organization [facility] Address [address] [place] [address]- Care Team Providers Care Rn Ent Name Role Phone Gian Andrade MD Primary Care Physician Encounter [facility] Date(s): 06/17/20 - 07/17/20 [facility] [address] [place] [address]- Allergies, Adverse Reactions, Alerts Substance Reaction Severity [...] Refills, Maintenance, 12/11/19 9:37:00 EDT, [facility], [facility], 2 puffs Inhalation Every 4 hours,PRN:Wheezing/Shortness of Breath, 160, cm, 10/31/19 10:52:00 EST... Start Date: 12/11/19 Status: Ordered amphetamine-dextroamphetamine 20 mg oral tablet 1 tablet = 20 mg, By Mouth, 2 times a day, masspat checked may fill for less, # 56 tablet, 0 Refills, Maintenance, 06/17/20 10:13:00 EDT, Tablet, [facility]/pharmacy #2024, last rx ., 1 tablet By Mouth 2 times a day,x28 days,Instr:masspat checked; ma... Start Date: 06/17/20 Stop Date: 07/15/20 Status: Ordered busPIRone 10 mg oral tablet See Instructions, TAKE 1 TABLET BY MOUTH TWICE A DAY, # 180 tablet, Refills 3, Tot. Refills 3, SoftStop, 07/06/19 14:25:16 EDT, Instructions Replace Required Details, Route to Pharmacy Electronically, [id number], [facility] Start Date: 07/06/19 Status: Ordered cyclobenzaprine 10 mg oral tablet 10 mg, 1, tablet, By Mouth, 2 times a day, PRN, # 30 tablet, Refills 1, Tot. Refills 1, Maintenance, for spasm, 01/14/21 9:27:00 EDT, Route to Pharmacy Electronically, [facility]/pharmacy #2024, 160, cm, 02/07/20 10:53:00 EDT, Height, 49.9, kg, 02/07/20 10:5... Start Date: 01/14/21 Status: Ordered cyclobenzaprine 10 mg oral tablet 10 mg, 1, tablet, By Mouth, 2 times a day, PRN, # 30 tablet, Refills 1, Tot. Refills 1, Acute 01/14/21 9:27:00 EDT, for spasm, 01/15/20 9:27:00 EDT, Route to Pharmacy Electronically, [facility]/pharmacy #2024, 160, cm, 01/09/20 9:04:00 EDT, Height Start Date: 01/15/20 Stop Date: 01/14/21 Status: Ordered ibuprofen 800 mg oral tablet 800 mg, 1, tablet, By Mouth, 3 times a day, # 90 tablet, Refills 2, Tot. Refills 2, Acute 07/20/20 12:41:00 EST, 06/19/20 12:41:00 EDT, Route to Pharmacy Electronically, [facility]/pharmacy #2024, 160, cm, 05/27/20 10:37:00 EDT, Height, 49.9, kg, 02/07/20 10... Start Date: 06/19/20 Stop Date: 07/20/20 Status: Ordered KlonoPIN 0.5 mg oral tablet 1 tablet = 0.5 mg, By Mouth, 2 times a day, PRN Anxiety, Masspat checked 06/10/2020 May fill for less, # 60 tablet, 1 Refills, Maintenance, 06/10/20 13:11:00 EDT, Tablet, [facility]/pharmacy #2024, increasing dose, 160, cm, 05/27/20 10:37:00 EDT, Height, 49.... Start Date: 06/10/20 Status: Ordered omeprazole 20 mg oral enteric coated capsule 1 capsule = 20 mg, By Mouth, Daily, # 90 capsule, 1 Refills, Maintenance, 12/10/19 14:55:00 EDT, ECCapsule, [facility]/pharmacy #2024, aware of celexa, 160, cm, 10/31/19 10:52:00 EST, Height Start Date: 12/10/19 Status: Ordered ondansetron 4 mg oral tablet, disintegrating = 4 mg, By Mouth, 3 times a day, PRN Nausea, # 60 tablet, 1 Refills, Maintenance, 03/13/20 16:39:00EDT, Tablet, [facility]/pharmacy #2024, 160, cm, 03/05/20 9:49:00 EDT, Height, [...] 15:14:00 EDT, ER Tablet, [facility]/pharmacy #2024, 1 tablet By Mouth 2 times [...]
--- OUTSIDE RECORDS SUMMARY | 2024-05-10 09:37 | XMS_ITS | Continuity of Care Document ---
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 Start Date: 03/30/24 Stop Date: 04/27/24 Status: Ordered clonazePAM 0.5 mg oral tablet 1 tablet = 0.5 mg, By Mouth, 2 times a day, PRN Anxiety, # 60 tablet, 1 Refills, Maintenance, 04/13/24 15:16:00 EDT, Tablet, [facility]/pharmacy #202, Partial fill upon patient request if the prescription is for a schedule II opioid drug., 160, cm, 03/28/24... Start Date: 04/13/24 Status: Ordered cyclobenzaprine 10 mg oral tablet 1, tablet, By Mouth, 2 times a day, PRN, # 30 tablet, Refills 1, Maintenance, NEEDED FOR SPASMS,FOR, 01/24/24 8:14:00 EDT, Route to Pharmacy Electronically, [id number], 158, cm, 01/03/24 14:54:00 EDT, Height, 56.3, [...] each, 1 Refills, Maintenance, 11/05/21 10:04:00 EST, [place], [facility], Partial fill upon patient request if the prescription is for a schedule II opioid drug., 1 sprays... Start Date: 11/05/21 Status: Ordered gabapentin 300 mg oral capsule 300 mg, 1, capsule, By Mouth, Daily at bedtime, # 30 capsule, Refills 0, Tot. Refills 0, Maintenance, 02/15/24 16:16:00 EDT, Route to Pharmacy Electronically, [facility]/pharmacy #2024, Partial fill upon patient request if the prescription is for a schedule... Start Date: 02/15/24 Status: Ordered meclizine 25 mg oral tablet 1 tablet = 25 mg, By Mouth, Daily at bedtime, PRN Other, take one tab po qhs prn moderate vertigo, # 8 tablet, 1 Refills, Soft Stop, 12/16/21 11:06:00 EDT, [facility]/pharmacy #2025, Partial fill upon patient request if [...] 02/07/24 8:11:00 EDT, Route to Pharmacy Electronically, [facility] STORE [id number], 158, cm, 01/03/24 14:54:00 EDT, Height, 56.3, [...] Team Personnel Name: Gian Andrade MD Position: [facility] Physician - Primary Care Member Role: PCP Address: Address: [address] [place] [id number] [[email or web address]] Name: Delfino Barber RN Position: [facility] RN Member Role: Primary Care Nurse Care Team Related Persons Name: VERONICA ANDREWS Address: [address] [place] [address] Name: KEY OVALLE Address: [address] [place], [place] Name: ALCON BAIG Address: [address] [address]
--- OUTSIDE RECORDS SUMMARY | 2024-05-10 09:37 | XMS_ITS | Continuity of Care Document ---
Author Organization [facility] Address [address] [place] [address]- Care Team Providers Care Tool And Die Engineer Name Role Phone Gian Andrade MD Primary Care Physician Encounter [facility] Date(s): 12/13/22 - 01/12/23 [facility] [address] [place] [address]- Allergies, Adverse Reactions, Alerts Substance Reaction Severity [...] 0 Refills, Maintenance, 08/27/22 12:40:00 EST, Tablet, [facility]/pharmacy #2025, 1 tablet By Mouth 2 times a day,x90 days,Instr:masspat checked ; may fill for less... Start Date: 08/27/22 Stop Date: 11/25/22 Status: Ordered amphetamine-dextroamphetamine 20 mg oral tablet 1 tablet = 20 mg, By Mouth, 2 times a day, masspat checked may fill for less, # 60 tablet, 0 Refills, Maintenance, 12/30/22 23:23:00 EDT, Tablet, [facility]/pharmacy #2025, 1 tablet By Mouth 2 times a day,x30 days,Instr:masspat checked ; may fill for less,... Start Date: 12/30/22 Stop Date: 01/29/23 Status: Ordered cyclobenzaprine 10 mg oral tablet 1, tablet, By Mouth, 2 times a day, PRN, # 30 tablet, Refills 1, Maintenance, NEEDED FOR SPASMS,12/20/22 11:12:00 EDT, Route to Pharmacy Electronically, [facility] STORE [id number], 160, cm, 10/26/22 8:55:00EST, Height, 60, kg, 05/29/21 10:55:00 EDT, Dry Weight Start Date: 12/20/22 Status: Ordered fluticasone 50 mcg/inh nasal spray 1 sprays, Nares, Both, 2 times a day, For post nasal drip, # 3 each, 1 Refills, Maintenance, 11/05/21 10:04:00 EST, [place], [facility], Partial fill upon [...] 1 Refills, Soft Stop, 12/16/21 11:06:00 EDT, [facility]/pharmacy #2023, Partial fill upon patient request if the [...] Name: Gian Andrade MD Position: [facility] Primary Care Physician Member Role: PCP Address: Address: [address] [place] [address]- Name: Delfino Barber Position: [facility] RN Member Role: Primary Care Nurse Care Team Related Persons Name: VERONICA ANDREWS Address: [address] [place] [address] Name: KEY OVALLE Address: [address] [place], [place] Name: ALCON BAIG Address: [address] [place] [address]
--- OUTSIDE RECORDS SUMMARY | 2024-05-10 09:37 | XMS_ITS | Continuity of Care Document ---
Author Organization [facility] Address [address] [place] [address]- Care Team Providers Care Civil Preparedness Training Officer Name Role Phone Lupe EL, Gian Lincoln Primary Care Physician [place] [facility] [place]/16/22 - 01/15/[address] [address]- Allergies, Adverse Reactions, Alerts Substance Reaction Severity [...] 0 Refills, Maintenance, 08/27/22 12:40:00 EST, Tablet, [facility]/pharmacy #2024, 1 tablet By Mouth 2 times a day,x90 days,Instr:masspat checked ; may fill for less... Start Date: 08/27/22 Stop Date: 11/25/22 Status: Ordered amphetamine-dextroamphetamine 20 mg oral tablet 1 tablet = 20 mg, By Mouth, 2 times a day, masspat checked may fill for less, # 60 tablet, 0 Refills, Maintenance, 12/30/22 23:23:00 EDT, Tablet, [facility]/pharmacy #2024, 1 tablet By Mouth 2 times a day,x30 days,Instr:masspat checked ; may fill for less,... Start Date: 12/30/22 Stop Date: 01/29/23 Status: Ordered cyclobenzaprine 10 mg oral tablet 1, tablet, By Mouth, 2 times a day, PRN, # 30 tablet, Refills 1, Maintenance, NEEDED FOR SPASMS,12/20/22 11:12:00 EDT, Route to Pharmacy Electronically, [id number], 160, cm, 10/26/22 8:55:00EST, Height, 60, kg, 05/29/21 10:55:00 EDT, Dry Weight Start Date: 12/20/22 Status: Ordered fluticasone 50 mcg/inh nasal spray 1 sprays, Nares, Both, 2 times a day, For post nasal drip, # 3 each, 1 Refills, Maintenance, 11/05/21 10:04:00 EST, [place], [facility], Partial fill upon [...] Soft Stop, 12/16/21 11:06:00 EDT, [facility]/pharmacy #4726, Partial fill upon patient request if the [...] Team Personnel Name: Gian Andrade MD Position: [facility] Primary Care Physician Member Role: PCP Address: Address: [address] [place] [address]- Name: Delfino Barber Position: [facility] RN Member Role: Primary Care Nurse Care Team Related Persons Name: VERONICA ANDREWS Address: [address] [place] [address] Name: KEY OVALLE Address: [address] [place], [place] Name: ALCON BAIG Address: [address] [place] [address]
--- OUTSIDE RECORDS SUMMARY | 2024-05-10 09:37 | XMS_ITS | Continuity of Care Document ---
Author Organization [facility] Address Unknown Care Team Providers Care Color Strainer Name Role Phone Gian Andrade MD Primary Care Physician [place] [facility] [place] 10/21[place]21 - 11/20/21 [facility] Allergies, Adverse Reactions, Alerts Substance Reaction Severity [...] Refills, Maintenance, 11/04/21 15:51:00 EST, [facility], [facility], 1 tablet By Mouth 2 times a day,x90 days,Instr:masspat checked ; may fill for less... Start Date: 11/04/21 Stop Date: 02/02/22 Status: Ordered busPIRone 10 mg oral tablet 10 mg, 1, tablet, By Mouth, 2 times a day, # 180 tablet, Refills 1, Tot. Refills 1, Soft Stop, 11/02/21 14:38:00 EST, Route to Pharmacy Electronically, [facility], 160, cm, 10/12/21 10:40:00 EST, Height, 60, kg, 05/29/21 10:55:00 ED... Start Date: 11/02/21 Status: Ordered cyclobenzaprine 10 mg oral tablet 10 mg, 1, tablet, By Mouth, 2 times a day, PRN, # 30 tablet, Refills 1, Tot. Refills 1, Maintenance, for spasm, 01/14/21 9:27:00 EDT, Route to Pharmacy Electronically, [facility]/pharmacy #2024, 160, cm, 02/07/20 10:53:00 EDT, Height, 49.9, kg, 02/07/20 10:5... Start Date: 01/14/21 Status: Ordered fluticasone 50 mcg/inh nasal spray 1 sprays, Nares, Both, 2 times a day, For post nasal drip, # 3 each, 1 Refills, Maintenance, 11/05/21 10:04:00 EST, [place], [facility], Partial fill upon patient request if the prescription is for a schedule II opioid drug., 1 sprays... Start Date: 11/05/21 Status: Ordered ibuprofen 800 mg oral tablet 1, tablet, By Mouth, 3 times a day, # 270 tablet, Refills 1, Tot. Refills 1, Maintenance, 04/21/21 8:59:00 EDT, Route to Pharmacy Electronically, [facility], 160, cm, 01/22/21 13:16:00 EDT, Height, 54.6, kg, 01/22/21 13:16:00 EDT, D... Start Date: 04/21/21 Status: Ordered KlonoPIN 0.5 mg oral tablet 1 tablet = 0.5 mg, By Mouth, 2 times a day, PRN Anxiety, Masspat checked May fill for less, # 180 tablet, 1 Refills, Maintenance, 11/03/21 14:59:00 EST, Tablet, [facility]/pharmacy #2024, increasing dose, 160, cm, 10/12/21 10:40:00 EST, Height, 60, kg, ... Start Date: 11/03/21 Stop Date: 05/02/22 Status: Ordered omeprazole 20 mg oral enteric coated capsule 1 capsule = 20 mg, By Mouth, Daily, # 90 capsule, 0 Refills, Maintenance, 11/02/21 10:38:00 EST, ECCapsule, [facility]/pharmacy #2025, aware of celexa, 160, cm, 10/12/21 10:40:00 EST, Height, 60, kg, 05/29/21 10:55:00 EDT, Dry Weight Start Date: 11/02/21 Status: Ordered ondansetron 4 mg oral tablet, disintegrating = 4 mg, By Mouth, 3 times a day, PRN Nausea, # 60 tablet, 1 Refills, Maintenance, 11/04/21 15:52:00EST, Tablet, [facility]/pharmacy #2024, 160, cm, 10/12/21 10:40:00 EST, Height, [...]
--- OUTSIDE RECORDS SUMMARY | 2024-05-10 09:37 | XMS_ITS | Continuity of Care Document ---
Author Organization [facility] Address [address] [place] [address]- Care Team Providers Care Mechanical Handyman Name Role Phone Gian Andrade MD Primary Care Physician [place] [facility] [place]/16[place]23 - 07/16/23 [facility] [address] [place] [address]- Allergies, Adverse Reactions, Alerts Substance Reaction Severity [...] Refills, Maintenance, 08/27/22 12:40:00 EST, Tablet, [facility]/pharmacy #2024, 1 tablet By Mouth 2 times a day,x90 days,Instr:masspat checked ; may fill for less... Start Date: 08/27/22 Stop Date: 11/25/22 Status: Ordered amphetamine-dextroamphetamine 20 mg oral tablet 1 tablet = 20 mg, By Mouth, 2 times a day, for 28 days, masspat checked, # 56 tablet, 0 Refills, Hard Stop 07/26/23 15:43:00 EST, 06/28/23 15:43:00 EDT, Tablet, [facility]/pharmacy #2024, 160, cm, 05/25/23 16:00:00 EDT, Height Start Date: 06/28/23 Stop Date: 07/26/23 Status: Ordered amphetamine-dextroamphetamine 20 mg oral tablet 1 tablet = 20 mg, By Mouth, 2 times a day, masspat checked, # 56 tablet, 0 Refills, Maintenance, 06/30/23 14:42:00 EDT, Tablet, [facility]/pharmacy #2025, 1 tablet By Mouth 2 times [...] 14:05:00 EDT, Route to Pharmacy Electronically, [facility]/pharmacy #5, 160, cm, 05/25/23 16:00:00... Start Date: 06/28/23 [...] each, 1 Refills, Maintenance, 11/05/21 10:04:00 EST, [place], [facility], Partial fill upon [...] 15:43:00 EST, 06/28/23 15:43:00 EDT, Tablet, [facility]/pharmacy #2025, increasing dose, 160, cm, 05/25/23 1... [...] Care Member Role: PCP Address: Address: [address] [place] [address] Name: Elisabeth CHENEY, Delfino Position: [facility] RN Member Role: Primary Care Nurse Care Team Related Persons Name: VERONICA ANDREWS Address: [address] [place] [address] Name: KEY OVALLE Address: [address] [place], [place] Name: ALCON BAIG Address: [address] [place] [address]
--- OUTSIDE RECORDS SUMMARY | 2024-05-10 09:37 | XMS_ITS | Continuity of Care Document ---
Author Organization [facility] Address [address] [place] [address]- Care Team Providers Care Vice President Global Digital Marketing Name Role Phone Gian Andrade MD Primary Care Physician Encounter [facility] Date(s): 01/07/22 - 02/06/22 [facility] [address] [place] [address]- Attending Physician: Admtr, [id number] Admitting Physician: Admtr, [...] 0 Refills, Maintenance, 12/31/21 14:04:00 EDT, Tablet, [facility]/pharmacy #2025, 1 tablet By Mouth 2 times a day,x90 days,Instr:masspat checked ; may fill for less... Start Date: 12/31/21 Stop Date: 03/31/22 Status: Ordered busPIRone 10 mg oral tablet 10 mg, 1, tablet, By Mouth, 2 times a day, # 180 tablet, Refills 1, Tot. Refills 1, Soft Stop, 11/02/21 14:38:00 EST, Route to Pharmacy Electronically, [facility], 160, cm, 10/12/21 10:40:00 EST, Height, 60, kg, 05/29/21 10:55:00 ED... Start Date: 11/02/21 Status: Ordered cyclobenzaprine 10 mg oral tablet 10 mg, 1, tablet, By Mouth, 2 times a day, PRN, # 30 tablet, Refills 1, Tot. Refills 1, Maintenance, for spasm, 01/14/21 9:27:00 EDT, Route to Pharmacy Electronically, [facility]/pharmacy #2025, 160, cm, 02/07/20 10:53:00 EDT, Height, 49.9, kg, 02/07/20 10:5... Start Date: 01/14/21 Status: Ordered fluticasone 50 mcg/inh nasal spray 1 sprays, Nares, Both, 2 times a day, For post nasal drip, # 3 each, 1 Refills, Maintenance, 11/05/21 10:04:00 EST, [place], [facility], Partial fill upon patient request if the prescription is for a schedule II opioid drug., 1 sprays... Start Date: 11/05/21 Status: Ordered ibuprofen 800 mg oral tablet 1, tablet, By Mouth, 3 times a day, # 270 tablet, Refills 1, Tot. Refills 1, Maintenance, 04/21/21 8:59:00 EDT, Route to Pharmacy Electronically, [facility], 160, cm, 01/22/21 13:16:00 EDT, [...] 1 Refills, Maintenance, 12/31/21 14:05:00 EDT, Tablet, [facility], increasing dose, 160, cm, 12/16/21 10:34:00 EDT, [...] 1 Refills, Maintenance, 11/04/21 15:52:00EST, Tablet, [facility], 160, cm, 10/12/21 10:40:00 EST, Height, 60, [...]
--- OUTSIDE RECORDS SUMMARY | 2024-05-10 09:37 | XMS_ITS | Continuity of Care Document ---
Author Organization [facility] Address [address] [place] [address]- Care Team Providers Care Grain Thresher Name Role Phone Lupe EL, Gian Lincoln Primary Care Physician [place] [facility] [place] 12/02/21 [facility] [address] [place], [place] [address] Allergies, Adverse Reactions, Alerts Substance Reaction [...] 14:38:00 EST, Route to Pharmacy Electronically, [facility], 160, cm, 10/12/21 10:40:00 EST, Height, 60, kg, 05/29/21 10:55:00 ED... Start Date: 11/02/21 Status: Ordered cyclobenzaprine 10 mg oral tablet 10 mg, 1, tablet, By Mouth, 2 times a day, PRN, # 30 tablet, Refills 1, Tot. Refills 1, Maintenance, for spasm, 01/14/21 9:27:00 EDT, Route to Pharmacy Electronically, [facility]/pharmacy #2025, 160, cm, 02/07/20 10:53:00 EDT, Height, 49.9, kg, 02/07/20 10:5... Start Date: 01/14/21 Status: Ordered fluticasone 50 mcg/inh nasal spray 1 sprays, Nares, Both, 2 times a day, For post nasal drip, # 3 each, 1 Refills, Maintenance, 11/05/21 10:04:00 EST, [place], [facility], Partial fill upon patient request if the prescription is for a schedule II opioid drug., 1 sprays... Start Date: 11/05/21 Status: Ordered ibuprofen 800 mg oral tablet 1, tablet, By Mouth, 3 times a day, # 270 tablet, Refills 1, Tot. Refills 1, Maintenance, 04/21/21 8:59:00 EDT, Route to Pharmacy Electronically, [facility], 160, cm, 01/22/21 13:16:00 EDT, [...]
--- OUTSIDE RECORDS SUMMARY | 2024-05-10 09:38 | XMS_ITS | Continuity of Care Document ---
Author Organization [facility] Address [address] [address]- Care Team Providers Care Cable Splicer Name Role Phone Gian Andrade MD Primary Care Physician [place] [facility] [place] 04/26/23 - 06/16/23 [facility] [address] [address]- Attending Physician: Abida Coe Admitting Physician: Abida Coe Referring Physician: Abida Coe Allergies, Adverse Reactions, Alerts Substance Reaction Severity [...] Refills, Maintenance, 08/27/22 12:40:00 EST, [facility], [facility], 1 tablet By [...] EDT, Route to [facility], 160, cm, 10/26/22 8:55:00EST, Height, 60, kg, [...] each, 1 Refills, Maintenance, 11/05/21 10:04:00 EST, [place], [facility], Partial fill upon patient request if the prescription is for a schedule II opioid drug., 1 sprays... Start Date: 11/05/21 Status: Ordered ibuprofen 800 mg oral tablet 1, tablet, By Mouth, 3 times a day, # 270 tablet, Refills 1, Tot. Refills 1, Maintenance, 04/21/21 8:59:00 EDT, Route to Pharmacy Electronically, [facility], 160, cm, 01/22/21 13:16:00 EDT, Height, 54.6, kg, 01/22/21 13:16:00 EDT, DJohn.. Start Date: 04/21/21 Status: Ordered meclizine 25 mg oral tablet 1 tablet = 25 mg, By Mouth, Daily at bedtime, PRN Other, take one tab po qhs prn moderate vertigo, # 8 tablet, 1 Refills, Soft Stop, 12/16/21 11:06:00 EDT, [facility]/pharmacy #202, Partial fill upon [...] Andrade MD Position: [facility] Physician - Primary Care Member Role: PCP Address: Address: [address] [place] [id number] Name: Delfino Barber RN Position: [facility] RN Member Role: Primary Care Nurse Care Team Related Persons Name: VERONICA ANDREWS Address: home [address] [place] [id number] Name: KEY OVALLE Address: [address] [place] [address] Name: ALCON BAIG Address: [address] [address]
--- OUTSIDE RECORDS SUMMARY | 2024-05-10 09:38 | XMS_ITS | Continuity of Care Document ---
Author Organization [facility] Address [address] [address]- Care Team Providers Care Senior Procurement Manager Name Role Phone Lupe EL, Gian Lincoln Primary Care Physician [place] [facility] [place] - 07/08/23 [facility] [address] [address]- Attending Physician: Billy Robles MD Admitting Physician: Billy Robles MD Referring Physician: Billy Robles MD Allergies, Adverse Reactions, Alerts Substance Reaction [...] 07/26/23 15:43:00 EST, 06/28/23 15:43:00 EDT, [facility]t, [facility], 160, cm, 05/25/23 16:00:00 EDT, Height Start Date: 06/28/23 Stop Date: 07/26/23 Status: Ordered amphetamine-dextroamphetamine 20 mg oral tablet 1 tablet = 20 mg, By Mouth, 2 times a day, masspat checked, # 56 tablet, 0 Refills, Maintenance, 06/30/23 14:42:00 EDT, Tablet, [facility], 1 tablet By [...] 06/28/23 14:05:00 EDT, Route to Pharmacy Electronically, [facility]/pharmacy #2024, 160, cm, 05/25/23 16:00:00... Start [...] each, 1 Refills, Maintenance, 11/05/21 10:04:00 EST, [place], [facility], Partial fill upon [...] 08/27/23 15:43:00 EST, 06/28/23 15:43:00 EDT, Tablet, [facility]/pharmacy #2024, increasing dose, 160, cm, 05/25/23 1... Start Date: 06/28/23 Stop Date: 08/27/23 Status: Ordered KlonoPIN 0.5 mg oral tablet 1 tablet = 0.5 mg, By Mouth, 2 times a day, PRN Anxiety, for 30 days, Masspat checked May fill for less, # 60 tablet, 1 Refills, Hard Stop 08/29/23 14:42:00 EST, 06/30/23 14:42:00 EDT, Tablet, [facility]/pharmacy #2025, increasing dose, 160, cm, 06/30/23 1... Start Date: 06/30/23 Stop Date: 08/29/23 Status: Ordered meclizine 25 mg oral tablet 1 tablet = 25 mg, By Mouth, Daily at bedtime, PRN Other, take one tab po qhs prn moderate vertigo, # 8 tablet, 1 Refills, Soft Stop, 12/16/21 11:06:00 EDT, [facility]/pharmacy #202, Partial fill upon patient request [...] Refills, Maintenance, 02/11/22 14:20:00 EDT, Tablet, [facility], 160, cm, 01/07/22 9:42:00 EDT, Height, 60, kg, 05/29/21 10:55:00 EDT, Dry Weight Start Date: 02/11/22 Status: Ordered ZyrTEC-D 5 mg-120 mg oral tablet, extended release 1 tablet, By Mouth, 2 times a day, for 90 days, # 180 tablet, 1 Refills, Hard Stop 12/25/23 14:07:00 EDT, 06/28/23 14:07:00 EDT, ER Tablet, [facility]/pharmacy #202, 160, cm, 05/25/23 16:00:00 EDT, Height [...] Personnel Name: Lupe EL, Gian Lincoln Position: [facility] Physician - Primary Care Member Role: PCP Address: Address: [address] [place] [id number]- Name: Delfino Barber RN Position: [facility] RN Member Role: Primary Care Nurse Care Team Related Persons Name: VERONICA ANDREWS Address: [address] [place] [address] Name: KEY OVALLE Address: [address] [place], [place] Name: ALCON BAIG Address: [address] [place] [address]
--- OUTSIDE RECORDS SUMMARY | 2024-05-10 09:38 | XMS_ITS | Continuity of Care Document ---
Author Organization [facility] Address [address] [place] [address]- Care Team Providers Care Side Sawyer Name Role Phone Gian Andrade MD Primary Care Physician [place] [facility] [place] 05/26/21 - 06/25/21 [facility] [address] [place] [address]- Attending Physician: Admtr, Ar8 Admitting Physician: Admtr, [...] 11:32:00 EDT, Route to Pharmacy Electronically, [facility], 160, cm, 07/30/20 9:37:00 EST, [...]
--- OUTSIDE RECORDS SUMMARY | 2024-05-10 09:38 | XMS_ITS | Continuity of Care Document ---
Author Organization [facility] Address [address] [place] [address]- Care Team Providers Care Marine Geologist Name Role Phone Lupe EL, Gian Lincoln Primary Care Physician Encounter [facility] Date(s): 10/26/22 - 11/02/22 [facility] [address] [place] [address]- Attending Physician: Tino EL, Odilia Sahu Allergies, Adverse Reactions, Alerts Substance Reaction Severity [...] Refills, Maintenance, 08/27/22 12:40:00 EST, Tablet, [facility]/pharmacy #2024, 1 tablet By Mouth 2 times a day,x90 days,Instr:masspat checked ; may fill for less... Start Date: 08/27/22 Stop Date: 11/25/22 Status: Ordered amphetamine-dextroamphetamine 20 mg oral tablet 1 tablet = 20 mg, By Mouth, 2 times a day, masspat checked may fill for less, # 180 tablet, 0 Refills, Maintenance, 09/24/22 17:21:00 EST, Tablet, [facility]/pharmacy #2024, 1 tablet By Mouth 2 times a day,x90 days,Instr:masspat checked ; may fill for less... Start Date: 09/24/22 Stop Date: 12/23/22 Status: Ordered cyclobenzaprine 10 mg oral tablet 10 mg, 1, tablet, By Mouth, 2 times a day, PRN, # 30 tablet, Refills 1, Tot. Refills 1, Maintenance, for spasm, 08/30/22 13:33:00 EST, Route to Pharmacy Electronically, [facility]/pharmacy #2024, 160, cm, 01/07/22 9:42:00 EDT, Height, 60, kg, 05/29/21 10:55:... 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 Vital Signs Most recent to oldest [Reference Range]: 1 Height 160 cm (10/26/22 8:55 AM) Weight 57.8 kg (10/26/22 8:55 AM) Body Mass Index [18.5-24.99 kg/m2] 22.58 kg/m2 (10/26/22 8:55 AM) Blood Pressure [90-138/55-84 mm Hg] 118/ 80mm Hg (10/26/22 8:55 AM) Blood pressure sites Arm, left (10/26/22 8:55 AM) Weight Obtained Via Standing scale (10/26/22 8:55 AM) Social History Social History Type Response Smoking Status Never smoker entered on: 04/21/15 Sex Patient Care team information Care Team Personnel Name: Gian Andrade MD Position: [facility] Primary Care Physician Member Role: PCP Address: Address: [address] [place] [id number]- Name: Delfino Barber Position: [facility] RN Member Role: Primary Care Nurse Care Team Related Persons Name: ALCON BAIG Address: [address] [address]
--- OUTSIDE RECORDS SUMMARY | 2024-05-10 09:38 | XMS_ITS | Continuity of Care Document ---
Author Organization [facility] Address [address] [place] [address]- Care Team Providers Care Health Coach Name Role Phone Gian Andrade MD Primary Care Physician Encounter [facility] [place] Date(s): 03/13/20 - 04/12/20 [facility] [address] [place] [address]- [facility] Allergies, Adverse Reactions, Alerts Substance Reaction Severity [...] 0 Refills, Maintenance, 03/11/20 8:51:00 EDT, Tablet, [facility]/pharmacy #2024, last rx ., 1 tablet By Mouth 2 times a day,x28 days,Instr:masspat ch... Start Date: 03/11/20 Stop Date: 04/08/20 Status: Ordered busPIRone 10 mg oral tablet See Instructions, TAKE 1 TABLET BY MOUTH TWICE A DAY, # 180 tablet, Refills 3, Tot. Refills 3, SoftStop, 07/06/19 14:25:16 EDT, Instructions Replace Required Details, Route to Pharmacy Electronically, [id number], [facility] Start Date: 07/06/19 Status: Ordered cyclobenzaprine 10 mg oral tablet 10 mg, 1, tablet, By Mouth, 2 times a day, PRN, # 30 tablet, Refills 1, Tot. Refills 1, Maintenance, for spasm, 01/14/21 9:27:00 EDT, Route to Pharmacy Electronically, [facility]/pharmacy #2024, 160, cm, 02/07/20 10:53:00 EDT, Height, 49.9, kg, 02/07/20 10:5... Start Date: 01/14/21 Status: Ordered cyclobenzaprine 10 mg oral tablet 10 mg, 1, tablet, By Mouth, 2 times a day, PRN, # 30 tablet, Refills 1, Tot. Refills 1, Acute 01/14/21 9:27:00 EDT, for spasm, 01/15/20 9:27:00 EDT, Route to Pharmacy Electronically, [facility]/pharmacy #2024, 160, cm, 01/09/20 9:04:00 EDT, Height Start Date: 01/15/20 Stop Date: 01/14/21 Status: Ordered KlonoPIN 0.5 mg oral tablet 1 tablet = 0.5 mg, By Mouth, 2 times a day, PRN Anxiety, Masspat checked May fill for less, # 60 tablet, 0 Refills, Maintenance, 03/13/20 15:52:00 EDT, Tablet, [facility]/pharmacy #2024, increasing dose, 160, cm, 03/05/20 9:49:00 EDT, Height, 49.9, kg, 05/... Start Date: 03/13/20 Status: Ordered omeprazole 20 mg oral enteric [...]
--- OUTSIDE RECORDS SUMMARY | 2024-05-10 09:38 | XMS_ITS | Continuity of Care Document ---
Author Organization [facility] Address [address] [place] [address]- Care Team Providers Care Screen Printing Press Operator Name Role Phone Gian Andrade MD Primary Care Physician Encounter [facility] [place] Date(s): 11/21/20 - 12/21/[address] [facility] [address] [place] [address]- Allergies, Adverse Reactions, Alerts Substance Reaction Severity [...] EST, Route to Pharmacy Electronically, [facility]/pharmacy #2024, 160, cm, 07/30/20 [...] Electronically, [facility]/pharmacy #2024, 160, cm, 01/09/20 9:04:00 EDT, Height Start Date: 01/15/20 Stop Date: 01/14/21 Status: Ordered KlonoPIN 0.5 mg oral tablet 1 tablet = 0.5 mg, By Mouth, 2 times a day, PRN Anxiety, Masspat checked May fill for less, # 60 tablet, 1 Refills, Maintenance, 11/21/20 12:12:00 EST, Tablet, [facility]/pharmacy #2024, increasing dose, 160, cm, 07/30/20 9:37:00 EST, Height, 49.9, kg, /... Start Date: 11/21/20 Status: Ordered omeprazole 20 mg oral enteric coated capsule 1 capsule = 20 mg, By Mouth, Daily, # 90 capsule, 0 Refills, Maintenance, 10/06/20 12:13:00 EST, ECCapsule, [facility]/pharmacy #2025, aware of celexa, 160, cm, 07/30/20 [...]
--- OUTSIDE RECORDS SUMMARY | 2024-05-10 09:38 | XMS_ITS | Continuity of Care Document ---
Author Organization [facility] Address [address] [place] [address]- Care Team Providers Care Kick Press Operator Name Role Phone Gian Andrade MD Primary Care Physician [place] [facility] [place] 03/29/23 - 07/27/23 [facility] [address] [place] [address]- Attending Physician: Gian Andrade MD Allergies, Adverse [...] 0 Refills, Maintenance, 07/22/23 12:46:00 EST, Tablet, [facility]/pharmacy #2025, Ok to [...] 06/28/23 14:05:00 EDT, Route to Pharmacy Electronically, [facility]/pharmacy #2025, 160, cm, 05/25/23 16:00:00... Start Date: [...] each, 1 Refills, Maintenance, 11/05/21 10:04:00 EST, [place], [facility], Partial fill upon [...] 08/27/23 15:43:00 EST, 06/28/23 15:43:00 EDT, Tablet, [facility]/pharmacy #2024, increasing dose, 160, cm, 05/25/23 1... Start Date: 06/28/23 Stop Date: 08/27/23 Status: Ordered KlonoPIN 0.5 mg oral tablet 1 tablet = 0.5 mg, By Mouth, 2 times a day, PRN Anxiety, for 30 days, Masspat checked May fill for less, # 60 tablet, 1 Refills, Hard Stop 08/29/23 14:42:00 EST, 06/30/23 14:42:00 EDT, Tablet, [facility]/pharmacy #2024, increasing dose, 160, cm, 06/30/23 [...] Team Personnel Name: Gian Andrade MD Position: [facility] Physician - Primary Care Member Role: PCP Address: Address: [place] [address]- Name: Delfino Barber RN Position: [facility] RN Member Role: Primary Care Nurse Care Team Related Persons Name: VERONICA ANDREWS Address: [address] [place] [address] Name: KEY OVALLE Address: [address] [place] [address] Name: ALCON BAIG Address: [address] [place] [address]
--- OUTSIDE RECORDS SUMMARY | 2024-05-10 09:38 | XMS_ITS | Continuity of Care Document ---
Author Organization [facility] Address [address] [place] [address]- Care Team Providers Care Bomb Squad Commander Name Role Phone Gian Andrade MD Primary Care Physician [place] [facility] [place] 08/10/23 - 09/09/23 [facility] [address] [place] [id number] Attending Physician: Admtr, Ar8 Admitting Physician: Admtr, [...] 11 Refills, Maintenance, 08/10/21 10:44:00 EST, [place], [facility]/pharmacy #2024, 2 puffs Inhalation Every [...] 0 Refills, Maintenance, 08/09/23 10:59:00 EST, Tablet, [facility]/pharmacy #2024, Ok to fill early, [...] 06/28/23 14:05:00 EDT, Route to Pharmacy Electronically, [facility]/pharmacy #2024, 160, cm, 05/25/23 16:00:00... [...] each, 1 Refills, Maintenance, 11/05/21 10:04:00 EST, [place], [facility], Partial fill upon [...] Refills, Maintenance, 02/11/22 14:20:00 EDT, Tablet, [facility], 160, cm, 01/07/22 9:42:00 EDT, Height, 60, kg, 05/29/21 10:55:00 EDT, Dry Weight Start Date: 02/11/22 Status: Ordered Cheri 3 mg-0.03 mg oral tablet 1 tablet, By Mouth, Daily, # 28 tablet, 11 Refills, Maintenance, 09/01/23 11:42:00 EST, [facility]t, [facility], Partial fill upon patient request [...] Team Personnel Name: Gian Andrade MD Position: [facility] Physician - Primary Care Member Role: PCP Address: Address: [address] [place] [id number]- Name: Delfino Barber RN Position: [facility] RN Member Role: Primary Care Nurse Care Team Related Persons Name: VERONICA ANDREWS Address: [address] [place] [address] Name: KEY OVALLE Address: [address] [place] [address] Name: ALCON BAIG Address: [address] [place] [address]
--- OUTSIDE RECORDS SUMMARY | 2024-05-10 09:38 | XMS_ITS | Continuity of Care Document ---
Author Organization [facility] Address [address] [place] [address]- Care Team Providers Care Business Teacher Name Role Phone Gian Andrade MD Primary Care Physician [place] [facility] [place]20 [facility] [address] [place] [address]- Allergies, Adverse Reactions, Alerts Substance Reaction Severity [...] 0 Refills, Maintenance, 11/12/20 13:31:00 EST, Tablet, [facility]/pharmacy #2024, 1 tablet By Mouth 2 times a day,x28 days,Instr:masspat checked ; may fill for less,... Start Date: 11/12/20 Stop Date: 12/10/20 Status: Ordered busPIRone 10 mg oral tablet 10 mg, 1, tablet, By Mouth, 2 times a day, # 180 tablet, Refills 1, Tot. Refills 1, Soft Stop, 09/02/20 8:17:00 EST, Route to Pharmacy Electronically, [facility]/pharmacy #2024, 160, cm, 07/30/20 9:37:00 EST, Height, 49.9, kg, 02/07/20 10:53:00 EDT, Dry Weight Start Date: 09/02/20 Status: Ordered cyclobenzaprine 10 mg oral tablet 10 mg, 1, tablet, By Mouth, 2 times a day, PRN, # 30 tablet, Refills 1, Tot. Refills 1, Maintenance, for spasm, 01/14/21 9:27:00 EDT, Route to Pharmacy Electronically, [facility]/pharmacy #2024, 160, cm, 02/07/20 10:53:00 EDT, Height, 49.9, kg, 02/07/20 10:5... Start Date: 01/14/21 Status: Ordered cyclobenzaprine 10 mg oral tablet 10 mg, 1, tablet, By Mouth, 2 times a day, PRN, # 30 tablet, Refills 1, Tot. Refills 1, Acute 01/14/21 9:27:00 EDT, for spasm, 01/15/20 9:27:00 EDT, Route to Pharmacy Electronically, [facility]/pharmacy #2024, 160, cm, 01/09/20 9:04:00 EDT, Height Start Date: 01/15/20 Stop Date: 01/14/21 Status: Ordered KlonoPIN 0.5 mg oral tablet 1 tablet = 0.5 mg, By Mouth, 2 times a day, PRN Anxiety, Masspat checked May fill for less, # 60 tablet, 1 Refills, Maintenance, 11/21/20 12:12:00 EST, Tablet, [facility]/pharmacy #2024, increasing dose, 160, cm, 07/30/20 9:37:00 EST, Height, 49.9, kg, 05/... Start Date: 11/21/20 Status: Ordered omeprazole 20 mg oral enteric coated capsule 1 capsule = 20 mg, By Mouth, Daily, # 90 capsule, 0 Refills, Maintenance, 10/06/20 12:13:00 EST, ECCapsule, [facility]/pharmacy #2025, aware of celexa, 160, cm, 07/30/20 9:37:00 EST, Height, 49.9, kg, 02/07/20 10:53:00 EDT, Dry Weight Start Date: 10/06/20 Status: Ordered ondansetron 4 mg oral tablet, disintegrating = 4 mg, By Mouth, 3 times a day, PRN Nausea, # 60 tablet, 1 Refills, Maintenance, 03/13/20 16:39:00EDT, Tablet, [facility]/pharmacy #2025, 160, cm, 03/05/20 9:49:00 EDT, Height, 49.9, kg, 02/07/20 10:53:00EDT, Dry Weight Start Date: 03/13/20 Status: Ordered Plaquenil = 200 mg, By Mouth, Daily, 0 Refills, Maintenance, 10/11/16 10:18:04 Start Date: 10/11/16 Status: Ordered ZyrTEC-D 5 mg-120 mg oral tablet, extended release 1 tablet, By Mouth, 2 times a day, # 180 tablet, 1 Refills, Maintenance, 03/13/20 15:14:00 EDT, ER Tablet, [facility]/pharmacy #2025, 1 tablet By Mouth 2 [...]
--- OUTSIDE RECORDS SUMMARY | 2024-05-10 09:38 | XMS_ITS | Continuity of Care Document ---
Author Organization [facility] Address [address] [place] [address]- Care Team Providers Care Driving Teacher Name Role Phone Gian Andrade MD Primary Care Physician Encounter [facility] Date(s): 05/01/21 - 08/29/21 [facility] [address] [place] [address]- Attending Physician: Gian Andrade MD Allergies, Adverse [...] 01/14/21 9:27:00 EDT, Route to Pharmacy Electronically, [facility]/pharmacy #2025, 160, cm, 02/07/20 10:53:00 EDT, [...] 1 Refills, Maintenance, 07/30/21 16:53:00 EST, Tablet, [facility]/pharmacy #2025, increasing dose, 160, cm, 06/12/21 11:11:00 [...] tablet, 1 Refills, Maintenance, 07/30/21 10:38:00EST, Tablet, [facility]/pharmacy #2025, 160, cm, 06/12/21 11:11:00 EDT, Height, [...]
--- OUTSIDE RECORDS SUMMARY | 2024-05-10 09:38 | XMS_ITS | Continuity of Care Document ---
Author Organization [facility] Address [address] [place] [address]- Care Team Providers Care Forging Press Lever Tender Name Role Phone Gian Andrade MD Primary Care Physician Encounter [facility] Date(s): 05/27/20 - 06/26/20 [facility] [address] [place] [address]- [facility] Attending Physician: Admtr, Ar8 Admitting Physician: Admtr, [...] Maintenance, 06/17/20 10:13:00 EDT, Tablet, [facility]/pharmacy #2024, last rx ., 1 tablet By Mouth 2 times a day,x28 days,Instr:masspat checked; ma... Start Date: 06/17/20 Stop Date: 07/15/20 Status: Ordered busPIRone 10 mg oral tablet See Instructions, TAKE 1 TABLET BY MOUTH TWICE A DAY, # 180 tablet, Refills 3, Tot. Refills 3, SoftStop, 07/06/19 14:25:16 EDT, Instructions Replace Required Details, Route to Pharmacy Electronically, [id number], [facility]/pharmac... Start Date: 07/06/19 Status: Ordered cyclobenzaprine 10 mg oral tablet 10 mg, 1, tablet, By Mouth, 2 times a day, PRN, # 30 tablet, Refills 1, Tot. Refills 1, Maintenance, for spasm, 01/14/21 9:27:00 EDT, Route to Pharmacy Electronically, [facility]/pharmacy #2024, 160, cm, 02/07/20 10:53:00 EDT, Height, 49.9, kg, 02/07/20 10:5... Start Date: 01/14/21 Status: Ordered cyclobenzaprine 10 mg oral tablet 10 mg, 1, tablet, By Mouth, 2 times a day, PRN, # 30 tablet, Refills 1, Tot. Refills 1, Acute 01/14/21 9:27:00 EDT, for spasm, 01/15/20 9:27:00 EDT, Route to Pharmacy Electronically, [facility]/pharmacy #2024, 160, cm, 01/09/20 9:04:00 EDT, Height Start Date: 01/15/20 Stop Date: 01/14/21 Status: Ordered ibuprofen 800 mg oral tablet 800 mg, 1, tablet, By Mouth, 3 times a day, # 90 tablet, Refills 2, Tot. Refills 2, Acute 07/20/20 12:41:00 EST, 06/19/20 12:41:00 EDT, Route to Pharmacy Electronically, [facility]/pharmacy #2024, 160, cm, 05/27/20 10:37:00 EDT, Height, 49.9, kg, 02/07/20 10... Start Date: 06/19/20 Stop Date: 07/20/20 Status: Ordered KlonoPIN 0.5 mg oral tablet 1 tablet = 0.5 mg, By Mouth, 2 times a day, PRN Anxiety, Masspat checked 06/10/2020 May fill for less, # 60 tablet, 1 Refills, Maintenance, 06/10/20 13:11:00 EDT, Tablet, [facility]/pharmacy #202, increasing dose, 160, cm, 05/27/20 10:37:00 EDT, Height, 49.... Start Date: 06/10/20 Status: Ordered omeprazole 20 mg oral enteric coated capsule 1 capsule = 20 mg, By Mouth, Daily, # 90 capsule, 1 Refills, Maintenance, 12/10/19 14:55:00 EDT, ECCapsule, [facility]/pharmacy #2024, aware of celexa, 160, cm, 10/31/19 10:52:00 EST, Height Start Date: 12/10/19 Status: Ordered ondansetron 4 mg oral tablet, disintegrating = 4 mg, By Mouth, 3 times a day, PRN Nausea, # 60 tablet, 1 Refills, Maintenance, 03/13/20 16:39:00EDT, Tablet, [facility]/pharmacy #2024, 160, cm, 03/05/20 9:49:00 [...] 03/13/20 15:14:00 EDT, ER Tablet, [facility]/pharmacy #202, 1 tablet By Mouth [...]
--- OUTSIDE RECORDS SUMMARY | 2024-05-10 09:38 | XMS_ITS | Continuity of Care Document ---
Author Organization [facility] Address [address] [place] [address]- Care Team Providers Care Critical Care Specialist Name Role Phone Gian Andrade MD Primary Care Physician [place] [facility] [place] 03/27/24 - 04/26/24 [facility] [address] [place] [address]- Allergies, Adverse Reactions, Alerts Substance Reaction Severity [...] to Pharmacy Electronically, [id number], 158, cm, 01/03/24 14:54:00 EDT, Height, 56.3, [...] each, 1 Refills, Maintenance, 11/05/21 10:04:00 EST, [place], [facility], Partial fill upon patient request if the prescription is for a schedule II opioid drug., 1 sprays... Start Date: 11/05/21 Status: Ordered gabapentin 300 mg oral capsule 300 mg, 1, capsule, By Mouth, Daily at bedtime, # 30 capsule, Refills 0, Tot. Refills 0, Maintenance, 02/15/24 16:16:00 EDT, Route to Pharmacy Electronically, [facility]/pharmacy #202, Partial fill upon [...] EDT, Route to Pharmacy Electronically, [facility], 158, cm, 01/03/24 14:54:00 EDT, Height, 56.3, [...] Name: Gian Andrade MD Position: [facility] Physician - Primary Care Member Role: PCP Address: Address: [address] [place] [id number] Name: Delfino Barber RN Position: [facility] RN Member Role: Primary Care Nurse Care Team Related Persons Name: VERONICA ANDREWS Address: [address] [place] [address] Name: KEY OVALLE Address: [address] [place], [place] Name: ALCON BAIG Address: [address] [address]
--- OUTSIDE RECORDS SUMMARY | 2024-05-10 09:38 | XMS_ITS | Continuity of Care Document ---
Author Organization [facility] Address [address] [place] [address]- Care Team Providers Care Control Clerk Auditing Name Role Phone Lupe EL, Gian Lincoln Primary Care Physician [place] [facility] [place](s): 01/07/22 - 02/18/[address] [address] Discharge Disposition: A-D/C Home Attending Physician: Ana AGUILAR, Libra Admitting Physician: Ana AGUILAR, Libra Referring Physician: Libra Perez NP Allergies, Adverse Reactions, Alerts Substance Reaction Severity [...] Electronically, [facility]/pharmacy #2025, 160, cm, 02/07/20 10:53:00 EDT, Height, 49.9, kg, 02/07/20 10:5... Start Date: 01/14/21 Status: Ordered fluticasone 50 mcg/inh nasal spray 1 sprays, Nares, Both, 2 times a day, For post nasal drip, # 3 each, 1 Refills, Maintenance, 11/05/21 10:04:00 EST, [place], [facility], Partial fill upon patient request if the prescription is for a schedule II opioid drug., 1 sprays... Start Date: 11/05/21 Status: Ordered ibuprofen 800 mg oral tablet 1, tablet, By Mouth, 3 times a day, # 270 tablet, Refills 1, Tot. Refills 1, Maintenance, 04/21/21 8:59:00 EDT, Route to Pharmacy Electronically, [facility], 160, cm, 01/22/21 13:16:00 EDT, [...]
--- OUTSIDE RECORDS SUMMARY | 2024-05-10 09:38 | XMS_ITS | Continuity of Care Document ---
Author Organization [facility] Address [address] [place] [address]- Care Team Providers Care It Infrastructure Project Manager Name Role Phone Gian Andrdae MD Primary Care Physician Encounter [facility] Date(s): 12/16/22 - 01/15/23 [facility] [address] [place] [address]- Allergies, Adverse Reactions, Alerts Substance Reaction Severity [...] 0 Refills, Maintenance, 08/27/22 12:40:00 EST, Tablet, [facility]/pharmacy #2025, 1 tablet By Mouth 2 times a day,x90 days,Instr:masspat checked ; may fill for less... Start Date: 08/27/22 Stop Date: 11/25/22 Status: Ordered amphetamine-dextroamphetamine 20 mg oral tablet 1 tablet = 20 mg, By Mouth, 2 times a day, masspat checked may fill for less, # 60 tablet, 0 Refills, Maintenance, 12/30/22 23:23:00 EDT, Tablet, [facility]/pharmacy #2025, 1 tablet By Mouth 2 times a day,x30 days,Instr:masspat checked ; may fill for less,... Start Date: 12/30/22 Stop Date: 01/29/23 Status: Ordered cyclobenzaprine 10 mg oral tablet 1, tablet, By Mouth, 2 times a day, PRN, # 30 tablet, Refills 1, Maintenance, NEEDED FOR SPASMS,12/20/22 11:12:00 EDT, Route to Pharmacy Electronically, [facility] STORE [id number], 160, cm, 10/26/22 8:55:00EST, Height, 60, kg, 05/29/21 10:55:00 EDT, Dry Weight Start Date: 12/20/22 Status: Ordered fluticasone 50 mcg/inh nasal spray 1 sprays, Nares, Both, 2 times a day, For post nasal drip, # 3 each, 1 Refills, Maintenance, 11/05/21 10:04:00 EST, [place], [facility], Partial fill upon [...] 12/16/21 11:06:00 EDT, [facility]/pharmacy #2026, Partial fill upon patient request if the [...] Personnel Name: Gian Andrade MD Position: [facility] Primary Care Physician Member Role: PCP Address: Address: [address] [place] [address]- Name: Delfino Barber Position: [facility] RN Member Role: Primary Care Nurse Care Team Related Persons Name: VERONICA ANDREWS Address: [address] [place] [address] Name: KEY OVALLE Address: [address] [place], [place] Name: ALCON BAIG Address: [address] [place] [address]
--- OUTSIDE RECORDS SUMMARY | 2024-05-10 09:38 | XMS_ITS | Continuity of Care Document ---
Author Organization [facility] Address [address] [place] [address]- Care Team Providers Care Cleaning Manager Name Role Phone Lupe EL, Gian Lincoln Primary Care Physician Encounter [facility] Date(s): 08/05/23 - 09/04/23 [facility] [address] [place] [address]- Allergies, Adverse Reactions, Alerts Substance Reaction Severity [...] 0 Refills, Maintenance, 08/09/23 10:59:00 EST, Tablet, [facility]/pharmacy #2024, Ok to fill early, Masspat checked [...] 06/28/23 14:05:00 EDT, Route to Pharmacy Electronically, [facility]/pharmacy #2024, 160, cm, 05/25/23 16:00:00... Start Date: [...] each, 1 Refills, Maintenance, 11/05/21 10:04:00 EST, [place], [facility], Partial fill upon [...] Refills, Maintenance, 02/11/22 14:20:00 EDT, Tablet, [facility], 160, cm, 01/07/22 9:42:00 EDT, [...] Team Personnel Name: Gian Andrade MD Position: [facility] Physician - Primary Care Member Role: PCP Address: Address: [address] [place] [address]- Name: Delfino Barber RN Position: [facility] RN Member Role: Primary Care Nurse Care Team Related Persons Name: VERONICA ANDREWS Address: [address] [place] [address] Name: KEY OVALLE Address: [address] [place], [place] Name: ALCON BAIG Address: [address] [place] [address]
--- OUTSIDE RECORDS SUMMARY | 2024-05-10 09:38 | XMS_ITS | Continuity of Care Document ---
Author Organization [facility] Address [address] [place] [address]- Care Team Providers Care Novelty Candy Maker Name Role Phone Gian Andrade MD Primary Care Physician [place] [facility] Date(s): 02/11/22 - 03/13/22 [facility] [address] [place] [address]- Allergies, Adverse Reactions, Alerts Substance Reaction Severity [...] 01/14/21 9:27:00 EDT, Route to Pharmacy Electronically, [facility]/pharmacy #2025, 160, cm, 02/07/20 10:53:00 EDT, Height, 49.9, kg, 02/07/20 10:5... Start Date: 01/14/21 Status: Ordered fluticasone 50 mcg/inh nasal spray 1 sprays, Nares, Both, 2 times a day, For post nasal drip, # 3 each, 1 Refills, Maintenance, 11/05/21 10:04:00 EST, [place], [facility], Partial fill upon patient request if the prescription is for a schedule II opioid drug., 1 sprays... Start Date: 11/05/21 Status: Ordered ibuprofen 800 mg oral tablet 1, tablet, By Mouth, 3 times a day, # 270 tablet, Refills 1, Tot. Refills 1, Maintenance, 04/21/21 8:59:00 EDT, Route to Pharmacy Electronically, [facility], 160, cm, 01/22/21 13:16:00 EDT, [...]
--- OUTSIDE RECORDS SUMMARY | 2024-05-10 09:38 | XMS_ITS | Continuity of Care Document ---
Author Organization [facility] Address [address] [place] [address]- Care Team Providers Care Wage And Hour Investigator Name Role Phone Gian Andrade MD Primary Care Physician Encounter [facility] [place] [facility] Date(s): 07/15/20 - 07/22/20 [facility] [address] [place] [address]- Attending Physician: Cirilo Shah MD Referring Physician: Gian Andrade MD Allergies, [...] 0 Refills, Maintenance, 06/17/20 10:13:00 EDT, Tablet, [facility]/pharmacy #2024, last rx ., 1 tablet By Mouth 2 times a day,x28 days,Instr:masspat checked; ma... Start Date: 06/17/20 Stop Date: 07/15/20 Status: Ordered busPIRone 10 mg oral tablet See Instructions, TAKE 1 TABLET BY MOUTH TWICE A DAY, # 180 tablet, Refills 3, Tot. Refills 3, SoftStop, 07/06/19 14:25:16 EDT, Instructions Replace Required Details, Route to Pharmacy Electronically, [id number], [facility]/pharmac... Start Date: 07/06/19 Status: Ordered cyclobenzaprine 10 mg oral tablet 10 mg, 1, tablet, By Mouth, 2 times a day, PRN, # 30 tablet, Refills 1, Tot. Refills 1, Maintenance, for spasm, 01/14/21 9:27:00 EDT, Route to Pharmacy Electronically, [facility]/pharmacy #2024, 160, cm, 02/07/20 10:53:00 EDT, Height, 49.9, kg, 02/07/20 10:5... Start Date: 01/14/21 Status: Ordered cyclobenzaprine 10 mg oral tablet 10 mg, 1, tablet, By Mouth, 2 times a day, PRN, # 30 tablet, Refills 1, Tot. Refills 1, Acute 01/14/21 9:27:00 EDT, for spasm, 01/15/20 9:27:00 EDT, Route to Pharmacy Electronically, [facility]/pharmacy #2024, 160, cm, 01/09/20 9:04:00 EDT, Height Start Date: 01/15/20 Stop Date: 01/14/21 Status: Ordered KlonoPIN 0.5 mg oral tablet 1 tablet = 0.5 mg, By Mouth, 2 times a day, PRN Anxiety, Masspat checked 06/10/2020 May fill for less, # 60 tablet, 1 Refills, Maintenance, 06/10/20 13:11:00 EDT, Tablet, [facility], increasing dose, 160, cm, 05/27/20 10:37:00 [...] Maintenance, 03/13/20 15:14:00 EDT, ER Tablet, [facility], 1 tablet [...]
--- OUTSIDE RECORDS SUMMARY | 2024-05-10 09:38 | XMS_ITS | Continuity of Care Document ---
Author Organization [facility] Address [address] [place] [address]- Care Team Providers Care Combine Inspector Name Role Phone Lupe EL, Gian Lincoln Primary Care Physician Encounter [facility] Date(s): 08/11/23 - 08/18/23 [facility] [address] [place] [address]- Attending Physician: Negra Robbins MD Allergies, Adverse Reactions, [...] 11 Refills, Maintenance, 08/10/21 10:44:00 EST, [place], [facility]/pharmacy #2025, 2 puffs Inhalation Every 4 hours,PRN:Wheezing/Shortness [...] 0 Refills, Maintenance, 08/09/23 10:59:00 EST, Tablet, [facility]/pharmacy #202, Ok to fill early, Masspat checked , Patient may fill for less, 1 tablet By Mouth 2 time... Start Date: 08/09/23 Stop Date: 09/06/23 Status: Ordered amphetamine-dextroamphetamine 20 mg oral tablet 1 tablet = 20 mg, By Mouth, 2 times a day, for 28 days, ICD10: F90.0, # 56 tablet, 0 Refills, Hard Stop 08/19/23 12:46:00 EST, 07/22/23 12:46:00 EST, Tablet, [facility]/pharmacy #202, Ok to fill early, Masspat checked , Patient may fill for less, 160, cm, 1... Start Date: 07/22/23 Stop Date: 08/19/23 Status: Ordered cyclobenzaprine 10 mg oral tablet 1, tablet, By Mouth, 2 times a day, PRN, TAKE ONLY NEEDED FOR SPASMS, # 30 tablet, Refills 1, Tot. Refills 1, Maintenance, NEEDED FOR SPASMS, 06/28/23 14:05:00 EDT, Route to Pharmacy Electronically, [facility]/pharmacy #2025, 160, cm, 05/25/23 16:00:00... Start Date: [...] each, 1 Refills, Maintenance, 11/05/21 10:04:00 EST, [place], [facility], Partial fill upon [...] 08/27/23 15:43:00 EST, 06/28/23 15:43:00 EDT, Tablet, [facility]/pharmacy #2024, increasing dose, 160, cm, 05/25/23 1... Start Date: 06/28/23 Stop Date: 08/27/23 Status: Ordered KlonoPIN 0.5 mg oral tablet 1 tablet = 0.5 mg, By Mouth, 2 times a day, PRN Anxiety, for 30 days, Masspat checked May fill for less, # 60 tablet, 1 Refills, Hard Stop 08/29/23 14:42:00 EST, 06/30/23 14:42:00 EDT, Tablet, [facility], increasing dose, 160, cm, 06/30/23 1... [...] Refills, Maintenance, 02/11/22 14:20:00 EDT, Tablet, [facility], 160, cm, 01/07/22 9:42:00 EDT, Height, 60, kg, 05/29/21 10:55:00 EDT, Dry Weight Start Date: 02/11/22 Status: Ordered ZyrTEC-D 5 mg-120 mg oral tablet, extended release 1 tablet, By Mouth, 2 times a day, for 90 days, # 180 tablet, 1 Refills, Hard Stop 12/25/23 14:07:00 EDT, 06/28/23 14:07:00 EDT, ER Tablet, [facility], 160, cm, 05/25/23 16:00:00 EDT, Height Start Date: 06/28/23 Stop Date: 12/25/23 Status: Ordered ZyrTEC-D 5 mg-120 mg oral tablet, extended release 1 tablet, By Mouth, 2 times a day, # 180 tablet, 1 Refills, Maintenance, 12/25/23 14:07:00 EDT, ER Tablet, [facility], 1 tablet [...] oldest [Reference Range]: 1 Height 160 cm (08/11/23 1:30 PM) Weight 55.3 kg (08/11/23 1:30 PM) Body Mass Index [18.5-24.99 kg/m2] 21.6 kg/m2 (08/11/23 1:30 PM) Blood Pressure [90-138/55-84 mm Hg] 108/ 70mm Hg (08/11/23 1:30 PM) Blood pressure sites Arm, right (08/11/23 1:30 PM) Weight Obtained Via Standing scale (08/11/23 1:30 PM) Social History Social History Type Response Smoking Status Never smoker entered on: 04/21/15 Sex Patient Care team information Care Team Personnel Name: Gian Andrade MD Position: [facility] Physician - Primary Care Member Role: PCP Address: Address: [address] [place] [address]- Name: Delfino Barber RN Position: [facility] RN Member Role: Primary Care Nurse Care Team Related Persons Name: VERONICA ANDREWS Address: home [address] [place] [address] Name: KEY OVALLE Address: [address] [place] [address] Name: ALCON BAIG Address: [address] [address]
--- OUTSIDE RECORDS SUMMARY | 2024-05-10 09:38 | XMS_ITS | Continuity of Care Document ---
Author Organization [facility] Address [address] [place] [address]- Care Team Providers Care Nursing Executive Name Role Phone Gian Andrade MD Primary Care Physician Encounter [facility] Date(s): 11/04/21 - 12/04/21 [facility] [address] [place] [address]- Allergies, Adverse Reactions, Alerts Substance Reaction Severity [...] to Pharmacy Electronically, [facility]/pharmacy #5, 160, cm, 02/07/20 10:53:00 EDT, Height, 49.9, kg, 02/07/20 10:5... Start Date: 01/14/21 Status: Ordered fluticasone 50 mcg/inh nasal spray 1 sprays, Nares, Both, 2 times a day, For post nasal drip, # 3 each, 1 Refills, Maintenance, 11/05/21 10:04:00 EST, [place], [facility], Partial fill upon patient request if the prescription is for a schedule II opioid drug., 1 sprays... Start Date: 11/05/21 Status: Ordered ibuprofen 800 mg oral tablet 1, tablet, By Mouth, 3 times a day, # 270 tablet, Refills 1, Tot. Refills 1, Maintenance, 04/21/21 8:59:00 EDT, Route to Pharmacy Electronically, [facility], 160, cm, 01/22/21 13:16:00 EDT, [...]
--- OUTSIDE RECORDS SUMMARY | 2024-05-10 09:38 | XMS_ITS | Continuity of Care Document ---
Author Organization [facility] Address [address] [place] [address]- Care Team Providers Care Plant Technical Specialist Name Role Phone Gian Andrade MD Primary Care Physician En[place] [facility] Date(s): 04/02/20 - 05/02/20 [facility] [address] [place] [address]- [facility] Allergies, Adverse Reactions, Alerts Substance Reaction Severity [...] Mouth, 2 times a day, masspat checked 04/15/2020 may fill for less, # 56 tablet,0 Refills, Maintenance, 04/15/20 12:22:00 EDT, Tablet, [facility]/pharmacy #2024, last rx ., 1 tablet By Mouth 2 times a day,x28 days,Instr:masspat ch... Start Date: 04/15/20 Stop Date: 05/13/20 Status: Ordered busPIRone 10 mg oral tablet See Instructions, TAKE 1 TABLET BY MOUTH TWICE A DAY, # 180 tablet, Refills 3, Tot. Refills 3, SoftStop, 07/06/19 14:25:16 EDT, Instructions Replace Required Details, Route to Pharmacy Electronically, [id number], [facility] Start Date: 07/06/19 Status: Ordered cyclobenzaprine 10 mg oral tablet 10 mg, 1, tablet, By Mouth, 2 times a day, PRN, # 30 tablet, Refills 1, Tot. Refills 1, Maintenance, for spasm, 01/14/21 9:27:00 EDT, Route to Pharmacy Electronically, [facility]/pharmacy #2024, 160, cm, 02/07/20 10:53:00 EDT, [...] times a day, PRN Anxiety, Masspat checked 04/15/2020 May fill for less, # 60 tablet, 0 Refills, Maintenance, 04/15/20 12:22:00 EDT, Tablet, [facility]/pharmacy #2024, increasingdose, 160, cm, 03/05/20 9:49:00 EDT, Height, 49.9,... Start Date: 04/15/20 Status: Ordered omeprazole 20 mg oral enteric [...] tablet, 1 Refills, Maintenance, 03/13/20 16:39:00EDT, Tablet, [facility]/pharmacy #202, 160, cm, 03/05/20 9:49:00 EDT, Height, 49.9, kg, 02/07/20 10:53:00EDT, Dry Weight Start Date: 03/13/20 Status: Ordered Plaquenil = 200 mg, By Mouth, Daily, 0 Refills, Maintenance, 10/11/16 10:18:04 Start Date: 10/11/16 Status: Ordered ZyrTEC-D 5 mg-120 mg oral tablet, extended release 1 tablet, By Mouth, 2 times a day, # 180 tablet, 1 Refills, Maintenance, 03/13/20 15:14:00 EDT, ER Tablet, [facility]/pharmacy #202, 1 tablet By Mouth 2 [...]
--- OUTSIDE RECORDS SUMMARY | 2024-05-10 09:38 | XMS_ITS | Continuity of Care Document ---
Author Organization [facility] Address [address] [place] [address]- Care Team Providers Care Education Intern Name Role Phone Lupe EL, Gian Lincoln Primary Care Physician [place] [facility] 09/07/23 - 10/07/23 [facility] [address] [place], [place] [address] Allergies, Adverse Reactions, Alerts Substance Reaction [...] 0 Refills, Maintenance, 09/29/23 22:15:00 EST, Tablet, [facility]/pharmacy #2025, Ok to fill early, [...] 06/28/23 14:05:00 EDT, Route to Pharmacy Electronically, [facility]/pharmacy #2024, 160, cm, 05/25/23 16:00:00... [...] each, 1 Refills, Maintenance, 11/05/21 10:04:00 EST, [place], [facility], Partial fill upon [...] Stop, 12/16/21 11:06:00 EDT, [facility]/pharmacy #2025, Partial fill upon patient [...] 09/23/23 13:04:00 EST, Route to Pharmacy Electronically, [facility]/pharmacy #2025, Partial fill upon patient [...] Refills, Maintenance, 12/25/23 14:07:00 EDT, ER Tablet, [facility]/pharmacy #2025, 1 tablet [...] Team Personnel Name: Gian Andrade MD Position: [facility] Physician - Primary Care Member Role: PCP Address: Address: [address] [place] [address] Name: Delfino Barber RN Position: [facility] RN Member Role: Primary Care Nurse Care Team Related Persons Name: VERONICA ANDREWS Address: [address] [place] [address] Name: KEY OVALLE Address: [address] [place] [address] Name: ALCON BAIG Address: [address] [place] [address]
--- OUTSIDE RECORDS SUMMARY | 2024-05-10 09:38 | XMS_ITS | Continuity of Care Document ---
Author Organization [facility] Address [address] [place] [address]- Care Team Providers Care Development Technician Name Role Phone Gian Andrade MD Primary Care Physician En[place] [facility] [place] Date(s): 03/13/20 - 04/12/20 [facility] [address] [place] [address]- [facility] Allergies, Adverse Reactions, Alerts [...] 0 Refills, Maintenance, 03/11/20 8:51:00 EDT, Tablet, [facility]/pharmacy #2024, last rx ., 1 tablet By Mouth 2 times a day,x28 days,Instr:masspat ch... Start Date: 03/11/20 Stop Date: 04/08/20 Status: Ordered busPIRone 10 mg oral tablet See Instructions, TAKE 1 TABLET BY MOUTH TWICE A DAY, # 180 tablet, Refills 3, Tot. Refills 3, SoftStop, 07/06/19 14:25:16 EDT, Instructions Replace Required Details, Route to Pharmacy Electronically, [id number], [facility] Start Date: 07/06/19 Status: Ordered cyclobenzaprine 10 mg oral tablet 10 mg, 1, tablet, By Mouth, 2 times a day, PRN, # 30 tablet, Refills 1, Tot. Refills 1, Maintenance, for spasm, 01/14/21 9:27:00 EDT, Route to Pharmacy Electronically, [facility]/pharmacy #2024, 160, cm, 02/07/20 10:53:00 EDT, Height, 49.9, kg, 02/07/20 10:5... Start Date: 01/14/21 Status: Ordered cyclobenzaprine 10 mg oral tablet 10 mg, 1, tablet, By Mouth, 2 times a day, PRN, # 30 tablet, Refills 1, Tot. Refills 1, Acute 01/14/21 9:27:00 EDT, for spasm, 01/15/20 9:27:00 EDT, Route to Pharmacy Electronically, [facility]/pharmacy #2024, 160, cm, 01/09/20 9:04:00 EDT, Height Start Date: 01/15/20 Stop Date: 01/14/21 Status: Ordered KlonoPIN 0.5 mg oral tablet 1 tablet = 0.5 mg, By Mouth, 2 times a day, PRN Anxiety, Masspat checked May fill for less, # 60 tablet, 0 Refills, Maintenance, 03/13/20 15:52:00 EDT, Tablet, [facility]/pharmacy #2024, increasing dose, 160, cm, 03/05/20 9:49:00 [...]
--- OUTSIDE RECORDS SUMMARY | 2024-05-10 09:38 | XMS_ITS | Continuity of Care Document ---
Author Organization [facility] Address [address] [place] [address]- Care Team Providers Care Development Mechanic Name Role Phone Gian Andrade MD Primary Care Physician Encounter [facility] [place] Date(s): 11/09/23 - 12/09/23 [facility] [address] [place] [address]- Attending Physician: Admtr, Madi8 Admitting Physician: Admtr, Ar8 Referring Physician: Admtr, Ar8 Allergies, Adverse Reactions, Alerts Substance Reaction Severity Status lidocaine-prilocaine topical Eruption Active Latex Active Percocet 5325 Active Immunizations Given [...] 0 Refills, Maintenance, 12/01/23 14:33:00 EDT, Tablet, [facility]/pharmacy #2024, Ok to fill early, [...] 11/09/23 9:24:00 EST, Route to Pharmacy Electronically, [facility]/pharmacy #2024, 158, cm, 09/23/23 12:44:00... Start Date: [...] each, 1 Refills, Maintenance, 11/05/21 10:04:00 EST, [place], [facility], Partial fill upon [...] Stop, 12/16/21 11:06:00 EDT, [facility]/pharmacy #2024, Partial fill upon patient [...] each, 0 Refills, Maintenance, 11/25/23 17:27:00 EDT, [facility]/pharmacy #2025, Partial fill upon higinio... Start Date: 11/25/23 Status: Ordered propranolol 10 mg oral tablet 10 mg, 1, tablet, By Mouth, 3 times a day, # 90 tablet, Refills 3, Tot. Refills 3, Maintenance, 11/09/23 9:56:00 EST, Route to [facility], [facility], Partial fill upon patient request [...] Personnel Name: Lupe EL, Gian Lincoln Position: [facility] Physician - Primary Care Member Role: PCP Address: Address: [address] [place] [address]- Name: Delfino Barber RN Position: [facility] RN Member Role: Primary Care Nurse Care Team Related Persons Name: VERONICA ANDREWS Address: [address] [place] [address] Name: KEY OVALLE Address: [address] [place] [address] Name: ALCON BAIG Address: [address] [place] [address]
--- OUTSIDE RECORDS SUMMARY | 2024-05-10 09:38 | XMS_ITS | Continuity of Care Document ---
Author Organization [facility] Address [address] [place] [address]- Care Team Providers Care Broacher Name Role Phone Gian Andrade MD Primary Care Physician Encounter [facility] Date(s): 11/05/21 - 12/05/21 [facility] [address] [place] [address]- Allergies, Adverse Reactions, Alerts Substance Reaction Severity [...] 01/14/21 9:27:00 EDT, Route to Pharmacy Electronically, [facility]/pharmacy #5, 160, cm, 02/07/20 10:53:00 EDT, Height, 49.9, kg, 02/07/20 10:5... Start Date: 01/14/21 Status: Ordered fluticasone 50 mcg/inh nasal spray 1 sprays, Nares, Both, 2 times a day, For post nasal drip, # 3 each, 1 Refills, Maintenance, 11/05/21 10:04:00 EST, [place], [facility], Partial fill upon patient request if the prescription is for a schedule II opioid drug., 1 sprays... Start Date: 11/05/21 Status: Ordered ibuprofen 800 mg oral tablet 1, tablet, By Mouth, 3 times a day, # 270 tablet, Refills 1, Tot. Refills 1, Maintenance, 04/21/21 8:59:00 EDT, Route to Pharmacy Electronically, [facility], 160, cm, 01/22/21 13:16:00 EDT, [...]
--- OUTSIDE RECORDS SUMMARY | 2024-05-10 09:38 | XMS_ITS | Continuity of Care Document ---
Author Organization [facility] Address [address] [place] [address]- Care Team Providers Care Clay Products Glazer Name Role Phone Gian Andrade MD Primary Care Physician En[place] [facility] [place] Date(s): 12/31/20 - 01/30/21 [facility] [address] [place] [address]- Allergies, Adverse Reactions, Alerts Substance Reaction Severity [...] 0 Refills, Maintenance, 12/17/20 15:58:00 EDT, Tablet, [facility]/pharmacy #2024, 1 tablet By [...] 01/14/21 9:27:00 EDT, Route to Pharmacy Electronically, [facility]/pharmacy #2024, 160, cm, 02/07/20 10:53:00 EDT, Height, 49.9, kg, 02/07/20 10:5... Start Date: 01/14/21 Status: Ordered KlonoPIN 0.5 mg oral tablet 1 tablet = 0.5 mg, By Mouth, 2 times a day, PRN Anxiety, Masspat checked May fill for less, # 60 tablet, 1 Refills, Maintenance, 11/21/20 12:12:00 EST, Tablet, [facility]/pharmacy #202, increasing dose, 160, cm, 07/30/20 9:37:00 [...]
--- OUTSIDE RECORDS SUMMARY | 2024-05-10 09:38 | XMS_ITS | Continuity of Care Document ---
Author Organization [facility] Address [address] [place] [address]- Care Team Providers Care Salesperson Women'S Hats Name Role Phone Gian Andrade MD Primary Care Physician Encounter [place] Date(s): 05/05/21 - 05/12/21 [facility] [address] [place] [address]- Encounter Diagnosis Fatigue(Discharge Diagnosis) - 05/05/21 Abdominal distension(Discharge Diagnosis) - 05/05/21 Attending Physician: Gian Andrade MD Allergies, Adverse [...] Maintenance, 12/11/19 9:37:00 EDT, Powder, [facility]/pharmacy #2024, 2 puffs Inhalation Every 4 hours,PRN:Wheezing/Shortness of Breath, 160, cm, 10/31/19 10:52:00 EST... Start Date: 12/11/19 Status: Ordered amphetamine-dextroamphetamine 20 mg oral tablet 1 tablet = 20 mg, By Mouth, 2 times a day, masspat checked may fill for less, # 56 tablet, 0 Refills, Maintenance, 03/18/21 7:46:00 EDT, Tablet, [facility]/pharmacy #2024, 1 tablet By Mouth 2 times a day,x28 days,Instr:masspat checked ; may fill for less,... Start Date: 03/18/21 Stop Date: 04/15/21 Status: Ordered busPIRone 10 mg oral tablet 10 mg, 1, tablet, By Mouth, 2 times a day, # 180 tablet, Refills 1, Tot. Refills 1, Soft Stop, 12/25/20 11:32:00 EDT, Route to Pharmacy Electronically, [facility], 160, cm, 07/30/20 9:37:00 EST, [...] tablet, 1 Refills, Maintenance, 03/23/21 15:52:00EDT, Tablet, [facility]/pharmacy #2025, 160, cm, 01/22/21 13:16:00 EDT, [...] Effective Dates Health Status Clinical Service Informant Fatigue Discharge Diagnosis 05/05/21 Abdominal distension Discharge Diagnosis 05/05/21 Vital Signs Most recent to oldest [Reference Range]: 1 Height 160 cm (05/05/21 9:30 AM) Social History Social History Type Response Smoking Status Never smoker entered on: 04/21/15 Sex
--- OUTSIDE RECORDS SUMMARY | 2024-05-10 09:38 | XMS_ITS | Continuity of Care Document ---
Author Organization [facility] Address [address] [place] [address]- Care Team Providers Care Party Director Name Role Phone Gian Andrade MD Primary Care Physician Encounter [facility] [place] Date(s): 12/31/20 - 01/30/21 [facility] [address] [place] [address]- Allergies, Adverse Reactions, Alerts Substance Reaction Severity [...] 11/21/20 12:12:00 EST, Tablet, [facility]/pharmacy #202, increasing dose, 160, cm, [...]
--- OUTSIDE RECORDS SUMMARY | 2024-05-10 09:38 | XMS_ITS | Continuity of Care Document ---
Author Organization [facility] Address [address] [place] [address]- Care Team Providers Care President & Ceo [employer] Name Role Phone Gian Andrade MD Primary Care Physician Encounter [facility] [place] Date(s): 02/08/22 - 03/10/22 [facility] [address] [place] [address]- Allergies, Adverse Reactions, Alerts Substance Reaction Severity [...] 14:38:00 EST, Route to Pharmacy Electronically, [facility], 160, cm, 10/12/21 10:40:00 EST, Height, 60, kg, 05/29/21 10:55:00 ED... Start Date: 11/02/21 Status: Ordered cyclobenzaprine 10 mg oral tablet 10 mg, 1, tablet, By Mouth, 2 times a day, PRN, # 30 tablet, Refills 1, Tot. Refills 1, Maintenance, for spasm, 01/14/21 9:27:00 EDT, Route to Pharmacy Electronically, [facility]/pharmacy #2025, 160, cm, 02/07/20 10:53:00 EDT, Height, 49.9, kg, 02/07/20 10:5... Start Date: 01/14/21 Status: Ordered fluticasone 50 mcg/inh nasal spray 1 sprays, Nares, Both, 2 times a day, For post nasal drip, # 3 each, 1 Refills, Maintenance, 11/05/21 10:04:00 EST, [place], [facility], Partial fill upon patient request if the prescription is for a schedule II opioid drug., 1 sprays... Start Date: 11/05/21 Status: Ordered ibuprofen 800 mg oral tablet 1, tablet, By Mouth, 3 times a day, # 270 tablet, Refills 1, Tot. Refills 1, Maintenance, 04/21/21 8:59:00 EDT, Route to Pharmacy Electronically, [facility], 160, cm, 01/22/21 13:16:00 EDT, [...] Refills, Soft Stop, 12/16/21 11:06:00 EDT, [facility], Partial fill upon patient request if the [...]
--- OUTSIDE RECORDS SUMMARY | 2024-05-10 09:38 | XMS_ITS | Continuity of Care Document ---
Author Organization [facility] Address [address] [place] [address]- Care Team Providers Care Measurement Coordinator Name Role Phone Gian Andrade MD Primary Care Physician [place] [facility] [place]/23 - 07/29/23 [facility] [address] [place] [address]- Allergies, Adverse Reactions, Alerts Substance Reaction Severity [...] 0 Refills, Maintenance, 07/22/23 12:46:00 EST, Tablet, [facility]/pharmacy #2025, Ok to fill early, [...] 06/28/23 14:05:00 EDT, Route to Pharmacy Electronically, [facility]/pharmacy #2025, 160, cm, 05/25/23 16:00:00... Start [...] each, 1 Refills, Maintenance, 11/05/21 10:04:00 EST, [place], [facility], Partial fill upon [...] 08/27/23 15:43:00 EST, 06/28/23 15:43:00 EDT, Tablet, [facility]/pharmacy #2024, increasing dose, 160, cm, 05/25/23 1... Start Date: 06/28/23 Stop Date: 08/27/23 Status: Ordered KlonoPIN 0.5 mg oral tablet 1 tablet = 0.5 mg, By Mouth, 2 times a day, PRN Anxiety, for 30 days, Masspat checked May fill for less, # 60 tablet, 1 Refills, Hard Stop 08/29/23 14:42:00 EST, 06/30/23 14:42:00 EDT, Tablet, [facility]/pharmacy #2024, increasing dose, 160, cm, 06/30/23 1... Start Date: 06/30/23 Stop Date: 08/29/23 Status: Ordered meclizine 25 mg oral tablet 1 tablet = 25 mg, By Mouth, Daily at bedtime, PRN Other, take one tab po qhs prn moderate vertigo, # 8 tablet, 1 Refills, Soft Stop, 12/16/21 11:06:00 EDT, [facility]/pharmacy #2024, Partial fill upon patient [...] 14:07:00 EDT, 06/28/23 14:07:00 EDT, ER Tablet, [facility]/pharmacy #2025, 160, cm, 05/25/23 16:00:00 EDT, [...] Gian Andrade MD Position: [facility] Physician - Primary Care Member Role: PCP Address: Address: [address] [place] [address]- Name: Elisabeth CHENEY, Delfino Position: [facility] RN Member Role: Primary Care Nurse Care Team Related Persons Name: VERONICA ANDREWS Address: [address] [place] [address] Name: KEY OVALLE Address: [address] [place] [address] Name: ALCON BAIG Address: [address] [place] [address]
--- OUTSIDE RECORDS SUMMARY | 2024-05-10 09:38 | XMS_ITS | Continuity of Care Document ---
Author Organization [facility] Address [address] [place] [address]- Care Team Providers Care Set Up And Lay Out Inspector Name Role Phone Gian Andrade MD Primary Care Physician En[facility] [place] [place] Date(s): 08/25/22 - 09/24/22 [facility] [address] [place] [address]- Allergies, Adverse Reactions, Alerts Substance Reaction Severity [...] 0 Refills, Maintenance, 08/27/22 12:40:00 EST, Tablet, [facility]/pharmacy #2025, 1 tablet By Mouth 2 times a day,x90 days,Instr:masspat checked ; may fill for less... Start Date: 08/27/22 Stop Date: 11/25/22 Status: Ordered amphetamine-dextroamphetamine 20 mg oral tablet 1 tablet = 20 mg, By Mouth, 2 times a day, masspat checked may fill for less, # 180 tablet, 0 Refills, Maintenance, 09/24/22 17:21:00 EST, Tablet, [facility]/pharmacy [...] 08/30/22 13:33:00 EST, Route to Pharmacy Electronically, [facility]/pharmacy #2025, 160, cm, 01/07/22 9:42:00 EDT, Height, 60, kg, 05/29/21 10:55:... Start Date: 08/30/22 Status: Ordered fluticasone 50 mcg/inh nasal spray 1 sprays, Nares, Both, 2 times a day, For post nasal drip, # 3 each, 1 Refills, Maintenance, 11/05/21 10:04:00 EST, [place], [facility], Partial fill upon [...] 1 Refills, Soft Stop, 12/16/21 11:06:00 EDT, [facility]/pharmacy #2024, Partial fill upon patient request [...] Team Personnel Name: Gian Andrade MD Position: [facility] Primary Care Physician Member Role: PCP Address: [facility] [place] [address]- Name: Delfino Barber Position: [facility] RN Member Role: Primary Care Nurse Care Team Related Persons Name: ALCON BAIG Address: home [address] [place] [id number]
--- OUTSIDE RECORDS SUMMARY | 2024-05-10 09:39 | XMS_ITS | Continuity of Care Document ---
Author Organization [facility] Address [address] [place] [address]- Care Team Providers Care Apprentice Plumber Name Role Phone Lupe EL, Gian Lincoln Primary Care Physician Encounter [facility] [place] Date(s): 03/28/24 - 03/28/[address] [address]- Discharge Disposition: A-D/C Home Attending Physician: Azam Day MD Admitting Physician: Azam Day MD Referring Physician: Azam Day MD Allergies, Adverse Reactions, Alerts Substance Reaction [...] 0 Refills, Maintenance, 03/02/24 7:01:00 EDT, Tablet, [facility]/pharmacy #2025, Ok to fill early, Masspat checked , Patient may fill for less, 1 tablet By Mouth 2 times... Start Date: 03/02/24 Stop Date: 03/30/24 Status: Ordered clonazePAM 0.5 mg oral tablet 1 tablet = 0.5 mg, By Mouth, 2 times a day, PRN Anxiety, # 60 tablet, 1 Refills, Maintenance, 12/27/23 14:42:00 EDT, Tablet, [facility]/pharmacy #202, Partial fill upon patient request if the prescription is for a schedule II opioid drug., 158, cm, 11/22/23... Start Date: 12/27/23 Status: Ordered cyclobenzaprine 10 mg oral tablet 1, tablet, By Mouth, 2 times a day, PRN, # 30 tablet, Refills 1, Maintenance, NEEDED FOR SPASMS,FOR, 01/24/24 8:14:00 EDT, Route to Pharmacy Electronically, [id number], 158, cm, 01/03/24 14:54:00 EDT, Height, 56.3, [...] each, 1 Refills, Maintenance, 11/05/21 10:04:00 EST, [place], [facility], Partial fill upon patient request if the prescription is for a schedule II opioid drug., 1 sprays... Start Date: 11/05/21 Status: Ordered gabapentin 300 mg oral capsule 300 mg, 1, capsule, By Mouth, Daily at bedtime, # 30 capsule, Refills 0, Tot. Refills 0, Maintenance, 02/15/24 16:16:00 EDT, Route to Pharmacy Electronically, [facility]/pharmacy #2025, Partial fill upon patient request if the prescription is for a schedule... Start Date: 02/15/24 Status: Ordered meclizine 25 mg oral tablet 1 tablet = 25 mg, By Mouth, Daily at bedtime, PRN Other, take one tab po qhs prn moderate vertigo, # 8 tablet, 1 Refills, Soft Stop, 12/16/21 11:06:00 EDT, [facility]/pharmacy #2025, Partial fill upon patient request [...] 02/07/24 8:11:00 EDT, Route to Pharmacy Electronically, [facility] [id number], 158, cm, 01/03/24 14:54:00 EDT, Height, 56.3, [...] recent to oldest [Reference Range]: 1 2 3 Height 160 cm (03/28/24 10:28 AM) Oxygen Saturation [94-100 %] 100 % (03/28/24 12:40 PM) 100 % (03/28/24 12:31 PM) 100 % (03/28/24 12:26 PM) Pulse Rate [55-90 bpm] 70 bpm (03/28/24 10:28 AM) Blood Pressure [90-138/55-84 mm Hg] 120/74mm Hg (03/28/24 12:40 PM) 104/78mm Hg (03/28/24 12:31 PM) 101/77mm Hg (03/28/24 12:26 PM) Respiratory Rate [16-30 br/min] 15 br/min *L* (03/28/24 12:40 PM) 15 br/min *L* (03/28/24 12:31 PM) 14 br/min *L* (03/28/24 12:26 PM) Temperature [96.8-100.4 DegF] 97.8 DegF (03/28/24 10:28 AM) Mode of Delivery (Oxygen) Room air (03/28/24 12:16 PM) Room air (03/28/24 10:28 AM) Blood pressure sites Arm, left (03/28/24 12:16 PM) Arm, left (03/28/24 10:28 AM) Temperature Route Temporal (03/28/24 10:28 AM) Dry Weight 52.7 kg (03/28/24 10:28 AM) Dry Weight Obtained Via Standing scale (03/28/24 10:28 AM) Social History Social History Type Response Smoking Status Never smoker entered on: 04/21/15 Sex Patient Care team information Care Team Personnel Name: Lupe EL, Gian Lincoln Position: S Physician - Primary Care Member Role: PCP Address: Address: [address] [place] [address] Name: Elisabeth CHENEY, Delfino Position: [facility] RN Member Role: Primary Care Nurse Care Team Related Persons Name: VERONICA ANDREWS Address: [address] [place] [address] Name: KEY OVALLE Address: [address] [place] [address] Name: ALCON BAIG Address: [address] [place] [address]
--- OUTSIDE RECORDS SUMMARY | 2024-05-10 09:39 | XMS_ITS | Continuity of Care Document ---
Author Organization [facility] Address [address] [place] [address]- Care Team Providers Care Fence Laborer Name Role Phone Lupe EL, Gian Lincoln Primary Care Physician Encounter [facility] Date(s): 07/31/20 - 08/30/20 [facility] [address] [place] [address]- Allergies, Adverse Reactions, Alerts Substance Reaction Severity [...] 0 Refills, Maintenance, 08/28/20 14:11:00 EST, Tablet, [facility]/pharmacy #2024, 1 tablet By Mouth 2 times a day,x28 days,Instr:masspat checked 08/27/2020... Start Date: 08/28/20 Stop Date: 09/25/20 Status: Ordered busPIRone 10 mg oral tablet See Instructions, TAKE 1 TABLET BY MOUTH TWICE A DAY, # 180 tablet, Refills 3, Tot. Refills 3, SoftStop, 07/06/19 14:25:16 EDT, Instructions Replace Required Details, Route to Pharmacy Electronically, [id number], [facility] Start Date: 07/06/19 Status: Ordered cyclobenzaprine [...] [facility], increasing dose, 11/25/20, 160, cm, 07/30/20 9:37:00 EST, H... Start Date: 08/01/20 Status: Ordered omeprazole 20 mg oral enteric coated capsule 1 capsule = 20 mg, By Mouth, Daily, # 90 capsule, 1 Refills, Maintenance, 12/10/19 14:55:00 EDT, ECCapsule, [facility]/pharmacy #2025, aware of celexa, 160, cm, 10/31/19 10:52:00 EST, Height Start Date: 12/10/19 Status: Ordered ondansetron 4 mg oral tablet, disintegrating = 4 mg, By Mouth, 3 times a day, PRN Nausea, # 60 tablet, 1 Refills, Maintenance, 03/13/20 16:39:00EDT, Tablet, [facility], 160, cm, 03/05/20 9:49:00 EDT, Height, 49.9, kg, 02/07/20 10:53:00EDT, Dry Weight Start Date: 03/13/20 Status: Ordered Plaquenil = 200 mg, By Mouth, Daily, 0 Refills, Maintenance, 10/11/16 10:18:04 Start Date: 10/11/16 Status: Ordered ZyrTEC-D 5 mg-120 mg oral tablet, extended release 1 tablet, By Mouth, 2 times a day, # 180 tablet, 1 Refills, Maintenance, 03/13/20 15:14:00 EDT, ER Tablet, [facility]/pharmacy #202, 1 tablet By Mouth 2 times [...]
--- OUTSIDE RECORDS SUMMARY | 2024-05-10 09:39 | XMS_ITS | Continuity of Care Document ---
Author Organization [facility] Address [address] [place] [address]- Care Team Providers Care Foundry Molder Name Role Phone Gian Andrade MD Primary Care Physician En[place] [facility] [place] Date(s): 06/12/21 - 07/12/21 [facility] [address] [place] [address]- Attending Physician: Admtr, Ar8 Admitting Physician: Admtr, [...] 1 Refills, Maintenance, 12/11/19 9:37:00 EDT, Powder, [facility]/pharmacy #2025, 2 puffs Inhalation Every 4 hours,PRN:Wheezing/Shortness [...] 12/25/20 11:32:00 EDT, Route to Pharmacy Electronically, [facility], 160, cm, 07/30/20 9:37:00 EST, Height, 49.9, kg, 02/07/20 10:53:00 E... Start Date: 12/25/20 Status: Ordered cyclobenzaprine 10 mg oral tablet 10 mg, 1, tablet, By Mouth, 2 times a day, PRN, # 30 tablet, Refills 1, Tot. Refills 1, Maintenance, for spasm, 01/14/21 9:27:00 EDT, Route to Pharmacy Electronically, [facility]/pharmacy #2024, 160, cm, 02/07/20 10:53:00 EDT, Height, 49.9, kg, 02/07/20 10:5... Start Date: 01/14/21 Status: Ordered ibuprofen 800 mg oral tablet 1, tablet, By Mouth, 3 times a day, # 270 tablet, Refills 1, Tot. Refills 1, Maintenance, 04/21/21 8:59:00 EDT, Route to Pharmacy Electronically, [facility], 160, cm, 01/22/21 13:16:00 EDT, [...]
--- OUTSIDE RECORDS SUMMARY | 2024-05-10 09:39 | XMS_ITS | Continuity of Care Document ---
Author Organization [facility] Address [address] [place] [address]- Care Team Providers Care Intermediate Frame Tender Name Role Phone Lupe EL, Gian Lincoln Primary Care Physician En[place] [facility] [place] Date(s): 05/12/22 - 06/11/22 [facility] [address] [place], [place] [address] Allergies, Adverse Reactions, Alerts Substance Reaction Severity [...] less, # 180 tablet, 0 Refills, Maintenance, 06/09/22 19:57:00 EDT, Tablet, [facility], 1 tablet By Mouth 2 times a day,x90 days,Instr:masspat checked ; january fi... Start Date: 06/09/22 Stop Date: 09/07/22 Status: Ordered busPIRone 10 mg oral tablet 10 mg, 1, tablet, By Mouth, 2 times a day, # 180 tablet, Refills 1, Tot. Refills 1, Soft Stop, 11/02/21 14:38:00 EST, Route to Pharmacy Electronically, [facility], 160, cm, 10/12/21 10:40:00 EST, Height, 60, kg, 05/29/21 10:55:00 ED... Start Date: 11/02/21 Status: Ordered cyclobenzaprine 10 mg oral tablet 10 mg, 1, tablet, By Mouth, 2 times a day, PRN, # 30 tablet, Refills 1, Tot. Refills 1, Maintenance, for spasm, 01/14/21 9:27:00 EDT, Route to Pharmacy Electronically, [facility]/pharmacy #2024, 160, cm, 02/07/20 10:53:00 EDT, Height, 49.9, kg, 02/07/20 10:5... Start Date: 01/14/21 Status: Ordered fluticasone 50 mcg/inh nasal spray 1 sprays, Nares, Both, 2 times a day, For post nasal drip, # 3 each, 1 Refills, Maintenance, 11/05/21 10:04:00 EST, [place], [facility], Partial fill [...] EDT, DJohn.. Start Date: 04/21/21 Status: Ordered KlonoPIN 0.5 [...] on: 04/21/15 Sex Patient Care team information Personnel Name: Lupe EL, Gian Lincoln [facility]: [facility] [place] [address]
--- OUTSIDE RECORDS SUMMARY | 2024-05-10 09:39 | XMS_ITS | Continuity of Care Document ---
Author Organization [facility] Address [address] [place] [address]- Care Team Providers Care Hospitalist Medical Director Name Role Phone Lupe EL, Gian Lincoln Primary Care Physician [place] [facility] [place] 06[place]09/23 - 07/31/23 [facility] [address] [place] [address]- Attending Physician: Odilia Jiménez MD Allergies, Adverse Reactions, Alerts Substance Reaction [...] 11 Refills, Maintenance, 08/10/21 10:44:00 EST, Pow[place], [facility]/pharmacy #202, 2 puffs Inhalation Every 4 hours,PRN:Wheezing/Shortness [...] 0 Refills, Maintenance, 07/22/23 12:46:00 EST, Tablet, [facility]/pharmacy #2025, Ok to fill early, Masspat checked [...] 06/28/23 14:05:00 EDT, Route to Pharmacy Electronically, [facility]/pharmacy #2024, 160, cm, 05/25/23 16:00:00... Start Date: [...] each, 1 Refills, Maintenance, 11/05/21 10:04:00 EST, [place], [facility], Partial fill upon [...] 08/27/23 15:43:00 EST, 06/28/23 15:43:00 EDT, Tablet, [facility]/pharmacy #2024, increasing dose, 160, cm, 05/25/23 1... Start Date: 06/28/23 Stop Date: 08/27/23 Status: Ordered KlonoPIN 0.5 mg oral tablet 1 tablet = 0.5 mg, By Mouth, 2 times a day, PRN Anxiety, for 30 days, Masspat checked May fill for less, # 60 tablet, 1 Refills, Hard Stop 08/29/23 14:42:00 EST, 06/30/23 14:42:00 EDT, Tablet, [facility]/pharmacy #2024, increasing dose, 160, cm, 06/30/23 1... [...] Team Personnel Name: Gian Andrade MD Position: [facility] Physician - Primary Care Member Role: PCP Address: Address: [address] [place] [address]- Name: Delfino Barber RN Position: [facility] RN Member Role: Primary Care Nurse Care Team Related Persons Name: VERONICA ANDREWS Address: [address] [place] [address] Name: KEY OVALLE Address: [address] [place] [address] Name: ALCON BAIG Address: [address] [place] [address]
--- OUTSIDE RECORDS SUMMARY | 2024-05-10 09:39 | XMS_ITS | Continuity of Care Document ---
Author Organization [facility] Address [address] [place] [address]- Care Team Providers Care Funeral Service Apprentice Name Role Phone Gian Andrade MD Primary Care Physician En[place] [facility] [place] Date(s): 03/22/24 - 04/21/24 [facility] [address] [place] [address]- Allergies, Adverse Reactions, Alerts Substance Reaction Severity [...] 0 Refills, Maintenance, 03/30/24 16:39:00 EDT, Tablet, [facility]/pharmacy #2025, Ok to fill early, Masspat checked , Patient may fill for less, 1 tablet By Mouth 2 time... Start Date: 03/30/24 Stop Date: 04/27/24 Status: Ordered clonazePAM 0.5 mg oral tablet 1 tablet = 0.5 mg, By Mouth, 2 times a day, PRN Anxiety, # 60 tablet, 1 Refills, Maintenance, 04/13/24 15:16:00 EDT, Tablet, [facility]/pharmacy #202, Partial fill upon patient request if the prescription is for a schedule II opioid drug., 160, cm, 03/28/24... Start Date: 04/13/24 Status: Ordered cyclobenzaprine 10 mg oral tablet 1, tablet, By Mouth, 2 times a day, PRN, # 30 tablet, Refills 1, Maintenance, NEEDED FOR SPASMS,FOR, 01/24/24 8:14:00 EDT, Route to Pharmacy Electronically, [id number], 158, cm, 01/03/24 14:54:00 EDT, Height, 56.3, [...] each, 1 Refills, Maintenance, 11/05/21 10:04:00 EST, [place], [facility], Partial fill upon patient request if the prescription is for a schedule II opioid drug., 1 sprays... Start Date: 11/05/21 Status: Ordered gabapentin 300 mg oral capsule 300 mg, 1, capsule, By Mouth, Daily at bedtime, # 30 capsule, Refills 0, Tot. Refills 0, Maintenance, 02/15/24 16:16:00 EDT, Route to Pharmacy Electronically, [facility]/pharmacy #2024, Partial fill upon patient request if the prescription is for a schedule... Start Date: 02/15/24 Status: Ordered meclizine 25 mg oral tablet 1 tablet = 25 mg, By Mouth, Daily at bedtime, PRN Other, take one tab po qhs prn moderate vertigo, # 8 tablet, 1 Refills, Soft Stop, 12/16/21 11:06:00 EDT, [facility]/pharmacy #2025, Partial fill upon patient request if [...] 02/07/24 8:11:00 EDT, Route to Pharmacy Electronically, [facility] [id number], 158, cm, 01/03/24 14:54:00 EDT, Height, 56.3, [...] Name: Gian Andrade MD Position: [facility] Physician - Primary Care Member Role: PCP Address: Address: [address] [place] [id number] Name: Delfino Barber RN Position: [facility] RN Member Role: Primary Care Nurse Care Team Related Persons Name: VERONICA ANDREWS Address: [address] [place] [address] Name: KEY OVALLE Address: [address] [place], [place] Name: ALCON BAIG Address: [address] [address]
--- OUTSIDE RECORDS SUMMARY | 2024-05-10 09:39 | XMS_ITS | Continuity of Care Document ---
Author Organization [facility] Address [address] [place] [address]- Care Team Providers Care Flow Manager Name Role Phone Gian Andrade MD Primary Care Physician Encounter [facility] Date(s): 02/16/22 - 03/18/22 [facility] [address] [place] [address]- Allergies, Adverse Reactions, Alerts Substance Reaction Severity [...] 14:38:00 EST, Route to Pharmacy Electronically, [facility], 160, cm, 10/12/21 10:40:00 EST, Height, 60, kg, 05/29/21 10:55:00 ED... Start Date: 11/02/21 Status: Ordered cyclobenzaprine 10 mg oral tablet 10 mg, 1, tablet, By Mouth, 2 times a day, PRN, # 30 tablet, Refills 1, Tot. Refills 1, Maintenance, for spasm, 01/14/21 9:27:00 EDT, Route to Pharmacy Electronically, [facility]/pharmacy #2025, 160, cm, 02/07/20 10:53:00 EDT, Height, 49.9, kg, 02/07/20 10:5... Start Date: 01/14/21 Status: Ordered fluticasone 50 mcg/inh nasal spray 1 sprays, Nares, Both, 2 times a day, For post nasal drip, # 3 each, 1 Refills, Maintenance, 11/05/21 10:04:00 EST, [place], [facility], Partial fill upon patient request if the prescription is for a schedule II opioid drug., 1 sprays... Start Date: 11/05/21 Status: Ordered ibuprofen 800 mg oral tablet 1, tablet, By Mouth, 3 times a day, # 270 tablet, Refills 1, Tot. Refills 1, Maintenance, 04/21/21 8:59:00 EDT, Route to Pharmacy Electronically, [facility], 160, cm, 01/22/21 13:16:00 EDT, [...]
--- OUTSIDE RECORDS SUMMARY | 2024-05-10 09:39 | XMS_ITS | Continuity of Care Document ---
Author Organization [facility] Address [address] [place] [address]- Care Team Providers Care Seo Engineer Name Role Phone Gian Andrade MD Primary Care Physician Encounter [facility] Date(s): 07/29/20 - 08/28/20 [facility] [address] [place] [address]- Allergies, Adverse Reactions, Alerts Substance Reaction Severity [...] 0 Refills, Maintenance, 08/28/20 14:11:00 EST, Tablet, [facility]/pharmacy #2024, 1 tablet By Mouth 2 times a day,x28 days,Instr:masspat checked 08/27/2020... Start Date: 08/28/20 Stop Date: 09/25/20 Status: Ordered busPIRone 10 mg oral tablet See Instructions, TAKE 1 TABLET BY MOUTH TWICE A DAY, # 180 tablet, Refills 3, Tot. Refills 3, SoftStop, 07/06/19 14:25:16 EDT, Instructions Replace Required Details, Route to Pharmacy Electronically, [id number], [facility] Start Date: 07/06/19 Status: Ordered cyclobenzaprine [...] 01/15/20 9:27:00 EDT, Route to Pharmacy Electronically, [facility]/pharmacy #2024, 160, cm, 01/09/20 9:04:00 EDT, Height Start Date: 01/15/20 Stop Date: 01/14/21 Status: Ordered KlonoPIN 0.5 mg oral tablet 1 tablet = 0.5 mg, By Mouth, 2 times a day, PRN Anxiety, Masspat checked 08/01/2020 May fill for less, # 60 tablet, 1 Refills, Maintenance, 08/01/20 15:29:00 EST, Tablet, [facility]/pharmacy #2024, increasing dose, 08/06/20, 160, cm, 07/30/20 9:37:00 EST, H... Start Date: 08/01/20 Status: Ordered omeprazole 20 mg oral enteric coated capsule 1 capsule = 20 mg, By Mouth, Daily, # 90 capsule, 1 Refills, Maintenance, 12/10/19 14:55:00 EDT, ECCapsule, [facility]/pharmacy #202, aware of celexa, 160, cm, 10/31/19 10:52:00 EST, Height Start Date: 12/10/19 Status: Ordered ondansetron 4 mg oral tablet, disintegrating = 4 mg, By Mouth, 3 times a day, PRN Nausea, # 60 tablet, 1 Refills, Maintenance, 03/13/20 16:39:00EDT, Tablet, [facility]/pharmacy #202, 160, cm, 03/05/20 9:49:00 EDT, Height, 49.9, kg, 02/07/20 10:53:00EDT, Dry Weight Start Date: 03/13/20 Status: Ordered Plaquenil = 200 mg, By Mouth, Daily, 0 Refills, Maintenance, 10/11/16 10:18:04 Start Date: 10/11/16 Status: Ordered ZyrTEC-D 5 mg-120 mg oral tablet, extended release 1 tablet, By Mouth, 2 times a day, # 180 tablet, 1 Refills, Maintenance, 03/13/20 15:14:00 EDT, ER Tablet, [facility]/pharmacy #2024, 1 [...]
--- OUTSIDE RECORDS SUMMARY | 2024-05-10 09:39 | XMS_ITS | Continuity of Care Document ---
Author Organization [facility] Address [address] [place] [address]- Care Team Providers Care Manager Film Name Role Phone Gian Andrade MD Primary Care Physician Encounter [facility] Date(s): 09/09/20 - 10/09/[address] [address]- Attending Physician: Admtr, Percy Admitting Physician: Admtr, Ar8 Referring Physician: Admtr, [...] 0 Refills, Maintenance, 10/03/20 16:38:00 EST, Tablet, [facility]/pharmacy #5, 1 tablet By Mouth 2 times a day,x28 days,Instr:masspat checked 10/03/2020;... Start Date: 10/03/20 Stop Date: 10/31/20 Status: Ordered busPIRone 10 mg oral tablet 10 mg, 1, tablet, By Mouth, 2 times a day, # 180 tablet, Refills 1, Tot. Refills 1, Soft Stop, 09/02/20 8:17:00 EST, Route to Pharmacy Electronically, [facility]/pharmacy #2024, 160, cm, 07/30/20 9:37:00 EST, [...] Electronically, [facility]/pharmacy #2024, 160, cm, 01/09/20 9:04:00 EDT, Height Start Date: 01/15/20 Stop Date: 01/14/21 Status: Ordered KlonoPIN 0.5 mg oral tablet 1 tablet = 0.5 mg, By Mouth, 2 times a day, PRN Anxiety, Masspat checked 08/01/2020 May fill for less, # 60 tablet, 1 Refills, Maintenance, 08/01/20 15:29:00 EST, Tablet, [facility]/pharmacy #202, increasing dose, 08/06/20, 160, cm, 07/30/20 9:37:00 EST, H... Start Date: 08/01/20 Status: Ordered omeprazole 20 mg oral enteric coated capsule 1 capsule = 20 mg, By Mouth, Daily, # 90 capsule, 0 Refills, Maintenance, 10/06/20 12:13:00 EST, ECCapsule, [facility]/pharmacy #202, aware of celexa, 160, cm, 07/30/20 9:37:00 EST, Height, 49.9, kg, 02/07/20 10:53:00 EDT, Dry Weight Start Date: 10/06/20 Status: Ordered ondansetron 4 mg oral tablet, disintegrating = 4 mg, By Mouth, 3 times a day, PRN Nausea, # 60 tablet, 1 Refills, Maintenance, 03/13/20 16:39:00EDT, Tablet, [facility]/pharmacy #2024, 160, cm, 03/05/20 9:49:00 EDT, [...] Maintenance, 03/13/20 15:14:00 EDT, ER Tablet, [facility]/pharmacy #2024, 1 tablet By Mouth 2 [...]
--- OUTSIDE RECORDS SUMMARY | 2024-05-10 09:39 | XMS_ITS | Continuity of Care Document ---
Author Organization [facility] Address [address] [place] [address]- Care Team Providers Care Molecular Modeler Name Role Phone Gian Andrade MD Primary Care Physician [place] [facility] [place] 07/29/21 - 08/28/21 [facility] [address] [place] [address]- Allergies, Adverse Reactions, Alerts Substance Reaction Severity [...] Pharmacy Electronically, [facility]/pharmacy #2024, 160, cm, 02/07/20 10:53:00 EDT, Height, 49.9, kg, 02/07/20 10:5... Start Date: 01/14/21 Status: Ordered ibuprofen 800 mg oral tablet 1, tablet, By Mouth, 3 times a day, # 270 tablet, Refills 1, Tot. Refills 1, Maintenance, 04/21/21 8:59:00 EDT, Route to Pharmacy Electronically, [facility], 160, cm, 01/22/21 13:16:00 EDT, Height, 54.6, kg, 01/22/21 13:16:00 EDT, D... Start Date: 04/21/21 Status: Ordered KlonoPIN 0.5 mg oral tablet 1 tablet = 0.5 mg, By Mouth, 2 times a day, PRN Anxiety, Masspat checked May fill for less, # 180 tablet, 1 Refills, Maintenance, 07/30/21 16:53:00 EST, Tablet, [facility]/pharmacy #2025, increasing dose, 160, cm, 06/12/21 11:11:00 [...]
--- OUTSIDE RECORDS SUMMARY | 2024-05-10 09:39 | XMS_ITS | Continuity of Care Document ---
Author Organization [facility] Address [address] [place] [address]- Care Team Providers Care Fisher Hand Line Name Role Phone Lupe EL, Gian Lincoln Primary Care Physician Encounter [facility] Date(s): 08/11/23 - 09/10/23 [facility] [address] [place], [place] [address] Attending Physician: Admtr, Ar8 Admitting Physician: [...] 11 Refills, Maintenance, 08/10/21 10:44:00 EST, [place], [facility]/pharmacy #2024, 2 puffs Inhalation Every [...] 0 Refills, Maintenance, 08/09/23 10:59:00 EST, Tablet, [facility]/pharmacy #2024, Ok to fill early, [...] 06/28/23 14:05:00 EDT, Route to Pharmacy Electronically, [facility]/pharmacy #2024, 160, cm, 05/25/23 16:00:00... [...] each, 1 Refills, Maintenance, 11/05/21 10:04:00 EST, [place], [facility], Partial fill upon [...] Refills, Maintenance, 02/11/22 14:20:00 EDT, Tablet, [email or web address], 160, cm, 01/07/22 9:42:00 EDT, [...] Name: Gian Andrade MD Position: [facility] Physician - Primary Care Member Role: PCP Address: Address: [address] [place] [address]- Name: Delfino Barber RN Position: [facility] RN Member Role: Primary Care Nurse Care Team Related Persons Name: VERONICA ANDREWS Address: [address] [place] [address] Name: KEY OVALLE Address: [address] [place] [address] Name: ALCON BAIG Address: [address] [place] [address]
--- OUTSIDE RECORDS SUMMARY | 2024-05-10 09:39 | XMS_ITS | Continuity of Care Document ---
Author Organization [facility] Address [address] [place] [address]- Care Team Providers Care Automotive Tire Technician Name Role Phone Gian Andrade MD Primary Care Physician [place] [facility] [place] - 05/12/20 [facility] [address] [place] [address]- [place] Encounter Diagnosis Concussion(Discharge Diagnosis) - 05/05/20 Dizziness(Discharge Diagnosis) - 05/05/20 Balance disorder(Discharge Diagnosis) - 05/05/20 Attending Physician: Gian Andrade MD Allergies, Adverse [...] tablet,0 Refills, Maintenance, 04/15/20 12:22:00 EDT, Tablet, [facility]/pharmacy #2024, last rx ., 1 tablet By Mouth 2 times a day,x28 days,Instr:masspat ch... Start Date: 04/15/20 Stop Date: 05/13/20 Status: Ordered busPIRone 10 mg oral tablet See Instructions, TAKE 1 TABLET BY MOUTH TWICE A DAY, # 180 tablet, Refills 3, Tot. Refills 3, SoftStop, 07/06/19 14:25:16 EDT, Instructions Replace Required Details, Route to Pharmacy Electronically, [id number], [facility] Start Date: 07/06/19 Status: Ordered cyclobenzaprine 10 mg oral tablet 10 mg, 1, tablet, By Mouth, 2 times a day, PRN, # 30 tablet, Refills 1, Tot. Refills 1, Maintenance, for spasm, 01/14/21 9:27:00 EDT, Route to Pharmacy Electronically, [facility]/pharmacy #2024, 160, cm, 02/07/20 10:53:00 EDT, Height, 49.9, kg, 02/07/20 10:5... Start Date: 01/14/21 Status: Ordered cyclobenzaprine 10 mg oral tablet 10 mg, 1, tablet, By Mouth, 2 times a day, PRN, # 30 tablet, Refills 1, Tot. Refills 1, Acute 01/14/21 9:27:00 EDT, for spasm, 01/15/20 9:27:00 EDT, Route to Pharmacy Electronically, [facility]/pharmacy #2024, 160, cm, 01/09/20 9:04:00 EDT, Height Start Date: 01/15/20 Stop Date: 01/14/21 Status: Ordered KlonoPIN 0.5 mg oral tablet 1 tablet = 0.5 mg, By Mouth, 2 times a day, PRN Anxiety, Masspat checked 04/15/2020 May fill for less, # 60 tablet, 0 Refills, Maintenance, 04/15/20 12:22:00 EDT, Tablet, [facility]/pharmacy #2024, increasingdose, 160, cm, 03/05/20 9:49:00 EDT, Height, 49.9,... Start Date: 04/15/20 Status: Ordered omeprazole 20 mg oral enteric coated capsule 1 capsule = 20 mg, By Mouth, Daily, # 90 capsule, 1 Refills, Maintenance, 12/10/19 14:55:00 EDT, ECCapsule, [facility]/pharmacy #2024, aware of celexa, 160, cm, 10/31/19 10:52:00 EST, Height Start Date: 12/10/19 Status: Ordered ondansetron 4 mg oral tablet, disintegrating = 4 mg, By Mouth, 3 times a day, PRN Nausea, # 60 tablet, 1 Refills, Maintenance, 03/13/20 16:39:00EDT, Tablet, [facility]/pharmacy #2024, 160, cm, 03/05/20 9:49:00 EDT, Height, 49.9, kg, 02/07/20 10:53:00EDT, Dry Weight Start Date: 03/13/20 Status: Ordered Plaquenil = 200 mg, By Mouth, Daily, 0 Refills, Maintenance, 10/11/16 10:18:04 Start Date: 10/11/16 Status: Ordered ZyrTEC-D 5 mg-120 mg oral tablet, extended release 1 tablet, By Mouth, 2 times a day, # 180 tablet, 1 Refills, Maintenance, 03/13/20 15:14:00 EDT, ER Tablet, [facility]/pharmacy #2024, 1 tablet By Mouth 2 [...] Dates Health Status Clinical Service Informant Concussion Discharge Diagnosis 05/05/20 Dizziness Discharge Diagnosis 05/05/20 Balance disorder Discharge Diagnosis 05/05/20 Social History Social History Type Response Smoking Status Never smoker entered on: 04/21/15 Sex
--- OUTSIDE RECORDS SUMMARY | 2024-05-10 09:39 | XMS_ITS | Continuity of Care Document ---
Author Organization [facility] Address [address] [place] [address]- Care Team Providers Care Manager Access Name Role Phone Lupe EL, Gian Lincoln Primary Care Physician [place] [facility] Date(s): 12/14/21 - 01/13/22 [facility] [address] [place], [place] [address] Allergies, Adverse Reactions, Alerts Substance [...] 02/02/22 15:51:00 EDT, 11/04/21 15:51:00 EST, Tablet, [facility]/pharmacy #2024,160, cm, 10/12/21 10:40:00 EST, Height, 60, kg, 0... Start Date: 11/04/21 Stop Date: 02/02/22 Status: Ordered amphetamine-dextroamphetamine 20 mg oral tablet 1 tablet = 20 mg, By Mouth, 2 times a day, masspat checked may fill for less, # 180 tablet, 0 Refills, Maintenance, 12/31/21 14:04:00 EDT, Tablet, [facility]/pharmacy #2024, 1 tablet By Mouth 2 times a day,x90 days,Instr:masspat checked ; may fill for less... Start Date: 12/31/21 Stop Date: 03/31/22 Status: Ordered busPIRone 10 mg oral tablet 10 mg, 1, tablet, By Mouth, 2 times a day, # 180 tablet, Refills 1, Tot. Refills 1, Soft Stop, 11/02/21 14:38:00 EST, Route to Pharmacy Electronically, [facility], 160, cm, 10/12/21 10:40:00 EST, Height, 60, kg, 05/29/21 10:55:00 ED... Start Date: 11/02/21 Status: Ordered cyclobenzaprine 10 mg oral tablet 10 mg, 1, tablet, By Mouth, 2 times a day, PRN, # 30 tablet, Refills 1, Tot. Refills 1, Maintenance, for spasm, 01/14/21 9:27:00 EDT, Route to Pharmacy Electronically, [facility]/pharmacy #2024, 160, cm, 02/07/20 10:53:00 EDT, Height, 49.9, kg, 02/07/20 10:5... Start Date: 01/14/21 Status: Ordered fluticasone 50 mcg/inh nasal spray 1 sprays, Nares, Both, 2 times a day, For post nasal drip, # 3 each, 1 Refills, Maintenance, 11/05/21 10:04:00 EST, [place], [facility], Partial fill upon [...] 05/02/22 14:59:00 EDT, 11/03/21 14:59:00 EST, Tablet, [facility]/pharmacy #2024, increasing dose, 160, cm, 10/12/21... Start [...]
--- OUTSIDE RECORDS SUMMARY | 2024-05-10 09:39 | XMS_ITS | Continuity of Care Document ---
Author Organization [facility] Address [address] [place] [address]- Care Team Providers Care Sales Solutions Representative Name Role Phone Lupe EL, Gian Lincoln Primary Care Physician Encounter [facility] Date(s): 11/11/23 - 12/11/23 [facility] [address] [place], [place] [address] Allergies, Adverse Reactions, Alerts Substance [...] 0 Refills, Maintenance, 12/01/23 14:33:00 EDT, Tablet, [facility]/pharmacy #2025, Ok [...] 11/09/23 9:24:00 EST, Route to Pharmacy Electronically, [facility]/pharmacy #2024, 158, cm, 09/23/23 12:44:00... Start Date: [...] each, 1 Refills, Maintenance, 11/05/21 10:04:00 EST, [place], [facility], Partial fill upon [...] each, 0 Refills, Maintenance, 11/25/23 17:27:00 EDT, [facility]/pharmacy #2025, Partial fill upon higinio... Start Date: 11/25/23 Status: Ordered propranolol 10 mg oral tablet 10 mg, 1, tablet, By Mouth, 3 times a day, # 90 tablet, Refills 3, Tot. Refills 3, Maintenance, 11/09/23 9:56:00 EST, Route to Pharmacy Electronically, [facility] [...] Gian Andrade MD Position: [facility] Physician - Primary Care Member Role: PCP Address: Address: [address] [place] [address] Name: Delfino Barber RN Position: [facility] RN Member Role: Primary Care Nurse Care Team Related Persons Name: VERONICA ANDREWS Address: home [address] [place] [id number] Name: KEY OVALLE Address: [address] [place] [address] Name: ALCON BAIG Address: [address] [place] [address]
--- OUTSIDE RECORDS SUMMARY | 2024-05-10 09:39 | XMS_ITS | Continuity of Care Document ---
Author Organization [facility] Address [address] [place] [address]- Care Team Providers Care Ice Cream Server Name Role Phone Lupe EL, Gian Lincoln Primary Care Physician Encounter [facility] Date(s): 11/02/21 - 12/02/21 [facility] [address] [place], [place] [address] Allergies, Adverse Reactions, Alerts Substance Reaction Severity [...] 14:38:00 EST, Route to Pharmacy Electronically, [facility], 160, cm, 10/12/21 10:40:00 EST, Height, 60, kg, 05/29/21 10:55:00 ED... Start Date: 11/02/21 Status: Ordered cyclobenzaprine 10 mg oral tablet 10 mg, 1, tablet, By Mouth, 2 times a day, PRN, # 30 tablet, Refills 1, Tot. Refills 1, Maintenance, for spasm, 01/14/21 9:27:00 EDT, Route to Pharmacy Electronically, [facility]/pharmacy #2025, 160, cm, 02/07/20 10:53:00 EDT, Height, 49.9, kg, 02/07/20 10:5... Start Date: 01/14/21 Status: Ordered fluticasone 50 mcg/inh nasal spray 1 sprays, Nares, Both, 2 times a day, For post nasal drip, # 3 each, 1 Refills, Maintenance, 11/05/21 10:04:00 EST, [place], [facility], Partial fill upon patient request if the prescription is for a schedule II opioid drug., 1 sprays... Start Date: 11/05/21 Status: Ordered ibuprofen 800 mg oral tablet 1, tablet, By Mouth, 3 times a day, # 270 tablet, Refills 1, Tot. Refills 1, Maintenance, 04/21/21 8:59:00 EDT, Route to Pharmacy Electronically, [facility], 160, cm, 01/22/21 13:16:00 EDT, [...]
--- OUTSIDE RECORDS SUMMARY | 2024-05-10 09:39 | XMS_ITS | Continuity of Care Document ---
Author Organization [facility] Address [address] [address]- Care Team Providers Care Child Care Centre Manager Name Role Phone Gian Andrade MD Primary Care Physician Encounter [facility] Date(s): 06/09/23 - 06/16/23 [facility] [address] [address]- Attending Physician: Jonathan Mayes MD Admitting Physician: Jonathan Mayes MD Referring Physician: Jonathan Mayes MD Allergies, Adverse Reactions, Alerts Substance Reaction [...] EDT, [facility]ically[id number], 160, cm, 10/26/22 8:55:00EST, Height, 60, kg, [...] each, 1 Refills, Maintenance, 11/05/21 10:04:00 EST, [place], [facility], Partial fill upon patient request if the prescription is for a schedule II opioid drug., 1 sprays... Start Date: 11/05/21 Status: Ordered ibuprofen 800 mg oral tablet 1, tablet, By Mouth, 3 times a day, # 270 tablet, Refills 1, Tot. Refills 1, Maintenance, 04/21/21 8:59:00 EDT, Route to Pharmacy Electronically, [facility], 160, cm, 01/22/21 13:16:00 EDT, [...] Care Member Role: PCP Address: Address: [address] [place] [id number] Name: Delfino Barber RN Position: [facility] RN Member Role: Primary Care Nurse Care Team Related Persons Name: VERONICA ANDREWS Address: [address] [address] Name: KEY OVALLE Address: [address] [place] [address] Name: ALCON BAIG Address: [address] [address]
--- OUTSIDE RECORDS SUMMARY | 2024-05-10 09:39 | XMS_ITS | Continuity of Care Document ---
Author Organization [facility] Address [address] [place] [address]- Care Team Providers Care Pneumatic Tube Operator Name Role Phone Gian Andrade MD Primary Care Physician Encounter [facility] Date(s): 06/27/23 - 07/27/23 [facility] [address] [place] [address]- Allergies, Adverse Reactions, Alerts Substance Reaction Severity [...] 0 Refills, Maintenance, 07/22/23 12:46:00 EST, Tablet, [facility]/pharmacy #2025, Ok to fill early, Masspat checked [...] 06/28/23 14:05:00 EDT, Route to Pharmacy Electronically, [facility]/pharmacy #2025, 160, cm, 05/25/23 16:00:00... Start Date: [...] each, 1 Refills, Maintenance, 11/05/21 10:04:00 EST, [place], [facility], Partial fill upon [...] 08/27/23 15:43:00 EST, 06/28/23 15:43:00 EDT, Tablet, [facility]/pharmacy #2024, increasing dose, 160, cm, 05/25/23 1... Start Date: 06/28/23 Stop Date: 08/27/23 Status: Ordered KlonoPIN 0.5 mg oral tablet 1 tablet = 0.5 mg, By Mouth, 2 times a day, PRN Anxiety, for 30 days, Masspat checked May fill for less, # 60 tablet, 1 Refills, Hard Stop 08/29/23 14:42:00 EST, 06/30/23 14:42:00 EDT, Tablet, [facility]/pharmacy #2024, increasing dose, 160, cm, 06/30/23 1... Start Date: 06/30/23 Stop Date: 08/29/23 Status: Ordered meclizine 25 mg oral tablet 1 tablet = 25 mg, By Mouth, Daily at bedtime, PRN Other, take one tab po qhs prn moderate vertigo, # 8 tablet, 1 Refills, Soft Stop, 12/16/21 11:06:00 EDT, [facility]/pharmacy #2024, Partial fill upon patient request if [...] 14:07:00 EDT, 06/28/23 14:07:00 EDT, ER Tablet, [facility]/pharmacy #2025, 160, cm, 05/25/23 16:00:00 EDT, Height [...] Team Personnel Name: Gian Andrade MD Position: [facility] Physician - Primary Care Member Role: PCP Address: Address: [address] [place] [address]- Name: Elisabeth CHENEY, Delfino Position: [facility] RN Member Role: Primary Care Nurse Care Team Related Persons Name: VERONICA ANDREWS Address: [address] [place] [address] Name: KEY OVALLE Address: [address] [place] [address] Name: ALCON BAIG Address: [address] [place] [address]
--- OUTSIDE RECORDS SUMMARY | 2024-05-10 09:39 | XMS_ITS | Continuity of Care Document ---
Author Organization [facility] Address [address] [place] [address]- Care Team Providers Care Videographer Name Role Phone Lupe EL, Gian Lincoln Primary Care Physician Encounter [facility] [place] Date(s): 11/02/21 - 12/02/21 [facility] [address] [place] [address]- Allergies, Adverse Reactions, Alerts Substance Reaction Severity [...] 01/14/21 9:27:00 EDT, Route to Pharmacy Electronically, [facility]/pharmacy #2025, 160, cm, 02/07/20 10:53:00 EDT, Height, 49.9, kg, 02/07/20 10:5... Start Date: 01/14/21 Status: Ordered fluticasone 50 mcg/inh nasal spray 1 sprays, Nares, Both, 2 times a day, For post nasal drip, # 3 each, 1 Refills, Maintenance, 11/05/21 10:04:00 EST, [place], [facility], Partial fill upon patient request if the prescription is for a schedule II opioid drug., 1 sprays... Start Date: 11/05/21 Status: Ordered ibuprofen 800 mg oral tablet 1, tablet, By Mouth, 3 times a day, # 270 tablet, Refills 1, Tot. Refills 1, Maintenance, 04/21/21 8:59:00 EDT, Route to Pharmacy Electronically, [facility], 160, cm, 01/22/21 13:16:00 EDT, [...]
--- OUTSIDE RECORDS SUMMARY | 2024-05-10 09:39 | XMS_ITS | Continuity of Care Document ---
Author Organization [facility] Address [address] [place] [address]- Care Team Providers Care Dental Office Assistant Name Role Phone Gian Andrade MD Primary Care Physician Encounter [facility] Date(s): 05/14/20 - 06/13/20 [facility] [address] [place] [address]- [facility] Allergies, Adverse Reactions, Alerts Substance Reaction [...] tablet,0 Refills, Maintenance, 05/14/20 14:08:00 EDT, Tablet, [facility]/pharmacy #2024, last rx ., 1 tablet By Mouth 2 times a day,x28 days,Instr:masspat ch... Start Date: 05/14/20 Stop Date: 06/11/20 Status: Ordered busPIRone 10 mg oral tablet See Instructions, TAKE 1 TABLET BY MOUTH TWICE A DAY, # 180 tablet, Refills 3, Tot. Refills 3, SoftStop, 07/06/19 14:25:16 EDT, Instructions Replace Required Details, Route to Pharmacy Electronically, [id number], [facility] Start Date: 07/06/19 Status: Ordered cyclobenzaprine 10 mg oral tablet 10 mg, 1, tablet, By Mouth, 2 times a day, PRN, # 30 tablet, Refills 1, Tot. Refills 1, Maintenance, for spasm, 01/14/21 9:27:00 EDT, Route to Pharmacy Electronically, [facility]/pharmacy #2024, 160, cm, 02/07/20 10:53:00 EDT, Height, 49.9, kg, 02/07/20 10:5... Start Date: 01/14/21 Status: Ordered cyclobenzaprine 10 mg oral tablet 10 mg, 1, tablet, By Mouth, 2 times a day, PRN, # 30 tablet, Refills 1, Tot. Refills 1, Acute 01/14/21 9:27:00 EDT, for spasm, 01/15/20 9:27:00 EDT, Route to Pharmacy Electronically, [facility]/pharmacy #2024, 160, cm, 01/09/20 9:04:00 EDT, Height Start Date: 01/15/20 Stop Date: 01/14/21 Status: Ordered KlonoPIN 0.5 mg oral tablet 1 tablet = 0.5 mg, By Mouth, 2 times a day, PRN Anxiety, Masspat checked 06/10/2020 May fill for less, # 60 tablet, 1 Refills, Maintenance, 06/10/20 13:11:00 EDT, Tablet, [facility]/pharmacy #2024, increasing dose, 160, cm, 05/27/20 10:37:00 [...]
--- OUTSIDE RECORDS SUMMARY | 2024-05-10 09:39 | XMS_ITS | Continuity of Care Document ---
Author Organization [facility] Address [address] [place] [address]- Care Team Providers Care Fluorescent Solution Mixer Name Role Phone Gian Andrade MD Primary Care Physician Encounter [facility] Date(s): 03/23/21 - 04/22/21 [facility] [address] [place] [address]- Allergies, Adverse Reactions, Alerts Substance Reaction Severity [...] 0 Refills, Maintenance, 03/18/21 7:46:00 EDT, Tablet, [facility]/pharmacy #2025, 1 tablet By Mouth 2 times a day,x28 days,Instr:masspat checked ; may fill for less,... Start Date: 03/18/21 Stop Date: 04/15/21 Status: Ordered busPIRone 10 mg oral tablet 10 mg, 1, tablet, By Mouth, 2 times a day, # 180 tablet, Refills 1, Tot. Refills 1, Soft Stop, 12/25/20 11:32:00 EDT, Route to Pharmacy Electronically, [facility], 160, cm, 07/30/20 9:37:00 EST, Height, 49.9, kg, 02/07/20 10:53:00 E... Start Date: 12/25/20 Status: Ordered cyclobenzaprine 10 mg oral tablet 10 mg, 1, tablet, By Mouth, 2 times a day, PRN, # 30 tablet, Refills 1, Tot. Refills 1, Maintenance, for spasm, 01/14/21 9:27:00 EDT, Route to Pharmacy Electronically, [facility]/pharmacy #2025, 160, cm, 02/07/20 10:53:00 EDT, Height, 49.9, kg, 02/07/20 10:5... Start Date: 01/14/21 Status: Ordered ibuprofen 800 mg oral tablet 1, tablet, By Mouth, 3 times a day, # 270 tablet, Refills 1, Tot. Refills 1, Maintenance, 04/21/21 8:59:00 EDT, Route to Pharmacy Electronically, [facility], 160, cm, 01/22/21 13:16:00 EDT, [...] tablet, 1 Refills, Maintenance, 03/23/21 15:52:00EDT, Tablet, [facility]/pharmacy #2025, 160, cm, 01/22/21 13:16:00 EDT, [...]
--- OUTSIDE RECORDS SUMMARY | 2024-05-10 09:39 | XMS_ITS | Continuity of Care Document ---
Author Organization [facility] Address [address] [place] [address]- Care Team Providers Care Lab Intern Name Role Phone Gian Andrade MD Primary Care Physician Encounter [facility] Date(s): 03/05/20 - 04/04/20 [facility] [address] [place] [address]- [facility] Attending Physician: AdmtrPercy Admitting Physician: AdmtrPercy Referring Physician: Admtr, Ar8 [...] 0 Refills, Maintenance, 03/11/20 8:51:00 EDT, Tablet, [facility]/pharmacy #2024, last rx ., 1 tablet By Mouth 2 times a day,x28 days,Instr:masspat ch... Start Date: 03/11/20 Stop Date: 04/08/20 Status: Ordered busPIRone 10 mg oral tablet See Instructions, TAKE 1 TABLET BY MOUTH TWICE A DAY, # 180 tablet, Refills 3, Tot. Refills 3, SoftStop, 07/06/19 14:25:16 EDT, Instructions Replace Required Details, Route to Pharmacy Electronically, [id number], [facility]/pharmac... Start Date: 07/06/19 Status: Ordered cyclobenzaprine 10 [...] 0 Refills, Maintenance, 03/13/20 15:52:00 EDT, Tablet, [facility]/pharmacy #2024, increasing dose, 160, cm, 03/05/20 9:49:00 EDT, Height, 49.9, kg, ... Start Date: 03/13/20 Status: Ordered omeprazole 20 mg oral enteric coated capsule 1 capsule = 20 mg, By Mouth, Daily, # 90 capsule, 1 Refills, Hard Stop 04/22/20 9:15:00 EDT, 09/25/19 9:15:00 EST, EC Capsule, [facility], aware of celexa, 160, cm, 07/06/19 [...] 1 Refills, Maintenance, 03/13/20 16:39:00EDT, Tablet, [facility], 160, cm, 03/05/20 9:49:00 EDT, Height, [...] 14:55:00 EDT, 12/10/19 14:55:00 EDT, ER Tablet, [facility]/pharmacy #2025, 160, cm, 10/31/19 10:52:00 EST, Height [...]
--- OUTSIDE RECORDS SUMMARY | 2024-05-10 09:39 | XMS_ITS | Continuity of Care Document ---
Author Organization [facility] Address [address] [place] [address]- Care Team Providers Care Plate Gauger Name Role Phone Lupe EL, Gian Lincoln Primary Care Physician Encounter [facility] Date(s): 01/09/20 - 02/08/20 [facility] [address] [place] [address]- [facility] Attending Physician: Percy Ahmadi Admitting Physician: AdmtrPercy Referring Physician: AdmtrPercy Allergies, Adverse Reactions, Alerts Substance Reaction Severity [...] 0 Refills, Maintenance, 01/28/20 13:41:00 EDT, Tablet, [facility]/pharmacy #2024, 1 tablet By Mouth 2 times a day,x28 days,Instr:masspat checked 01/28/2020;... Start Date: 01/28/20 Stop Date: 02/25/20 Status: Ordered busPIRone 10 mg oral tablet See Instructions, TAKE 1 TABLET BY MOUTH TWICE A DAY, # 180 tablet, Refills 3, Tot. Refills 3, SoftStop, 07/06/19 14:25:16 EDT, Instructions Replace Required Details, Route to Pharmacy Electronically, [id number], [facility] Start Date: 07/06/19 Status: Ordered cyclobenzaprine 10 mg oral tablet 10 mg, 1, tablet, By Mouth, 2 times a day, PRN, # 30 tablet, Refills 1, Tot. Refills 1, Acute 01/14/21 9:27:00 EDT, for spasm, 01/15/20 9:27:00 EDT, Route to Pharmacy Electronically, [facility]/pharmacy #2024, 160, cm, 01/09/20 9:04:00 EDT, Height Start Date: 01/15/20 Stop Date: 01/14/21 Status: Ordered KlonoPIN 0.5 mg oral tablet 1 tablet = 0.5 mg, By Mouth, 2 times a day, PRN Anxiety, Masspat checked 01/10/2020, # 60 tablet, 1 Refills, Maintenance, 01/11/20 9:10:00 EDT, Tablet, [facility], increasing dose, 160, cm, 01/09/20 9:04:00 [...] 1 Refills, Maintenance, 12/10/19 14:55:00 EDT, ECCapsule, [facility]/pharmacy #2024, aware of celexa, 160, cm, 10/31/19 10:52:00 EST, Height Start Date: 12/10/19 Status: Ordered Plaquenil = 200 mg, By Mouth, Daily, 0 Refills, Maintenance, 10/11/16 10:18:04 Start Date: 10/11/16 Status: Ordered Zofran ODT 4 mg oral tablet, disintegrating 1 tablet = 4 mg, By Mouth, 3 times a day, PRN Nausea, # 60 tablet, 1 Refills, Maintenance, 10/25/2012:07:00 EST, [facility]/pharmacy #2024, 160, cm, 07/06/19 14:11:00 EDT, [...] 14:55:00 EDT, 12/10/19 14:55:00 EDT, ER Tablet, [facility]/pharmacy #202, 160, cm, 10/31/19 10:52:00 EST, Height [...] Smoking Status Never smoker entered on: 04/21/15 Sex"
--- OUTSIDE RECORDS SUMMARY | 2024-05-10 09:39 | XMS_ITS | Continuity of Care Document ---
Author Organization [facility] Address [address] [place] [address]- Care Team Providers Care Central Office Worker Name Role Phone Lupe EL, Gian Lincoln Primary Care Physician Encounter [facility] Date(s): 01/15/20 - 02/14/20 [facility] [address] [place] [address] [facility] Attending Physician: Admtr, Ar8 Admitting Physician: Admtr, [...] 0 Refills, Maintenance, 01/28/20 13:41:00 EDT, Tablet, [facility]/pharmacy #5, 1 tablet By Mouth 2 times a day,x28 days,Instr:masspat checked 01/28/2020;... Start Date: 01/28/20 Stop Date: 02/25/20 Status: Ordered busPIRone 10 mg oral tablet See Instructions, TAKE 1 TABLET BY MOUTH TWICE A DAY, # 180 tablet, Refills 3, Tot. Refills 3, SoftStop, 07/06/19 14:25:16 EDT, Instructions Replace Required Details, Route to Pharmacy Electronically, [id number], [facility] Start Date: 07/06/19 Status: Ordered cyclobenzaprine 10 mg oral tablet 10 mg, 1, tablet, By Mouth, 2 times a day, PRN, # 30 tablet, Refills 1, Tot. Refills 1, Maintenance, for spasm, 01/14/21 9:27:00 EDT, Route to Pharmacy Electronically, [facility]/pharmacy #2024, 160, cm, 02/07/20 10:53:00 EDT, Height, 49.9, kg, 02/07/20 10:5... Start Date: 01/14/21 Status: Ordered cyclobenzaprine 10 mg oral tablet 10 mg, 1, tablet, By Mouth, 2 times a day, PRN, # 30 tablet, Refills 1, Tot. Refills 1, Acute 01/14/21 9:27:00 EDT, for spasm, 01/15/20 9:27:00 EDT, Route to Pharmacy Electronically, [facility]/pharmacy #2024, 160, cm, 01/09/20 9:04:00 EDT, Height Start Date: 01/15/20 Stop Date: 01/14/21 Status: Ordered KlonoPIN 0.5 mg oral tablet 1 tablet = 0.5 mg, By Mouth, 2 times a day, PRN Anxiety, Masspat checked May fill for less, # 60 tablet, 1 Refills, Maintenance, 02/11/20 12:45:00 EDT, Tablet, [facility], increasing dose, 160, cm, 02/07/20 10:53:00 [...] 14:55:00 EDT, 12/10/19 14:55:00 EDT, ER Tablet, [facility]/pharmacy #2025, 160, cm, 10/31/19 10:52:00 EST, [...]
--- OUTSIDE RECORDS SUMMARY | 2024-05-10 09:39 | XMS_ITS | Continuity of Care Document ---
Author Organization [facility] Address [address] [place] [address]- Care Team Providers Care Clinical Biochemical Geneticist Name Role Phone Lupe EL, Gian Lincoln Primary Care Physician [place] [facility] Date[place]s): 05/17/23 - 06/16/23 [facility] [address] [place], [place] [address] Allergies, Adverse Reactions, Alerts Substance Reaction [...] 0 Refills, Maintenance, 08/27/22 12:40:00 EST, Tablet, [facility]/pharmacy #2024, 1 tablet By [...] EDT, Route to [facility]ically[id number], 160, cm, 10/26/22 8:55:00EST, Height, 60, kg, [...] each, 1 Refills, Maintenance, 11/05/21 10:04:00 EST, [place], [facility], Partial fill upon patient request if the prescription is for a schedule II opioid drug., 1 sprays... Start Date: 11/05/21 Status: Ordered ibuprofen 800 mg oral tablet 1, tablet, By Mouth, 3 times a day, # 270 tablet, Refills 1, Tot. Refills 1, Maintenance, 04/21/21 8:59:00 EDT, Route to Pharmacy Electronically, [facility], 160, cm, 01/22/21 13:16:00 EDT, [...] Name: Gian Andrade MD Position: [facility] Physician - Primary Care Member Role: PCP Address: Address: [address] [place] [address]- Name: Delfino Barber RN Position: [facility] RN Member Role: Primary Care Nurse Care Team Related Persons Name: VERONICA ANDREWS Address: home [address] [place] [address] Name: KEY OVALLE Address: [address] [place] [address] Name: ALCON BAIG Address: [place] [address] [place] [address]
--- OUTSIDE RECORDS SUMMARY | 2024-05-10 09:39 | XMS_ITS | Continuity of Care Document ---
Author Organization [facility] Address [address] [place] [address]- Care Team Providers Care Tobacco Sizer Name Role Phone Lupe EL, Gian Lincoln Primary Care Physician Encounter [facility] Date(s): 08/06/22 - 09/05/22 [facility] [address] [place] [address]- Attending Physician: AdmPercy teague Admitting Physician: AdmtrPercy [...] 11 Refills, Maintenance, 08/10/21 10:44:00 EST, [place], [facility]/pharmacy #2024, 2 puffs Inhalation Every 4 hours,PRN:Wheezing/Shortness of Breath, 160, cm, 08/10/21 9:23:00 ES... Start Date: 08/10/21 Status: Ordered amphetamine-dextroamphetamine 20 mg oral tablet 1 tablet = 20 mg, By Mouth, 2 times a day, masspat checked may fill for less, # 180 tablet, 0 Refills, Maintenance, 08/27/22 12:40:00 EST, Tablet, [facility]/pharmacy #2024, [...] to Pharmacy Electronically, [facility]/pharmacy #5, 160, cm, 01/07/22 9:42:00 EDT, Height, 60, kg, 05/29/21 10:55:... Start Date: 08/30/22 Status: Ordered fluticasone 50 mcg/inh nasal spray 1 sprays, Nares, Both, 2 times a day, For post nasal drip, # 3 each, 1 Refills, Maintenance, 11/05/21 10:04:00 EST, [place], [facility], Partial fill upon [...] 12/16/21 11:06:00 EDT, [facility]/pharmacy #2025, Partial fill upon patient request [...] Refills, Maintenance, 02/11/22 14:20:00 EDT, Tablet, [facility], 160, cm, 01/07/22 9:42:00 EDT, [...] Team Personnel Name: Gian Andrade MD Position: S Primary Care Physician Member Role: PCP Address: Address: [address] [place] [address]- Name: Delfino Barber Position: [facility] RN Member Role: Primary Care Nurse Care Team Related Persons Name: ALCON BAIG Address: [address] [address]
--- OUTSIDE RECORDS SUMMARY | 2024-05-10 09:39 | XMS_ITS | Continuity of Care Document ---
Author Organization [facility] Address [address] [place] [address]- Care Team Providers Care Warehouser Name Role Phone Gian Andrade MD Primary Care Physician Encounter [facility] Date(s): 06/16/23 - 07/16/23 [facility] [address] [place] [address]- Allergies, Adverse Reactions, Alerts Substance Reaction Severity [...] 0 Refills, Maintenance, 08/27/22 12:40:00 EST, Tablet, [facility]/pharmacy #2025, 1 tablet By Mouth 2 times a day,x90 days,Instr:masspat checked ; may fill for less... Start Date: 08/27/22 Stop Date: 11/25/22 Status: Ordered amphetamine-dextroamphetamine 20 mg oral tablet 1 tablet = 20 mg, By Mouth, 2 times a day, for 28 days, masspat checked, # 56 tablet, 0 Refills, Hard Stop 07/26/23 15:43:00 EST, 06/28/23 15:43:00 EDT, Tablet, [facility]/pharmacy #2025, 160, cm, 05/25/23 16:00:00 EDT, Height Start Date: 06/28/23 Stop Date: 07/26/23 Status: Ordered amphetamine-dextroamphetamine 20 mg oral tablet 1 tablet = 20 mg, By Mouth, 2 times a day, masspat checked, # 56 tablet, 0 Refills, Maintenance, 06/30/23 14:42:00 EDT, Tablet, [facility]/pharmacy #2025, 1 tablet By Mouth 2 [...] 06/28/23 14:05:00 EDT, Route to Pharmacy Electronically, [facility]/pharmacy #2025, 160, cm, 05/25/23 16:00:00... Start [...] each, 1 Refills, Maintenance, 11/05/21 10:04:00 EST, [place], [facility], Partial fill upon [...] 08/27/23 15:43:00 EST, 06/28/23 15:43:00 EDT, Tablet, [facility]/pharmacy #2025, increasing dose, 160, cm, 05/25/23 1... Start Date: 06/28/23 Stop Date: 08/27/23 Status: Ordered KlonoPIN 0.5 mg oral tablet 1 tablet = 0.5 mg, By Mouth, 2 times a day, PRN Anxiety, for 30 days, Masspat checked May fill for less, # 60 tablet, 1 Refills, Hard Stop 08/29/23 14:42:00 EST, 06/30/23 14:42:00 EDT, Tablet, [facility]/pharmacy #202, increasing dose, 160, cm, 06/30/23 1... Start Date: 06/30/23 Stop Date: 08/29/23 Status: Ordered meclizine 25 mg oral tablet 1 tablet = 25 mg, By Mouth, Daily at bedtime, PRN Other, take one tab po qhs prn moderate vertigo, # 8 tablet, 1 Refills, Soft Stop, 12/16/21 11:06:00 EDT, [facility]/pharmacy #202, Partial fill upon patient request [...] 14:07:00 EDT, 06/28/23 14:07:00 EDT, ER Tablet, [facility]/pharmacy #202, 160, cm, 05/25/23 16:00:00 EDT, [...] Team Personnel Name: Gian Andrade MD Position: [facility] Physician - Primary Care Member Role: PCP Address: Address: [address] [place] [address] Name: Elisabeth CHENEY, Delfino Position: [facility] RN Member Role: Primary Care Nurse Care Team Related Persons Name: VERONICA ANDREWS Address: [address] [place] [address] Name: KEY OVALLE Address: [address] [place], [place] Name: ALCON BAIG Address: [address] [place] [address]
--- OUTSIDE RECORDS SUMMARY | 2024-05-10 09:39 | XMS_ITS | Continuity of Care Document ---
Author Organization [facility] Address [address] [place] [address]- Care Team Providers Care Tectonophysicist Name Role Phone Gian Andrade MD Primary Care Physician Encounter [facility] Date(s): 05/23/23 - 06/22/23 [facility] [address] [place] [address]- Allergies, Adverse Reactions, Alerts Substance Reaction Severity [...] 0 Refills, Maintenance, 06/10/23 17:29:00 EDT, Tablet, [facility]/pharmacy #2024, 1 tablet By Mouth 2 times a day,x28 days,Instr:masspat checked; DNF 06/21/2023, 160, cm... Start Date: 06/10/23 Stop Date: 07/08/23 Status: Ordered amphetamine-dextroamphetamine 20 mg oral tablet 1 tablet = 20 mg, By Mouth, 2 times a day, masspat checked may fill for less, # 180 tablet, 0 Refills, Maintenance, 08/27/22 12:40:00 EST, Tablet, [facility]/pharmacy #2024, 1 tablet By Mouth 2 times a day,x90 days,Instr:masspat checked ; may fill for less... Start Date: 08/27/22 Stop Date: 11/25/22 Status: Ordered cyclobenzaprine 10 mg oral tablet 1, tablet, By Mouth, 2 times a day, PRN, # 30 tablet, Refills 1, Maintenance, NEEDED FOR SPASMS,12/20/22 11:12:00 EDT, Route to Pharmacy Electronically, [id number], 160, cm, 10/26/22 8:55:00EST, Height, 60, kg, [...] each, 1 Refills, Maintenance, 11/05/21 10:04:00 EST, [place], [facility], Partial fill upon [...] 1 Refills, Soft Stop, 12/16/21 11:06:00 EDT, [facility]/pharmacy #5, Partial fill upon patient request if [...] Name: Gian Andrade MD Position: [facility] Physician - Primary Care Member Role: PCP Address: Address: [address] [place] [address]- Name: Delfino Barber RN Position: [facility] RN Member Role: Primary Care Nurse Care Team Related Persons Name: VERONICA ANDREWS Address: [address] [address] Name: KEY OVALLE Address: [address] [place] [address] Name: ALCON BAIG Address: [place] [address] [place] [address]
--- OUTSIDE RECORDS SUMMARY | 2024-05-10 09:39 | XMS_ITS | Continuity of Care Document ---
Author Organization [facility] Address [address] [place] [address]- Care Team Providers Care Brake Lining Curer Name Role Phone Gian Andrade MD Primary Care Physician En[place] [facility] Date(s): 10/31/19 - 11/10/19 [facility] [address] [place] [address]- [facility] Attending Physician: Admtr, Ar8 Admitting Physician: [...] Refills, Maintenance, 10/25/19 13:18:00 EST, [facility], [facility], 1 tablet By Mouth 2 times a day,x28 days,Instr:masspat checked 10/25/2019;... Start Date: 10/25/19 Stop Date: 11/22/19 Status: Ordered busPIRone 10 mg oral tablet See Instructions, TAKE 1 TABLET BY MOUTH TWICE A DAY, # 180 tablet, Refills 3, Tot. Refills 3, SoftStop, 07/06/19 14:25:16 EDT, Instructions Replace Required Details, Route to Pharmacy Electronically, [id number], [facility]/pharmac... Start Date: 07/06/19 Status: Ordered ibuprofen 800 mg oral tablet 800 mg, 1, tablet, By Mouth, 3 times a day, # 90 tablet, Refills 2, Tot. Refills 2, Acute 11/23/19 13:09:00 EDT, 10/25/19 13:08:00 EST, Route to Pharmacy Electronically, [facility]/pharmacy #2024, 160, cm, 07/06/19 14:11:00 EDT, Height Start Date: 10/25/19 Stop Date: 11/23/19 Status: Ordered KlonoPIN 0.5 mg oral tablet 1 tablet = 0.5 mg, By Mouth, 2 times a day, PRN Anxiety, Masspat checked 11/01/2019, # 60 tablet, 1 Refills, Maintenance, 11/01/19 12:31:00 EST, Tablet, [facility]/pharmacy #2024, increasing dose, 160, cm, 10/31/19 10:52:00 EST, Height Start Date: 11/01/19 Status: Ordered omeprazole 20 mg oral enteric coated capsule 1 capsule = 20 mg, By Mouth, Daily, # 90 capsule, 1 Refills, Hard Stop 04/22/20 9:15:00 EDT, 09/25/19 9:15:00 EST, EC Capsule, [facility]/pharmacy #2024, aware of celexa, 160, cm, 07/06/19 14:11:00 EDT, Height Start Date: 09/25/19 Stop Date: 04/22/20 Status: Ordered omeprazole 20 mg oral enteric coated capsule 1 capsule = 20 mg, By Mouth, Daily, # 90 capsule, 1 Refills, Maintenance, 04/22/20 9:15:00 EDT, EC Capsule, [facility]/pharmacy #2024, aware of celexa, 160, cm, 07/06/19 14:11:00 EDT, Height Start Date: 04/22/20 Status: Ordered Plaquenil = 200 mg, By Mouth, Daily, 0 Refills, Maintenance, 10/11/16 10:18:04 Start Date: 10/11/16 Status: Ordered Zofran ODT 4 mg oral tablet, disintegrating 1 tablet = 4 mg, By Mouth, 3 times a day, PRN Nausea, # 60 tablet, 1 Refills, Maintenance, 10/25/2012:07:00 EST, [facility], 160, cm, 07/06/19 14:11:00 [...]
--- OUTSIDE RECORDS SUMMARY | 2024-05-10 09:39 | XMS_ITS | Continuity of Care Document ---
Author Organization [facility] Address [address] [place] [address]- Care Team Providers Care Commissary Representative Name Role Phone Gian Andrade MD Primary Care Physician [place] [facility] [place] 01/15/23 [facility] [address] [place] [address]- Allergies, Adverse Reactions, Alerts Substance Reaction Severity [...] 0 Refills, Maintenance, 08/27/22 12:40:00 EST, Tablet, [facility]/pharmacy #2025, 1 tablet By Mouth 2 times a day,x90 days,Instr:masspat checked ; may fill for less... Start Date: 08/27/22 Stop Date: 11/25/22 Status: Ordered amphetamine-dextroamphetamine 20 mg oral tablet 1 tablet = 20 mg, By Mouth, 2 times a day, masspat checked may fill for less, # 60 tablet, 0 Refills, Maintenance, 12/30/22 23:23:00 EDT, Tablet, [facility]/pharmacy #2025, 1 tablet By Mouth 2 times a day,x30 days,Instr:masspat checked ; may fill for less,... Start Date: 12/30/22 Stop Date: 01/29/23 Status: Ordered cyclobenzaprine 10 mg oral tablet 1, tablet, By Mouth, 2 times a day, PRN, # 30 tablet, Refills 1, Maintenance, NEEDED FOR SPASMS,12/20/22 11:12:00 EDT, Route to Pharmacy Electronically, [facility] STORE [id number], 160, cm, 10/26/22 8:55:00EST, Height, 60, kg, 05/29/21 10:55:00 EDT, Dry Weight Start Date: 12/20/22 Status: Ordered fluticasone 50 mcg/inh nasal spray 1 sprays, Nares, Both, 2 times a day, For post nasal drip, # 3 each, 1 Refills, Maintenance, 11/05/21 10:04:00 EST, [place], [facility], Partial fill upon [...] 1 Refills, Soft Stop, 12/16/21 11:06:00 EDT, [facility]/pharmacy #202, Partial fill upon [...] Position: [facility] Primary Care Physician Member Role: PCP Address: Address: [address] [place] [address]- Name: Delfino Barber Position: [facility] RN Member Role: Primary Care Nurse Care Team Related Persons Name: VREONICA ANDREWS Address: [address] [place] [address] Name: KEY OVALLE Address: [address] [place], [place] Name: ALCON BAIG Address: [address] [place] [address]
--- OUTSIDE RECORDS SUMMARY | 2024-05-10 09:39 | XMS_ITS | Continuity of Care Document ---
Author Organization [facility] Address [address] [place] [address]- Care Team Providers Care Engraver Letter Name Role Phone Lupe EL, Gian Lincoln Primary Care Physician Encounter [facility] [place] Date(s): 12/23/22 - 01/22/[address] [address]- Allergies, Adverse Reactions, Alerts Substance Reaction Severity [...] 0 Refills, Maintenance, 12/30/22 23:23:00 EDT, Tablet, [facility]/pharmacy #2024, 1 tablet By Mouth 2 times a day,x30 days,Instr:masspat checked ; may fill for less,... Start Date: 12/30/22 Stop Date: 01/29/23 Status: Ordered cyclobenzaprine 10 mg oral tablet 1, tablet, By Mouth, 2 times a day, PRN, # 30 tablet, Refills 1, Maintenance, NEEDED FOR SPASMS,12/20/22 11:12:00 EDT, Route to Pharmacy Electronically, [facility] STORE [id number], 160, cm, 10/26/22 8:55:00EST, Height, 60, kg, 05/29/21 10:55:00 EDT, Dry Weight Start Date: 12/20/22 Status: Ordered fluticasone 50 mcg/inh nasal spray 1 sprays, Nares, Both, 2 times a day, For post nasal drip, # 3 each, 1 Refills, Maintenance, 11/05/21 10:04:00 EST, [place], [facility], Partial fill upon [...] EDT, [facility]/pharmacy #3951, Partial fill upon patient request if the [...] Team Personnel Name: Gian Andrade MD Position: [facility] Primary Care Physician Member Role: PCP Address: Address: [address] [place] [address]- Name: Delfino Barber Position: [facility] RN Member Role: Primary Care Nurse Care Team Related Persons Name: VERONICA ANDREWS Address: [address] [place] [address] Name: KEY OVALLE Address: [address] [place], [place] Name: ALCON BAGI Address: [address] [place] [address]
--- OUTSIDE RECORDS SUMMARY | 2024-05-10 09:40 | XMS_ITS | Continuity of Care Document ---
Author Organization [facility] Address [address] [place] [address]- Care Team Providers Care Induction Coordination Engineer Name Role Phone Gian Andrade MD Primary Care Physician Encounter [facility] Date(s): 04/28/20 - 05/28/20 [facility] [address] [place] [address]- [facility] Allergies, Adverse Reactions, Alerts Substance Reaction Severity [...] tablet,0 Refills, Maintenance, 05/14/20 14:08:00 EDT, Tablet, [facility]/pharmacy #2024, last rx ., 1 tablet By Mouth 2 times a day,x28 days,Instr:masspat ch... Start Date: 05/14/20 Stop Date: 06/11/20 Status: Ordered busPIRone 10 mg oral tablet See Instructions, TAKE 1 TABLET BY MOUTH TWICE A DAY, # 180 tablet, Refills 3, Tot. Refills 3, SoftStop, 07/06/19 14:25:16 EDT, Instructions Replace Required Details, Route to Pharmacy Electronically, [id number], [facility] Start Date: 07/06/19 Status: Ordered cyclobenzaprine 10 mg oral tablet 10 mg, 1, tablet, By Mouth, 2 times a day, PRN, # 30 tablet, Refills 1, Tot. Refills 1, Maintenance, for spasm, 01/14/21 9:27:00 EDT, Route to Pharmacy Electronically, [facility]/pharmacy #2024, 160, cm, 02/07/20 10:53:00 EDT, Height, 49.9, kg, 02/07/20 10:5... Start Date: 01/14/21 Status: Ordered cyclobenzaprine 10 mg oral tablet 10 mg, 1, tablet, By Mouth, 2 times a day, PRN, # 30 tablet, Refills 1, Tot. Refills 1, Acute 01/14/21 9:27:00 EDT, for spasm, 01/15/20 9:27:00 EDT, Route to Pharmacy Electronically, [facility]/pharmacy #2024, 160, cm, 01/09/20 9:04:00 EDT, Height Start Date: 01/15/20 Stop Date: 01/14/21 Status: Ordered KlonoPIN 0.5 mg oral tablet 1 tablet = 0.5 mg, By Mouth, 2 times a day, PRN Anxiety, Masspat checked 05/14/2020 May fill for less, # 60 tablet, 0 Refills, Maintenance, 05/14/20 14:08:00 EDT, Tablet, [facility]/pharmacy #2024, increasingdose, 05/14/20, 160, cm, 04/28/20 15:39:00 EDT, He... Start Date: 05/14/20 Status: Ordered ofloxacin 0.3% otic solution 5, drops, Ears, Both, 2 times a day, for 7 days, # 5 mL, Refills 0, Tot. Refills 0, Acute, 06/03/2011:00:00 EDT, 05/27/20 11:00:00 EDT, Route to Pharmacy Electronically, [facility]/pharmacy #2024 Solution,160, cm, 05/27/20 10:37:00 EDT, Height, 49.9, kg, 0... Start Date: 05/27/20 Stop Date: 06/03/20 Status: Ordered omeprazole 20 mg oral enteric coated capsule 1 capsule = 20 mg, By Mouth, Daily, # 90 capsule, 1 Refills, Maintenance, 12/10/19 14:55:00 EDT, ECCapsule, [facility]/pharmacy #2024, aware of celexa, 160, cm, 10/31/19 10:52:00 EST, Height Start Date: 12/10/19 Status: Ordered ondansetron 4 mg oral tablet, disintegrating = 4 mg, By Mouth, 3 times a day, PRN Nausea, # 60 tablet, 1 Refills, Maintenance, 03/13/20 16:39:00EDT, Tablet, [facility]/pharmacy #2024, 160, cm, 03/05/20 9:49:00 EDT, [...] 03/13/20 15:14:00 EDT, ER Tablet, [facility]/pharmacy #202, 1 tablet By Mouth 2 [...] 14:55:00 EDT, 12/10/19 14:55:00 EDT, ER Tablet, [facility]/pharmacy #2025, 160, cm, 10/31/19 10:52:00 EST, [...]
--- OUTSIDE RECORDS SUMMARY | 2024-05-10 09:40 | XMS_ITS | Continuity of Care Document ---
Author Organization [facility] Address [address] [place] [address]- Care Team Providers Care Manufacture Specialist Name Role Phone Gian Andrade MD Primary Care Physician Encounter [facility] Date(s): 04/01/20 - 05/01/20 [facility] [address] [place] [address]- [facility] Allergies, Adverse Reactions, Alerts Substance [...] tablet,0 Refills, Maintenance, 04/15/20 12:22:00 EDT, Tablet, [facility]/pharmacy #2024, last rx ., 1 tablet By Mouth 2 times a day,x28 days,Instr:masspat ch... Start Date: 04/15/20 Stop Date: 05/13/20 Status: Ordered busPIRone 10 mg oral tablet See Instructions, TAKE 1 TABLET BY MOUTH TWICE A DAY, # 180 tablet, Refills 3, Tot. Refills 3, SoftStop, 07/06/19 14:25:16 EDT, Instructions Replace Required Details, Route to Pharmacy Electronically, [id number], [facility] Start Date: 07/06/19 Status: Ordered cyclobenzaprine 10 mg oral tablet 10 mg, 1, tablet, By Mouth, 2 times a day, PRN, # 30 tablet, Refills 1, Tot. Refills 1, Maintenance, for spasm, 01/14/21 9:27:00 EDT, Route to Pharmacy Electronically, [facility]/pharmacy #2024, 160, cm, 02/07/20 10:53:00 EDT, Height, 49.9, kg, 02/07/20 10:5... Start Date: 01/14/21 Status: Ordered cyclobenzaprine 10 mg oral tablet 10 mg, 1, tablet, By Mouth, 2 times a day, PRN, # 30 tablet, Refills 1, Tot. Refills 1, Acute 01/14/21 9:27:00 EDT, for spasm, 01/15/20 9:27:00 EDT, Route to Pharmacy Electronically, [facility]/pharmacy #2024, 160, cm, 01/09/20 9:04:00 EDT, Height Start Date: 01/15/20 Stop Date: 01/14/21 Status: Ordered KlonoPIN 0.5 mg oral tablet 1 tablet = 0.5 mg, By Mouth, 2 times a day, PRN Anxiety, Masspat checked 04/15/2020 May fill for less, # 60 tablet, 0 Refills, Maintenance, 04/15/20 12:22:00 EDT, Tablet, [facility]/pharmacy #2024, increasingdose, 160, cm, 03/05/20 9:49:00 EDT, Height, 49.9,... Start Date: 04/15/20 Status: Ordered omeprazole 20 mg oral enteric coated capsule 1 capsule = 20 mg, By Mouth, Daily, # 90 capsule, 1 Refills, Maintenance, 12/10/19 14:55:00 EDT, ECCapsule, [facility]/pharmacy #2025, aware of celexa, 160, cm, 10/31/19 10:52:00 EST, Height Start Date: 12/10/19 Status: Ordered ondansetron 4 mg oral tablet, disintegrating = 4 mg, By Mouth, 3 times a day, PRN Nausea, # 60 tablet, 1 Refills, Maintenance, 03/13/20 16:39:00EDT, Tablet, [facility]/pharmacy #202, 160, cm, 03/05/20 9:49:00 EDT, Height, 49.9, kg, 02/07/20 10:53:00EDT, Dry Weight Start Date: 03/13/20 Status: Ordered Plaquenil = 200 mg, By Mouth, Daily, 0 Refills, Maintenance, 10/11/16 10:18:04 Start Date: 10/11/16 Status: Ordered ZyrTEC-D 5 mg-120 mg oral tablet, extended release 1 tablet, By Mouth, 2 times a day, # 180 tablet, 1 Refills, Maintenance, 03/13/20 15:14:00 EDT, ER Tablet, [facility]/pharmacy #202, 1 tablet By Mouth 2 [...] 14:55:00 EDT, 12/10/19 14:55:00 EDT, ER Tablet, [facility]/pharmacy #2025, 160, cm, 10/31/19 10:52:00 EST, [...]
--- OUTSIDE RECORDS SUMMARY | 2024-05-10 09:40 | XMS_ITS | Continuity of Care Document ---
Author Organization [facility] Address [address] [place] [address]- Care Team Providers Care Adjunct Business Instructor Name Role Phone Gian Andrade MD Primary Care Physician Encounter [facility] [place] Date(s): 12/24/22 - 01/23/23 [facility] [address] [place] [address]- Allergies, Adverse Reactions, Alerts Substance Reaction Severity [...] Refills, Maintenance, 08/27/22 12:40:00 EST, Tablet, [facility]/pharmacy #2025, 1 tablet By Mouth 2 times a day,x90 days,Instr:masspat checked ; may fill for less... Start Date: 08/27/22 Stop Date: 11/25/22 Status: Ordered amphetamine-dextroamphetamine 20 mg oral tablet 1 tablet = 20 mg, By Mouth, 2 times a day, masspat checked may fill for less, # 60 tablet, 0 Refills, Maintenance, 12/30/22 23:23:00 EDT, Tablet, [facility]/pharmacy #2025, 1 tablet By Mouth 2 times a day,x30 days,Instr:masspat checked ; may fill for less,... Start Date: 12/30/22 Stop Date: 01/29/23 Status: Ordered cyclobenzaprine 10 mg oral tablet 1, tablet, By Mouth, 2 times a day, PRN, # 30 tablet, Refills 1, Maintenance, NEEDED FOR SPASMS,12/20/22 11:12:00 EDT, Route to Pharmacy Electronically, [facility] STORE 05931, 160, cm, 10/26/22 8:55:00EST, Height, 60, kg, 05/29/21 10:55:00 EDT, Dry Weight Start Date: 12/20/22 Status: Ordered fluticasone 50 mcg/inh nasal spray 1 sprays, Nares, Both, 2 times a day, For post nasal drip, # 3 each, 1 Refills, Maintenance, 11/05/21 10:04:00 EST, [place], [facility], Partial fill upon [...] Refills, Soft Stop, 12/16/21 11:06:00 EDT, [facility]/pharmacy #2028, Partial fill upon patient request if [...] Andrade MD Position: [facility] Primary Care Physician Member Role: PCP Address: Address: [address] [place] [address]- Name: Delfino Barber Position: [facility] RN Member Role: Primary Care Nurse Care Team Related Persons Name: VERONICA ANDREWS Address: [address] [place] [address] Name: KEY OVALLE Address: [address] [place], [place] Name: ALCON BAIG Address: [address] [place] [address]
--- OUTSIDE RECORDS SUMMARY | 2024-05-10 09:40 | XMS_ITS | Continuity of Care Document ---
Author Organization [facility] Address [address] [place] [address]- Care Team Providers Care Inspector Returned Materials Name Role Phone Gian Andrade MD Primary Care Physician Encounter [facility] [place] Date(s): 09/24/22 - 10/24/22 [facility] [address] [place] [address]- Allergies, Adverse Reactions, Alerts Substance Reaction Severity [...] 0 Refills, Maintenance, 08/27/22 12:40:00 EST, Tablet, [facility]/pharmacy #2025, 1 tablet By Mouth 2 times a day,x90 days,Instr:masspat checked ; may fill for less... Start Date: 08/27/22 Stop Date: 11/25/22 Status: Ordered amphetamine-dextroamphetamine 20 mg oral tablet 1 tablet = 20 mg, By Mouth, 2 times a day, masspat checked may fill for less, # 180 tablet, 0 Refills, Maintenance, 09/24/22 17:21:00 EST, Tablet, [facility]/pharmacy #2024, 1 tablet By Mouth 2 [...] 08/30/22 13:33:00 EST, Route to Pharmacy Electronically, [facility]/pharmacy #2025, 160, cm, 01/07/22 9:42:00 EDT, Height, 60, kg, 05/29/21 10:55:... Start Date: 08/30/22 Status: Ordered fluticasone 50 mcg/inh nasal spray 1 sprays, Nares, Both, 2 times a day, For post nasal drip, # 3 each, 1 Refills, Maintenance, 11/05/21 10:04:00 EST, [place], [facility], Partial fill upon [...] 1 Refills, Soft Stop, 12/16/21 11:06:00 EDT, [facility]/pharmacy #1, Partial fill upon patient request if the [...] Team Personnel Name: Gian Andrade MD Position: [facility] Primary Care Physician Member Role: PCP Address: Address: [address] [place] [address]- Name: Delfino Barber Position: [facility] RN Member Role: Primary Care Nurse Care Team Related Persons Name: ALCON BAIG Address: home [address] [place] [id number]
--- OUTSIDE RECORDS SUMMARY | 2024-05-10 09:40 | XMS_ITS | Continuity of Care Document ---
Author Organization [facility] Address [address] [place] [address]- Care Team Providers Care Nurse Practitioner Hospitalist Name Role Phone Gian Andrade MD Primary Care Physician [place] [facility]05[place] - 06/04/21 [facility] [address] [place] [address]- Attending Physician: Admtr, Ar8 Admitting Physician: Admtr, [...] 1 Refills, Maintenance, 12/11/19 9:37:00 EDT, Powder, [facility]/pharmacy #202, 2 puffs Inhalation Every 4 hours,PRN:Wheezing/Shortness of Breath, 160, cm, 10/31/19 10:52:00 EST... Start Date: 12/11/19 Status: Ordered amphetamine-dextroamphetamine 20 mg oral tablet 1 tablet = 20 mg, By Mouth, 2 times a day, masspat checked may fill for less, # 56 tablet, 0 Refills, Maintenance, 03/18/21 7:46:00 EDT, Tablet, [facility]/pharmacy #202, 1 tablet By Mouth 2 times a day,x28 days,Instr:masspat checked ; may fill for less,... Start Date: 03/18/21 Stop Date: 04/15/21 Status: Ordered busPIRone 10 mg oral tablet 10 mg, 1, tablet, By Mouth, 2 times a day, # 180 tablet, Refills 1, Tot. Refills 1, Soft Stop, 12/25/20 11:32:00 EDT, Route to Pharmacy Electronically, [facility], 160, cm, 07/30/20 9:37:00 EST, [...] 04/21/21 8:59:00 EDT, Route to Pharmacy Electronically, [facility], 160, cm, 01/22/21 13:16:00 EDT, [...] tablet, 1 Refills, Maintenance, 03/23/21 15:52:00EDT, Tablet, [facility]/pharmacy #2025, 160, cm, 01/22/21 13:16:00 EDT, Height, [...]
--- OUTSIDE RECORDS SUMMARY | 2024-05-10 09:40 | XMS_ITS | Continuity of Care Document ---
Author Organization [facility] Address [address] [place] [address]- Care Team Providers Care Electronic Security Specialist Name Role Phone Gian Andrade MD Primary Care Physician Encounter [facility] Date(s): 07/30/20 - 08/29/20 [facility] [address] [place] [address]- Attending Physician: Admtr, Ar8 Admitting Physician: Admtr, [...] Refills, Maintenance, 08/28/20 14:11:00 EST, Tablet, [facility]/pharmacy #2024, 1 tablet By Mouth 2 times a day,x28 days,Instr:masspat checked 08/27/2020... Start Date: 08/28/20 Stop Date: 09/25/20 Status: Ordered busPIRone 10 mg oral tablet See Instructions, TAKE 1 TABLET BY MOUTH TWICE A DAY, # 180 tablet, Refills 3, Tot. Refills 3, SoftStop, 07/06/19 14:25:16 EDT, Instructions Replace Required Details, Route to Pharmacy Electronically, [id number], [facility]/pharmac... Start Date: 07/06/19 Status: Ordered cyclobenzaprine 10 mg oral tablet 10 mg, 1, tablet, By Mouth, 2 times a day, PRN, # 30 tablet, Refills 1, Tot. Refills 1, Maintenance, for spasm, 01/14/21 9:27:00 EDT, Route to Pharmacy Electronically, [facility]/pharmacy #2024, 160, cm, 02/07/20 10:53:00 EDT, Height, 49.9, kg, 02/07/20 10:5... Start Date: 01/14/21 Status: Ordered cyclobenzaprine 10 mg oral tablet 10 mg, 1, tablet, By Mouth, 2 times a day, PRN, # 30 tablet, Refills 1, Tot. Refills 1, Acute 01/14/21 9:27:00 EDT, for spasm, 01/15/20 9:27:00 EDT, Route to Pharmacy Electronically, [facility]/pharmacy #2024, 160, cm, 01/09/20 9:04:00 EDT, Height Start Date: 01/15/20 Stop Date: 01/14/21 Status: Ordered KlonoPIN 0.5 mg oral tablet 1 tablet = 0.5 mg, By Mouth, 2 times a day, PRN Anxiety, Masspat checked 08/01/2020 May fill for less, # 60 tablet, 1 Refills, Maintenance, 08/01/20 15:29:00 EST, Tablet, [facility], increasing dose, 08/06/20, 160, cm, 07/30/20 [...]
--- OUTSIDE RECORDS SUMMARY | 2024-05-10 09:40 | XMS_ITS | Continuity of Care Document ---
Author Organization [facility] Address [address] [place] [address]- Care Team Providers Care Resident Assistant Name Role Phone Gian Andrade MD Primary Care Physician Encounter [facility] Date(s): 12/31/20 - 01/30/21 [facility] [address] [place] [address]- Allergies, Adverse Reactions, Alerts Substance Reaction Severity [...] 0 Refills, Maintenance, 12/17/20 15:58:00 EDT, Tablet, [facility]/pharmacy #2024, 1 tablet By Mouth [...] 01/14/21 9:27:00 EDT, Route to Pharmacy Electronically, [facility]/pharmacy #2024, 160, cm, 02/07/20 10:53:00 EDT, Height, 49.9, kg, 02/07/20 10:5... Start Date: 01/14/21 Status: Ordered KlonoPIN 0.5 mg oral tablet 1 tablet = 0.5 mg, By Mouth, 2 times a day, PRN Anxiety, Masspat checked May fill for less, # 60 tablet, 1 Refills, Maintenance, 11/21/20 12:12:00 EST, Tablet, [facility]/pharmacy #202, increasing dose, 160, cm, [...]
--- OUTSIDE RECORDS SUMMARY | 2024-05-10 09:40 | XMS_ITS | Continuity of Care Document ---
Author Organization [facility] Address [address] [place] [address]- Care Team Providers Care Cake Puncher Name Role Phone Gian Andrade MD Primary Care Physician Encounter [facility] Date(s): 02/24/24 - 03/25/24 [facility] [address] [address]- Attending Physician: Admtr, Ar8 Admitting Physician: Admtr, [...] 0 Refills, Maintenance, 03/02/24 7:01:00 EDT, Tablet, [facility]/pharmacy #2025, Ok to fill early, Masspat checked , Patient may fill for less, 1 tablet By Mouth 2 times... Start Date: 03/02/24 Stop Date: 03/30/24 Status: Ordered clonazePAM 0.5 mg oral tablet 1 tablet = 0.5 mg, By Mouth, 2 times a day, PRN Anxiety, # 60 tablet, 1 Refills, Maintenance, 12/27/23 14:42:00 EDT, Tablet, [facility]/pharmacy #2024, Partial fill upon patient request if the prescription is for a schedule II opioid drug., 158, cm, 11/22/23... Start Date: 12/27/23 Status: Ordered cyclobenzaprine 10 mg oral tablet 1, tablet, By Mouth, 2 times a day, PRN, # 30 tablet, Refills 1, Maintenance, NEEDED FOR SPASMS,FOR, 01/24/24 8:14:00 EDT, Route to Pharmacy Electronically, [facility], 158, cm, 01/03/24 14:54:00 EDT, Height, 56.3, [...] 02/15/24 16:16:00 EDT, Route to Pharmacy Electronically, [facility]/pharmacy #2025, Partial fill upon patient request if the prescription is for a schedule... Start Date: 02/15/24 Status: Ordered meclizine 25 mg oral tablet 1 tablet = 25 mg, By Mouth, Daily at bedtime, PRN Other, take one tab po qhs prn moderate vertigo, # 8 tablet, 1 Refills, Soft Stop, 12/16/21 11:06:00 EDT, [facility]/pharmacy #2025, Partial fill upon patient request if the prescription is for a schedule II... Start Date: 12/16/21 Status: Ordered NuLYTELY [place] oral powder for reconstitution 240 mL, By Mouth, Every 10 minutes, # 1 each, 0 Refills, Maintenance, 03/23/24 11:15:00 EDT, REC Powder, [facility]/pharmacy #2025, Partial fill upon patient request [...] each, 0 Refills, Maintenance, 11/25/23 17:27:00 EDT, [facility]/pharmacy #2025, Partial fill upon higinio... Start Date: 11/25/23 Status: Ordered propranolol 10 mg oral tablet 1, tablet, By Mouth, 3 times a day, # 270 tablet, Refills 1, Maintenance, 02/07/24 8:11:00 EDT, Route to Pharmacy Electronically, [id number], 158, cm, 01/03/24 14:54:00 EDT, Height, 56.3, [...] Refills, Maintenance, 12/25/23 14:07:00 EDT, ER Tablet, [facility]/pharmacy #2025, 1 tablet By Mouth 2 [...] Primary Care Member Role: PCP Address: Address: [address] [place] [id number]- Name: Delfino Barber RN Position: [facility] RN Member Role: Primary Care Nurse Care Team Related Persons Name: VERONICA ANDREWS Address: home [address] [place] [phone] Name: KEY OVALLE Address: [address] [address] Name: ALCON BAIG Address: [address] [address]
--- OUTSIDE RECORDS SUMMARY | 2024-05-10 09:40 | XMS_ITS | Continuity of Care Document ---
Author Organization [facility] Address [address] [place] [address]- Care Team Providers Care Sterilization Technician Name Role Phone Lupe EL, Gian Lincoln Primary Care Physician Encounter [facility] Date(s): 12/14/21 - 01/13/22 [facility] [address], [place] [address] Allergies, Adverse Reactions, Alerts Substance Reaction Severity [...] 02/02/22 15:51:00 EDT, 11/04/21 15:51:00 EST, Tablet, [facility]/pharmacy #2024,160, cm, 10/12/21 10:40:00 EST, Height, 60, kg, 0... Start Date: 11/04/21 Stop Date: 02/02/22 Status: Ordered amphetamine-dextroamphetamine 20 mg oral tablet 1 tablet = 20 mg, By Mouth, 2 times a day, masspat checked may fill for less, # 180 tablet, 0 Refills, Maintenance, 12/31/21 14:04:00 EDT, Tablet, [facility]/pharmacy #2024, 1 tablet By Mouth 2 times a day,x90 days,Instr:masspat checked ; may fill for less... Start Date: 12/31/21 Stop Date: 03/31/22 Status: Ordered busPIRone 10 mg oral tablet 10 mg, 1, tablet, By Mouth, 2 times a day, # 180 tablet, Refills 1, Tot. Refills 1, Soft Stop, 11/02/21 14:38:00 EST, Route to Pharmacy Electronically, [facility], 160, cm, 10/12/21 10:40:00 EST, Height, 60, kg, 05/29/21 10:55:00 ED... Start Date: 11/02/21 Status: Ordered cyclobenzaprine 10 mg oral tablet 10 mg, 1, tablet, By Mouth, 2 times a day, PRN, # 30 tablet, Refills 1, Tot. Refills 1, Maintenance, for spasm, 01/14/21 9:27:00 EDT, Route to Pharmacy Electronically, [facility]/pharmacy #2024, 160, cm, 02/07/20 10:53:00 EDT, Height, 49.9, kg, 02/07/20 10:5... Start Date: 01/14/21 Status: Ordered fluticasone 50 mcg/inh nasal spray 1 sprays, Nares, Both, 2 times a day, For post nasal drip, # 3 each, 1 Refills, Maintenance, 11/05/21 10:04:00 EST, [place], [facility], Partial fill upon [...] 05/02/22 14:59:00 EDT, 11/03/21 14:59:00 EST, Tablet, [facility]/pharmacy #2024, increasing dose, 160, cm, 10/12/21... Start [...]
--- OUTSIDE RECORDS SUMMARY | 2024-05-10 09:40 | XMS_ITS | Continuity of Care Document ---
Author Organization [facility] Address [address] [place] [address]- Care Team Providers Care Radio Presenter Name Role Phone Gian Andrade MD Primary Care Physician Encounter [facility] Date(s): 12/24/22 - 01/23/23 [facility] [address] [place] [address]- Allergies, Adverse Reactions, Alerts Substance Reaction Severity [...] 0 Refills, Maintenance, 08/27/22 12:40:00 EST, Tablet, [facility]/pharmacy #2025, 1 tablet By Mouth 2 times a day,x90 days,Instr:masspat checked ; may fill for less... Start Date: 08/27/22 Stop Date: 11/25/22 Status: Ordered amphetamine-dextroamphetamine 20 mg oral tablet 1 tablet = 20 mg, By Mouth, 2 times a day, masspat checked may fill for less, # 60 tablet, 0 Refills, Maintenance, 12/30/22 23:23:00 EDT, Tablet, [facility]/pharmacy #2025, 1 tablet By Mouth 2 times a day,x30 days,Instr:masspat checked ; may fill for less,... Start Date: 12/30/22 Stop Date: 01/29/23 Status: Ordered cyclobenzaprine 10 mg oral tablet 1, tablet, By Mouth, 2 times a day, PRN, # 30 tablet, Refills 1, Maintenance, NEEDED FOR SPASMS,12/20/22 11:12:00 EDT, Route to Pharmacy Electronically, [id number], 160, cm, 10/26/22 8:55:00EST, Height, 60, kg, 05/29/21 10:55:00 EDT, Dry Weight Start Date: 12/20/22 Status: Ordered fluticasone 50 mcg/inh nasal spray 1 sprays, Nares, Both, 2 times a day, For post nasal drip, # 3 each, 1 Refills, Maintenance, 11/05/21 10:04:00 EST, [place], [facility], Partial fill upon [...] 1 Refills, Soft Stop, 12/16/21 11:06:00 EDT, [facility]/pharmacy #2024, Partial fill upon patient request [...] Team Personnel Name: Gian Andrade MD Position: [facility] Primary Care Physician Member Role: PCP Address: Address: [address] [place] [id number]- Name: Delfino Barber Position: [facility] RN Member Role: Primary Care Nurse Care Team Related Persons Name: VERONICA ANDREWS Address: [address] [place] [address] Name: KEY OVALLE Address: [address] [place], [place] Name: ALCON BAIG Address: [address] [place] [address]
--- OUTSIDE RECORDS SUMMARY | 2024-05-10 09:40 | XMS_ITS | Continuity of Care Document ---
Author Organization [facility] Address [address] [place] [address]- Care Team Providers Care Master Naval Parachutist Name Role Phone Lupe EL, Gian Lincoln Primary Care Physician [place] [facility] Date(s): 02/07/20 - 03/08/20 [facility] [address] [place] [address]- [facility] Encounter Diagnosis Anxiety(Discharge Diagnosis) - 03/05/20 Attending Physician: Percy Ahmadi Admitting Physician: Percy Ahmadi Referring Physician: AdmtrPercy Allergies, Adverse Reactions, Alerts [...] less, # 56 tablet, 0 Refills, Maintenance, 03/05/20 10:15:00 EDT, Tablet, [facility]/pharmacy #5, 1 tablet By Mouth 2 times a day,x28 days,Instr:masspat checked 01/28/2020;... Start Date: 03/05/20 Stop Date: 04/02/20 Status: Ordered busPIRone 10 mg oral tablet See Instructions, TAKE 1 TABLET BY MOUTH TWICE A DAY, # 180 tablet, Refills 3, Tot. Refills 3, SoftStop, 07/06/19 14:25:16 EDT, Instructions Replace Required Details, Route to Pharmacy Electronically, [id number], [facility]/pharmac... Start Date: 07/06/19 Status: Ordered cyclobenzaprine 10 mg oral tablet 10 mg, 1, tablet, By Mouth, 2 times a day, PRN, # 30 tablet, Refills 1, Tot. Refills 1, Maintenance, for spasm, 01/14/21 9:27:00 EDT, Route to Pharmacy Electronically, [facility]/pharmacy #2024, 160, cm, 02/07/20 10:53:00 EDT, Height, 49.9, kg, 02/07/20 10:5... Start Date: 01/14/21 Status: Ordered cyclobenzaprine 10 mg oral tablet 10 mg, 1, tablet, By Mouth, 2 times a day, PRN, # 30 tablet, Refills 1, Tot. Refills 1, Acute 01/14/21 9:27:00 EDT, for spasm, 01/15/20 9:27:00 EDT, Route to Pharmacy Electronically, [facility]/pharmacy #2024, 160, cm, 01/09/20 9:04:00 EDT, [...] wendy Service Informant Anxiety Discharge Diagnosis 03/05/20 Social History Social History Type Response Smoking Status Never smoker entered on: 04/21/15 Sex
--- OUTSIDE RECORDS SUMMARY | 2024-05-10 09:40 | XMS_ITS | Continuity of Care Document ---
Author Organization [facility] Address [address] [place] [address]- Care Team Providers Care Laborer Plumbing Name Role Phone Gian Andrade MD Primary Care Physician Encounter [facility] Date(s): 06/09/21 - 07/09/21 [facility] [address] [place] [address]- Allergies, Adverse Reactions, Alerts Substance Reaction Severity [...] 11:32:00 EDT, Route to Pharmacy Electronically, [facility], 160, cm, 07/30/20 9:37:00 EST, Height, 49.9, kg, 02/07/20 10:53:00 E... Start Date: 12/25/20 Status: Ordered cyclobenzaprine 10 mg oral tablet 10 mg, 1, tablet, By Mouth, 2 times a day, PRN, # 30 tablet, Refills 1, Tot. Refills 1, Maintenance, for spasm, 01/14/21 9:27:00 EDT, Route to Pharmacy Electronically, [facility]/pharmacy #2025, 160, cm, 02/07/20 10:53:00 EDT, Height, 49.9, kg, 02/07/20 10:5... Start Date: 01/14/21 Status: Ordered ibuprofen 800 mg oral tablet 1, tablet, By Mouth, 3 times a day, # 270 tablet, Refills 1, Tot. Refills 1, Maintenance, 04/21/21 8:59:00 EDT, Route to Pharmacy Electronically, [facility], 160, cm, 01/22/21 13:16:00 EDT, [...] tablet, 1 Refills, Maintenance, 03/23/21 15:52:00EDT, Tablet, [facility]/pharmacy #2025, 160, cm, 01/22/21 13:16:00 EDT, Height, [...]
--- OUTSIDE RECORDS SUMMARY | 2024-05-10 09:40 | XMS_ITS | Continuity of Care Document ---
Author Organization [facility] Address [address] [place] [address]- Care Team Providers Care Typesetting Machine Tender Name Role Phone Gian Andrade MD Primary Care Physician [place] [facility] [place](s): 12/31/20 - 01/30/21 [facility] [address] [place] [address]- Allergies, Adverse Reactions, Alerts Substance Reaction Severity [...] 0 Refills, Maintenance, 12/17/20 15:58:00 EDT, Tablet, [facility]/pharmacy #2024, 1 tablet By Mouth [...] 9:27:00 EDT, Route to Pharmacy Electronically, [facility]/pharmacy #2024, 160, cm, 02/07/20 10:53:00 EDT, Height, 49.9, kg, 02/07/20 10:5... Start Date: 01/14/21 Status: Ordered KlonoPIN 0.5 mg oral tablet 1 tablet = 0.5 mg, By Mouth, 2 times a day, PRN Anxiety, Masspat checked May fill for less, # 60 tablet, 1 Refills, Maintenance, 11/21/20 12:12:00 EST, Tablet, [facility]/pharmacy #202, increasing dose, 160, cm, [...]
--- OUTSIDE RECORDS SUMMARY | 2024-05-10 09:40 | XMS_ITS | Continuity of Care Document ---
Author Organization [facility] Address [address] [place] [address]- Care Team Providers Care Sfdc Consultant Name Role Phone Lupe EL, Gian Lincoln Primary Care Physician Encounter [facility] Date(s): 12/21/22 - 02/05/[address] [address] Attending Physician: Tino EL, Odilia Sahu Admitting Physician: Odilia Jiménez MD Referring Physician: Tino EL, Odilia Sahu Allergies, Adverse [...] 11 Refills, Maintenance, 08/10/21 10:44:00 EST, [place], [facility]/pharmacy #2024, 2 puffs Inhalation Every 4 hours,PRN:Wheezing/Shortness [...] 0 Refills, Maintenance, 08/27/22 12:40:00 EST, Tablet, [facility]/pharmacy #2024, 1 tablet By Mouth 2 times [...] SPASMS,12/20/22 11:12:00 EDT, Route to Pharmacy Electronically, [id number], 160, cm, 10/26/22 8:55:00EST, Height, 60, kg, 05/29/21 10:55:00 EDT, Dry Weight Start Date: 12/20/22 Status: Ordered fluticasone 50 mcg/inh nasal spray 1 sprays, Nares, Both, 2 times a day, For post nasal drip, # 3 each, 1 Refills, Maintenance, 11/05/21 10:04:00 EST, [place], [facility], Partial fill upon [...] 1 Refills, Soft Stop, 12/16/21 11:06:00 EDT, [facility]/pharmacy #2024, Partial fill upon patient request if [...] Primary Care Member Role: PCP Address: Address: [address] [place] [id number]- Name: Delfino Barber Position: [facility] RN Member Role: Primary Care Nurse Care Team Related Persons Name: VERONICA ANDREWS Address: [address] [place], [place] Name: KEY OVALLE Address: [address] [place], [place] Name: ALCON BAIG Address: [address] [place] [address]
--- OUTSIDE RECORDS SUMMARY | 2024-05-10 09:40 | XMS_ITS | Continuity of Care Document ---
Author Organization [facility] Address [address] [place] [address]- Care Team Providers Care Senior Pensions Administrator Name Role Phone Gian Andrade MD Primary Care Physician Encounter [facility] Date(s): 10/30/20 - 11/29/[address] [address]- Attending Physician: Admtr, Percy Admitting Physician: Admtr, [...] 0 Refills, Maintenance, 11/12/20 13:31:00 EST, Tablet, [facility]/pharmacy #2025, 1 tablet By Mouth 2 times a day,x28 days,Instr:masspat checked ; may fill for less,... Start Date: 11/12/20 Stop Date: 12/10/20 Status: Ordered busPIRone 10 mg oral tablet 10 mg, 1, tablet, By Mouth, 2 times a day, # 180 tablet, Refills 1, Tot. Refills 1, Soft Stop, 09/02/20 8:17:00 EST, Route to Pharmacy Electronically, [facility]/pharmacy #5, 160, cm, 07/30/20 9:37:00 EST, Height, 49.9, kg, 02/07/20 10:53:00 EDT, Dry Weight Start Date: 09/02/20 Status: Ordered cyclobenzaprine 10 mg oral tablet 10 mg, 1, tablet, By Mouth, 2 times a day, PRN, # 30 tablet, Refills 1, Tot. Refills 1, Maintenance, for spasm, 01/14/21 9:27:00 EDT, Route to Pharmacy Electronically, [facility]/pharmacy #2024, 160, cm, 02/07/20 10:53:00 EDT, Height, 49.9, kg, 02/07/20 10:5... Start Date: 01/14/21 Status: Ordered cyclobenzaprine 10 mg oral tablet 10 mg, 1, tablet, By Mouth, 2 times a day, PRN, # 30 tablet, Refills 1, Tot. Refills 1, Acute 01/14/21 9:27:00 EDT, for spasm, 01/15/20 9:27:00 EDT, Route to Pharmacy Electronically, [facility]/pharmacy #5, 160, cm, 01/09/20 9:04:00 EDT, Height Start Date: 01/15/20 Stop Date: 01/14/21 Status: Ordered KlonoPIN 0.5 mg oral tablet 1 tablet = 0.5 mg, By Mouth, 2 times a day, PRN Anxiety, Masspat checked May fill for less, # 60 tablet, 1 Refills, Maintenance, 11/21/20 12:12:00 EST, Tablet, [facility]/pharmacy #202, increasing dose, 160, cm, 07/30/20 9:37:00 EST, Height, 49.9, kg, ... Start Date: 11/21/20 Status: Ordered omeprazole 20 mg oral enteric coated capsule 1 capsule = 20 mg, By Mouth, Daily, # 90 capsule, 0 Refills, Maintenance, 10/06/20 12:13:00 EST, ECCapsule, [facility]/pharmacy #202, aware of celexa, 160, cm, 07/30/20 9:37:00 EST, Height, 49.9, kg, 02/07/20 10:53:00 EDT, Dry Weight Start Date: 10/06/20 Status: Ordered ondansetron 4 mg oral tablet, disintegrating = 4 mg, By Mouth, 3 times a day, PRN Nausea, # 60 tablet, 1 Refills, Maintenance, 03/13/20 16:39:00EDT, Tablet, [facility]/pharmacy #2024, 160, cm, 03/05/20 9:49:00 EDT, Height, 49.9, kg, 02/07/20 10:53:00EDT, Dry Weight Start Date: 03/13/20 Status: Ordered Plaquenil = 200 mg, By Mouth, Daily, 0 Refills, Maintenance, 10/11/16 10:18:04 Start Date: 10/11/16 Status: Ordered ZyrTEC-D 5 mg-120 mg oral tablet, extended release 1 tablet, By Mouth, 2 times a day, # 180 tablet, 1 Refills, Maintenance, 03/13/20 15:14:00 EDT, ER Tablet, [facility]/pharmacy #202, 1 tablet By Mouth 2 times [...]
--- OUTSIDE RECORDS SUMMARY | 2024-05-10 09:40 | XMS_ITS | Continuity of Care Document ---
Author Organization [facility] Address [address] [place] [address]- Care Team Providers Care Telephone Station Installer Name Role Phone Gian Andrade MD Primary Care Physician Encounter [facility] Date(s): 10/04/23 - 02/01/24 [facility] [address] [place] [address]- Attending Physician: Gian Andrade MD Allergies, Adverse [...] 0 Refills, Maintenance, 02/01/24 15:28:00 EDT, Tablet, [facility]/pharmacy #2025, Ok to fill early, Masspat checked , Patient may fill for less, 1 tablet By Mouth 2 time... Start Date: 02/01/24 Stop Date: 02/29/24 Status: Ordered clonazePAM 0.5 mg oral tablet 1 tablet = 0.5 mg, By Mouth, 2 times a day, PRN Anxiety, # 60 tablet, 1 Refills, Maintenance, 12/27/23 14:42:00 EDT, Tablet, [facility]/pharmacy #202, Partial fill upon patient request if the prescription is for a schedule II opioid drug., 158, cm, 11/22/23... Start Date: 12/27/23 Status: Ordered cyclobenzaprine 10 mg oral tablet 1, tablet, By Mouth, 2 times a day, PRN, # 30 tablet, Refills 1, Maintenance, NEEDED FOR SPASMS,FOR, 01/24/24 8:14:00 EDT, Route to Pharmacy Electronically, [facility], 158, cm, 01/03/24 14:54:00 EDT, Height, 56.3, [...] each, 1 Refills, Maintenance, 11/05/21 10:04:00 EST, [place], [facility], Partial fill upon patient request if the prescription is for a schedule II opioid drug., 1 sprays... Start Date: 11/05/21 Status: Ordered meclizine 25 mg oral tablet 1 tablet = 25 mg, By Mouth, Daily at bedtime, PRN Other, take one tab po qhs prn moderate vertigo, # 8 tablet, 1 Refills, Soft Stop, 12/16/21 11:06:00 EDT, [facility]/pharmacy #2025, Partial fill upon patient [...] each, 0 Refills, Maintenance, 11/25/23 17:27:00 EDT, [facility]/pharmacy #2025, Partial fill upon higinio... Start Date: 11/25/23 Status: Ordered propranolol 10 mg oral tablet 10 mg, 1, tablet, By Mouth, 3 times a day, # 90 tablet, Refills 3, Tot. Refills 3, Maintenance, 11/09/23 9:56:00 EST, Route to Pharmacy Electronically, [facility]/pharmacy #2025, Partial fill upon patient [...] Team Personnel Name: Gian Andrade MD Position: [facility] Physician - Primary Care Member Role: PCP Address: Address: [address] [place] [address] Name: Elisabeth CHENEY, Delfino Position: [facility] RN Member Role: Primary Care Nurse Care Team Related Persons Name: VERONICA ANDREWS Address: [address] [place] [address] Name: KEY OVALLE Address: [address] [place] [address] Name: ALCON BAIG Address: [address] [place] [address]
--- OUTSIDE RECORDS SUMMARY | 2024-05-10 09:40 | XMS_ITS | Continuity of Care Document ---
Author Organization [facility] Address [address] [place] [address]- Care Team Providers Care Dock Pumper Name Role Phone Gian Andrade MD Primary Care Physician Encounter [facility] Date(s): 12/23/22 - 12/30/22 [facility] [address] [place] [address]- Encounter Diagnosis ADD (attention deficit disorder)(Discharge Diagnosis) - 12/23/22 Anxiety(Discharge Diagnosis) - 12/23/22 Back pain(Discharge Diagnosis) - 12/23/22 Dizziness(Discharge Diagnosis) - 12/23/22 Attending Physician: Gian Andrade MD Allergies, Adverse [...] 11 Refills, Maintenance, 08/10/21 10:44:00 EST, Powder, [facility]/pharmacy #2025, 2 puffs Inhalation Every 4 [...] Refills, Maintenance, 08/27/22 12:40:00 EST, Tablet, [facility]/pharmacy #2025, 1 tablet By Mouth 2 times a day,x90 days,Instr:masspat checked ; may fill for less... Start Date: 08/27/22 Stop Date: 11/25/22 Status: Ordered amphetamine-dextroamphetamine 20 mg oral tablet 1 tablet = 20 mg, By Mouth, 2 times a day, masspat checked may fill for less, # 60 tablet, 0 Refills, Maintenance, 12/30/22 23:23:00 EDT, Tablet, [facility]/pharmacy #2025, 1 tablet By Mouth 2 times a day,x30 days,Instr:masspat checked ; may fill for less,... Start Date: 12/30/22 Stop Date: 01/29/23 Status: Ordered cyclobenzaprine 10 mg oral tablet 1, tablet, By Mouth, 2 times a day, PRN, # 30 tablet, Refills 1, Maintenance, NEEDED FOR SPASMS,12/20/22 11:12:00 EDT, Route to Pharmacy Electronically, [facility], 160, cm, 10/26/22 8:55:00EST, Height, 60, kg, 05/29/21 10:55:00 EDT, Dry Weight Start Date: 12/20/22 Status: Ordered fluticasone 50 mcg/inh nasal spray 1 sprays, Nares, Both, 2 times a day, For post nasal drip, # 3 each, 1 Refills, Maintenance, 11/05/21 10:04:00 EST, [place], [facility], Partial fill upon [...] Refills, Soft Stop, 12/16/21 11:06:00 EDT, [facility]/pharmacy #2024, Partial fill upon patient request [...] Diagnosis Diagnosis Type Effective Dates Health Status inical Service Informant ADD (attention deficit disorder) Discharge Diagnosis 12/23/22 Anxiety Discharge Diagnosis 12/23/22 Back pain Discharge Diagnosis 12/23/22 Dizziness Discharge Diagnosis 12/23/22 Vital Signs Most recent to oldest [Reference Range]: 1 Height 160 cm (12/23/22 10:37 AM) Weight 55.4 kg (12/23/22 10:37 AM) Oxygen Saturation [94-100 %] 100 % (12/23/22 10:37 AM) Pulse Rate [55-90 bpm] 101 bpm *H* (12/23/22 10:37 AM) Body Mass Index [18.5-24.99 kg/m2] 21.64 kg/m2 (12/23/22 10:37 AM) Blood Pressure [90-138/55-84 mm Hg] 108/ 71mm Hg (12/23/22 10:37 AM) Respiratory Rate [16-30 br/min] 16 br/mi n (12/23/22 10:37 AM) Blood pressure sites Arm, left (12/23/22 10:37 AM) Weight Obtained Via Standing scale (12/23/22 10:37 AM) Social History Social History Type Response Smoking Status Never smoker entered on: 04/21/15 Sex Patient Care team information Care Team Personnel Name: Gian Andrade MD Position: [facility] Primary Care Physician Member Role: PCP Address: Address: [address] [place] [address]- Name: Delfino Barber Position: [facility] RN Member Role: Primary Care Nurse Care Team Related Persons Name: ALCON BAIG Address: [address] [address]
--- OUTSIDE RECORDS SUMMARY | 2024-05-10 09:40 | XMS_ITS | Continuity of Care Document ---
Author Organization [facility] Address [address] [place] [address]- Care Team Providers Care Program Planner Name Role Phone Gian Andrade MD Primary Care Physician Encounter [facility] Date(s): 11/12/20 - 12/12/20 [facility] [address] [place] [address]- Allergies, Adverse Reactions, Alerts Substance Reaction Severity [...] 0 Refills, Maintenance, 11/12/20 13:31:00 EST, Tablet, [facility]/pharmacy #2024, 1 tablet By Mouth 2 times a day,x28 days,Instr:masspat checked ; may fill for less,... Start Date: 11/12/20 Stop Date: 12/10/20 Status: Ordered busPIRone 10 mg oral tablet 10 mg, 1, tablet, By Mouth, 2 times a day, # 180 tablet, Refills 1, Tot. Refills 1, Soft Stop, 09/02/20 8:17:00 EST, Route to Pharmacy Electronically, [facility]/pharmacy #2024, 160, cm, 07/30/20 9:37:00 EST, [...] 1 Refills, Maintenance, 11/21/20 12:12:00 EST, Tablet, [facility]/pharmacy #2024, increasing dose, 160, cm, 07/30/20 9:37:00 EST, Height, 49.9, kg, 05/... Start Date: 11/21/20 Status: Ordered omeprazole 20 mg oral enteric coated capsule 1 capsule = 20 mg, By Mouth, Daily, # 90 capsule, 0 Refills, Maintenance, 10/06/20 12:13:00 EST, ECCapsule, [facility]/pharmacy #2025, aware of celexa, 160, cm, 07/30/20 9:37:00 EST, Height, 49.9, kg, 02/07/20 10:53:00 EDT, Dry Weight Start Date: 10/06/20 Status: Ordered ondansetron 4 mg oral tablet, disintegrating = 4 mg, By Mouth, 3 times a day, PRN Nausea, # 60 tablet, 1 Refills, Maintenance, 03/13/20 16:39:00EDT, Tablet, [facility]/pharmacy #2025, 160, cm, 03/05/20 9:49:00 EDT, Height, [...] 03/13/20 15:14:00 EDT, ER Tablet, [facility]/pharmacy #2025, 1 tablet By [...]
--- OUTSIDE RECORDS SUMMARY | 2024-05-10 09:40 | XMS_ITS | Continuity of Care Document ---
Author Organization [facility] Address [address] [place] [address]- Care Team Providers Care Gear Setter Name Role Phone Gian Andrade MD Primary Care Physician [facility] Date[facility]): 04[facility]20 - 05/29/20 [facility] [address] [place] [address]- [facility] Allergies, Adverse Reactions, Alerts Substance Reaction [...] tablet,0 Refills, Maintenance, 05/14/20 14:08:00 EDT, Tablet, [facility]/pharmacy #2024, last rx ., 1 tablet By Mouth 2 times a day,x28 days,Instr:masspat ch... Start Date: 05/14/20 Stop Date: 06/11/20 Status: Ordered busPIRone 10 mg oral tablet See Instructions, TAKE 1 TABLET BY MOUTH TWICE A DAY, # 180 tablet, Refills 3, Tot. Refills 3, SoftStop, 07/06/19 14:25:16 EDT, Instructions Replace Required Details, Route to Pharmacy Electronically, [id number], [facility] Start Date: 07/06/19 Status: Ordered cyclobenzaprine 10 mg oral tablet 10 mg, 1, tablet, By Mouth, 2 times a day, PRN, # 30 tablet, Refills 1, Tot. Refills 1, Maintenance, for spasm, 01/14/21 9:27:00 EDT, Route to Pharmacy Electronically, [facility]/pharmacy #2024, 160, cm, 02/07/20 10:53:00 EDT, Height, 49.9, kg, 02/07/20 10:5... Start Date: 01/14/21 Status: Ordered cyclobenzaprine 10 mg oral tablet 10 mg, 1, tablet, By Mouth, 2 times a day, PRN, # 30 tablet, Refills 1, Tot. Refills 1, Acute 01/14/21 9:27:00 EDT, for spasm, 01/15/20 9:27:00 EDT, Route to Pharmacy Electronically, [facility]/pharmacy #2024, 160, cm, 01/09/20 9:04:00 EDT, Height Start Date: 01/15/20 Stop Date: 01/14/21 Status: Ordered KlonoPIN 0.5 mg oral tablet 1 tablet = 0.5 mg, By Mouth, 2 times a day, PRN Anxiety, Masspat checked 05/14/2020 May fill for less, # 60 tablet, 0 Refills, Maintenance, 05/14/20 14:08:00 EDT, Tablet, [facility]/pharmacy #2024, increasingdose, 05/14/20, 160, cm, 04/28/20 15:39:00 EDT, He... Start Date: 05/14/20 Status: Ordered ofloxacin 0.3% otic solution 5, drops, Ears, Both, 2 times a day, for 7 days, # 5 mL, Refills 0, Tot. Refills 0, Acute, 06/03/2011:00:00 EDT, 05/27/20 11:00:00 EDT, Route to Pharmacy Electronically, [facility]/pharmacy #2024 Solution,160, cm, 05/27/20 10:37:00 EDT, Height, 49.9, kg, 0... Start Date: 05/27/20 Stop Date: 06/03/20 Status: Ordered omeprazole 20 mg oral enteric coated capsule 1 capsule = 20 mg, By Mouth, Daily, # 90 capsule, 1 Refills, Maintenance, 12/10/19 14:55:00 EDT, ECCapsule, [facility]/pharmacy #2024, aware of celexa, 160, cm, 10/31/19 10:52:00 EST, Height Start Date: 12/10/19 Status: Ordered ondansetron 4 mg oral tablet, disintegrating = 4 mg, By Mouth, 3 times a day, PRN Nausea, # 60 tablet, 1 Refills, Maintenance, 03/13/20 16:39:00EDT, Tablet, [facility]/pharmacy #2024, 160, cm, 03/05/20 [...] Refills, Maintenance, 03/13/20 15:14:00 EDT, ER Tablet, [facility]/pharmacy #202, 1 tablet By [...] 14:55:00 EDT, 12/10/19 14:55:00 EDT, ER Tablet, [facility]/pharmacy #2025, 160, cm, 10/31/19 10:52:00 [...]
--- OUTSIDE RECORDS SUMMARY | 2024-05-10 09:40 | XMS_ITS | Continuity of Care Document ---
Author Organization [facility] [place] Address [address] [place] [address]- Care Team Providers Care Bench Grinder Name Role Phone Gian Andrade MD Primary Care Physician Encounter [facility] Date(s): 11/28/23 - 12/28/23 [facility] [place] [address] [place], [place] [address] Allergies, Adverse Reactions, Alerts Substance Reaction Severity Status lidocaine-prilocaine topical Eruption Active Latex Active Percocet 5 Active Immunizations Given and Recorded Vaccine Date [...] 0 Refills, Maintenance, 12/01/23 14:33:00 EDT, Tablet, [facility]/pharmacy #202, Ok to fill early, Masspat checked , Patient may fill for less, 1 tablet By Mouth 2 time... Start Date: 12/01/23 Stop Date: 12/29/23 Status: Ordered clonazePAM 0.5 mg oral tablet 1 tablet = 0.5 mg, By Mouth, 2 times a day, PRN Anxiety, # 60 tablet, 1 Refills, Maintenance, 12/27/23 14:42:00 EDT, Tablet, [facility]/pharmacy #2024, Partial fill upon patient request if the prescription is for a schedule II opioid drug., 158, cm, 11/22/23... Start Date: 12/27/23 Status: Ordered cyclobenzaprine 10 mg oral tablet 1, tablet, By Mouth, 2 times a day, PRN, TAKE ONLY NEEDED FOR SPASMS, # 30 tablet, Refills 1, Tot. Refills 1, Maintenance, NEEDED FOR SPASMS, 12/26/23 14:57:00 EDT, Route to Pharmacy Electronically, [facility]/pharmacy #2024, 158, cm, 11/22/23 9:52:00... Start Date: 12/26/23 Stop Date: 01/25/24 Status: Ordered Emgality 0 Refills, Maintenance, 04/19/23 15:48:00 EDT, Partial fill upon patient request if the prescription is for a schedule II opioid drug. Start Date: 04/19/23 Status: Ordered fluticasone 50 mcg/inh nasal spray 1 sprays, Nares, Both, 2 times a day, For post nasal drip, # 3 each, 1 Refills, Maintenance, 11/05/21 10:04:00 EST, [place], [facility], Partial fill upon [...] 12/16/21 11:06:00 EDT, [facility]/pharmacy #2024, Partial fill upon patient request [...] each, 0 Refills, Maintenance, 11/25/23 17:27:00 EDT, [facility]/pharmacy #2025, Partial fill upon higinio... Start Date: 11/25/23 Status: Ordered propranolol 10 mg oral tablet 10 mg, 1, tablet, By Mouth, 3 times a day, # 90 tablet, Refills 3, Tot. Refills 3, Maintenance, 11/09/23 9:56:00 EST, Route to Pharmacy Electronically, [facility]/pharmacy #202, Partial fill [...] Team Personnel Name: Gian Andrade MD Position: [facility] Physician - Primary Care Member Role: PCP Address: Address: [address] [place] [address] Name: Elisabeth CHENEY, Delfino Position: [facility] RN Member Role: Primary Care Nurse Care Team Related Persons Name: VERONICA ANDREWS Address: [address] [place] [address] Name: KEY OVALLE Address: [address] [place] [address] Name: ALCON BAIG Address: [place] [address] [place] [address]
--- OUTSIDE RECORDS SUMMARY | 2024-05-10 09:40 | XMS_ITS | Continuity of Care Document ---
Author Organization [facility] Address [address] [place] [address]- Care Team Providers Care Fish Hatchery Man Name Role Phone Gian Andrade MD Primary Care Physician Encounter [facility] Date(s): 03/13/20 - 04/12/20 [facility] [address] [place] [address]- [facility] Allergies, Adverse Reactions, Alerts Substance Reaction [...] 0 Refills, Maintenance, 03/11/20 8:51:00 EDT, Tablet, [facility]/pharmacy #2024, last rx ., 1 tablet By Mouth 2 times a day,x28 days,Instr:masspat ch... Start Date: 03/11/20 Stop Date: 04/08/20 Status: Ordered busPIRone 10 mg oral tablet See Instructions, TAKE 1 TABLET BY MOUTH TWICE A DAY, # 180 tablet, Refills 3, Tot. Refills 3, SoftStop, 07/06/19 14:25:16 EDT, Instructions Replace Required Details, Route to Pharmacy Electronically, [id number], [facility] Start Date: 07/06/19 Status: Ordered cyclobenzaprine [...] 0 Refills, Maintenance, 03/13/20 15:52:00 EDT, Tablet, [facility]/pharmacy #2024, increasing dose, 160, cm, 03/05/20 [...]
--- OUTSIDE RECORDS SUMMARY | 2024-05-10 09:40 | XMS_ITS | Continuity of Care Document ---
Author Organization [facility] Address [address] [place] [address]- Care Team Providers Care Employment Adjudicator Name Role Phone Gian Andrade MD Primary Care Physician [place] [facility] Date(s): 01/02/21 - 02/01/21 [facility] [address] [place] [address]- Allergies, Adverse Reactions, Alerts Substance Reaction Severity [...] Refills, Maintenance, 12/17/20 15:58:00 EDT, Tablet, [facility]/pharmacy #2024, 1 [...] Refills, Maintenance, 11/21/20 12:12:00 EST, Tablet, [facility]/pharmacy #202, increasing dose, 160, cm, 07/30/20 [...]
--- OUTSIDE RECORDS SUMMARY | 2024-05-10 09:40 | XMS_ITS | Continuity of Care Document ---
Author Organization [facility] Address [address] [place] [address]- Care Team Providers Care Asset Accountant Name Role Phone Gian Andrade MD Primary Care Physician Encounter [facility] Date(s): 08/25/22 - 09/24/22 [facility] [address] [place] [address]- Allergies, Adverse Reactions, Alerts Substance Reaction Severity [...] 0 Refills, Maintenance, 08/27/22 12:40:00 EST, Tablet, [facility]/pharmacy #2025, 1 tablet By Mouth 2 times a day,x90 days,Instr:masspat checked ; may fill for less... Start Date: 08/27/22 Stop Date: 11/25/22 Status: Ordered amphetamine-dextroamphetamine 20 mg oral tablet 1 tablet = 20 mg, By Mouth, 2 times a day, masspat checked may fill for less, # 180 tablet, 0 Refills, Maintenance, 09/24/22 17:21:00 EST, Tablet, [facility]/pharmacy #2024, 1 tablet By Mouth 2 [...] 08/30/22 13:33:00 EST, Route to Pharmacy Electronically, [facility]/pharmacy #2025, 160, cm, 01/07/22 9:42:00 EDT, Height, 60, kg, 05/29/21 10:55:... Start Date: 08/30/22 Status: Ordered fluticasone 50 mcg/inh nasal spray 1 sprays, Nares, Both, 2 times a day, For post nasal drip, # 3 each, 1 Refills, Maintenance, 11/05/21 10:04:00 EST, [place], [facility], Partial fill upon [...] Team Personnel Name: Gian Andrade MD Position: [facility] Primary Care Physician Member Role: PCP Address: [facility] [place] [address]- Name: Delfino Barber Position: [facility] RN Member Role: Primary Care Nurse Care Team Related Persons Name: ALCON BAIG Address: home [address] [place] [id number]
--- OUTSIDE RECORDS SUMMARY | 2024-05-10 09:40 | XMS_ITS | Continuity of Care Document ---
Author Organization [facility] Address [address] [place] [address]- Care Team Providers Care Intern Product Marketing Manager Name Role Phone Gian Andrade MD Primary Care Physician Encounter [facility] Date(s): 11/09/23 - 11/16/23 [facility] [address] [place] [address]- Attending Physician: Not on Staff, Attending MD [...] 0 Refills, Maintenance, 11/02/23 13:09:00 EST, Tablet, [facility]/pharmacy #2025, Ok to fill early, Masspat [...] 11/09/23 9:24:00 EST, Route to Pharmacy Electronically, [facility]/pharmacy #2024, 158, cm, 09/23/23 12:44:00... Start [...] each, 1 Refills, Maintenance, 11/05/21 10:04:00 EST, [place], [facility], Partial fill upon patient request if the prescription is for a schedule II opioid drug., 1 sprays... Start Date: 11/05/21 Status: Ordered meclizine 25 mg oral tablet 1 tablet = 25 mg, By Mouth, Daily at bedtime, PRN Other, take one tab po qhs prn moderate vertigo, # 8 tablet, 1 Refills, Soft Stop, 12/16/21 11:06:00 EDT, [facility]/pharmacy #2025, Partial fill upon patient request [...] 11/09/23 9:56:00 EST, Route to Pharmacy Electronically, [facility]/pharmacy #2025, Partial fill upon patient request [...] Refills, Maintenance, 12/25/23 14:07:00 EDT, ER Tablet, [facility]/pharmacy #2025, 1 tablet By Mouth 2 [...] oldest [Reference Range]: 1 Height 158.0 cm (11/09/23 1:28 PM) Weight 53.5 kg (11/09/23 1:28 PM) Oxygen Saturation [94-100 %] 98 % (11/09/23 1:28 PM) Pulse Rate [55-90 bpm] 90 bpm (11/09/23 1:28 PM) Body Mass Index [18.5-24.99 kg/m2] 21.43 kg/m2 (11/09/23 1:28 PM) Blood Pressure [90-138/55-84 mm Hg] 117/ 75mm Hg (11/09/23 1:28 PM) Blood pressure sites Arm, left (11/09/23 1:28 PM) Weight Obtained Via Standing scale (11/09/23 1:28 PM) Social History Social History Type Response Smoking Status Never smoker entered on: 04/21/15 Sex Patient Care team information Care Team Personnel Name: Lupe EL, Gian Lincoln Position: [facility] Physician - Primary Care Member Role: PCP Address: Address: [address] [place] [address] Name: Elisabeth CHENEY, Delfino Position: [facility] RN Member Role: Primary Care Nurse Care Team Related Persons Name: VERONICA ANDREWS Address: [place] [address] [place] [address] Name: KEY OVALLE Address: [address] [place], [place] Name: ALCON BAIG Address: [place] [address] [place] [address]
--- OUTSIDE RECORDS SUMMARY | 2024-05-10 09:40 | XMS_ITS | Continuity of Care Document ---
Author Organization [facility] Address [address] [place] [address]- Care Team Providers Care Jail Manager Name Role Phone Lupe EL, Gian Lincoln Primary Care Physician Encounter [facility] Date(s): 08/19/23 - 09/18/[facility] [address] [place] [id number] Attending Physician: Admtr, Ar8 Admitting Physician: [...] 11 Refills, Maintenance, 08/10/21 10:44:00 EST, [place], [facility]/pharmacy #2024, 2 puffs Inhalation Every 4 [...] 0 Refills, Maintenance, 08/09/23 10:59:00 EST, Tablet, [facility]/pharmacy #2024, Ok to fill early, Masspat [...] each, 1 Refills, Maintenance, 11/05/21 10:04:00 EST, [place], [facility], Partial fill upon [...] 0 Refills, Maintenance, 06/08/22 5:58:00 EDT, [facility], 160, cm, 01/07/22 9:42:00 EDT, Height, 60, kg, 05/29/21 10:55:00 EDT, Dry Weight Start Date: 06/08/22 Status: Ordered ondansetron 4 mg oral tablet, disintegrating = 4 mg, By Mouth, 3 times a day, PRN Nausea, TAKE ONLY NEEDED, # 120 tablet, 0 Refills, Maintenance, 02/11/22 14:20:00 EDT, Tablet, [facility], 160, cm, 01/07/22 9:42:00 EDT, [...] Position: [facility] Physician - Primary Care Member Role: PCP Address: Address: [address] [place] [address]- Name: Delfino Barber RN Position: [facility] RN Member Role: Primary Care Nurse Care Team Related Persons Name: VERONICA ANDREWS Address: [address] [place] [address] Name: KEY OVALLE Address: [address] [place] [address] Name: ALCON BAIG Address: [address] [place] [address]
--- OUTSIDE RECORDS SUMMARY | 2024-05-10 09:40 | XMS_ITS | Continuity of Care Document ---
Author Organization [facility] Address [address] [place] [address]- Care Team Providers Care Landscape Laborer Name Role Phone Gian Andrade MD Primary Care Physician Encounter [facility] [place] [place] Date(s): 04/26/22 - 05/26/22 [facility] [address] [place] [address]- Attending Physician: Admtr, Ar8 Admitting Physician: Admtr, [...] Breath, # 1 each, 11 Refills, Maintenance, 11/29/21 10:44:00 EST, [place], [facility]/pharmacy #2024, 2 puffs Inhalation Every 4 hours,PRN:Wheezing/Shortness [...] 14:38:00 EST, Route to Pharmacy Electronically, [facility], 160, cm, 10/12/21 10:40:00 EST, Height, 60, kg, 05/29/21 10:55:00 ED... Start Date: 11/02/21 Status: Ordered cyclobenzaprine 10 mg oral tablet 10 mg, 1, tablet, By Mouth, 2 times a day, PRN, # 30 tablet, Refills 1, Tot. Refills 1, Maintenance, for spasm, 01/14/21 9:27:00 EDT, Route to Pharmacy Electronically, [facility]/pharmacy #2024, 160, cm, 02/07/20 10:53:00 EDT, Height, 49.9, kg, 02/07/20 10:5... Start Date: 01/14/21 Status: Ordered fluticasone 50 mcg/inh nasal spray 1 sprays, Nares, Both, 2 times a day, For post nasal drip, # 3 each, 1 Refills, Maintenance, 11/05/21 10:04:00 EST, [place], [facility], Partial fill upon [...] Refills, Soft Stop, 12/16/21 11:06:00 EDT, [facility], Partial fill upon patient request if the [...] Team Personnel Name: Gian Andrade MD Address: [address] [place] [address]
--- OUTSIDE RECORDS SUMMARY | 2024-05-10 09:40 | XMS_ITS | Continuity of Care Document ---
Author Organization [facility] Address [address] [place] [address]- Care Team Providers Care Boiler Installer Name Role Phone Gian Andrade MD Primary Care Physician En[place] [facility] Date(s): 12/27/22 - 01/26/23 [facility] [address] [place] [address]- Allergies, Adverse Reactions, Alerts Substance Reaction Severity [...] 0 Refills, Maintenance, 08/27/22 12:40:00 EST, Tablet, [facility]/pharmacy #2025, 1 tablet By Mouth 2 times a day,x90 days,Instr:masspat checked ; may fill for less... Start Date: 08/27/22 Stop Date: 11/25/22 Status: Ordered amphetamine-dextroamphetamine 20 mg oral tablet 1 tablet = 20 mg, By Mouth, 2 times a day, masspat checked may fill for less, # 60 tablet, 0 Refills, Maintenance, 12/30/22 23:23:00 EDT, Tablet, [facility]/pharmacy #2025, 1 tablet By Mouth 2 times a day,x30 days,Instr:masspat checked ; may fill for less,... Start Date: 12/30/22 Stop Date: 01/29/23 Status: Ordered cyclobenzaprine 10 mg oral tablet 1, tablet, By Mouth, 2 times a day, PRN, # 30 tablet, Refills 1, Maintenance, NEEDED FOR SPASMS,12/20/22 11:12:00 EDT, Route to Pharmacy Electronically, [id number], 160, cm, 10/26/22 8:55:00EST, Height, 60, kg, 05/29/21 10:55:00 EDT, Dry Weight Start Date: 12/20/22 Status: Ordered fluticasone 50 mcg/inh nasal spray 1 sprays, Nares, Both, 2 times a day, For post nasal drip, # 3 each, 1 Refills, Maintenance, 11/05/21 10:04:00 EST, [place], [facility], Partial fill upon [...] Soft Stop, 12/16/21 11:06:00 EDT, [facility]/pharmacy #2023, Partial fill upon patient request [...] Team Personnel Name: Gian Andrade MD Position: [facility] Primary Care Physician Member Role: PCP Address: Address: [address] [place] [address]- Name: Delfino Barber Position: [facility] RN Member Role: Primary Care Nurse Care Team Related Persons Name: VERONICA ANDREWS Address: [address] [place] [address] Name: KEY OVALLE Address: [address] [place], [place] Name: ALCON BAIG Address: [address] [place] [address]
--- OUTSIDE RECORDS SUMMARY | 2024-05-10 09:40 | XMS_ITS | Continuity of Care Document ---
Author Organization [facility] Address [address] [place] [address]- Care Team Providers Care Jewel Blocker And Sawyer Name Role Phone Lupe EL, Gian Lincoln Primary Care Physician [place] [facility] [place] [place] Date(s[place] 12/23/22 - 01/22/[address] [address]- Allergies, Adverse Reactions, Alerts Substance Reaction Severity [...] 0 Refills, Maintenance, 08/27/22 12:40:00 EST, Tablet, [facility]/pharmacy #2024, 1 tablet By Mouth 2 times a day,x90 days,Instr:masspat checked ; may fill for less... Start Date: 08/27/22 Stop Date: 11/25/22 Status: Ordered amphetamine-dextroamphetamine 20 mg oral tablet 1 tablet = 20 mg, By Mouth, 2 times a day, masspat checked may fill for less, # 60 tablet, 0 Refills, Maintenance, 12/30/22 23:23:00 EDT, Tablet, [facility]/pharmacy #2024, 1 tablet By Mouth 2 times a day,x30 days,Instr:masspat checked ; may fill for less,... Start Date: 12/30/22 Stop Date: 01/29/23 Status: Ordered cyclobenzaprine 10 mg oral tablet 1, tablet, By Mouth, 2 times a day, PRN, # 30 tablet, Refills 1, Maintenance, NEEDED FOR SPASMS,12/20/22 11:12:00 EDT, Route to Pharmacy Electronically, [facility], 160, cm, 10/26/22 8:55:00EST, Height, 60, kg, 05/29/21 10:55:00 EDT, Dry Weight Start Date: 12/20/22 Status: Ordered fluticasone 50 mcg/inh nasal spray 1 sprays, Nares, Both, 2 times a day, For post nasal drip, # 3 each, 1 Refills, Maintenance, 11/05/21 10:04:00 EST, [place], [facility], Partial fill upon [...] 1 Refills, Soft Stop, 12/16/21 11:06:00 EDT, [facility]/pharmacy #8808, Partial fill upon patient request if the [...] Gian Andrade MD Position: [facility] Primary Care Physician Member Role: PCP Address: Address: [address] [place] [address]- Name: Delfino Barber Position: [facility] RN Member Role: Primary Care Nurse Care Team Related Persons Name: VERONICA ANDREWS Address: [place] [address] [place] [address] Name: KEY OVALLE Address: [address] [place], [place] Name: ALCON BAIG Address: [place] [address] [place] [address]
--- OUTSIDE RECORDS SUMMARY | 2024-05-10 09:40 | XMS_ITS | Continuity of Care Document ---
Author Organization [facility] Address [address] [place] [address]- Care Team Providers Care Meat Cooler Name Role Phone Gian Andrade MD Primary Care Physician En[place] [facility] Date(s): 12/17/20 - 01/16/21 [facility] [address] [place] [address]- Allergies, Adverse Reactions, Alerts Substance Reaction Severity [...] 0 Refills, Maintenance, 12/17/20 15:58:00 EDT, Tablet, [facility]/pharmacy #2024, 1 tablet By Mouth 2 times [...] [facility], 160, cm, 02/07/20 10:53:00 EDT, Height, 49.9, kg, 02/07/20 10:5... Start Date: 01/14/21 Status: Ordered KlonoPIN 0.5 mg oral tablet 1 tablet = 0.5 mg, By Mouth, 2 times a day, PRN Anxiety, Masspat checked May fill for less, # 60 tablet, 1 Refills, Maintenance, 11/21/20 12:12:00 EST, Tablet, [facility]/pharmacy #2024, increasing dose, 160, cm, 07/30/20 9:37:00 EST, Height, 49.9, kg, 05/... Start Date: 11/21/20 Status: Ordered omeprazole 20 mg oral enteric coated capsule 1 capsule = 20 mg, By Mouth, Daily, # 90 capsule, 0 Refills, Maintenance, 12/29/20 13:29:00 EDT, ECCapsule, [facility]/pharmacy #2024, aware of celexa, 160, cm, 07/30/20 [...]
--- OUTSIDE RECORDS SUMMARY | 2024-05-10 09:41 | XMS_ITS | Continuity of Care Document ---
Author Organization [facility] Address [address] [place] [address]- Care Team Providers Care Plant Reliability Engineer Name Role Phone Gian Andrade MD Primary Care Physician [place] [facility] [place]19 [facility] [address] [place] [address]- [facility] Encounter Diagnosis Dizziness(Discharge Diagnosis) - 10/31/19 Attending Physician: Dionte RESEARCH ASSISTANT, Arielle Lincoln Allergies, Adverse Reactions, Alerts Substance [...] Replace Required Details, Route to Pharmacy Electronically, [id number], [facility]/pharmac... Start Date: 07/06/19 Status: Ordered ibuprofen 800 mg oral tablet 800 mg, 1, tablet, By Mouth, 3 times a day, # 90 tablet, Refills 2, Tot. Refills 2, Acute 11/23/19 13:09:00 EDT, 10/25/19 13:08:00 EST, Route to Pharmacy Electronically, [facility]/pharmacy #2024, 160, cm, 07/06/19 14:11:00 EDT, Height Start Date: 10/25/19 Stop Date: 11/23/19 Status: Ordered KlonoPIN 0.5 mg oral tablet 1 tablet = 0.5 mg, By Mouth, 2 times a day, PRN Anxiety, Masspat checked 11/01/2019, # 60 tablet, 1 Refills, Maintenance, 11/01/19 12:31:00 EST, Tablet, [facility]/pharmacy #2024, increasing dose, 160, cm, 10/31/19 10:52:00 EST, Height Start Date: 11/01/19 Status: Ordered omeprazole 20 mg oral enteric coated capsule 1 capsule = 20 mg, By Mouth, Daily, # 90 capsule, 1 Refills, Hard Stop 04/22/20 9:15:00 EDT, 09/25/19 9:15:00 EST, EC Capsule, [facility]/pharmacy #2024, aware of celexa, 160, cm, 07/06/19 14:11:00 EDT, Height Start Date: 09/25/19 Stop Date: 04/22/20 Status: Ordered omeprazole 20 mg oral enteric coated capsule 1 capsule = 20 mg, By Mouth, Daily, # 90 capsule, 1 Refills, Maintenance, 04/22/20 9:15:00 EDT, EC Capsule, [facility]/pharmacy #2024, aware of celexa, 160, cm, [...] intestinal bacterial overgrowth(Confirmed) 01/06/16 Active Lupus(Confirmed) Active Diagnosis Diagnosis Type Effective Dates Health Status Clini wendy Service Informant Dizziness Discharge Diagnosis 10/31/19 Vital Signs Most recent to oldest [Reference Range]: 1 Height 160 cm (10/31/19 10:52 AM) Oxygen Saturation [94-100 %] 98 % (10/31/19 10:52 AM) Pulse Rate [55-90 bpm] 63 bpm (10/31/19 10:52 AM) Blood Pressure [90-138/55-84 mm Hg] 106/ 68mm Hg (10/31/19 10:52 AM) Respiratory Rate [16-30 br/min] 16 br/mi n (10/31/19 10:52 AM) Temperature [96.8-100.4 DegF] 98.5 DegF (10/31/19 10:52 AM) Mode of Delivery (Oxygen) Room air (10/31/19 10:52 AM) Blood pressure sites Arm, left (10/31/19 10:52 AM) Temperature Route Oral (10/31/19 10:52 AM) Social History Social History Type Response Smoking Status Never smoker entered on: 04/21/15 Sex
--- OUTSIDE RECORDS SUMMARY | 2024-05-10 09:41 | XMS_ITS | Continuity of Care Document ---
Author Organization [facility] Address [address] [place] [address]- Care Team Providers Care Automotive Lube Technician Name Role Phone Gian Andrade MD Primary Care Physician Encounter [facility] [place] Date(s): 03/17/21 - 04/16/21 [facility] [address] [place] [address]- Allergies, Adverse Reactions, Alerts Substance Reaction Severity [...] 0 Refills, Maintenance, 03/18/21 7:46:00 EDT, Tablet, [facility]/pharmacy #2025, [...] 01/14/21 9:27:00 EDT, Route to Pharmacy Electronically, [facility]/pharmacy #2025, 160, cm, 02/07/20 10:53:00 EDT, Height, 49.9, kg, 02/07/20 10:5... Start Date: 01/14/21 Status: Ordered ibuprofen 800 mg oral tablet 1, tablet, By Mouth, 3 times a day, # 90 tablet, Refills 2, Tot. Refills 0, Acute, 03/24/21 10:43:00 EDT, Route to Pharmacy Electronically, [facility] STORE [id number], 160, cm, 01/22/21 13:16:00 EDT, Height, 54.6, kg, 01/22/21 13:16:00 EDT, Dry Weight Start Date: 03/24/21 Status: Ordered KlonoPIN 0.5 mg oral tablet [...] 0 Refills, Maintenance, 12/29/20 13:29:00 EDT, ECCapsule, [facility]/pharmacy #2025, aware of celexa, 160, cm, 07/30/20 9:37:00 EST, Height, 49.9, kg, 02/07/20 10:53:00 EDT, Dry Weight Start Date: 12/29/20 Status: Ordered ondansetron 4 mg oral tablet, disintegrating = 4 mg, By Mouth, 3 times a day, PRN Nausea, # 60 tablet, 1 Refills, Maintenance, 03/23/21 15:52:00EDT, Tablet, [facility]/pharmacy #2024, 160, cm, 01/22/21 13:16:00 EDT, Height, 54.6, [...]
--- OUTSIDE RECORDS SUMMARY | 2024-05-10 09:41 | XMS_ITS | Continuity of Care Document ---
Author Organization [facility] Address [address] [place] [address]- Care Team Providers Care Fuel Retrofitting Technician Name Role Phone Gian Andrade MD Primary Care Physician Encounter [facility] Date(s): 10/20/21 - 11/19/21 [facility] [address] [place] [address]- Allergies, Adverse Reactions, Alerts Substance Reaction Severity [...] Route to Pharmacy Electronically, [facility]/pharmacy #5, 160, cm, 02/07/20 10:53:00 EDT, Height, 49.9, kg, 02/07/20 10:5... Start Date: 01/14/21 Status: Ordered fluticasone 50 mcg/inh nasal spray 1 sprays, Nares, Both, 2 times a day, For post nasal drip, # 3 each, 1 Refills, Maintenance, 11/05/21 10:04:00 EST, [place], [facility], Partial fill upon patient request if the prescription is for a schedule II opioid drug., 1 sprays... Start Date: 11/05/21 Status: Ordered ibuprofen 800 mg oral tablet 1, tablet, By Mouth, 3 times a day, # 270 tablet, Refills 1, Tot. Refills 1, Maintenance, 04/21/21 8:59:00 EDT, Route to Pharmacy Electronically, [facility], 160, cm, 01/22/21 13:16:00 [...] Refills, Maintenance, 11/02/21 10:38:00 EST, ECCapsule, [facility], aware of celexa, 160, cm, 10/12/21 10:40:00 [...]
--- OUTSIDE RECORDS SUMMARY | 2024-05-10 09:41 | XMS_ITS | Continuity of Care Document ---
Author Organization [facility] Address [address] [place] [address]- Care Team Providers Care Acquisition Cost Estimator Name Role Phone Gian Andrade MD Primary Care Physician En[place] [facility] [place] [facility] [id number] Date(s): 04/26/23 - 05/28/[address] [address]- Attending Physician: Kaykay Ellis MD Admitting Physician: Kaykay Ellis MD Referring Physician: Gian Andrade MD Allergies, [...] Refills, Maintenance, 08/10/21 10:44:00 EST, [place], [facility]/pharmacy #2025, 2 puffs Inhalation Every [...] Maintenance, 08/27/22 12:40:00 EST, Tablet, [facility]/pharmacy #2025, 1 tablet By Mouth 2 times a day,x90 days,Instr:masspat checked ; may fill for less... Start Date: 08/27/22 Stop Date: 11/25/22 Status: Ordered amphetamine-dextroamphetamine 20 mg oral tablet 1 tablet = 20 mg, By Mouth, 2 times a day, masspat checked may fill for less, # 56 tablet, 0 Refills, Maintenance, 05/23/23 15:30:00 EDT, Tablet, [facility]/pharmacy #2025, 1 tablet By Mouth 2 times a day,x28 days,Instr:masspat checked; may fill for less, 1... Start Date: 05/23/23 Stop Date: 06/20/23 Status: Ordered cyclobenzaprine 10 mg oral tablet 1, tablet, By Mouth, 2 times a day, PRN, # 30 tablet, Refills 1, Maintenance, NEEDED FOR SPASMS,12/20/22 11:12:00 EDT, Route to Pharmacy Electronically, [facility] [address], 160, cm, 10/26/22 8:55:00EST, Height, 60, kg, [...] each, 1 Refills, Maintenance, 11/05/21 10:04:00 EST, [place], [facility], Partial fill upon [...] Soft Stop, 12/16/21 11:06:00 EDT, [facility]/pharmacy #2024, Partial fill upon patient [...] Primary Care Member Role: PCP Address: Address: [address] [place] [address]- Name: Delfino Barber RN Position: [facility] RN Member Role: Primary Care Nurse Care Team Related Persons Name: VERONICA ANDREWS Address: [address] [address] Name: KEY OVALLE Address: [address] [place] [address] Name: ALCON BAIG Address: [address] [address]
--- OUTSIDE RECORDS SUMMARY | 2024-05-10 09:41 | XMS_ITS | Continuity of Care Document ---
Author Organization [facility] Address [address] [address]- Care Team Providers Care Automotive Product Engineer Name Role Phone Gian Andrade MD Primary Care Physician [place] [facility] [place]23 - 05/31/23 [facility] [address] [address]- Attending Physician: Abida Coe Admitting Physician: Abida [...] 11 Refills, Maintenance, 08/10/21 10:44:00 EST, [place], [facility]/pharmacy #2025, 2 puffs Inhalation Every 4 [...] 0 Refills, Maintenance, 08/27/22 12:40:00 EST, Tablet, [facility]/pharmacy #5, 1 tablet By Mouth 2 times a day,x90 days,Instr:masspat checked ; may fill for less... Start Date: 08/27/22 Stop Date: 11/25/22 Status: Ordered amphetamine-dextroamphetamine 20 mg oral tablet 1 tablet = 20 mg, By Mouth, 2 times a day, masspat checked may fill for less, # 56 tablet, 0 Refills, Maintenance, 05/23/23 15:30:00 EDT, Tablet, [facility]/pharmacy #2025, 1 tablet By Mouth 2 times a day,x28 days,Instr:masspat checked; may fill for less, 1... Start Date: 05/23/23 Stop Date: 06/20/23 Status: Ordered cyclobenzaprine 10 mg oral tablet 1, tablet, By Mouth, 2 times a day, PRN, # 30 tablet, Refills 1, Maintenance, NEEDED FOR SPASMS,12/20/22 11:12:00 EDT, Route to Pharmacy Electronically, [facility] [address], 160, cm, 10/26/22 8:55:00EST, Height, 60, kg, [...] each, 1 Refills, Maintenance, 11/05/21 10:04:00 EST, [place], [facility], Partial fill upon [...] oldest [Reference Range]: 1 Height 160 cm (05/25/23 4:00 PM) Weight 58.2 kg (05/25/23 4:00 PM) Social History Social History Type Response Smoking Status Never smoker entered on: 04/21/15 Sex Cardiology * Event Display: Treadmill Standard Stress Test Authored Date: [id number] Please click on pdf link to open report Patient Care team information Care Team Personnel Name: Gian Andrade MD Position: [facility] Physician - Primary Care Member Role: PCP Address: Address: [address] [place] [id number]- Name: Delfino Barber RN Position: [facility] RN Member Role: Primary Care Nurse Care Team Related Persons Name: VERONICA ANDREWS Address: [address] [place] [address] Name: KEY OVALLE Address: [address] [place], [place] Name: ALCON BAIG Address: [address] [place] [address]
--- OUTSIDE RECORDS SUMMARY | 2024-05-10 09:41 | XMS_ITS | Continuity of Care Document ---
Author Organization [facility] Address [address] [place] [address]- Care Team Providers Care Air Drill Operator Name Role Phone Lupe EL, Gian Lincoln Primary Care Physician Encounter [facility] [place] Date(s): 08/25/23 - 09/24/23 [facility] [address] [place] [address] Allergies, Adverse Reactions, Alerts Substance Reaction Severity Status lidocaine-prilocaine topical Eruption Active Percocet 5325 Active Latex Active Immunizations Given and Recorded [...] 0 Refills, Maintenance, 08/09/23 10:59:00 EST, Tablet, [facility]/pharmacy #2025, Ok to fill early, Masspat checked , Patient may fill for less, 1 tablet By Mouth 2 time... Start Date: 08/09/23 Stop Date: 09/06/23 Status: Ordered clonazePAM 0.5 mg oral tablet [...] Route to Pharmacy Electronically, [facility]/pharmacy #202, 160, cm, 05/25/23 16:00:00... Start [...] each, 1 Refills, Maintenance, 11/05/21 10:04:00 EST, [place], [facility], Partial fill upon [...] Stop, 12/16/21 11:06:00 EDT, [facility]/pharmacy #2025, Partial fill upon patient [...] EST, Route to Pharmacy Electronically, [facility]/pharmacy #2025, Partial fill upon patient [...] 12/25/23 14:07:00 EDT, ER Tablet, [facility]/pharmacy #2025, 1 tablet [...] Personnel Name: Gian Andrade MD Position: [facility] Physician - Primary Care Member Role: PCP Address: Address: [address] [place] [address] Name: Delfino Barber RN Position: [facility] RN Member Role: Primary Care Nurse Care Team Related Persons Name: VERONICA ANDREWS Address: [address] [place] [address] Name: KEY OVALLE Address: [address] [place] [address] Name: ALCON BAIG Address: [address] [place] [address]
--- OUTSIDE RECORDS SUMMARY | 2024-05-10 09:41 | XMS_ITS | Continuity of Care Document ---
Author Organization [facility] Address [address] [place] [address]- Care Team Providers Care Computer Forensic Examiner Name Role Phone Gian Andrade MD Primary Care Physician En[place] [facility] [place] Date(s): 04/28/20 - 05/05/20 [facility] [address] [place] [address]- [facility] Encounter Diagnosis Concussion without loss of consciousness, initial encounter(Discharge Diagnosis) - 04/28/20 Attending Physician: Viet EL, Angi Lincoln Allergies, Adverse Reactions, Alerts Substance Reaction [...] tablet,0 Refills, Maintenance, 04/15/20 12:22:00 EDT, Tablet, [facility]/pharmacy #2024, last rx ., 1 tablet By Mouth 2 times a day,x28 days,Instr:masspat ch... Start Date: 04/15/20 Stop Date: 05/13/20 Status: Ordered busPIRone 10 mg oral tablet See Instructions, TAKE 1 TABLET BY MOUTH TWICE A DAY, # 180 tablet, Refills 3, Tot. Refills 3, SoftStop, 07/06/19 14:25:16 EDT, Instructions Replace Required Details, Route to Pharmacy Electronically, [id number], [facility] Start Date: 07/06/19 Status: Ordered cyclobenzaprine 10 mg oral tablet 10 mg, 1, tablet, By Mouth, 2 times a day, PRN, # 30 tablet, Refills 1, Tot. Refills 1, Maintenance, for spasm, 01/14/21 9:27:00 EDT, Route to Pharmacy Electronically, [facility]/pharmacy #2024, 160, cm, 02/07/20 10:53:00 EDT, Height, 49.9, kg, 02/07/20 10:5... Start Date: 01/14/21 Status: Ordered cyclobenzaprine 10 mg oral tablet 10 mg, 1, tablet, By Mouth, 2 times a day, PRN, # 30 tablet, Refills 1, Tot. Refills 1, Acute 01/14/21 9:27:00 EDT, for spasm, 01/15/20 9:27:00 EDT, Route to Pharmacy Electronically, [facility]/pharmacy #2024, 160, cm, 01/09/20 9:04:00 EDT, Height Start Date: 01/15/20 Stop Date: 01/14/21 Status: Ordered KlonoPIN 0.5 mg oral tablet 1 tablet = 0.5 mg, By Mouth, 2 times a day, PRN Anxiety, Masspat checked 04/15/2020 May fill for less, # 60 tablet, 0 Refills, Maintenance, 04/15/20 12:22:00 EDT, Tablet, [facility]/pharmacy #202, increasingdose, 160, cm, 03/05/20 9:49:00 EDT, Height, 49.9,... Start Date: 04/15/20 Status: Ordered omeprazole 20 mg oral enteric coated capsule 1 capsule = 20 mg, By Mouth, Daily, # 90 capsule, 1 Refills, Maintenance, 12/10/19 14:55:00 EDT, ECCapsule, [facility]/pharmacy #2024, aware of celexa, 160, cm, 10/31/19 10:52:00 EST, Height Start Date: 12/10/19 Status: Ordered ondansetron 4 mg oral tablet, disintegrating = 4 mg, By Mouth, 3 times a day, PRN Nausea, # 60 tablet, 1 Refills, Maintenance, 03/13/20 16:39:00EDT, Tablet, [facility]/pharmacy #2024, 160, cm, 03/05/20 9:49:00 EDT, Height, 49.9, kg, 02/07/20 10:53:00EDT, Dry Weight Start Date: 03/13/20 Status: Ordered Plaquenil = 200 mg, By Mouth, Daily, 0 Refills, Maintenance, 10/11/16 10:18:04 Start Date: 10/11/16 Status: Ordered ZyrTEC-D 5 mg-120 mg oral tablet, extended release 1 tablet, By Mouth, 2 times a day, # 180 tablet, 1 Refills, Maintenance, 03/13/20 15:14:00 EDT, ER Tablet, [facility]/pharmacy #2024, 1 tablet By Mouth 2 [...] Clinical Service Informant Concussion without loss of consciousness, initial encounter Discharge Diagnosis 04/28/20 Vital Signs Most recent to oldest [Reference Range]: 1 Height 160 cm (04/28/20 3:39 PM) Social History Social History Type Response Smoking Status Never smoker entered on: 04/21/15 Sex
--- OUTSIDE RECORDS SUMMARY | 2024-05-10 09:41 | XMS_ITS | Continuity of Care Document ---
Author Organization [facility] Address [address] [place] [address]- Care Team Providers Care Dialysis Social Worker Name Role Phone Gian Andrade MD Primary Care Physician [place] [facility] [place] 07/01/23 - 07/31/23 [facility] [address] [place] [address]- Attending Physician: Admtr, Ar8 Admitting Physician: Admtr, [...] 11 Refills, Maintenance, 08/10/21 10:44:00 EST, [place], [facility]/pharmacy #2025, 2 puffs Inhalation Every 4 [...] 0 Refills, Maintenance, 07/22/23 12:46:00 EST, Tablet, [facility]/pharmacy #2025, Ok to fill [...] 06/28/23 14:05:00 EDT, Route to Pharmacy Electronically, [facility]/pharmacy #2025, 160, cm, 05/25/23 [...] each, 1 Refills, Maintenance, 11/05/21 10:04:00 EST, [place], [facility], Partial fill upon [...] 08/27/23 15:43:00 EST, 06/28/23 15:43:00 EDT, Tablet, [facility]/pharmacy #2024, increasing dose, 160, cm, 05/25/23 1... Start Date: 06/28/23 Stop Date: 08/27/23 Status: Ordered KlonoPIN 0.5 mg oral tablet 1 tablet = 0.5 mg, By Mouth, 2 times a day, PRN Anxiety, for 30 days, Masspat checked May fill for less, # 60 tablet, 1 Refills, Hard Stop 08/29/23 14:42:00 EST, 06/30/23 14:42:00 EDT, Tablet, [facility]/pharmacy #2024, increasing dose, 160, cm, 06/30/23 [...] Gian Andrade MD Position: [facility] Physician - Primary Care Member Role: PCP Address: Address: [address] [place] [address] Name: Delfino Barber RN Position: [facility] RN Member Role: Primary Care Nurse Care Team Related Persons Name: VERONICA ANDREWS Address: [address] [place] [address] Name: KEY OVALLE Address: [address] [place] [address] Name: ALCON BAIG Address: [address] [place] [address]
--- OUTSIDE RECORDS SUMMARY | 2024-05-10 09:41 | XMS_ITS | Continuity of Care Document ---
Author Organization [facility] Address [address] [place] [address]- Care Team Providers Care Dishcloth Folder Name Role Phone Gian Andrade MD Primary Care Physician En[place] [facility] [place] Date(s): 06/18/20 - 07/18/20 [facility] [address] [place] [address]- Allergies, Adverse Reactions, Alerts Substance Reaction Severity [...] Replace Required Details, Route to Pharmacy Electronically, [id number], [facility] Start Date: 07/06/19 Status: Ordered cyclobenzaprine [...]
--- OUTSIDE RECORDS SUMMARY | 2024-05-10 09:41 | XMS_ITS | Continuity of Care Document ---
Author Organization [facility] Address [address] [place] [address]- Care Team Providers Care Pulp Roller Name Role Phone Gian Andrade MD Primary Care Physician [place] [facility] [place] 04/26/24 [facility] [address] [place] [address]- Allergies, Adverse Reactions, Alerts Substance Reaction Severity [...] 0 Refills, Maintenance, 03/30/24 16:39:00 EDT, Tablet, [facility]/pharmacy #2025, Ok to fill early, Masspat checked , Patient may fill for less, 1 tablet By Mouth 2 time... Start Date: 03/30/24 Stop Date: 04/27/24 Status: Ordered clonazePAM 0.5 mg oral tablet 1 tablet = 0.5 mg, By Mouth, 2 times a day, PRN Anxiety, # 60 tablet, 1 Refills, Maintenance, 04/13/24 15:16:00 EDT, Tablet, [facility]/pharmacy #202, Partial fill upon patient request if the prescription is for a schedule II opioid drug., 160, cm, 03/28/24... Start Date: 04/13/24 Status: Ordered cyclobenzaprine 10 mg oral tablet 1, tablet, By Mouth, 2 times a day, PRN, # 30 tablet, Refills 1, Maintenance, NEEDED FOR SPASMS,FOR, 01/24/24 8:14:00 EDT, Route to Pharmacy Electronically, [facility]ORE [facility], 158, cm, 01/03/24 14:54:00 EDT, Height, 56.3, [...] each, 1 Refills, Maintenance, 11/05/21 10:04:00 EST, [place], [facility], Partial fill upon patient request if the prescription is for a schedule II opioid drug., 1 sprays... Start Date: 11/05/21 Status: Ordered gabapentin 300 mg oral capsule 300 mg, 1, capsule, By Mouth, Daily at bedtime, # 30 capsule, Refills 0, Tot. Refills 0, Maintenance, 02/15/24 16:16:00 EDT, Route to Pharmacy Electronically, [facility]/pharmacy #2024, Partial fill upon patient request if the prescription is for a schedule... Start Date: 02/15/24 Status: Ordered meclizine 25 mg oral tablet 1 tablet = 25 mg, By Mouth, Daily at bedtime, PRN Other, take one tab po qhs prn moderate vertigo, # 8 tablet, 1 Refills, Soft Stop, 12/16/21 11:06:00 EDT, [facility]/pharmacy #2025, Partial fill upon patient request if [...] 02/07/24 8:11:00 EDT, Route to Pharmacy Electronically, [facility], 158, cm, 01/03/24 14:54:00 EDT, Height, 56.3, [...] Team Personnel Name: Gian Andrade MD Position: [facility] Physician - Primary Care Member Role: PCP Address: Address: [address] [place] [address] Name: Delfino Barber RN Position: [facility] RN Member Role: Primary Care Nurse Care Team Related Persons Name: VERONICA ANDREWS Address: [address] [place] [address] Name: KEY OVALLE Address: [address] [place], [place] Name: ALCON BAIG Address: [address] [address]
--- OUTSIDE RECORDS SUMMARY | 2024-05-10 09:41 | XMS_ITS | Continuity of Care Document ---
Author Organization [facility] Address [address] [place] [address]- Care Team Providers Care Bingo Cashier Name Role Phone Gian Andrade MD Primary Care Physician Encounter [facility] Date(s): 04/28/20 - 05/28/20 [facility] [address] [place] [address]- [facility] Allergies, Adverse Reactions, Alerts Substance Reaction [...] tablet,0 Refills, Maintenance, 05/14/20 14:08:00 EDT, Tablet, [facility]/pharmacy #2024, last rx ., 1 tablet By Mouth 2 times a day,x28 days,Instr:masspat ch... Start Date: 05/14/20 Stop Date: 06/11/20 Status: Ordered busPIRone 10 mg oral tablet See Instructions, TAKE 1 TABLET BY MOUTH TWICE A DAY, # 180 tablet, Refills 3, Tot. Refills 3, SoftStop, 07/06/19 14:25:16 EDT, Instructions Replace Required Details, Route to Pharmacy Electronically, [id number], [facility] Start Date: 07/06/19 Status: Ordered cyclobenzaprine 10 mg oral tablet 10 mg, 1, tablet, By Mouth, 2 times a day, PRN, # 30 tablet, Refills 1, Tot. Refills 1, Maintenance, for spasm, 01/14/21 9:27:00 EDT, Route to Pharmacy Electronically, [facility]/pharmacy #2024, 160, cm, 02/07/20 10:53:00 EDT, Height, 49.9, kg, 02/07/20 10:5... Start Date: 01/14/21 Status: Ordered cyclobenzaprine 10 mg oral tablet 10 mg, 1, tablet, By Mouth, 2 times a day, PRN, # 30 tablet, Refills 1, Tot. Refills 1, Acute 01/14/21 9:27:00 EDT, for spasm, 01/15/20 9:27:00 EDT, Route to Pharmacy Electronically, [facility]/pharmacy #2024, 160, cm, 01/09/20 9:04:00 EDT, Height Start Date: 01/15/20 Stop Date: 01/14/21 Status: Ordered KlonoPIN 0.5 mg oral tablet 1 tablet = 0.5 mg, By Mouth, 2 times a day, PRN Anxiety, Masspat checked 05/14/2020 May fill for less, # 60 tablet, 0 Refills, Maintenance, 05/14/20 14:08:00 EDT, Tablet, [facility]/pharmacy #2024, increasingdose, 05/14/20, 160, cm, 04/28/20 15:39:00 EDT, He... Start Date: 05/14/20 Status: Ordered ofloxacin 0.3% otic solution 5, drops, Ears, Both, 2 times a day, for 7 days, # 5 mL, Refills 0, Tot. Refills 0, Acute, 06/03/2011:00:00 EDT, 05/27/20 11:00:00 EDT, Route to Pharmacy Electronically, [facility]/pharmacy #2024 Solution,160, cm, 05/27/20 10:37:00 EDT, Height, 49.9, kg, 0... Start Date: 05/27/20 Stop Date: 06/03/20 Status: Ordered omeprazole 20 mg oral enteric coated capsule 1 capsule = 20 mg, By Mouth, Daily, # 90 capsule, 1 Refills, Maintenance, 12/10/19 14:55:00 EDT, ECCapsule, [facility]/pharmacy #2024, aware of celexa, 160, cm, 10/31/19 10:52:00 EST, Height Start Date: 12/10/19 Status: Ordered ondansetron 4 mg oral tablet, disintegrating = 4 mg, By Mouth, 3 times a day, PRN Nausea, # 60 tablet, 1 Refills, Maintenance, 03/13/20 16:39:00EDT, Tablet, [facility]/pharmacy #2024, 160, cm, 03/05/20 9:49:00 EDT, Height, 49.9, kg, 02/07/20 10:53:00EDT, Dry Weight Start Date: 03/13/20 Status: Ordered Plaquenil = 200 mg, By Mouth, Daily, 0 Refills, Maintenance, 10/11/16 10:18:04 Start Date: 10/11/16 Status: Ordered ZyrTEC-D 5 mg-120 mg oral tablet, extended release 1 tablet, By Mouth, 2 times a day, # 180 tablet, 1 Refills, Maintenance, 03/13/20 15:14:00 EDT, ER Tablet, [facility]/pharmacy #2024, 1 tablet By Mouth 2 times [...] 14:55:00 EDT, 12/10/19 14:55:00 EDT, ER Tablet, [facility]/pharmacy #2025, 160, cm, 10/31/19 10:52:00 EST, Height [...]
--- OUTSIDE RECORDS SUMMARY | 2024-05-10 09:41 | XMS_ITS | Continuity of Care Document ---
Author Organization [facility] ry Address Unknown Care Team Providers Care Building Associate Name Role Phone Gian Andrade MD Primary Care Physician Encounter [facility] Date(s): 05/02/21 - 06/01/21 [facility] Allergies, Adverse Reactions, Alerts Substance Reaction Severity [...] 0 Refills, Maintenance, 03/18/21 7:46:00 EDT, Tablet, [facility]/pharmacy #2025, 1 tablet By Mouth 2 times a day,x28 days,Instr:masspat checked ; may fill for less,... Start Date: 03/18/21 Stop Date: 04/15/21 Status: Ordered busPIRone 10 mg oral tablet 10 mg, 1, tablet, By Mouth, 2 times a day, # 180 tablet, Refills 1, Tot. Refills 1, Soft Stop, 12/25/20 11:32:00 EDT, Route to Pharmacy Electronically, [facility], 160, cm, 07/30/20 9:37:00 EST, Height, 49.9, kg, 02/07/20 10:53:00 E... Start Date: 12/25/20 Status: Ordered cyclobenzaprine 10 mg oral tablet 10 mg, 1, tablet, By Mouth, 2 times a day, PRN, # 30 tablet, Refills 1, Tot. Refills 1, Maintenance, for spasm, 01/14/21 9:27:00 EDT, Route to Pharmacy Electronically, [facility]/pharmacy #2024, 160, cm, 02/07/20 10:53:00 EDT, Height, 49.9, kg, 02/07/20 10:5... Start Date: 01/14/21 Status: Ordered ibuprofen 800 mg oral tablet 1, tablet, By Mouth, 3 times a day, # 270 tablet, Refills 1, Tot. Refills 1, Maintenance, 04/21/21 8:59:00 EDT, Route to Pharmacy Electronically, [facility], 160, cm, 01/22/21 13:16:00 EDT, [...] tablet, 1 Refills, Maintenance, 03/23/21 15:52:00EDT, Tablet, [facility]/pharmacy #2025, 160, cm, 01/22/21 13:16:00 EDT, Height, [...]
--- OUTSIDE RECORDS SUMMARY | 2024-05-10 09:41 | XMS_ITS | Continuity of Care Document ---
Author Organization [facility] Address [address] [place] [address]- Care Team Providers Care Layout Artist Name Role Phone Gian Andrade MD Primary Care Physician Encounter [facility] Date(s): 12/25/20 - 01/24/21 [facility] [address] [place] [address]- Allergies, Adverse Reactions, Alerts Substance Reaction Severity [...] Refills, Maintenance, 12/17/20 15:58:00 EDT, Tablet, [facility]/pharmacy #2025, 1 tablet By Mouth 2 [...] EDT, Route to Pharmacy Electronically, [facility]/pharmacy #2024, 160, cm, 02/07/20 10:53:00 EDT, Height, 49.9, kg, 02/07/20 10:5... Start Date: 01/14/21 Status: Ordered KlonoPIN 0.5 mg oral tablet 1 tablet = 0.5 mg, By Mouth, 2 times a day, PRN Anxiety, Masspat checked May fill for less, # 60 tablet, 1 Refills, Maintenance, 11/21/20 12:12:00 EST, Tablet, [facility]/pharmacy #202, increasing dose, 160, cm, 07/30/20 9:37:00 EST, Height, 49.9, kg, 05... Start Date: 11/21/20 Status: Ordered omeprazole 20 mg oral enteric coated capsule 1 capsule = 20 mg, By Mouth, Daily, # 90 capsule, 0 Refills, Maintenance, 12/29/20 13:29:00 EDT, ECCapsule, [facility]/pharmacy #2025, aware of celexa, 160, cm, 07/30/20 9:37:00 EST, Height, 49.9, kg, 02/07/20 10:53:00 EDT, Dry Weight Start Date: 12/29/20 Status: Ordered ondansetron 4 mg oral tablet, disintegrating = 4 mg, By Mouth, 3 times a day, PRN Nausea, # 60 tablet, 1 Refills, Maintenance, 12/31/20 14:47:00EDT, Tablet, [facility]/pharmacy #202, 160, cm, 07/30/20 9:37:00 EST, Height, [...]
--- OUTSIDE RECORDS SUMMARY | 2024-05-10 09:41 | XMS_ITS | Continuity of Care Document ---
Author Organization [facility] Address [address] [place] [id number]- Care Team Providers Care Hydrostatic Tester Name Role Phone Lupe EL, Gian Lincoln Primary Care Physician Encounter [facility] Date(s): 04/28/23 - 05/28/[address] [address]- Attending Physician: Admtr, Ar8 Admitting Physician: Admtr, Ar8 Referring Physician: Admtr, Ar8 Allergies, Adverse Reactions, Alerts Substance Reaction Severity Status Percocet 5 Active Latex Active Immunizations Given and Recorded [...] 11 Refills, Maintenance, 08/10/21 10:44:00 EST, Powder, [facility]/pharmacy #2025, 2 puffs Inhalation Every 4 [...] Maintenance, 08/27/22 12:40:00 EST, Tablet, [facility]/pharmacy #2024, 1 tablet By Mouth 2 times a day,x90 days,Instr:masspat checked ; may fill for less... Start Date: 08/27/22 Stop Date: 11/25/22 Status: Ordered amphetamine-dextroamphetamine 20 mg oral tablet 1 tablet = 20 mg, By Mouth, 2 times a day, masspat checked may fill for less, # 56 tablet, 0 Refills, Maintenance, 05/23/23 15:30:00 EDT, Tablet, [facility]/pharmacy #2024, 1 tablet By Mouth 2 times a day,x28 days,Instr:masspat checked; may fill for less, 1... Start Date: 05/23/23 Stop Date: 06/20/23 Status: Ordered cyclobenzaprine 10 mg oral tablet 1, tablet, By Mouth, 2 times a day, PRN, # 30 tablet, Refills 1, Maintenance, NEEDED FOR SPASMS,12/20/22 11:12:00 EDT, Route to Pharmacy Electronically, [id number], 160, cm, 10/26/22 8:55:00EST, Height, 60, kg, [...] each, 1 Refills, Maintenance, 11/05/21 10:04:00 EST, [place], [facility], Partial fill [...] Andrade MD Position: [facility] Physician - Primary Care Member Role: PCP Address: Address: [address] [place] [id number] Name: Delfino Barber RN Position: [facility] RN Member Role: Primary Care Nurse Care Team Related Persons Name: VERONICA ANDREWS Address: [address] [place] [address] Name: KEY OVALLE Address: [address] [place] [address] Name: ALCON BAIG Address: [address] [place] [address]
--- OUTSIDE RECORDS SUMMARY | 2024-05-10 09:41 | XMS_ITS | Continuity of Care Document ---
Author Organization [facility] Address [address] [place] [address]- Care Team Providers Care Medical Clerk Name Role Phone Gian Andrade MD Primary Care Physician [facility] [facility] Date(s[place] 06/18/20 - 07/18/20 [facility] [address] [place] [address]- Allergies, Adverse Reactions, Alerts Substance Reaction Severity [...] 0 Refills, Maintenance, 06/17/20 10:13:00 EDT, Tablet, [facility]/pharmacy #2024, last rx ., 1 tablet By Mouth 2 times a day,x28 days,Instr:masspat checked; ma... Start Date: 06/17/20 Stop Date: 07/15/20 Status: Ordered busPIRone 10 mg oral tablet See Instructions, TAKE 1 TABLET BY MOUTH TWICE A DAY, # 180 tablet, Refills 3, Tot. Refills 3, SoftStop, 07/06/19 14:25:16 EDT, Instructions Replace Required Details, Route to Pharmacy Electronically, [id number], [facility] Start Date: 07/06/19 Status: Ordered cyclobenzaprine 10 mg oral tablet 10 mg, 1, tablet, By Mouth, 2 times a day, PRN, # 30 tablet, Refills 1, Tot. Refills 1, Maintenance, for spasm, 01/14/21 9:27:00 EDT, Route to Pharmacy Electronically, [facility]/pharmacy #2024, 160, cm, 02/07/20 10:53:00 EDT, Height, 49.9, kg, 02/07/20 10:5... Start Date: 01/14/21 Status: Ordered cyclobenzaprine 10 mg oral tablet 10 mg, 1, tablet, By Mouth, 2 times a day, PRN, # 30 tablet, Refills 1, Tot. Refills 1, Acute 01/14/21 9:27:00 EDT, for spasm, 01/15/20 9:27:00 EDT, Route to Pharmacy Electronically, [facility]/pharmacy #2024, 160, cm, 01/09/20 9:04:00 EDT, Height Start Date: 01/15/20 Stop Date: 01/14/21 Status: Ordered ibuprofen 800 mg oral tablet 800 mg, 1, tablet, By Mouth, 3 times a day, # 90 tablet, Refills 2, Tot. Refills 2, Acute 07/20/20 12:41:00 EST, 06/19/20 12:41:00 EDT, Route to Pharmacy Electronically, [facility]/pharmacy #2024, 160, cm, 05/27/20 10:37:00 EDT, Height, 49.9, kg, 02/07/20 10... Start Date: 06/19/20 Stop Date: 07/20/20 Status: Ordered KlonoPIN 0.5 mg oral tablet 1 tablet = 0.5 mg, By Mouth, 2 times a day, PRN Anxiety, Masspat checked 06/10/2020 May fill for less, # 60 tablet, 1 Refills, Maintenance, 06/10/20 13:11:00 EDT, Tablet, [facility]/pharmacy #2024, increasing dose, 160, cm, 05/27/20 10:37:00 EDT, Height, 49.... Start Date: 06/10/20 Status: Ordered omeprazole 20 mg oral enteric coated capsule 1 capsule = 20 mg, By Mouth, Daily, # 90 capsule, 1 Refills, Maintenance, 12/10/19 14:55:00 EDT, ECCapsule, [facility]/pharmacy #2024, aware of celexa, 160, cm, 10/31/19 10:52:00 EST, Height Start Date: 12/10/19 Status: Ordered ondansetron 4 mg oral tablet, disintegrating = 4 mg, By Mouth, 3 times a day, PRN Nausea, # 60 tablet, 1 Refills, Maintenance, 03/13/20 16:39:00EDT, Tablet, [facility]/pharmacy #2024, 160, cm, 03/05/20 9:49:00 EDT, Height, 49.9, kg, 02/07/20 10:53:00EDT, Dry Weight Start Date: 03/13/20 Status: Ordered Plaquenil = 200 mg, By Mouth, Daily, 0 Refills, Maintenance, 10/11/16 10:18:04 Start Date: 10/11/16 Status: Ordered ZyrTEC-D 5 mg-120 mg oral tablet, extended release 1 tablet, By Mouth, 2 times a day, # 180 tablet, 1 Refills, Maintenance, 03/13/20 15:14:00 EDT, ER Tablet, [facility]/pharmacy #2024, 1 tablet [...]
--- OUTSIDE RECORDS SUMMARY | 2024-05-10 09:41 | XMS_ITS | Continuity of Care Document ---
Author Organization [facility] Address [address] [place] [address]- Care Team Providers Care Home Stager Name Role Phone Gian Andrade MD Primary Care Physician Encounter [facility] Date(s): 03/20/24 - 04/19/24 [facility] [address] [place] [address]- Allergies, Adverse Reactions, Alerts Substance Reaction Severity [...] 0 Refills, Maintenance, 03/30/24 16:39:00 EDT, Tablet, [facility]/pharmacy #2025, Ok to fill early, Masspat checked , Patient may fill for less, 1 tablet By Mouth 2 time... Start Date: 03/30/24 Stop Date: 04/27/24 Status: Ordered clonazePAM 0.5 mg oral tablet 1 tablet = 0.5 mg, By Mouth, 2 times a day, PRN Anxiety, # 60 tablet, 1 Refills, Maintenance, 04/13/24 15:16:00 EDT, Tablet, [facility]/pharmacy #202, Partial fill upon patient request if the prescription is for a schedule II opioid drug., 160, cm, 03/28/24... Start Date: 04/13/24 Status: Ordered cyclobenzaprine 10 mg oral tablet 1, tablet, By Mouth, 2 times a day, PRN, # 30 tablet, Refills 1, Maintenance, NEEDED FOR SPASMS,FOR, 01/24/24 8:14:00 EDT, Route to Pharmacy Electronically, [id number], 158, cm, 01/03/24 14:54:00 EDT, Height, 56.3, [...] each, 1 Refills, Maintenance, 11/05/21 10:04:00 EST, [place], [facility], Partial fill upon patient request if the prescription is for a schedule II opioid drug., 1 sprays... Start Date: 11/05/21 Status: Ordered gabapentin 300 mg oral capsule 300 mg, 1, capsule, By Mouth, Daily at bedtime, # 30 capsule, Refills 0, Tot. Refills 0, Maintenance, 02/15/24 16:16:00 EDT, Route to Pharmacy Electronically, [facility]/pharmacy #2024, Partial fill upon patient request if the prescription is for a schedule... Start Date: 02/15/24 Status: Ordered meclizine 25 mg oral tablet 1 tablet = 25 mg, By Mouth, Daily at bedtime, PRN Other, take one tab po qhs prn moderate vertigo, # 8 tablet, 1 Refills, Soft Stop, 12/16/21 11:06:00 EDT, [facility]/pharmacy #2025, Partial fill upon patient [...] 02/07/24 8:11:00 EDT, Route to Pharmacy Electronically, [id number], 158, cm, 01/03/24 14:54:00 EDT, Height, 56.3, [...] Care Member Role: PCP Address: Address: [address] [place] [id number] Name: Delfino Barber RN Position: [facility] RN Member Role: Primary Care Nurse Care Team Related Persons Name: VERONICA ANDREWS Address: [address] [place] [address] Name: KEY OVALLE Address: [address] [place], [place] Name: ALCON BAIG Address: [address] [address]
--- OUTSIDE RECORDS SUMMARY | 2024-05-10 09:41 | XMS_ITS | Continuity of Care Document ---
Author Organization [facility] Address [address] [place] [address]- Care Team Providers Care Automobile Washer Steam Name Role Phone Gian Andrade MD Primary Care Physician [place] [facility] [place] 03/27/24 - 04/26/24 [facility] [address] [place] [address]- Allergies, Adverse Reactions, Alerts Substance Reaction Severity [...] 0 Refills, Maintenance, 03/30/24 16:39:00 EDT, Tablet, [facility]/pharmacy #2025, Ok to fill early, Masspat checked , Patient may fill for less, 1 tablet By Mouth 2 time... Start Date: 03/30/24 Stop Date: 04/27/24 Status: Ordered clonazePAM 0.5 mg oral tablet 1 tablet = 0.5 mg, By Mouth, 2 times a day, PRN Anxiety, # 60 tablet, 1 Refills, Maintenance, 04/13/24 15:16:00 EDT, Tablet, [facility]/pharmacy #202, Partial fill upon patient request if the prescription is for a schedule II opioid drug., 160, cm, 03/28/24... Start Date: 04/13/24 Status: Ordered cyclobenzaprine 10 mg oral tablet 1, tablet, By Mouth, 2 times a day, PRN, # 30 tablet, Refills 1, Maintenance, NEEDED FOR SPASMS,FOR, 01/24/24 8:14:00 EDT, Route to Pharmacy Electronically, [facility], 158, cm, 01/03/24 14:54:00 EDT, Height, 56.3, [...] each, 1 Refills, Maintenance, 11/05/21 10:04:00 EST, [place], [facility], Partial fill upon patient request if the prescription is for a schedule II opioid drug., 1 sprays... Start Date: 11/05/21 Status: Ordered gabapentin 300 mg oral capsule 300 mg, 1, capsule, By Mouth, Daily at bedtime, # 30 capsule, Refills 0, Tot. Refills 0, Maintenance, 02/15/24 16:16:00 EDT, Route to Pharmacy Electronically, [facility]/pharmacy #202, Partial fill upon patient request if the prescription is for a schedule... Start Date: 02/15/24 Status: Ordered meclizine 25 mg oral tablet 1 tablet = 25 mg, By Mouth, Daily at bedtime, PRN Other, take one tab po qhs prn moderate vertigo, # 8 tablet, 1 Refills, Soft Stop, 12/16/21 11:06:00 EDT, [facility]/pharmacy #2025, Partial fill upon patient request if [...] EDT, [facility] to [facility]ically, [id number], 158, cm, 01/03/24 14:54:00 EDT, Height, 56.3, [...] Gian Andrade MD Position: [facility] Physician - Primary Care Member Role: PCP Address: Address: [address] [place] [id number] Name: Delfino Barber RN Position: [facility] RN Member Role: Primary Care Nurse Care Team Related Persons Name: VERONICA ANDREWS Address: [address] [place] [address] Name: KEY OAVLLE Address: [address] [place], [place] Name: ALCON BAIG Address: [address] [address]
--- OUTSIDE RECORDS SUMMARY | 2024-05-10 09:41 | XMS_ITS | Continuity of Care Document ---
Author Organization [facility] Address [address] [place] [address]- Care Team Providers Care Head Porter Name Role Phone Gian Andrade MD Primary Care Physician En[place] [facility] [place] Date(s): 04/01/20 - 05/01/20 [facility] [address] [place] [address]- [facility] Allergies, Adverse Reactions, Alerts Substance [...] tablet,0 Refills, Maintenance, 04/15/20 12:22:00 EDT, Tablet, [facility]/pharmacy #2024, last rx ., 1 tablet By Mouth 2 times a day,x28 days,Instr:masspat ch... Start Date: 04/15/20 Stop Date: 05/13/20 Status: Ordered busPIRone 10 mg oral tablet See Instructions, TAKE 1 TABLET BY MOUTH TWICE A DAY, # 180 tablet, Refills 3, Tot. Refills 3, SoftStop, 07/06/19 14:25:16 EDT, Instructions Replace Required Details, Route to Pharmacy Electronically, [id number], [facility] Start Date: 07/06/19 Status: Ordered cyclobenzaprine 10 mg oral tablet 10 mg, 1, tablet, By Mouth, 2 times a day, PRN, # 30 tablet, Refills 1, Tot. Refills 1, Maintenance, for spasm, 01/14/21 9:27:00 EDT, Route to Pharmacy Electronically, [facility]/pharmacy #2024, 160, cm, 02/07/20 10:53:00 EDT, Height, 49.9, kg, 02/07/20 10:5... Start Date: 01/14/21 Status: Ordered cyclobenzaprine 10 mg oral tablet 10 mg, 1, tablet, By Mouth, 2 times a day, PRN, # 30 tablet, Refills 1, Tot. Refills 1, Acute 01/14/21 9:27:00 EDT, for spasm, 01/15/20 9:27:00 EDT, Route to Pharmacy Electronically, [facility]/pharmacy #2024, 160, cm, 01/09/20 9:04:00 EDT, Height Start Date: 01/15/20 Stop Date: 01/14/21 Status: Ordered KlonoPIN 0.5 mg oral tablet 1 tablet = 0.5 mg, By Mouth, 2 times a day, PRN Anxiety, Masspat checked 04/15/2020 May fill for less, # 60 tablet, 0 Refills, Maintenance, 04/15/20 12:22:00 EDT, Tablet, [facility]/pharmacy #2024, increasingdose, 160, cm, 03/05/20 9:49:00 EDT, Height, 49.9,... Start Date: 04/15/20 Status: Ordered omeprazole 20 mg oral enteric coated capsule 1 capsule = 20 mg, By Mouth, Daily, # 90 capsule, 1 Refills, Maintenance, 12/10/19 14:55:00 EDT, ECCapsule, [facility]/pharmacy #2025, aware of celexa, 160, cm, 10/31/19 10:52:00 EST, Height Start Date: 12/10/19 Status: Ordered ondansetron 4 mg oral tablet, disintegrating = 4 mg, By Mouth, 3 times a day, PRN Nausea, # 60 tablet, 1 Refills, Maintenance, 03/13/20 16:39:00EDT, Tablet, [facility]/pharmacy #202, 160, cm, 03/05/20 9:49:00 EDT, Height, 49.9, kg, 02/07/20 10:53:00EDT, Dry Weight Start Date: 03/13/20 Status: Ordered Plaquenil = 200 mg, By Mouth, Daily, 0 Refills, Maintenance, 10/11/16 10:18:04 Start Date: 10/11/16 Status: Ordered ZyrTEC-D 5 mg-120 mg oral tablet, extended release 1 tablet, By Mouth, 2 times a day, # 180 tablet, 1 Refills, Maintenance, 03/13/20 15:14:00 EDT, ER Tablet, [facility]/pharmacy #202, 1 tablet By Mouth 2 [...] 14:55:00 EDT, 12/10/19 14:55:00 EDT, ER Tablet, [facility]/pharmacy #2025, 160, cm, 10/31/19 10:52:00 EST, [...]
--- OUTSIDE RECORDS SUMMARY | 2024-05-10 09:41 | XMS_ITS | Continuity of Care Document ---
Author Organization [facility] Address [address] [place] [address]- Care Team Providers Care Upholstery Tech Name Role Phone Lupe EL, Gian Lincoln Primary Care Physician Encounter [facility] Date(s): 09/01/23 - 10/01/23 [facility] [address] [place] [address]- Allergies, Adverse Reactions, Alerts Substance Reaction Severity [...] 0 Refills, Maintenance, 09/29/23 22:15:00 EST, Tablet, [facility]/pharmacy #2025, Ok to fill early, Masspat [...] 06/28/23 14:05:00 EDT, Route to Pharmacy Electronically, [facility]/pharmacy #2024, 160, cm, 05/25/23 16:00:00... Start [...] each, 1 Refills, Maintenance, 11/05/21 10:04:00 EST, [place], [facility], Partial fill upon patient request if the prescription is for a schedule II opioid drug., 1 sprays... Start Date: 11/05/21 Status: Ordered meclizine 25 mg oral tablet 1 tablet = 25 mg, By Mouth, Daily at bedtime, PRN Other, take one tab po qhs prn moderate vertigo, # 8 tablet, 1 Refills, Soft Stop, 12/16/21 11:06:00 EDT, [facility]/pharmacy #2025, Partial fill upon patient request [...] 09/23/23 13:04:00 EST, Route to Pharmacy Electronically, [facility]/pharmacy #2025, Partial fill upon patient request [...] Refills, Maintenance, 12/25/23 14:07:00 EDT, ER Tablet, [facility]/pharmacy #2025, 1 tablet By Mouth 2 [...] Team Personnel Name: Gian Andrade MD Position: [facility] Physician - Primary Care Member Role: PCP Address: Address: [address] [place] [address] Name: Delfino Barber RN Position: [facility] RN Member Role: Primary Care Nurse Care Team Related Persons Name: VERONCIA ANDREWS Address: [address] [place] [address] Name: KEY OVALLE Address: [address] [place] [address] Name: ALCON BAIG Address: [place] [address] [place] [address]
--- OUTSIDE RECORDS SUMMARY | 2024-05-10 09:41 | XMS_ITS | Continuity of Care Document ---
Author Organization [facility] Address [address] [place] [address]- Care Team Providers Care Technical Analyst Name Role Phone Gian Andrade MD Primary Care Physician [place] [facility] [place] 08/20/23 - 09/19/23 [facility] [address] [place] [address]- Allergies, Adverse Reactions, Alerts Substance Reaction Severity [...] 0 Refills, Maintenance, 08/09/23 10:59:00 EST, Tablet, [facility]/pharmacy #[id number], Ok to fill early, Masspat checked [...] 14:05:00 EDT, Route to Pharmacy Electronically, [facility]/pharmacy #[id number], 160, cm, 05/25/23 16:00:00... Start Date: [...] each, 1 Refills, Maintenance, 11/05/21 10:04:00 EST, [place], [facility], Partial fill upon [...] Refills, Maintenance, 02/11/22 14:20:00 EDT, Tablet, [facility], 160, cm, 01/07/22 9:42:00 EDT, [...] Care Member Role: PCP Address: Address: [address] [place] [address]- Name: Delfino Barber RN Position: [facility] RN Member Role: Primary Care Nurse Care Team Related Persons Name: VERONICA ANDREWS Address: [address] [place] [address] Name: KEY OVALLE Address: [address] [place], [place] Name: ALCON BAIG Address: [address] [place] [address]
--- OUTSIDE RECORDS SUMMARY | 2024-05-10 09:41 | XMS_ITS | Continuity of Care Document ---
Author Organization [facility] Address [address] [place] [address]- Care Team Providers Care Unix Administrator Name Role Phone Gian Andrade MD Primary Care Physician Encounter [facility] [place] Date(s): 04/23/22 - 05/23/22 [facility] [address] [place] [address]- Allergies, Adverse Reactions, Alerts Substance Reaction Severity [...] 11/02/21 14:38:00 EST, Route to Pharmacy Electronically, [facility], 160, cm, 10/12/21 10:40:00 EST, Height, 60, kg, 05/29/21 10:55:00 ED... Start Date: 11/02/21 Status: Ordered cyclobenzaprine 10 mg oral tablet 10 mg, 1, tablet, By Mouth, 2 times a day, PRN, # 30 tablet, Refills 1, Tot. Refills 1, Maintenance, for spasm, 01/14/21 9:27:00 EDT, Route to Pharmacy Electronically, [facility]/pharmacy #[id number], 160, cm, 02/07/20 10:53:00 EDT, Height, 49.9, kg, 02/07/20 10:5... Start Date: 01/14/21 Status: Ordered fluticasone 50 mcg/inh nasal spray 1 sprays, Nares, Both, 2 times a day, For post nasal drip, # 3 each, 1 Refills, Maintenance, 11/05/21 10:04:00 EST, [place], [facility], Partial fill upon patient request [...] Team Personnel Name: Gian Andrade MD Address: [address] [place], [place] [address]
--- OUTSIDE RECORDS SUMMARY | 2024-05-10 09:41 | XMS_ITS | Continuity of Care Document ---
Author Organization [facility] Address [address] [place] [address]- Care Team Providers Care Geophysical Laboratory Supervisor Name Role Phone Lupe EL, Gian Lincoln Primary Care Physician [place] [facility] [place](s): 11/09/23 - 12/09/23 [facility] [address] [place], [place] [address] Allergies, Adverse Reactions, Alerts Substance Reaction [...] 0 Refills, Maintenance, 12/01/23 14:33:00 EDT, Tablet, [facility]/pharmacy #2025, Ok to fill early, Masspat checked [...] 11/09/23 9:24:00 EST, Route to Pharmacy Electronically, [facility]/pharmacy #2024, 158, cm, 09/23/23 12:44:00... Start Date: [...] each, 1 Refills, Maintenance, 11/05/21 10:04:00 EST, [place], [facility], Partial fill upon patient request if the prescription is for a schedule II opioid drug., 1 sprays... Start Date: 11/05/21 Status: Ordered meclizine 25 mg oral tablet 1 tablet = 25 mg, By Mouth, Daily at bedtime, PRN Other, take one tab po qhs prn moderate vertigo, # 8 tablet, 1 Refills, Soft Stop, 12/16/21 11:06:00 EDT, [facility]/pharmacy #2025, Partial fill upon patient request if [...] each, 0 Refills, Maintenance, 11/25/23 17:27:00 EDT, [facility]/pharmacy #2025, Partial fill upon higinio... Start Date: 11/25/23 Status: Ordered propranolol 10 mg oral tablet 10 mg, 1, tablet, By Mouth, 3 times a day, # 90 tablet, Refills 3, Tot. Refills 3, Maintenance, 11/09/23 9:56:00 EST, Route to Pharmacy Electronically, [facility]/pharmacy #2025, Partial fill upon patient request if [...] Refills, Maintenance, 12/25/23 14:07:00 EDT, ER Tablet, [facility]/pharmacy #2025, 1 tablet By Mouth 2 times [...] Care Member Role: PCP Address: Address: [address] [place] [address] Name: Delfino Barber RN Position: [facility] RN Member Role: Primary Care Nurse Care Team Related Persons Name: VERONICA ANDREWS Address: home [address] [place] [id number] Name: KEY OVALLE Address: [address] [place] [address] Name: ALCON BAIG Address: [address] [place] [address]
--- OUTSIDE RECORDS SUMMARY | 2024-05-10 09:41 | XMS_ITS | Continuity of Care Document ---
Author Organization [facility] Address [address] [place] [id number]- Care Team Providers Care Admin Secretary Name Role Phone Lupe EL, Gian Lincoln Primary Care Physician Encounter [facility] [place] Date(s): 12/13/22 - 01/12/[address] [address]- Allergies, Adverse Reactions, Alerts Substance Reaction Severity [...] Refills, Maintenance, 08/27/22 12:40:00 EST, Tablet, [facility]/pharmacy #2024, 1 tablet By Mouth 2 times a day,x90 days,Instr:masspat checked ; may fill for less... Start Date: 08/27/22 Stop Date: 11/25/22 Status: Ordered amphetamine-dextroamphetamine 20 mg oral tablet 1 tablet = 20 mg, By Mouth, 2 times a day, masspat checked may fill for less, # 60 tablet, 0 Refills, Maintenance, 12/30/22 23:23:00 EDT, Tablet, [facility]/pharmacy #2024, 1 tablet By Mouth 2 times a day,x30 days,Instr:masspat checked ; may fill for less,... Start Date: 12/30/22 Stop Date: 01/29/23 Status: Ordered cyclobenzaprine 10 mg oral tablet 1, tablet, By Mouth, 2 times a day, PRN, # 30 tablet, Refills 1, Maintenance, NEEDED FOR SPASMS,12/20/22 11:12:00 EDT, Route to Pharmacy Electronically, [id number], 160, cm, 10/26/22 8:55:00EST, Height, 60, kg, 05/29/21 10:55:00 EDT, Dry Weight Start Date: 12/20/22 Status: Ordered fluticasone 50 mcg/inh nasal spray 1 sprays, Nares, Both, 2 times a day, For post nasal drip, # 3 each, 1 Refills, Maintenance, 11/05/21 10:04:00 EST, [place], [facility], Partial fill upon [...] Refills, Soft Stop, 12/16/21 11:06:00 EDT, [facility]/pharmacy #[id number], Partial fill upon patient request if the [...] Team Personnel Name: Gian Andrade MD Position: [facility] Primary Care Physician Member Role: PCP Address: Address: [address] [place] [id number]- Name: Delfino Barber Position: [facility] RN Member Role: Primary Care Nurse Care Team Related Persons Name: VERONICA ANDREWS Address: [address] [place] [address] Name: KEY OVALLE Address: [address] [place], [place] Name: ALCON BAIG Address: [address] [place] [address]
== END 2024-05-10 11:50 | disposition home or self-care (01) ==
LOC: HO.HSMS 09:32
PROVIDERS: PCP Family Medicine; Visit Provider Nurse Practitioner Family
DX: R20.2 Paresthesia of skin (principal); I73.00 Raynaud's syndrome without gangrene; F07.81 Postconcussional syndrome; G43.109 Migraine with aura, not intractable, without status migrainosus
CPT/HCPCS: 99214

== ENCOUNTER → 2024-05-10 09:32 | Outpatient (BNVA) | payer OTHER, SELFPAY | PROVIDERS: PCP Family Medicine; Visit Provider Nurse Practitioner Family | DX: D64.9 Anemia, unspecified (principal); R20.2 Paresthesia of skin; R42 Dizziness and giddiness; M32.9 Systemic lupus erythematosus, unspecified; I73.00 Raynaud's syndrome without gangrene ==

== ENCOUNTER 2024-08-06 13:02 | Outpatient (RCR) | payer OTHER, SELFPAY ==
--- NOTE | 2024-08-13 12:35 | MHC.SP.ADU ---
Referring provider: Dr. 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 She is referred by her Neurologist. She lives with her Partner and her child. She reports recent frustration with owning her own business and is thinking about returning as an employee. She describes word-finding difficulty, and difficulty keeping up with multiple tasks. Medical History: Other: See below Other: POTS (postural orthostatic tachycardia syndrome) Allergic rhinitis History of ITP Riki-Danlos disease Anemia Sleep difficulties GERD (gastroesophageal reflux disease) Subacute cutaneous lupus erythematosus Insomnia Cutaneous lupus erythematosus ADHD Anxiety Post concussive syndrome Recent Hospitalizations: No Respiratory Needs: Room Air CPAP Patient Orientation: Alert & Oriented x 4 Social History: Employment Status: Self-Employed Highest level of education obtained: Completed Bachelor's Current Living Situation: Home with Partner Past Speech Language Therapy: None reported. Other Therapies Seen in Current Calendar Year: None Swallowing History: Dysphagia Specific: Within Functional Limits Comments: Pre-eval Risk for Aspiration: None Pre-evaluation Dietary Consistencies: Regular Pre-eval Liquid Intake: Thin Pre-eval Medication Intake: Whole with Liquid Reported Speech, Language, Cognition difficulties: Attention Cognition Quality of Life: Pt states frustration with no having been seen by Speech since her concussion. Patient Stated Goal of Speech-Language Therapy: Unsure. Assessment Speech Production: Within Functional Limits Clinical Impression: Intact Informal Voice Assessment: Voice Loudness: Normal Voice Nasal Resonance: Normal Voice Phonatory-based Quality: Normal Voice Pitch: Normal Clinical Impression: Intact Tests of Speech & Lang Adults: Clinical Impression: Intact Tests of Cognition: RBANS Clinical Impression: Intact Observations: The patient participated in select subtests of the Repeatable Battery for the Assessement of Neuropsychological Status - Updated. Subests were sufficient to yield a Total Scale Score. nThe RBANS is considered a screening battery for cognitive function and is repeatable for the purpose of evaluating any changes in function. It is intended for use with adolescents and adults, ages 12 to 89 years. Composite domains assessed in this test are: Immediate Memory, Visuospatial/Constructional, Language, Attention, and Delayed Memory. Her scores are tabled below: I.) Immediate Memory Index: 97 Ia.) List Learning: -- Scaled Score: 8 Ib.) Story Memory: -- Scaled Score: 11 The Immediate Memory Index measures, ?initial encoding and learning of complex and simple verbal information. Low scores on this index indicated difficulties with verbal learning.? The score is derived from the participant?s performance on the subtests List Learning and Story Memory. List Learning measures, ?rote verbal memory function.? Participants are asked to repeat back a list of ten words presented to them verbally across four trials. Poor performance on this subtest indicates that, ?the examinee may have difficulty learning new verbal information and that repetition may not be beneficial?, if they do not improve across trials. The Story Memory subtest measures, ?memory for conceptually related verbal information.? Here, a short story is read to them across two trials and they are asked to recall details from the story. ?The test is a measure of verbal memory functioning for information that is related?. As with List Learning, participants that do not demonstrate a positive learning curve across trials could indicate, ?difficulty with learning new verbal learning, and that repetition may not help, or that the examinee may have difficulty retrieving new information from memory. II.) Visuospatial/Constructional Index: 116 IIa.) Figure Copy: -- Scaled Score: 13 IIb.) Line Orientation: -- Percentile Group: 51-75 The Visuospatial/Constructional Index is derived from the Figure Copy and Line Orientation subtests. It measures, ?basic visuospatial perception and the ability to copy a design from a model?. Low performance with this index can indicate, ?difficulties with processing and using visuospatial information?, or, ?visual impairments or attention disorders such as larry neglect?. The Figure Copy subtest requires the examinee to copy a complex geometrical design from a model that is present throughout the task. ?This requires many cognitive skills including visuospatial reasoning, attention to visual details, motor programming, and to a lesser degree, organization and fine-motor ability?. Points are given for specific details, as well as specific placement in the context of the entire image. The Line Orientation subtest measures, ?the examinee?s ability to correctly identify spatial orientation in two-dimensions?. Poor performance indicates significant visuospatial impairments in acuity and attention. III.) Language Index: 118 IIIa.) Picture Naming: -- Percentile Group: 17-25 IIIb.) Semantic Fluency: -- Scaled Score: 15 The Language Index is, ?a measure of expressive language functioning?. Low scores with this subtest ?would indicate difficulties with language functioning? and, ?while the overall score would still indicate language difficulties, the deficits may be more related to fluency versus naming skills.? The Picture Naming subtest is provided by showing the participant a series of 10 simple line drawing and asking them to name them. The Semantic Fluency subtest is a measure of, ?the examinee?s ability to retrieve and express words using a semantic prompt?. In brief, the examinee is given a category and asked to name as many exemplars as they can in 60 seconds. Low scores, ?indicate significantly impaired ability to retrieve and express verbal information from long-term memory stores?. IV.) Attention Index: 115 Tracee.) Digit Span: -- Scaled Score: 12 IVb.) Coding: -- Scaled Score: 13 The Attention Index is a derived from the Digit Span and Coding subtests. It is a measure of, ?simple auditory registration, visual scanning and processing speed. Low scores on this index indicate, ?difficulties with basic attention and processing speed?. Difficulties can vary between the subtests suggesting acute differences between auditory and visual processing and attention. Digit Span is a measure of, ?auditory registration and brief focused attention. Low scores can also indicate difficulties with auditory attention and registration?. In it, the examinee is read a series of single digit numbers and asked to repeat them back in the same order. ?Impairments in auditory acuity can also influence performance on this test?. Coding is a measure of, ?brief, focused, visual attention, visual scanning and processing speed?. In it, the examinee is given a meyer at the top of the page where each symbol is associated with a different number. The examinee is then asked to fill out as many numbers to corresponding symbols as they can in 90 seconds. In incorporates the notion of diligence and sustained attention as well. Difficulties can indicate problems with, ?processing speed and focused visual attention?. V.) Delayed Memory Index: 97 Va.) List Recall: -- Percentile Group: 17-25 Vb.) List Recognition: -- Percentile Group: 3-9 Vc.) Story Recall: -- Scaled Score: 12 Vd.) Figure Recall: -- Scaled Score: 16 The Delayed Memory Index is derived by combining the subtest scores for List Recall, Story Recall, and Figure Recall, and cross-referencing them with the List Recognition subtest. Auditory and Visual subtest are combined together. Difference between subtests can be highlighted to provide more specific information about areas of deficit and strength. ?The deficits, may be more related to verbal more than visual memory, or free recall as opposed to recognition memory or general variability in memory functioning.? .) Total Scale Score: 112 (%ile=79th) SUMMARY: We discussed her scores which fell in the average range and agreed that skilled Speech Therapy is not indicated at this time. She is in agreement with this plan and understands she can pursue re-evaluation at any time. Augmentative and Alternative Communication: Did Not Test Impressions and Recommendations Summary: Impact on Daily Function/Activity Limitations: Daily Activities: None Interpersonal Interactions: None Education: None Employment: None Community: None Prognosis for Improvement: Good Recommendation for Speech Therapy: NA:Typical Evaluation Frequency/Duration: N/a Date Range for Service Requested: N/a Time to Reassess: PRN Recommended Referrals to be Discussed with Primary Care Provider: Other: See Comment Return to referring provider. Patient Education: Completed: Yes Patient/Caregiver Education: Described Results of Evaluation Patient expressed understanding of evaluation Patient agrees with goals and treatment plan Medical And Scientific Illustrator Clinican/Clinical Fellow: No Supervisory Statement: N/A Speech Language Pathologist: Carlos Wood M.A., CCC-HUMAN RESOURCE ADVISOR
== END 2024-08-13 13:56 | disposition home or self-care (01) ==
LOC: HO.SH 13:02
PROVIDERS: PCP Family Medicine; Visit Provider Nurse Practitioner Family
DX: F07.81 Postconcussional syndrome (principal); R41.89 Other symptoms and signs involving cognitive functions and awareness
CPT/HCPCS: 96125

== ENCOUNTER 2024-11-23 14:57 | Outpatient (AMB) | payer OTHER, SELFPAY ==
--- NOTE | 2024-11-23 14:38 | A.OFFVIS_ITS ---
Intake Visit Reasons: Follow Up Intake Note: Patient presents follow up paresthesia/migraine medication. Speech eval in chart Catalyst Recovery Operator Required: No Allergies acetaminophen [From Percocet] Allergy (Unknown, Verified 11/23/24 14:39) Unknown latex Allergy (Unknown, Verified 11/23/24 14:39) Unknown oxycodone [From Percocet] Allergy (Unknown, Verified 11/23/24 14:39) Unknown lamotrigine [From Lamictal] Allergy (Verified 11/23/24 14:39) Rash mylar cream Allergy (Mild, Uncoded 05/10/24 09:33) Blister Medication List - Last Reconciled 11/23/24 by Randi Quiles, ALEXIS albuterol sulfate 90 mcg/actuation 2 puffs inhalation Q4H PRN cetirizine (Zyrtec) 10 mg PO DAILY PRN clonazepam 0.5 mg PO BID dextroamphetamine-amphetamine 20 mg 1 tab PO BID fluocinonide 0.05% appl topical BID gabapentin 300 mg PO BEDTIME ibuprofen 800 mg PO Q8H omeprazole 20 mg PO DAILY ondansetron 4 mg PO Q8H PRN oxcarbazepine 150 mg PO DAILY rizatriptan 5 - 10 mg (0.5 - 1 x 10 mg) PO Q2H PRN 21 days HPI Comments Details: 39-yr-old female presents for f/u televideo visit via [facility] follow-up of migraine, but she would also like to discuss her hand symptoms. She is still feeling BUE numbness, tingling, weakness, skin color changes, and skin feeling rough. Difficulty opening up a bag of chips or a bottle. Having pins and needles in her back as well. States she had a EMG/NCS which was normal. Plans to f/u w/ [facility] again. Seeing a therapist, psychiatrist, and case management- to help her manage s/s of feeling in a lull, poor motivation, and feeling that her adderall is not working well. She is using medications to help with sleep- recently had issue with her clonazepam refill and had worsened difficulty sleeping. She states she had a recent heart monitor through osteopathic neurologist, however those results are pending. She states cardiology has told her to increase her fluids and salt intake, but did not tell her specifically how much. She previously did not tolerate propranolol or nifedipine. She states she is supposed to see a call or contact centre coach every few years for echoca rdiogram due to EDS diagnosis. She last saw Rheumatology last year- was advised on strategies to optimize her Raynaud's symptoms. However, she is not sure that her hand symptoms are actually from Raynaud's, as her hand symptoms feel different than her feet. States her feet symptoms can resolve with placing her feet in warm water to warm them up. Rheumatology had suggested she could try amlodipine, however she continues to have low BP and lightheadedness. We had previously discontinued Emgality, and thought that this may be exacerbating Raynaud's symptoms- it does not appear that stopping this has had any positive or negative effect on the symptoms. She states she has had repeated skin biopsies that are positive for cutaneous lupus. She noticed a recent increase in her migraine, which he attributed to not taking fluids and water as well. 05/10/2024 HPI: Pt reports she had CT s/s yrs ago, which were treated. Then a few months ago, she started having increased BUE, R > L, increased hand moving up into her elbows, which includes coldness, numbness, tingling, and seeing small white dots on her fingers. She was having a scraping sensation in her toes and fingertips, maybe like tiny blisters or rash- this did worsen on Propranolol and then improved some after stopping Propranolol. She wonders if some of this sensation is d/t using her hands slightly differently due to the numbness. She feels like her hands and arms feel . She wakes up w/ her hands numb. She states yesterday she had difficulty opening a bag of chips. She has to keep cracking her arms. Since these s/s started, she has seen call or contact centre coach- dx'd her w/ POTs, rheumatology- dx;d her w/ Raynaud's, and more recently orthopedics at [facility], who advised her to f/u w/ neuro- as they ?'d if her nerves were on overdrive . Recent BUE EMG/NCS was normal. Pt reports that her migraines are much better. She has been drinking more water, more active. But she has been having more photophobia. She has not taken her Emgality in the last few months. Has not needed to take the Rizatriptan often. She was going to take Rizatriptan twice last week, but was driving and was worried she could have side effects. Thinks her migraines have been worse when her menstrual cycle is worse, but this has also been better. Baseline headache characteristics: Severe, aching and throbbing and tightness- some stabbing starts in bi-temporal region and moves up into bifrontal region and up into crown of the head. A/w blurred vision, photophobia, phonophobia, nausea, vomiting, not right in space dizziness, brain fog, fatigue, generalized, red eyes (more so on left), BUE hands and forearms pins and needles. She has noticed more left facial asymmetry. Prodrome symptoms of feels more body tension and congestion. She is noticing a bit more forgetfulness, prone to trailing off when speaking. She feels her speech is more articulate than after the concussion. She is still prone to spacing out. She may be doing everything or nothing at all. 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 [facility] Medical History (Updated 06/25/24 @ 15:59 by ALEXIS Fairchild) POTS (postural orthostatic tachycardia syndrome) Allergic rhinitis History of ITP Riki-Danlos disease Anemia Sleep difficulties GERD (gastroesophageal reflux disease) Subacute cutaneous lupus erythematosus Insomnia Cutaneous lupus erythematosus ADHD Anxiety Post concussive syndrome Surgical History Hx of colonoscopy History of kidney surgery H/O wisdom tooth extraction History of ankle surgery Family History Maternal Aunt Breast cancer Acute leukemia Mother Breast cancer CAD (coronary artery disease) Lupus Congenital heart defect Osteoporosis Precancerous skin lesion Paternal Grandmother Melanoma Brain cancer Father Hypertension Graves disease Hypercholesterolemia Kidney stones Brother Hypertension Hypercholesterolemia Social History Alcohol intake: current Alcohol intake frequency: a few times a month Patient Tobacco Use Status: Never used Tobacco Substance Use Type: Marijuana 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 Physical Exam Const General: cooperative and no acute distress Orientation/consciousness: patient oriented x3 Resp Effort & Inspection: normal respiratory effort and able to speak in complete sentences Neuro General: patient oriented x3 Cognition (Neuro): normal cognition Psych Appearance: grossly normal Mental Status: mental status grossly normal Speech and movement: Normal speech and movement present Affect: normal affect Attitude: cooperative Telehealth Telehealth Telehealth Platform: IIIMOBI Location of provider rendering services: practice address Location of patient: address on file Patient Identification confirmed using: Name, : Yes Telehealth method: video Patient verbally consented to treatment: Yes Patient verbally consented to billing insurance company: Yes Patient informed of any privacy concerns related to visit: Yes Minutes spent on Phone/Video with Pt.: 30 Assessment & Plan Assessment & Plan (1) Migraine with aura: Code(s): G43.109 - Migraine with aura, not intractable, without status migrainosus Category: Medical (2) Paresthesia of both hands: Code(s): R20.2 - Paresthesia of skin Category: Medical (3) Raynaud phenomenon: Code(s): I73.00 - Raynaud's syndrome without gangrene Category: Medical Qualifiers: Raynaud?s-associated gangrene presence: without gangrene Qualified Code(s): I73.00 - Raynaud's syndrome without gangrene (4) Post concussive syndrome: Code(s): F07.81 - Postconcussional syndrome Category: Medical Plan For hand coldness and paresthesias, POTs: Previous labs- WNL. Tilt-table- read as normal. EEG- normal. Head CT- normal. Sleep study- mild KRANTHI. Pt returned CPAP- not tolerated. PT eval and treat- specifically [facility]. Encouraged to increase fluids and salt intake, with fluid goal of at least 64 oz per day, and sodium goal of greater than 2 g per day- we will order sodium tab 1000 mg- may take half tab q.i.d. with food. If not tolerated can try Thermotabs. Follow-up with software educator- we will request appointment- ? If patient would benefit from a skin biopsy to assess for small fiber neuropathy. F/u w/ call or contact centre coach as scheduled. Previous trials: propranolol- helped POTs s/s but appears to have worsened Raynaud's symptoms. Nifedipine not tolerated. Future considerations: Brain MRI. For post-concussive cognitive difficulties: Had PUBLIC HEALTH INSPECTOR evaluation, and it was felt that skilled speech therapy was not indicated at this time. Continue psychiatric and psychotherapy treatment. ? For acute headache treatment: Rizatriptan 10mg tab, 1/2 - 1 tab (5-10mg) at onset of headache, may repeat in 2 hours. Max of 2 tabs (200mg) per 24 hours. May adjunct with OTC Tylenol 650mg q 4 hours, Ibuprofen (liquigel) 600mg q 6 hours, or Naproxen (liquigel) 440mg q 12 hrs prn. Nerivio qd prn- when available Previous acute migraine medication trials: Sinus headache tabs. Sumatriptan- worked but not tolerated. Acute migraine medication contraindications: None at this time ? For headache prevention medication: Riboflavin- take 400mg every am Magnesium- goal is 400mg qhs May continue to hold Emgality 120mg. Previous migraine prevention medication trials: Venlafaxine ER 37.5mg- not tolerated caused N/V. Amitriptyline 20mg qhs- ineffective. Venlafaxine ER 37.5mg qd- not tolerated. Migraine prevention medication contraindications: BBs d/t h/o asthma. Topiramate d/t h/o kidney stones. Aimovig d/t h/o Raynaud's. Future considerations: Botox. ? f/u in 6 months or sooner prn. Orders: Orders PT Evaluation and Treatment Today I73.00 - Raynaud's syndrome without gangrene, R20.2 - Paresthesia of skin Medications: New sodium chloride 1,000 mg PO BID 30 days 60 tabs 3RF Coding Level of Care Code Tele Est Pt Level 4 (29379) Diagnoses Migraine with aura G43.109 Paresthesia of both hands R20.2 Raynaud's phenomenon without gangrene I73.00 Raynaud?s-associated gangrene presence: without gangrene Post concussive syndrome F07.81
--- OUTSIDE RECORDS SUMMARY | 2024-11-23 16:20 | XMS_ITS | Continuity of Care Document ---
Author Organization [facility] Address [address] [place] [address]- Care Team Providers Care Housing Liaison Name Role Phone Lupe EL, Gian Lincoln Primary Care Physician Encounter [facility] Date(s): 09/25/24 - 10/25/24 [facility] [address] [place] [address]- Encounter Type: Triage Allergies, Adverse Reactions, Alerts Substance Criticality Severity Reaction Reaction Severity Status lidocaine-prilocaine topical Eruption Active Percocet Activ e Latex Active Immunizations Given and Recorded Vaccine [...] # 360 mL, 2 Refills, Maintenance, 12/10/19 2:54:00 PM EDT, Solution, [id number], 160, cm, 10/31/19 10:52:00 EST, Height Start Date: 12/10/19 Status: Ordered Quantity: 360.0 Unit: mL Repeat number: 3 amphetamine-dextroamphetamine 20 mg oral tablet 1 tablet = 20 mg, By Mouth, 2 times a day, Auto refill Masspat checked DNF 09/24/2024, # 56 tablet,0 Refills, Maintenance, 09/17/24 8:17:00 AM EST, Tablet, [facility]/pharmacy #2024, Ok to fill early, Masspat checked , Patient may fill for less, 1 tablet By Mouth 2 times a day,Instr:Auto refill Masspat checked; DNF 09/24/2024, 09/24/24, 160, cm, 09/03/24 11:31:00 EST, Height, 52.7, kg, 03/28/24 10:28:00 EDT, Dry Weight Start Date: 09/17/24 Stop Date: 09/14/25 Status: Ordered Quantity: 56.0 Unit: tablet Repeat number: 1 Indication: Attention-deficit hyperactivity disorder, predominantly inattentive type clonazePAM 0.5 mg oral tablet 1 tablet = 0.5 mg, By Mouth, 2 times a day, PRN Anxiety, # 60 tablet, 1 Refills, Maintenance, 07/10/24 7:32:00 AM EDT, Tablet, [facility]/pharmacy #2024, Partial fill upon patient request if the prescription is for a schedule II opioid drug., 160, cm, 03/28/24 10:28:00 EDT, Height, 52.7, kg, 03/28/24 10:28:00 EDT, Dry Weight Start Date: 07/10/24 Status: Ordered Quantity: 60.0 Unit: tablet Repeat number: 2 cyclobenzaprine 10 mg oral tablet 1, tablet, By Mouth, 2 times a day, PRN, # 30 tablet, Refills 1, Maintenance, NEEDED FOR SPASMS,FOR, 01/24/24 8:14:00 AM EDT, Route to Pharmacy Electronically, [id number], 158, cm, 01/03/24 14:54:00 EDT, Height, 56.3, kg, 08/25/23 14:33:00 EST, Dry Weight Start Date: 01/24/24 Stop Date: 02/08/24 Status: Ordered Quantity: 30.0 Unit: tablet Repeat number: 1 gabapentin 300 mg oral capsule 300 mg, 1, capsule, By Mouth, Daily at bedtime, # 30 capsule, Refills 0, Tot. Refills 0, Maintenance, 07/09/24 4:40:00 PM EDT, Route to Pharmacy Electronically, [facility]/pharmacy #2024, Partial fill upon patient request if the prescription is for a schedule II opioid drug., 160, cm, 03/28/24 10:28:00 EDT, Height, 52.7, kg, 03/28/24 10:28:00 EDT, Dry Weight Start Date: 07/09/24 Status: Ordered Quantity: 30.0 Unit: capsule Repeat number: 1 ondansetron 4 mg oral tablet, disintegrating = 4 mg, By Mouth, 3 times a day, PRN Nausea, TAKE ONLY NEEDED, # 120 tablet, 0 Refills, Maintenance, 02/11/22 2:20:00 PM EDT, Tablet, [facility], 160, cm, 01/07/22 9:42:00 EDT, Height, 60, kg, 05/29/21 10:55:00 EDT, Dry Weight Start Date: 02/11/22 Status: Ordered Quantity: 120.0 Unit: tablet Repeat number: 1 rizatriptan 10 mg oral tablet 0 Refills, Maintenance, 09/23/23 12:44:00 PM EST, Partial fill upon patient request if the prescription is for a schedule II opioid drug. Start Date: 09/23/23 Status: Ordered Repeat number: 1 Vitamin B2 By Mouth, Daily, 0 Refills, Maintenance, 09/23/23 12:43:00 PM EST, Partial fill upon patient requestif the prescription is for a schedule II opioid drug. Start Date: 09/23/23 Status: Ordered Repeat number: 1 Problem List Condition Confirmation Course Effective Dates Status H ealth Status Informant Perennial allergic rhinitis Confirmed Active Anxiety Confirmed Active ADD (attention deficit disorder) Confirmed Active Back pain Confirmed Active Benzodiazepine dependence Confirmed Active Chronic insomnia Confirmed Active Post-COVID syndrome Confirmed Active Cutaneous lupus erythematosus Confirmed Active Dysmenorrhea Confirmed Active Riki-Danlos disease Confirmed Active Extremely dense tissue of both breasts on mammography Confirmed Active Family history of breast cancer Confirmed Active History of nephrolithiasis Confirmed Active History of ITP Confirmed Active History of COVID-19 Confirmed Active Postconcussion syndrome Confirmed Active RLS (restless legs syndrome) Confirmed Active Social History Social History Type Response Smoking Status Never smoker entered on: 04/21/15 Sex Sex Representation Female (finding) Patient Care team information Care Team Personnel Name: Gian Andrade MD Position: [facility] Physician - Primary Care Member Role: PCP Address: [address] [place] [id number] Telecom: Name: Delfino Barber RN Position: [facility] RN Member Role: Primary Care Nurse Care Team Related Persons Name: VERONICA ANDREWS Name: KEY OVALLE Name: ALCON BAIG Insurance Providers Guarantor name: HARRIS BROWNLAN Health Plan Information #: 1 Payer: [facility] Member Number: NA Policy Number: NA Group Number: NA
--- OUTSIDE RECORDS SUMMARY | 2024-11-23 16:20 | XMS_ITS | Continuity of Care Document ---
Author Organization [facility] Address [address] [place] [address]- Care Team Providers Care Supervisor Cigar Making Machine Name Role Phone Lupe EL, Gian Lincoln Primary Care Physician Encounter [facility] Date(s): 10/15/24 - 11/14/24 [facility] [address] [place] [id number]- Encounter Type: Triage Allergies, Adverse Reactions, Alerts Substance Criticality Severity Reaction Reaction Severity Status lidocaine-prilocaine topical Eruption Active Percocet 5/325 Activ e Latex Active Immunizations Given and [...] Maintenance, 12/10/19 2:54:00 PM EDT, [facility], [facility], 160, cm, 10/31/19 10:52:00 EST, Height Start Date: 12/10/19 Status: Ordered Quantity: 360.0 Unit: mL Repeat number: 3 amphetamine-dextroamphetamine 20 mg oral tablet 1 tablet = 20 mg, By Mouth, 2 times a day, Auto refill Masspat checked DNF 11/02/2024, # 56 tablet,0 Refills, Maintenance, 11/02/24 12:00:00 PM EST, Tablet, [facility], Ok to fill early, Masspat checked , Patient may fill for less, 1 tablet By Mouth 2 times a day,Instr:Auto refill Masspat checked; DNF 11/02/2024, 11/02/24, 160, cm, 10/11/24 13:10:00 EST, Height, 52.7, kg, 03/28/24 10:28:00 EDT, Dry Weight Start Date: 11/02/24 Stop Date: 11/02/24 Status: Ordered Quantity: 56.0 Unit: tablet Repeat number: 1 Indication: Attention-deficit hyperactivity disorder, predominantly inattentive type amphetamine-dextroamphetamine 20 mg oral tablet 1 tablet = 20 mg, By Mouth, 2 times a day, Auto refill Masspat checked DNF 09/24/2024, # 56 tablet,0 Refills, Hard Stop 09/14/25 2:09:00 PM EST, 09/17/24 8:17:00 AM EST, Tablet, [facility], Ok to fill early, Masspat checked , Patient may fill for less, 09/24/24, 160, cm, 09/03/24 11:31:00 EST,Height, 52.7, kg, 03/28/24 10:28:00 EDT, Dry Weight Start Date: 09/17/24 Stop Date: 09/14/25 Status: Ordered Quantity: 56.0 Unit: tablet Repeat number: 1 Indication: Attention-deficit hyperactivity disorder, predominantly inattentive type clonazePAM 0.5 mg oral tablet 1 tablet = 0.5 mg, By Mouth, 2 times a day, PRN Anxiety, # 60 tablet, 1 Refills, Maintenance, 11/14/24 12:36:00 PM EST, Tablet, [facility], Partial fill upon patient request if the prescriptionis for a schedule II opioid drug., 160, cm, 10/11/24 13:10:00 EST, Height, 52.7, kg, 03/28/24 10:28:00 EDT, Dry Weight Start Date: 11/14/24 Status: Ordered Quantity: 60.0 Unit: tablet Repeat number: 2 cyclobenzaprine 10 mg oral tablet 1, tablet, By Mouth, 2 times a day, PRN, # 30 tablet, Refills 1, Maintenance, NEEDED FOR SPASMS,FOR, 01/24/24 8:14:00 AM EDT, Route to Pharmacy Electronically, [id number], 158, cm, 01/03/24 14:54:00 EDT, Height, 56.3, kg, 08/25/23 14:33:00 EST, Dry Weight Start Date: 01/24/24 Stop Date: 02/08/24 Status: Ordered Quantity: 30.0 Unit: tablet Repeat number: 1 gabapentin 300 mg oral capsule 300 mg, 1, capsule, By Mouth, Daily at bedtime, # 30 capsule, Refills 0, Tot. Refills 0, Maintenance, 11/06/24 5:15:00 PM EST, Route to Pharmacy Electronically, [facility]/pharmacy #2024, Partial fill upon patient request if the prescription is for a schedule II opioid drug., 160, cm, 10/11/24 13:10:00 EST, Height, 52.7, kg, 03/28/24 10:28:00 EDT, Dry Weight Start Date: 11/06/24 Status: Ordered Quantity: 30.0 Unit: capsule Repeat [...] - Primary Care Member Role: PCP Address: [address] [place] [address] Telecom: Name: Delfino Barber RN Position: [facility] RN Member Role: Primary Care Nurse Care Team Related Persons Name: VERONICA ANDREWS Name: KEY OVALLE Name: ALCON BAIG Insurance Providers Guarantor name: HARRIS DARRYL Health Plan Information #: 1 Payer: [facility] Member Number: NA Policy Number: NA Group Number: NA
--- OUTSIDE RECORDS SUMMARY | 2024-11-23 16:20 | XMS_ITS | Continuity of Care Document ---
Author Organization [facility] Address [address] [place] [address]- Care Team Providers Care Track Broom Operator Name Role Phone Lupe EL, Gian Lincoln Primary Care Physician Encounter [facility] Date(s): 10/11/24 - 11/10/24 [facility] [address] [place] [id number] Attending Physician: Admtr, Percy Admitting Physician: Admtr, Ar8 Referring Physician: Admtr, Ar8 Encounter Type: Triage Allergies, Adverse Reactions, Alerts [...] Refills, Maintenance, 11/02/24 12:00:00 PM EST, Tablet, [facility]/pharmacy #2024, Ok to fill [...] PM EST, 09/17/24 8:17:00 AM EST, Tablet, [facility]/pharmacy #2024, Ok to fill [...] Anxiety, # 60 tablet, 1 Refills, Maintenance, 11/06/24 5:15:00 PM EST, Tablet, Partial fill upon patient request if the prescription is for a schedule II opioid drug. Start Date: 11/06/24 Status: Ordered Quantity: 60.0 Unit: tablet Repeat number: 2 cyclobenzaprine 10 mg oral tablet 1, tablet, By Mouth, 2 times a day, PRN, # 30 tablet, Refills 1, Maintenance, NEEDED FOR SPASMS,FOR, 01/24/24 8:14:00 AM EDT, Route to Pharmacy Electronically, [facility] ST[facility], 158, cm, 01/03/24 14:54:00 EDT, Height, 56.3, kg, 08/25/23 14:33:00 EST, Dry Weight Start Date: 01/24/24 Stop Date: 02/08/24 Status: Ordered Quantity: 30.0 Unit: tablet Repeat number: 1 gabapentin 300 mg oral capsule 300 mg, 1, capsule, By Mouth, Daily at bedtime, # 30 capsule, Refills 0, Tot. Refills 0, Maintenance, 11/06/24 5:15:00 PM EST, Route to Pharmacy Electronically, [facility]/pharmacy #2024, Partial fill upon [...] Team Personnel Name: Gian Andrade MD Position: [facility] Physician - Primary Care Member Role: PCP Address: [address] [place] [address] Telecom: Name: Delfino Barber RN Position: [facility] RN Member Role: Primary Care Nurse Care Team Related Persons Name: VERONICA ANDREWS Name: KEY OVALLE Name: ALCON BAIG Insurance Providers Guarantor name: HARRIS DARRYL Health Plan Information #: 1 Payer: [facility] Member Number: NA Policy Number: NA Group Number: NA
--- OUTSIDE RECORDS SUMMARY | 2024-11-23 16:20 | XMS_ITS | Continuity of Care Document ---
Author Organization [facility] Address [address] [place] [address]- Care Team Providers Care Geometry Professor Name Role Phone Lupe EL, Gian Lincoln Primary Care Physician Encounter [facility] Date(s): 10/02/24 - 11/01/24 [facility] [address] [place] [address]- Encounter Type: Triage Allergies, Adverse Reactions, Alerts [...] Refills, Maintenance, 09/17/24 8:17:00 AM EST, Tablet, [facility]/pharmacy #2024, Ok to fill early, Masspat checked [...] Refills, Maintenance, 07/10/24 7:32:00 AM EDT, Tablet, [facility]/pharmacy #2024, Partial fill upon patient request if [...] 8:14:00 AM EDT, Route to Pharmacy Electronically, [facility]ORE [id number], 158, cm, 01/03/24 14:54:00 EDT, Height, 56.3, kg, 08/25/23 14:33:00 EST, Dry Weight Start Date: 01/24/24 Stop Date: 02/08/24 Status: Ordered Quantity: 30.0 Unit: tablet Repeat number: 1 gabapentin 300 mg oral capsule 300 mg, 1, capsule, By Mouth, Daily at bedtime, # 30 capsule, Refills 0, Tot. Refills 0, Maintenance, 07/09/24 4:40:00 PM EDT, Route to Pharmacy Electronically, [facility]/pharmacy #2024, Partial fill upon patient request if [...] Position: [facility] Physician - Primary Care Member Role: PCP Address: [address] [place] [id number] Telecom: Name: Delfino Barber RN Position: [facility] RN Member Role: Primary Care Nurse Care Team Related Persons Name: VERONICA ANDREWS Name: KEY OVALLE Name: ALCON BAIG Insurance Providers Guarantor name: HARRIS DARRYL Health Plan Information #: 1 Payer: [facility] Member Number: NA Policy Number: NA Group Number: NA
--- OUTSIDE RECORDS SUMMARY | 2024-11-23 16:20 | XMS_ITS | Continuity of Care Document ---
Author Organization [place] - [facility], [place] [address] Floor Address [address] [place] [address] Assessment Encounter Date Assessment Date Assessment LastModified by Organization Details LastModified Time 11/20/2024 11/20/2024 CHIEF COMPLAINT: Left ankle pain, stiffness and numbness HISTORY OF PRESENT ILLNESS: Chelsea is a 39-year-old woman seen today in follow-up with regard to chronic difficulty with her left ankle. I first met her in April 2024 and last saw her over 3 months ago in late July 2024. I have reviewed her previous treatment history. Briefly, she is status post left Brostrom reconstruction by Dr. Lambert Jean in [place], [place] in 1998. Her surgery was complicated by a nerve injury. She describes the ankle as feeling stable and largely views the surgery as successful. She has noted chronic stiffness about the ankle as well as achy soreness, which she finds manageable. Her pain has been worse since September. She describes posterior ankle pain and crepitus with maximal ankle plantarflexion. She also describes the ankle as getting stuck. She reports mild anterior and posterior ankle pain today. She has tried an ASO brace, which she finds helpful. She also wears OTC orthotics, which she finds sulfa. She has been working and wears her brace and work boot at work. She did not follow through with physical therapy once again as she tried to get her by telephone and was not able to reach anyone. She hopes to avoid any additional surgery if possible. 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 She has long COVID and POTS. She has been having some numbness about her hands and has been started on a calcium channel fox, which has been somewhat helpful. She is seeing a neurologist. Past family, medical, social history and review of systems has been reviewed, updated and is located in the patient? s chart. She is a nonsmoker and is not diabetic. She has her master's in health administration. PHYSICAL EXAMINATION: General: 5'3 , 112 lbs, healthy appearing, in no acute distress Psych: alert and oriented x3, normal mood Skin: intact without ulceration or lesion, normal turgor Lungs: respirations unlabored Cardiac: heart rate regular, normal peripheral pulses Musculoskeletal: On standing exam, she has mild cavus alignment. Her ankles are well aligned. On seated exam, she is tender over the posterior ankle joint line and less so over the peroneal tendons. She has full strength with resisted hindfoot eversion. There is pain and crepitus with maximal ankle plantarflexion. She has mild anterior ankle joint line tenderness. She has decreased sensation over the lateral ankle and dorsal aspect of her foot in the superficial peroneal nerve distribution. There is some sensitivity to light touch over the healed anterolateral ankle incision. Her ankle is stable. She is otherwise distally neurovascularly intact. X-RAYS/MRI: Previous x-rays and MRI images were independently reviewed, demonstrating two metallic anchors in the distal fibula used for Brostrom reconstruction, large os trigonum with surrounding edema and synovitis, peroneus brevis tendinitis without tear. 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 She prefers to remain conservative.I have once again ordered a course of physical therapy and have suggested she walk up to our second-floor physical therapy office to make an appointment. Physical therapy will focus on gait training, range of motion, strengthening and proprioception. She will continue with her brace and OTC orthotics. She will follow up with us in 3 months for reevaluation. I explained that I have no surgical solution for remote nerve damage caused by surgery in 1998. If conservative measures fail, I would recommend surgery consisting of left ankle arthroscopy and os trigonum excision. Consideration can also be given to a tibiotalar cortisone injection. I discussed with her the nature and magnitude of such surgery and the expected timeline of recovery. All questions were answered. [email or web address] Not available 11/20/2024 08:51:50 Plan of Treatment Reminders Order Date Submit Date Provider Last Modified By Organization Details Last Modified Time Details Appointments RECHECK 15 2024 03:45P M Mee Watson, SPECIAL NEEDS CAREGIVER Not available Not available Not available PT INITIAL EVAL 2024 08:30A M [facility] [place], PT Not available Not available Not available PT FOLLOW-U P 2024 11:30A M Castelan Zakia, MEDICAL CONSULTANT Not available Not available Not available PT FOLLOW-U P 2024 09:30A [facility] [place], PT Not available Not available Not available PT FOLLOW-U P 2024 09:00A M [facility], PT Not available Not available Not available PT FOLLOW-U P 2024 08:30A [facility] [place], PT Not available Not available Not available PT FOLLOW-U P 2024 11:00A M [facility] Alysha, PT Not available Not available Not available PT FOLLOW-U P 2024 08:30A [facility] [place], PT Not available Not available Not available PT FOLLOW-U P 2024 12:30P M Castelan Zakia, MEDICAL CONSULTANT Not available Not available Not available PT FOLLOW-U P 2024 11:00A M Castelan Zakia, MEDICAL CONSULTANT Not available Not available Not available PT FOLLOW-U P 2024 09:00A M Castelan Zakia, MEDICAL CONSULTANT Not available Not available Not available PT FOLLOW-U P 2024 09:00A M Castelan Zakia, MEDICAL CONSULTANT Not available Not available Not available PT FOLLOW-U P 2024 09:30A M [facility] [place], PT Not available Not available Not available PT FOLLOW-U P 2024 08:30A M [facility] [place], PT Not available Not available Not available PT FOLLOW-U P 2024 09:00A M Castelan Zakia, MEDICAL CONSULTANT Not available Not available Not available PT FOLLOW-U P 2024 08:30A M Castelan Zakia, MEDICAL CONSULTANT Not available Not available Not available RECHECK 15 2024 09:00A M Ariana Sullivan PA-C Not available Not available Not available Lab None recorded . Referral physical therapis t referral 2024 Lewis [email or web address] Not available 11/20/2024 09:56:22 Procedures None recorded . Surgeries None recorded . Imaging None recorded . Medication Orders None recorded . Patient TargetsNo targets recorded. Patient InstructionsNo instructions recorded. Reason for Referral Physical Therapist Referral for Synovitis of left ankle joint Referring Physician: Ricardo Smalls, Orthopedic Surgery, Encounter Date: 11/20/2024 Problems Name Problem SNOMED Code Status Onset Date Resolution Date Notes Provider Name and Address Organization Details Recorded Time Hand pain 88520199 Active 05/02/20 24 Mee Watson, SPECIAL NEEDS CAREGIVER [address] [facility] [address], [place], [address] , [facility] 05/02/2024 14:20:15 Notes:Some problems listed i n Document: #[id number] could not be added to this patient's chart. Please review this document and add these problems to the patient's chart manually as needed. Problem Notes None recorded. Medical Equipment None Reported. Allergies Allergen ID Allergen Name Allergen Category Reaction Reaction Severity Criticality Documentation Date Start Date Code Code System Note Provider Name and Address Organization Details Recorded Time 698739 onion extract food,medi cation Not available Not available Not available 04/05/2024 25066 69 RxNorm GIRISH MURILLO [facility], [facility] 4 10:25:21 538705 lactose food,medi cation Not available Not available Not available 04/05/2024 6211 RxNorm GIRISH MURILLO null, [facility] 4 10:25:48 339813 latex environme nt,medica tion Not available Not available Not available 04/05/2024 73175 91 RxNorm GIRISH MURILLO null, [facility] 4 10:26:09 Medications Name Sig Start Date Stop Date Status Note LastModified by Organization Details LastModified Time cyclobenzapr ine 10 mg tablet TAKE 1 TABLET BY MOUTH TWICE A DAY NEEDED FOR SPASMS,FOR 15 DAYS active Not Available Not Available No t Available oxcarbazepin e 150 mg tablet TAKE 1 TABLET BY MOUTH TWICE A DAY active Not Available Not Available No t Available venlafaxine ER 37.5 mg capsule,exte nded release 24 hr TAKE 1 CAPSULE BY MOUTH EVERY DAY active Not Available Not Available No t Available clonazepam 0.5 mg tablet TAKE 1 TABLET BY MOUTH TWICE A DAY NEEDED FOR ANXIETY active Not Available Not Available No t Available rizatriptan 10 mg tablet PLEASE SEE ATTACHED FOR DETAILED DIRECTIONS active Not Available Not Available N ot Available peg-electrol yte solution 420 gram oral solution DRINK 240 ML BY MOUTH EVERY 10 MINUTES active Not Available Not Available No t Available lamotrigine 25 mg tablet TAKE 1 TABLET BY MOUTH DAILY FOR 15 DAYS, THEN INCREASE TO 2 TABLETS BY MOUTH DAILY active Not Available Not Available No t Available propranolol 10 mg tablet TAKE 1 TABLET BY MOUTH THREE TIMES A DAY active Not Available Not Available Not Available nifedipine 10 mg capsule active Not Available Not Available Not Available amitriptylin e 10 mg tablet TAKE 1 TO 2 TABLETS BY MOUTH AT BEDTIME active Not Available Not Available No t Available dextroamphet amine-amphet amine 20 mg tablet TAKE 1 TABLET BY MOUTH TWICE A DAY active Not Available Not Available No t Available betamethason e, augmented 0.05 % topical ointment APPLY TO RASH TWICE A DAY FOR UP TO 2 WEEKS active Not Available Not Available No t Available gabapentin 300 mg capsule TAKE 1 CAPSULE BY MOUTH AT BEDTIME active Not Available Not Available No t Available DentaGel 1.1 % USE 1-2 TIMES DAILY, WITH PEA SIZED AMOUNT, WAIT 30 MINUTES TO EAT OR DRINK active Not Available Not Available No t Available lactulose 10 gram/15 mL oral solution TAKE 30 ML BY MOUTH DAILY FOR 3 DAYS NEEDED FOR CONSTIPATIO N active Not Available Not Available No t Available Allergy Relief-D (cetirizine) 5 mg-120 mg tablet,exten ded release TAKE 1 TABLET BY MOUTH TWICE A DAY active Not Available Not Available No t Available GaviLyte-G 236 gram-22.74 gram-6.74 gram-5.86 gram oral solution PLEASE SEE ATTACHED FOR DETAILED DIRECTIONS active Not Available Not Available N ot Available Kezia 3 mg-0.03 mg tablet TAKE 1 TABLET BY MOUTH EVERY DAY active Not Available Not Available No t Available Emgality Pen 120 mg/mL subcutaneous pen injector INJECT 120 MG SUBCUTANEOU SLY ONCE FOR 28 DAYS active Not Available Not Available Not Available Vitals Date Recorded Body height Body mass index (BMI) Body weight Provider Name and Address Organization Details Last Updated DateTime 11/20/2024 160.02 cm 19.8 kg/m2 34908.35 g JAX LIZETTE Wan [place] - [place] [facility] 11/20/2024 08:39:14 Social History None recorded. Functional Status None recorded. Mental Status None recorded. Family History Nothing Reported. Medical History No medical history recorded. Gynecological HistoryNo gynecological history recorded. Obstetrics History GPAL:G 0 P 0 0 0 0 Past Encounters Encounter ID Performer Location Encounter Start Date Encounter Closed Date Diagnosis/Indication Diagnosis SNOMED-CT Code Diagnosis ICD10 Code Diagnosis Note [id number] MD [facility] [place] [address], [place] [phone] 11/20/2024 08:35:25 11/20/2024 09:04:33 Synovitis of left ankle joint 4990541399 052283 M65.972 Os trigonum 182898283 Q6 8.8 Health Concerns Section Related Observation LastModified by Organization Detai ls LastModified Time None Recorded Concern Status LastModified by Organization Details LastModified Time None Recorded Payers Encounter Date Sequence Insurance Name Policy Number Policy Doyle Covered Member ID Doyle Member ID Guarantor Name 11/20/2024 1 [facility] (MEDICAID REPLACEMENT - O) [id number] Chelsea Mckay [id number] Chelsea Mckay OBGythomas Episode No OBEpisode recorded.
--- OUTSIDE RECORDS SUMMARY | 2024-11-23 16:20 | XMS_ITS | Data Portability ---
Author Organization [facility], [facility] Address [address] [place] [address] Assessment Encounter Date Assessment Date Assessment LastModified by Organization Details LastModified Time 05/17/2024 05/17/2024 CHIEF COMPLAINT: Left ankle pain, stiffness and numbness HISTORY OF PRESENT ILLNESS: Chelsea is a 39-year-old woman kindly referred by Maia TEIXEIRA with regard to chronic difficulty with her left ankle. I reviewed her previous treatment history. Briefly, she is status post left Brostrom reconstruction by Dr. Lambert Jean in [place], [place] in 1998. Her surgery was complicated by a nerve injury. She describes the ankle as feeling stable and largely views the surgery as successful. She has noted chronic stiffness about the ankle. This has been worse since September of this year. She describes posterior ankle pain and crepitus with maximal ankle plantarflexion. She also describes the ankle as being achy and getting stuck. Her pain level is 3/10. She hopes to avoid any additional surgery if possible. 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 She has been having some numbness about her hands and has been started on a calcium channel fox, which has been somewhat helpful. She is seeing a neurologist. She has not tried bracing or physical therapy for her ankle recently. Past family, medical, social history and review [...] crepitus with maximal ankle plantarflexion. She has decreased sensation over the lateral [...] surgery PLAN: I discussed these findings with Chelsea. She prefers to remain conservative. I have recommended a trial of an ASO brace along with a course of physical therapy. She will follow up with me in 2-3 months for reevaluation. I explained that I have no surgical solution for remote nerve damage caused by surgery in 1998. If conservative measures fail, I would recommend surgery consisting of left ankle os trigonum excision. I discussed with her the nature and magnitude of such surgery and the expected timeline of recovery. All questions were answered. The patient is ambulatory, but has weakness and/or instability of their extremity which requires stabilization from this semi-rigid/rigid orthosis to improve their function. Verbal and written instructions for the use and application of this item were given. Patient was instructed that should the brace result in increased pain, decreased sensation, increased swelling or an overall worsening of their medical condition, to please contact our office immediately. Not available 05/17/2024 09:40:46 08/07/2024 08/07/2024 CHIEF COMPLAINT: Left ankle pain, stiffness and numbness HISTORY OF PRESENT ILLNESS: Chelsea is a 39-year-old woman seen today in follow-up with regard to chronic difficulty with her left ankle. I first met her almost 3 months ago. I have reviewed her previous treatment history. Briefly, she is status post left Brostrom reconstruction by Dr. Lambert Jean in [place], [place] in 1998. Her surgery was complicated by a nerve injury. She describes the ankle as feeling stable and largely views the surgery as successful. She has noted chronic stiffness about the ankle. This has been worse since September of this year. She describes posterior ankle pain and crepitus with maximal ankle plantarflexion. She also describes the ankle as being achy and getting stuck. She reports mild anterior and posterior ankle pain today. She has tried an ASO brace, which she finds helpful, but she feels the ankle brace is too large and she is wondering if there is a smaller brace. She did not follow through with physical therapy as recommended and she was expecting a phone call but did not contact a physical therapist. She hopes to avoid any additional surgery [...] crepitus with maximal ankle plantarflexion. She has anterior ankle joint line tenderness. She has [...] Chelsea once again. She prefers to remain conservative. I have recommended a smaller ankle brace, which she will obtain herself, along with a course of physical therapy, which was reordered. She will follow up with me in 3-4 months for reevaluation. I explained that I have no surgical solution for remote nerve damage caused by surgery in 1998. If conservative measures fail, I would recommend surgery consisting of left ankle arthroscopy and os trigonum excision. I discussed with her the nature and magnitude of such surgery and the expected timeline of recovery. We can also consider a one time left ankle cortisone injection for diagnostic and therapeutic purposes. All questions were answered. Not available 08/07/2024 08:51:28 11/20/2024 11/20/2024 CHIEF COMPLAINT: Left ankle pain, [...] Brostrom reconstruction by Dr. Lambert Jean in [place], [place] in 1998. Her surgery was complicated [...] timeline of recovery. All questions were answered. Not available 11/20/2024 08:51:50 Plan of Treatment Reminders Order Date Submit Date Provider Last Modified By Organization Details Last Modified Time Details Appointments RECHECK 15 2024 03:45P M Mee Walter, CARDIO CLINICIAN Not available Not available Not available PT INITIAL EVAL 2024 08:30A M Va Honobia, PT Not available Not available Not available PT FOLLOW-U P 2024 11:30A M Castelan Zakia, FIELD MARKETING MANAGER Not available Not available Not available PT FOLLOW-U P 2024 09:30A M Va Alysha, PT Not available Not available Not available PT FOLLOW-U P 2024 09:00A M Va Alysha, PT Not available Not available Not available PT FOLLOW-U P 2024 08:30A M Va Alysha, PT Not available Not available Not available PT FOLLOW-U P 2024 11:00A M Va Alysha, PT Not available Not available Not available PT FOLLOW-U P 2024 08:30A M Va Honobia, PT Not available Not available Not available PT FOLLOW-U P 2024 12:30P M Castelan Zakia, FIELD MARKETING MANAGER Not available Not available Not available PT FOLLOW-U P 2024 11:00A M Castelan Zakia, FIELD MARKETING MANAGER Not available Not available Not available PT FOLLOW-U P 2024 09:00A M Castelan Zakia, FIELD MARKETING MANAGER Not available Not available Not available PT FOLLOW-U P 2024 09:00A M Castelan Zakia, FIELD MARKETING MANAGER Not available Not available Not available PT FOLLOW-U P 2024 09:30A M Va Alysha, PT Not available Not available Not available PT FOLLOW-U P 2024 08:30A M Va Encarnacion, PT Not available Not available Not available PT FOLLOW-U P 2024 09:00A M Flip Koehler, FIELD MARKETING MANAGER Not available Not available Not available PT FOLLOW-U P 2024 08:30A M Flip Koehler, FIELD MARKETING MANAGER Not available Not available Not available RECHECK 15 2024 09:00A M Ariana Sullivan PA-C Not available Not available Not available Lab None recorded . Referral physical therapis t referral 2024 025 Not available 11/20/2024 09:56:22 physical therapis t referral - left ankle peroneal tendonit is/synov itis 2023 024 [email or web address] Not available 09/10/2024 10:33:15 physical therapis t referral - left ankle peroneai l tendonit is/synov itis 2023 024 cstamand Not available 06/07/2024 08:54:53 Procedures None recorded . Surgeries None recorded . Imaging None recorded . Medication Orders None recorded . Patient TargetsNo targets recorded. Patient InstructionsNo instructions recorded. Reason for Referral Physical Therapist Referral for Synovitis of left ankle joint left ankle peroneail tendonitis/synovitis Referring Physician: Ricardo Smalls, Orthopedic Surgery, Encounter Date: 05/17/2024 Physical Therapist Referral for Synovitis of left ankle joint left ankle peroneal tendonitis/synovitis Referring Physician: Ricardo Smalls, Orthopedic Surgery, Encounter Date: 08/07/2024 Physical Therapist Referral for Synovitis of left ankle joint Referring Physician: Ricardo Smalls, Orthopedic Surgery, Encounter Date: 11/20/2024 Results Created Date Observation Date Name Description Value Unit Range Abnormal Flag Note LastModifiedBy Organization Detail LastModifiedTime 04/05/20 24 04/05/2024 XR, ankle , 3 or more view http:/ [email or web address] ?Encry pted=s Haja YD8dLq bEUv6g %2BXZw aYqtaq 0bqfl% 2Fg9IQ a4ajBk vP9nXo QUaueC m3YtLR FvZl [facility] 7x0114 AC0Koa nSGU6v eUC8mr 84%3D INTERFACE [facility] [address], [place], [address], 04/05/2024 09:41:17 04/05/20 24 04/05/2024 XR, ankle , 3 or more view [email or web address] ?Encry pted=s hAaTro YD8dLq bEUv6g %2BXZw aYqtaq 0bqfl% 2Fg9IQ a4ajBk vP9nXo QUaueC m3YtLR FvZlg JJ8[place] HZtai3 5r5254 AC0Koa nSGU6v eUC8mr 84%3D INTERFACE [facility] [address], [place], [address], 04/05/2024 09:41:19 04/05/20 24 04/05/2024 XR, foot, 3 or more view [email or web address] ?Encry pted=s hAaTro YD8dLq bEUv6g %2BXZw aYqtaq 0bqfl% 2Fg9IQ a4ajBk vP9nXo QUaueC m3YtLR FvZl JJ8[facility] 1m0546 AC0Koa nSGU6H eUC8mr 84%3D INTERFACE [facility] [address], [place], [address], 04/05/2024 09:42:29 04/05/20 24 04/05/2024 XR, foot, 3 or more view http:/ [email or web address] ?Encry pted=s hAaTro YD8dLq bEUv6g %2BXZw aYqtaq 0bqfl% 2Fg9IQ a4ajBk vP9nXo QUaueC m3YtLR FvZlgJ JJ8mAn HZtai3 6s9403 AC0Koa nSGU6H eUC8mr 84%3D INTERFACE [facility] [address], [place], [address], 04/05/2024 09:42:32 05/01/20 24 04/28/2024 MRI, ankle , w/o contr ast No observ ation record ed. [facility] [address], [place], [address], 05/10/2024 11:46:07 05/01/20 24 04/28/2024 MRI, ankle , w/o contr ast No observ ation record ed. [facility] [address], [place], [address], 05/10/2024 11:46:01 Result Notes None recorded. Problems Name Problem SNOMED Code Status Onset Date Resolution Date Notes Provider Name and Address Organization Details Recorded Time Hand pain 26864850 Active 05/02/20 24 Mee Watson, CARDIO CLINICIAN [address], [facility] [place], [address] , [facility] 05/02/2024 14:20:15 Notes:Some problems listed i n Document: #[id number] could not be added to this patient's chart. Please review this document and add these problems to the patient's chart manually as needed. Problem Notes None recorded. Procedures Surgical History None recorded. Imaging Results Imaging Date Name Status [facility]Modified by [facility] Details LastModified Time 04/05/2024 XR, ankle, 3 or more view completed INTERFACE [facility] [address], [place], [address], 04/05/2024 09:41:17 04/05/2024 XR, ankle, 3 or more view completed INTERFACE [facility] [address], [place], [address], 04/05/2024 09:41:19 04/05/2024 XR, foot, 3 or more view completed INTERFACE [facility] [address], [place], [address], 04/05/2024 09:42:29 04/05/2024 XR, foot, 3 or more view completed INTERFACE [facility] [address], [place], [address], 04/05/2024 09:42:32 04/28/2024 MRI, ankle, w/o contrast completed [facility] [address], [place], [address], 05/10/2024 11:46:07 04/28/2024 MRI, ankle, w/o contrast completed [facility] [address], [place], [address], 05/10/2024 11:46:01 Procedure Notes None recorded. Medical Equipment None Reported. Allergies Allergen ID Allergen Name Allergen Category Reaction Reaction Severity Criticality Documentation Date Start Date Code Code System Note Provider Name and Address Organization Details Recorded Time 547065 onion extract food,medi cation Not available Not available Not available 04/05/2024 51225 69 RxNorm GIRISH MURILLOMOSHE garza, [employer] [facility] 4 10:25:21 951429 lactose food,medi cation Not available Not available Not available 04/05/2024 6211 RxNorm GIRISH MURILLO [facility] [employer] [facility] 4 10:25:48 300280 latex environme nt,medica tion Not available Not available Not available 04/05/2024 29492 91 RxNorm GIRISH MURILLO [facility] [employer] [facility] 4 10:26:09 Medications Name Sig Start [...] and Address Organization Details Last Updated DateTime 05/01/2024 160.02 cm 19.8 kg/m2 04991.35 g IRA CARRION [facility] 05/01/2024 09:04:37 Date Recorded Body height Body mass index (BMI) Body weight Provider Name and Address Organization Details Last Updated DateTime 05/02/2024 160.02 cm 19.8 kg/m2 36622.35 g IRA CARRION [facility] 05/02/2024 13:19:40 Date Recorded Body height Body mass index (BMI) Body weight Provider Name and Address Organization Details Last Updated DateTime 05/17/2024 160.02 cm 19.8 kg/m2 19183.35 g JAX Wan [facility] 05/17/2024 09:04:26 Date Recorded Body height Body mass index (BMI) Body weight Provider Name and Address Organization Details Last Updated DateTime 08/07/2024 160.02 cm 19.8 kg/m2 53871.35 g JAX Wan [facility] 08/07/2024 08:39:14 Date Recorded Body height Body mass index (BMI) Body weight Provider Name and Address Organization Details Last Updated DateTime 11/20/2024 160.02 cm 19.8 kg/m2 98221.35 g JAX Wan [facility] 11/20/2024 08:39:14 Social History None recorded. Functional Status None recorded. Mental Status None recorded. Family History Nothing Reported. Medical History No medical history recorded. Gynecological HistoryNo gynecological history recorded. Obstetrics History GPAL:G 0 P 0 0 0 0 Past Encounters Encounter ID Performer Location Encounter Start Date Encounter Closed Date Diagnosis/Indication Diagnosis SNOMED-CT Code Diagnosis ICD10 Code Diagnosis Note [id number] SAMMIE Schmidt [address] [place] [address] 04/05/2024 09:13:35 04/25/2024 11:31:29 Pain of left ankle joint 7551487247 3333952 M25.037 [id number] Mee Watson, AILYN [facility] [address] [place] [address] 05/02/2024 13:04:06 05/18/2024 12:43:48 Hand pain 17338267 M79.063 [id number] Maia Haro PA-C [facility] [address] [place] [address] 05/01/2024 08:54:15 06/05/2024 09:51:41 Os trigonum impingement 332195565 M25.879 Peroneal tendinitis 5320 8009 M76.72 [id number] Ricardo Smalls MD [facility] [address] [place] [address] 05/17/2024 08:54:16 06/07/2024 08:54:52 Synovitis of left ankle joint 8269151197 006507 M65.9 Os trigonu m impingement 699559273 M25.313 [id number] Ricardo Smalls MD [facility] [address] [place] [address] 08/07/2024 08:32:54 09/10/2024 10:33:15 Synovitis of left ankle joint 0568144712 982157 M65.972 Os trigonum 363476125 Q6 8.8 [id number] Ricardo Smalls MD [facility] [address] [place] [address] 11/20/2024 08:35:25 11/20/2024 09:04:33 Synovitis of left ankle joint 2680993298 047072 M65.972 Os trigonum 492878953 Q6 8.8 Health Concerns Section Related Observation LastModified by Organization Detai ls LastModified Time None Recorded Concern Status LastModified by Organization Details LastModified Time None Recorded Advance Directives Directive None Recorded Payers Encounter Date Sequence Insurance Name Policy Number Policy Doyle Covered Member ID Doyle Member ID Guarantor Name 05/01/2024 1 [facility] (MEDICAID REPLACEMENT - HMO) [id number] Chelsea Mckay [id number] Chelsea Mckay 05/02/2024 1 [facility] (MEDICAID REPLACEMENT - HMO) [id number] Chelsea Mckay [id number] Chelsea Mckay 05/17/2024 1 [facility] (MEDICAID REPLACEMENT - HMO) [id number] Chelsea Ramirezlan [id number] Chelsea Ramirezlan 08/07/2024 1 [facility] (MEDICAID REPLACEMENT - HMO) [id number] Chelsea Ramirezlan [id number] Chelsea Mckay 11/20/2024 1 [facility] (MEDICAID REPLACEMENT - HMO) [id number] Chelsea Mckay [id number] Chelsea Mckay Notes Date Note Type Note Provider Name and Address Organization Details Recorded Time 05/01/2024 text/html I am seeing this patient under the supervision of Dr. Smalls, who was available but who did not see the patient. HPI: Patient is a 39-year-old female presenting today for a recheck of left ankle pain. Seen previously by Ariana Sullivan PA-C on 04/05/24. Here today for MRI review. History of lateral ligament reconstruction in 1998. The patient believes she had a nerve injury at the time of surgery. She localizes pain over her peroneal tendons and states the pain radiates into the lateral leg. She also reports significant discomfort deep in the back of her ankle. She feels a clicking sensation at times which seems to be getting worse. She denies the feeling of instability. She states her ankle bothers her on a daily basis and she is in a surgical mindset. Patient has tried bracing, a home exercise program for ankle rehabilitation along with NSAIDs and gabapentin. [facility] Meds and ROS reviewed, updated and signed by me, and is located in the patient's chart.PHYSICAL EXAMINATION: The patient is well appearing and in no apparent distress. Alert and oriented x 3. Examination of her left ankle reveals well-healed surgical incision. She is sensitive to light touch about the anterolateral ankle and along the sural nerve distribution. She is tender to palpation over the peroneal tendons in the retrofibular groove. She has full ankle range of motion. No significant instability noted with anterolateral drawer stress testing. No peroneal subluxation. Good ankle and hindfoot range of motion. Tender over the posterior talus which seems to be worse with maximal plantarflexion. Calf soft, nontender. Sensation intact light touch in the left lower extremity. Pulses appreciated distally. IMAGING: MRI of the left ankle was reviewed independently with the patient today performed at [facility] radiology reveals evidence of previous lateral ligament reconstruction. Assessment of her ligaments is difficult due to susceptibility artifact. Evidence of previous ATFL injury. There is peroneal brevis tendinopathy with tendon flattening but no obvious discrete tear. Intact peroneus longus. There is a 11 mm os trigonum posterior to the talus with mild hypertrophic change appreciated on T2 sagittal imaging. IMPRESSION/PLAN: 39-year-old female with ongoing worsening posterior and lateral ankle pain left side. History of previous Brostr? ? ?m reconstruction in 1998. I discussed the findings and situation with the patient today. 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 I will have her follow up with Dr. Smalls to discuss the surgical option next as she is frusterated and unable to resume normal activities due to this. We discussed the option of an injection but she declined. Maia Haro PA-C [address], [place], [address], [facility] 05/01/2024 09:59:26 05/02/2024 text/html Chelsea is a 39 ye ar old female who is seen today under the supervision of Dr Messer who was available but did not see the the patient. She was [place] [address] Luong. She was having neck, back and hand pain. She has a history of Riki-Danlos and lupus and was referred to physiatry and rheumatology. she reports she has had ongoing issues was diagnosed with an autoimmune disorder also found to have re-nodes and POTS. She was given propanolol for the POTS this caused a rash. She complains of numbness and tingling in the bilateral upper extremities through the entire hand and up both arms. Mee Watson, AILYN [address], [place], [address], [facility] 05/02/2024 14:20:31 OBGyn Episode No OBEpisode recorded.
== END 2024-11-27 07:09 | disposition home or self-care (01) ==
LOC: HO.HSMS 14:57
PROVIDERS: PCP Family Medicine; Visit Provider Nurse Practitioner Family
DX: G43.109 Migraine with aura, not intractable, without status migrainosus (principal); R20.2 Paresthesia of skin; I73.00 Raynaud's syndrome without gangrene; F07.81 Postconcussional syndrome
CPT/HCPCS: 99214

== ENCOUNTER 2024-12-12 08:35 | Outpatient (AMB) | payer OTHER, SELFPAY ==
--- NOTE | 2024-12-12 08:36 | MHC.OFFVIS ---
Vital Signs 12/12/24 08:37 Height 5 ft 2 in Weight 117 lb 1.047 oz BMI 21.4 BP 110/80 Blood Pressure Location Lt brachial Position Sitting Pulse 114 H Pulse Source Pulse Oximeter Pulse Oximetry (%) 99 Oxygen Delivery Method Room Air Intake Visit Reasons: Raynauds/Hand pain Intake Note: Patient presents today with cutaneous lupus. Pt states that she is having numbness and tingling from both hands and up her arms pt also states that she is have body pain. Allergies acetaminophen [From Percocet] Allergy (Unknown, Verified 12/12/24 08:37) Unknown latex Allergy (Unknown, Verified 12/12/24 08:37) Unknown oxycodone [From Percocet] Allergy (Unknown, Verified 12/12/24 08:37) Unknown lamotrigine [From Lamictal] Allergy (Verified 12/12/24 08:37) Rash mylar cream Allergy (Mild, Uncoded 05/10/24 09:33) Blister HPI HPI Raynauds/Hand pain: Details: Dx in cutaneous lupus with diffuse rash involving face and extremities in 2007 based on skin bx triggered by sun exposure when she was in [facility]. She has had recurrent rash with some of them bx proven cutaneous lupus. Episodes of pain achy lasting a day. No fevers, dyspnea, pleurisy, urinary symptoms. No new joint swelling. This winter Raynaud's has not been as active. She has had rash on her hands that she attributes to start of Lamictal. In the past she developed a rash on her hands secondary to propranolol. She has paresthesia of hands with radiation to arms since last year. She has seen Neurology and had EMG upper extremities 2 months ago, which patient reports as normal. EMGs were done at [facility]. She was also evaluated by cardiology for POTS and reports the workup was negative. [facility] Medical History (Updated 12/12/24 @ 22:41 by Duc Piedra MD) Monoclonal (M) protein disease, multiple 'M' protein POTS (postural orthostatic tachycardia syndrome) Allergic rhinitis History of ITP Riki-Danlos disease Anemia Sleep difficulties GERD (gastroesophageal reflux disease) Subacute cutaneous lupus erythematosus Insomnia Cutaneous lupus erythematosus ADHD Anxiety Post concussive syndrome Surgical History Hx of colonoscopy History of kidney surgery H/O wisdom tooth extraction History of ankle surgery Family History Maternal Aunt Breast cancer Acute leukemia Mother Breast cancer CAD (coronary artery disease) Lupus Congenital heart defect Osteoporosis Precancerous skin lesion Paternal Grandmother Melanoma Brain cancer Father Hypertension Graves disease Hypercholesterolemia Kidney stones Brother Hypertension Hypercholesterolemia Social History Alcohol intake: current Alcohol intake frequency: a few times a month Patient Tobacco Use Status: Never used Tobacco Substance Use Type: Marijuana 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 Good respiratory effort Skin: Purplish tone of skin on left 2nd to 4th MCP, cuticle swelling noted of a few digits on both hands. MSK: Tender right wrists. No synovitis of any joints in her hands. Normal range of motion of upper extremities and lower extremity. 5/5 power upper extremities. Assessment & Plan Assessment & Plan (1) Subacute cutaneous lupus erythematosus: Comment: In clinical remission at this time. She has findings of discoloration of her left hand, which are likely related to mild Raynaud's phenomenon. Labs are being ordered to assess for systemic lupus activity. Rheumatology history: Diagnosed with cutaneous lupus 2007 bx confirmed DEYA 2021, 2023/dsDNA/Sm/RAND TACKER negative. Presenting with diffuse rash after sun exposure. History of recurrent cutaneous lupus flares confirmed on skin biopsy. She was treated with hydroxychloroquine for 3 years by Dermatology on around the time of initial presentation, which reduced the frequency and severity of her cutaneous lupus. Hx of EDS. Code(s): L93.1 - Subacute cutaneous lupus erythematosus Category: Medical Plan: Labs ordered to evaluate for disease activity Requesting patient to bring in pathology reports and clinic notes from Dermatology We discussed importance of sun protection. She is going to [place] tomorrow. We discussed conservative managed for Raynaud's syndrome. Return to clinic in 1-2 months (2) Raynaud disease: Comment: Managed conservatively Code(s): I73.00 - Raynaud's syndrome without gangrene Category: Medical Qualifiers: Raynaud?s-associated gangrene presence: without gangrene Qualified Code(s): I73.00 - Raynaud's syndrome without gangrene Plan: Continue conservative management (3) Cervicalgia: Comment: With bilateral radiculopathy. Patient reports a recent EMG of upper extremities was normal. Code(s): M54.2 - Cervicalgia Category: Medical Plan: C-spine x-ray ordered Requesting EMG report from [facility] Return to clinic in 1-2 months Orders: Orders XR cervical spine 3V Today M54.2 - Cervicalgia DEYA Reflex Titer and Pattern Today M32.9 - Systemic lupus erythematosus, unspecified Alanine Aminotransferase Today Z79.60 - assisted (current) use of unspecified immunomodulators and immunosuppressants Complete Blood Count Auto Diff Today Z79.60 - intermodal customer service (current) use of unspecified immunomodulators and immunosuppressants Anti DNA DS Antibody Today M32.9 - Systemic lupus erythematosus, unspecified Protein Creatinine Ratio, Ur Today M32.9 - Systemic lupus erythematosus, unspecified UA w Microscopic Today M32.9 - Systemic lupus erythematosus, unspecified Aspartate Amino Transferase Today Z79.60 - assisted (current) use of unspecified immunomodulators and immunosuppressants Creatinine Today Z79.60 - assisted (current) use of unspecified immunomodulators and immunosuppressants Complement C4 Today M32.9 - Systemic lupus erythematosus, unspecified Complement C3 Today M32.9 - Systemic lupus erythematosus, unspecified Sm Sm/RAND TACKER Antibodies Today M32.9 - Systemic lupus erythematosus, unspecified Coding Level of Care Code Est Pt Level 4 (53690) Complex EM visit Add On G2211 Diagnoses Subacute cutaneous lupus erythematosus L93.1 Raynaud's disease without gangrene I73.00 Raynaud?s-associated gangrene presence: without gangrene Cervicalgia M54.2 Time Spent (min) 30
[2024-12-12 08:37] VITALS: BP 110/80; PULSE 114; O2SAT 99; BMI 21.4
== END 2024-12-12 09:17 | disposition home or self-care (01) ==
LOC: HO.RHES 08:35
PROVIDERS: PCP Family Medicine; Visit Provider Internal Medicine Rheumatology
DX: L93.1 Subacute cutaneous lupus erythematosus (principal); I73.00 Raynaud's syndrome without gangrene; M54.2 Cervicalgia
CPT/HCPCS: 99214; G2211

== ENCOUNTER 2024-12-12 08:35 | Outpatient (REF) | payer OTHER, SELFPAY ==
--- NOTE | ~2024-12-12 | XR_ITS ---
EXAMINATION: XR CERVICAL SPINE CLINICAL INFORMATION: M54.2 - Cervicalgia COMPARISON: None available. TECHNIQUE: 3 views of the cervical spine were obtained. FINDINGS: No scoliosis of significance. There is a minimal reversal of the normal lordosis centered at C5. There is no subluxation. No fracture, compression deformity, or suspicious bone lesion. C1-2 articulation and craniocervical junction are intact and aligned. Normal facet alignment. Minimal facet arthrosis on the left C4-5 and C5-6. Disc spaces appear normal. The pre and paravertebral soft tissues are normal. The lung apices are clear. XR/XR cervical spine 3V IMPRESSION: 1. No acute findings of the cervical spine. 2. Mild reversal of lordosis, nonspecific. 3. Minimal facet arthrosis on the left at C4-5 and C5-6 Electronically signed by: Maximino Altman MD 12/13/2024 08:37 AM EDT
[2024-12-12 10:16] LABS: MANUAL DIFF FLAG NO
[2024-12-12 10:53] LABS: Basophils Absolute Auto 0.1 X10*3/uL (0.0-0.2); Basophils Percent Auto 0.8 % (0-2); Eosinophils Absolute Auto 0.1 X10*3/uL (0.0-0.4); Eosinophils Percent Auto 1.4 % (0-4); Hematocrit 40.7 % (37.0-47.0); Hemoglobin 13.9 g/dl (12.0-16.0); Imm Gran Abs Auto 0.01 X10*3/uL (0.00-0.03); Imm Gran Pct Auto 0.2 % (0.0-0.4); Lymphocytes Absolute Auto 2.1 X10*3/uL (1.2-4.9); Lymphocytes Percent Auto 31.9 % (20-40); Mean Corpuscular HGB Conc 34.2 g/dl (31.0-35.0); Mean Corpuscular Hemoglobin 32.3 pg (27.0-33.0); Mean Corpuscular Volume 94.4 fL (80.0-98.0); Mean Platelet Volume 9.5 fL (9.4-12.3); Monocytes Absolute Auto 0.4 X10*3/uL (0.1-1.2); Monocytes Percent Auto 5.4 % (2-11); Neutrophils Percent Auto 60.3 % (45-73); Platelet Count 256 X10*3/uL (160-400); Red Blood Count 4.31 X10*6/uL (4.20-5.50); Red Cell Distribution Width 12.1 % (11.0-16.0); White Blood Count 6.5 X10*3/uL (4.8-10.8)
[2024-12-12 11:27] LABS: Appearance Urine Clear; Color Urine Straw; Glucose Urine UA Negative (Negative); Leukocyte Esterase Urine Negative (Negative); Nitrite Urine Negative (Negative); Specific Gravity - Urine 1.015 (1.005-1.025); Urine Blood Negative (Negative); Urine Ketones Negative (Negative); Urine Protein Negative (Neg-Trace)
[2024-12-12 11:31] LABS: Bacteria Urine None Seen (None Seen); Hyaline Casts Urine 0-2 /LPF (0-2); RBC Urine 0-2 /HPF (0-2); Squamous Epithelial Cell Urine 0-2 /HPF (0-2); WBC Urine 0-5 /HPF (0-5)
[2024-12-12 11:43] LABS: Alanine Aminotransferase 19 U/L (0-31); Aspartate Amino Transferase 20 U/L (5-31); Estimated Glomerular Filt Rate > 60
[2024-12-12 11:52] LABS: Creatinine Urine 42.66 mg/dL; Total Protein Urine Random < 7 mg/dL (<12)
[2024-12-13 17:49] LABS: Anti DNA DS Antibody 3 IU/mL; SM/Ribonucleoprotein Ab <1.0 NEG AI (<1.0 NEG); Smith Protein <1.0 NEG AI (<1.0 NEG)
[2024-12-14 21:49] LABS: Complement C3 115 mg/dL (83-193)
[2024-12-18 14:39] LABS: Anti Nuclear Antibody Screen POSITIVE (NEGATIVE); Anti Nuclear Antibody Titer 1:40 titer
== END 2024-12-12 08:36 | disposition home or self-care (01) ==
LOC: HO.LAB 08:35
PROVIDERS: PCP Family Medicine; Visit Provider Internal Medicine Rheumatology
DX: M32.9 Systemic lupus erythematosus, unspecified (principal); M54.2 Cervicalgia; L93.1 Subacute cutaneous lupus erythematosus; I73.00 Raynaud's syndrome without gangrene; Z79.60 Long term (current) use of unspecified immunomodulators and immunosuppressants
CPT/HCPCS: 36415; 72040; 81001; 82565; 82570; 84156; 84450; 84460; 85025; 86038; 86039; 86160; 86225; 86235; 99212

== ENCOUNTER → 2024-12-12 10:22 | Outpatient (BNV) | payer OTHER, SELFPAY | PROVIDERS: PCP Family Medicine; Visit Provider Radiology Diagnostic Radiology | DX: M54.2 Cervicalgia (principal) | CPT/HCPCS: 72040 ==

== ENCOUNTER 2025-02-06 09:03 | Outpatient (AMB) | payer OTHER, SELFPAY ==
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
[2025-02-06 09:09] VITALS: BP 110/80; PULSE 90; O2SAT 99; BMI 21.4
--- OUTSIDE RECORDS SUMMARY | 2025-02-06 09:35 | XMS_ITS | Continuity of Care Document ---
Author Organization [place] - [facility], [facility] PT Address [address] [place] [address] Assessment Encounter Date Assessment Date Assessment LastModified by Organization Details LastModified Time 02/05/2025 02/05/2025 Assessment: withheld majority of strengthening and decreased intensity for neuromusuclar re education due to increased symptoms. Nerve pain reported with AROM EV/IN. Advised to decrease activity and increase stretching and icing. Plan: Continue PT 2x/week for 6 weeks for ROM, ankle/LE strengthening, manual therapy as needed, balance/proprioc eption, gait training, and functional activities. [email or web address] Not available 02/05/2025 11:25:59 Plan of Treatment Reminders Order Date Submit Date Provider Last Modified By Organization Details Last Modified Time Details Appointments PT FOLLOW-U P 2024 09:30A M Va Encarnacion, PT Not available Not available Not available PT FOLLOW-U P 2024 11:00A M Flip Koehler, SENIOR ANIMATOR Not available Not available Not available PT FOLLOW-U P 2024 11:00A M Flip Koehler, SENIOR ANIMATOR Not available Not available Not available RECHECK 15 2024 09:00A M Ariana Sullivan PA-C Not available Not available Not available Lab None recorded . Referral None recorded . Procedures None recorded . Surgeries None recorded . Imaging None recorded . Medication Orders None recorded . Patient TargetsNo targets recorded. Patient InstructionsNo instructions recorded. Reason for Referral None Reported. Problems Name Problem SNOMED Code Status Onset Date Resolution Date Notes Provider Name and Address Organization Details Recorded Time Hand pain 54099487 Active 05/02/20 24 Mee Watson, CERTIFIED HYPERBARIC TECHNOLOGIST [address], [place], [address] , [facility] 05/02/2024 14:20:15 Notes:Some problems listed i n Document: #[id number] could not be added to this patient's chart. Please review this document and add these problems to the patient's chart manually as needed. Problem Notes None recorded. Procedures Surgical History Date Name Laterality Status Provider Name and Address Organization Details Recorded Time 02/06/20 25 50733 Therapeutic Exercise (1:1) completed Flip Koehler, SENIOR ANIMATOR [address], [place], [address], [facility] 02/05/2025 10:12:18 02/06/20 25 00504: Neuromuscular Re-Education completed Flip Koehler, SENIOR ANIMATOR [address], [place], [address], [facility] 02/05/2025 09:41:39 01/19/20 25 64600: Therapeutic Activities (1:1) completed Va Alysha, PT [address], [place], [address], [facility] 01/18/2025 09:33:16 01/19/20 25 95653 Therapeutic Exercise (1:1) completed Va Encarnacion, PT [address], [place], [address], [facility] 01/18/2025 08:15:06 01/19/20 25 92651: Neuromuscular Re-Education completed Va Encarnacion, PT [address], [place], [address], [facility] 01/18/2025 08:15:06 01/16/20 25 53198 Therapeutic Exercise (1:1) completed Va Encarnacion, PT [address], [place], [address], [facility] 01/16/2025 18:22:33 01/16/20 25 05917: Neuromuscular Re-Education completed Va Encarnacion, PT [address], [place], [address], [facility] 01/14/2025 15:07:49 01/11/20 06817 Therapeutic Exercise (1:1) completed Flip Koehler, SENIOR ANIMATOR [address], [place], [address], [facility] 01/10/2025 09:01:25 01/11/20 86050: Neuromuscular Re-Education completed Flip Koehler, SENIOR ANIMATOR [address], [place], [address], [facility] 01/10/2025 09:01:25 01/09/20 10298 Therapeutic Exercise (1:1) completed Flip Koehler, SENIOR ANIMATOR [address], [place], [address], [facility] 01/08/2025 10:32:18 01/09/20 74250: Neuromuscular Re-Education completed Flip Koehler, SENIOR ANIMATOR [address], [place], [address], [facility] 01/08/2025 08:51:55 01/03/20 44638 Therapeutic Exercise (1:1) completed Flip Koehler, SENIOR ANIMATOR [address], [place], [address], [facility] 01/02/2025 10:41:50 01/03/20 85362: Neuromuscular Re-Education completed Flip Koehler, SENIOR ANIMATOR [address], [place], [address], [facility] 01/02/2025 10:41:50 01/03/20 43902: Manual therapy completed Flip Koehler, SENIOR ANIMATOR [address], [place], [address], [facility] 01/02/2025 10:41:50 12/29/19 08501 Therapeutic Exercise (1:1) completed Va Encarnacion, PT [address], [place], [address], [facility] 12/28/2024 09:32:51 12/29/19 37335: Neuromuscular Re-Education completed Va Alysha, PT [address], [place], [address], [facility] 12/28/2024 08:05:26 12/29/19 09141: Manual therapy completed Va Laredo, PT [address], [place], [address], [facility] 12/28/2024 08:05:26 12/26/19 33710 Therapeutic Exercise (1:1) completed Va Alysha, PT [address], [place], [address], [facility] 12/25/2024 14:55:54 12/26/19 69024: Neuromuscular Re-Education completed Va Alysha, PT [address], [place], [address], [facility] 12/24/2024 14:59:20 12/26/19 64682: Manual therapy completed Va Laredo, PT [address], [place], [address], [facility] 12/25/2024 14:55:51 12/22/19 26803 Therapeutic Exercise (1:1) completed Va Alysha, PT [address], [place], [address], [facility] 12/21/2024 09:27:12 12/22/19 02085: Neuromuscular Re-Education completed Va Alysha, PT [address], [place], [address], [facility] 12/21/2024 09:27:14 12/22/19 52247: Manual therapy completed Va Laredo, PT [address], [place], [address], [facility] 12/20/2024 14:54:29 12/13/19 20560 Therapeutic Exercise (1:1) completed Castelan Zakia, SENIOR ANIMATOR [address], [place], [address], [facility] 12/12/2024 13:33:47 12/13/19 36595: Manual therapy completed Castelan Zakia, SENIOR ANIMATOR [address], [place], [address], [facility] 12/12/2024 13:33:58 12/07/19 57479 Therapeutic Exercise (1:1) completed Va Laredo, PT [address], [place], [address], [facility] 12/06/2024 12:02:29 12/07/19 06138: Low complexity PT Eval completed Va Laredo, PT [address], [place], [address], [facility] 12/06/2024 12:02:33 Imaging Results None recorded. Procedure Notes None recorded. Medical Equipment None Reported. Allergies Allergen ID Allergen Name Allergen Category Reaction Reaction Severity Criticality Documentation Date Start Date Code Code System Note Provider Name and Address Organization Details Recorded Time 913502 onion extract food,medi cation Not available Not available Not available 04/05/2024 03821 69 RxNorm GIRISH MURILLO [facility] 4 10:25:21 593150 lactose food,medi cation Not available Not available Not available 04/05/2024 6211 RxNorm GIRISH MURILLO [facility], [facility] 4 10:25:48 354538 latex environme nt,medica tion Not available Not available Not available 04/05/2024 06439 91 RxNorm GIRISH MURILLO [facility] 10:26:09 Medications Name Sig Start Date Stop Date Status Note LastModified by Organization Details LastModified Time cyclobenzap rine 10 mg tablet TAKE 1 TABLET BY MOUTH 2 TIMES A DAY FOR 15 DAYS NEEDED FOR SPASMS active Not Available Not Available No t Available oxcarbazepi ne 150 mg tablet TAKE 1 TABLET BY MOUTH TWICE A DAY active Not Available Not Available No t Available venlafaxine ER 37.5 mg capsule,ext ended release 24 hr TAKE 1 CAPSULE BY MOUTH EVERY DAY 11/21 completed Not Available Not Available Not Available ibuprofen 800 mg tablet TAKE 1 TABLET BY MOUTH THREE TIMES A DAY active Not Available Not Available No t Available clonazepam 0.5 mg tablet TAKE 1 TABLET BY MOUTH TWICE A DAY NEEDED FOR ANXIETY active Not Available Not Available No t Available rizatriptan 10 mg tablet PLEASE SEE ATTACHED FOR DETAILED DIRECTION S active Not Available Not Available No t Available peg-electro lyte solution 420 gram oral solution DRINK 240 ML BY MOUTH EVERY 10 MINUTES 11/21 completed Not Available Not Available Not Available lamotrigine 25 mg tablet TAKE 1 TABLET BY MOUTH DAILY FOR 15 DAYS, THEN INCREASE TO 2 TABLETS BY MOUTH DAILY 11/21 completed Not Available Not Available Not Available propranolol 10 mg tablet TAKE 1 TABLET BY MOUTH THREE TIMES A DAY 11/21 completed Not Available Not Available Not Available nifedipine 10 mg capsule 11/21 completed Not Available Not Available Not Available amitriptyli ne 10 mg tablet TAKE 1 TO 2 TABLETS BY MOUTH AT BEDTIME 11/21 completed Not Available Not Available Not Available dextroamphe tamine-amph etamine 20 mg tablet TAKE 1 TABLET BY MOUTH TWICE A DAY active Not Available Not Available No t Available betamethaso ne, augmented 0.05 % topical ointment APPLY TO RASH TWICE A DAY FOR UP TO 2 WEEKS active Not Available Not Available No t Available gabapentin 300 mg capsule TAKE 1 CAPSULE BY MOUTH AT BEDTIME active Not Available Not Available No t Available ondansetron 4 mg disintegrat ing tablet TAKE 1 TABLET BY MOUTH THREE TIMES A DAY NEEDED FOR NAUSEA AND VOMITING active Not Available Not Available No t Available Ventolin HFA 90 mcg/actuati on aerosol inhaler INHALE 2 PUFFS BY MOUTH EVERY 4 HOURS active Not Available Not Available No t Available DentaGel 1.1 % USE 1-2 TIMES DAILY, WITH PEA SIZED AMOUNT, WAIT 30 MINUTES TO EAT OR DRINK active Not Available Not Available No t Available lactulose 10 gram/15 mL oral solution TAKE 30 ML BY MOUTH DAILY FOR 3 DAYS NEEDED FOR CONSTIPAT ION 11/21 completed Not Available Not Available Not Available Allergy Relief-D (cetirizine ) 5 mg-120 mg tablet,exte nded release TAKE 1 TABLET BY MOUTH TWICE A DAY active Not Available Not Available No t Available GaviLyte-G 236 gram-22.74 gram-6.74 gram-5.86 gram oral solution PLEASE SEE ATTACHED FOR DETAILED DIRECTION S 11/21 completed Not Available Not Available Not Available Kezia 3 mg-0.03 mg tablet TAKE 1 TABLET BY MOUTH EVERY DAY 11/21 completed Not Available Not Available Not Available Emgality Pen 120 mg/mL subcutaneou s pen injector INJECT 120 MG SUBCUTANE OUSLY ONCE FOR 28 DAYS 11/21 completed Not Available Not Available Not Available Vitals None Recorded Social History None recorded. Functional Status None recorded. Mental Status None recorded. Family History Nothing Reported. Medical History Condition Response Allergies/Hayfever Y Autoimmune disease Y Anxiety/Depression Y Bleeding Disorder Y Kidney/Bladder Problems Y Anemia Y Sleep Apnea Y Gastrointestinal Disease Y Acid Reflux (GERD) Y Asthma Y Gynecological HistoryNo gynecological history recorded. Obstetrics History GPAL:G 0 P 0 0 0 0 Past Encounters Encounter ID Performer Location Encounter Start Date Encounter Closed Date Diagnosis/Indication Diagnosis SNOMED-CT Code Diagnosis ICD10 Code Diagnosis Note [id number] Flip Koehler SENIOR ANIMATOR [facility] - [facility] on [address] [place] [address] 01/08/2025 09:02:49 01/08/2025 10:40:36 Synovitis and tenosynovitis [id number] M65.532 [id number] Flip Koehler SENIOR ANIMATOR [facility] [address] [place] [address] 01/10/2025 08:59:23 01/10/2025 10:06:48 Synovitis and tenosynovitis [id number] M65.415 [id number] Va Encarnacion, [facility] [address] [place] [address] 01/15/2025 09:42:03 01/15/2025 10:38:31 Synovitis and tenosynovitis [id number] M65.027 [id number] Va Encarnacion, PT [facility] [facility] [address] [place] [address] 01/18/2025 08:27:30 01/18/2025 09:46:09 Synovitis and tenosynovitis [id number] M65.784 [id number] Flip Koehler PTA [facility] on PT [address] [place] [address] 02/05/2025 09:28:59 02/05/2025 10:11:49 Synovitis and tenosynovitis [id number] M65.972 Health Concerns Section Related Observation LastModified by Organization Detai ls LastModified Time None Recorded Concern Status LastModified by Organization Details LastModified Time None Recorded Payers Encounter Date Sequence Insurance Name Policy Number Policy Doyle Covered Member ID Doyle Member ID Guarantor Name 02/05/2025 1 [facility] (MEDICAID REPLACEMENT - O) [id number] Chelsea Nely [id number] Chelsea Nely Notes Date Note Type Note Provider Name and Address Organization Details Recorded Time 02/05/2025 text/html Pt reports having increased pain today. She went to 2 concerts last week and has been on her feet a lot doing yard work. Flip Koehler, SENIOR ANIMATOR [address], [place], [address], [facility] 02/05/2025 11:26:12 OBGyn Episode No OBEpisode recorded.
== END 2025-02-06 09:57 | disposition home or self-care (01) ==
LOC: HO.RHES 09:04
PROVIDERS: PCP Family Medicine; Visit Provider Internal Medicine Rheumatology
DX: L93.1 Subacute cutaneous lupus erythematosus (principal); I73.00 Raynaud's syndrome without gangrene; M54.2 Cervicalgia; M54.12 Radiculopathy, cervical region; G56.01 Carpal tunnel syndrome, right upper limb; G56.21 Lesion of ulnar nerve, right upper limb
CPT/HCPCS: 99214; G2211

== ENCOUNTER → 2025-02-06 09:03 | Outpatient (BNVA) | payer OTHER, SELFPAY | PROVIDERS: PCP Family Medicine; Visit Provider Internal Medicine Rheumatology | DX: L93.1 Subacute cutaneous lupus erythematosus (principal); I73.00 Raynaud's syndrome without gangrene; M54.2 Cervicalgia; M54.12 Radiculopathy, cervical region; G56.01 Carpal tunnel syndrome, right upper limb; G56.21 Lesion of ulnar nerve, right upper limb | CPT/HCPCS: 99212 ==

== ENCOUNTER 2025-05-14 09:39 | Outpatient (AMB) | payer OTHER, SELFPAY ==
--- NOTE | 2025-05-14 09:39 | A.OFFVIS_ITS ---
Vital Signs 05/14/25 09:41 Height 5 ft 2 in Weight 121 lb 4 oz BMI 22.2 BP 100/70 Blood Pressure Location Rt brachial Position Sitting Pulse 78 Pulse Source Pulse Oximeter Pulse Oximetry (%) 100 Oxygen Delivery Method Room Air Intake Visit Reasons: 3months Intake Note: Patient presents today with cutaneous lupus. Accompanied by: Self / Same As Patient Allergies acetaminophen (From Percocet) Allergy (Unknown, Verified 05/14/25 09:44) Unknown latex Allergy (Unknown, Verified 05/14/25 09:44) Unknown oxycodone (From Percocet) Allergy (Unknown, Verified 05/14/25 09:44) Unknown lamotrigine (From Lamictal) Allergy (Verified 05/14/25 09:44) Rash mylar cream Allergy (Mild, Uncoded 05/10/24 09:33) Blister HPI HPI 3months: Details: SHe continues to have pain radiating down both arms. Unable to go to PT because she was not in the area. Feels like it is bleeding through hands . Muscles in upper back and arms are achy. She is not feeling as strong as she was. Takes ibuprofen 800mg x3 days and flexeril without benefit. She helped her mother move. She has been physically active. No new skin lesions. SHe did not fill rx wrist braces. [facility] Medical History Monoclonal (M) protein disease, multiple 'M' protein POTS (postural orthostatic tachycardia syndrome) Allergic rhinitis History of ITP Riki-Danlos disease Anemia Sleep difficulties GERD (gastroesophageal reflux disease) Subacute cutaneous lupus erythematosus Insomnia Cutaneous lupus erythematosus ADHD Anxiety Post concussive syndrome Surgical History Hx of colonoscopy History of kidney surgery H/O wisdom tooth extraction History of ankle surgery Family History Maternal Aunt Breast cancer Acute leukemia Mother Breast cancer CAD (coronary artery disease) Lupus Congenital heart defect Osteoporosis Precancerous skin lesion Paternal Grandmother Melanoma Brain cancer Father Hypertension Graves disease Hypercholesterolemia Kidney stones Brother Hypertension Hypercholesterolemia Social History Alcohol intake: current Alcohol intake frequency: a few times a month Patient Tobacco Use Status: Never used Tobacco Substance Use Type: Marijuana 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 Good respiratory effort Skin: No skin lesions MSK: Tender to palpate cervical spinous process and paraspinal muscles. Normal cervical range of motion. Positive Phalen's test bilateral Assessment & Plan Assessment & Plan (1) Subacute cutaneous lupus erythematosus: Comment: In clinical remission at this time. Labs to assess serological activity from SLE are unremarkable 12/2024. Rheumatology history: Diagnosed with cutaneous lupus 2007 bx confirmed DEYA 2021, 2023/dsDNA/Sm/NUCLEAR ENGINEER negative. Presenting with diffuse rash after sun exposure. History of recurrent cutaneous lupus flares confirmed on skin biopsy. She was treated with hydroxychloroquine for 3 years by Dermatology on around the time of initial presentation, which reduced the frequency and severity of her cutaneous lupus. Hx of EDS. Code(s): L93.1 - Subacute cutaneous lupus erythematosus Category: Medical Plan: Continue topical steroid prescribed by KATJA DOYLE Return to clinic in 3 months (2) Raynaud disease: Comment: Managed conservatively Code(s): I73.00 - Raynaud's syndrome without gangrene Category: Medical Qualifiers: Raynaud?s-associated gangrene presence: without gangrene Qualified Code(s): I73.00 - Raynaud's syndrome without gangrene Plan: Continue conservative management (3) Cervicalgia: Comment: With bilateral radiculopathy. Patient reports EMG of upper extremities have been normal on 2 occasions. She has minimal facet arthrosis on the left at C4-5 and C5-6 and loss of cervical lordosis consistent with muscle strain. We discussed conservative management to treat her symptoms of neck pain, neck stiffness and bilateral upper extremity radiculopathy with physical therapy. Code(s): M54.2 - Cervicalgia Category: Medical Plan: PT ordered last visit. Encouraged her to [place] [facility] [place] PT Requesting [facility] report from [facility] - third request If cervical radiculopathy does not improve with PT, she will need MRI C-spine for further evaluation of nerve impingement Change ibuprofen to naproxen BID (patient has naproxen rx at home) Change flexeril to baclofen 5mg qhs PRN. Discussed side effects of group home muscle relaxer use including dependence Return to clinic in 3 months (4) Radiculopathy of cervical spine: Code(s): M54.12 - Radiculopathy, cervical region Category: Medical Plan: See above (5) Carpal tunnel syndrome of right wrist: Comment: Clinical diagnosis. Discussed empiric treatment Code(s): G56.01 - Carpal tunnel syndrome, right upper limb Category: Medical Plan: Prescription for bilateral cockup wrist brace given to patient to wear at night OT ordered to improve hand strength RTC 3 months (6) Cubital tunnel syndrome on right: Comment: Clinical diagnosis based on patient's symptoms. 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 Discussed conservative management Code(s): G56.21 - Lesion of ulnar nerve, right upper limb Category: Medical Plan: Elbow brace prescribed last visit. Encouraged her to fill rx. Return to clinic in 3 months (7) Cervical myofascial strain: Code(s): S16.1XXA - Strain of muscle, fascia and tendon at neck level, initial encounter Category: Medical Plan: see above Orders: Orders OT Evaluation and Treatment Today G56.03 - Carpal tunnel syndrome, bilateral upper limbs Medications: New arm brace (Wrist Brace) As directed at night Cock up wrist brace bilateral Dx: carpal tunnel syndrome 2 ea 0RF baclofen 5 mg PO BEDTIME PRN 30 tabs 1RF muscle spasm Coding Level of Care Code Est Pt Level 4 (26668) Complex EM visit Add On G2211 Diagnoses Subacute cutaneous lupus erythematosus L93.1 Raynaud's disease without gangrene I73.00 Raynaud?s-associated gangrene presence: without gangrene Cervicalgia M54.2 Radiculopathy of cervical spine M54.12 Carpal tunnel syndrome of right wrist G56.01 Cubital tunnel syndrome on right G56.21 Cervical myofascial strain S16.1XXA
[2025-05-14 09:41] VITALS: BP 100/70; PULSE 78; O2SAT 100; BMI 22.2
== END 2025-05-14 10:22 | disposition home or self-care (01) ==
LOC: HO.RHES 09:39
PROVIDERS: PCP Family Medicine; Visit Provider Internal Medicine Rheumatology
DX: G56.01 Carpal tunnel syndrome, right upper limb (principal); G56.21 Lesion of ulnar nerve, right upper limb; S16.1XXA Strain of muscle, fascia and tendon at neck level, initial encounter; L93.1 Subacute cutaneous lupus erythematosus; I73.00 Raynaud's syndrome without gangrene; M54.2 Cervicalgia
CPT/HCPCS: 99214; G2211

== ENCOUNTER → 2025-05-14 09:39 | Outpatient (BNVA) | payer OTHER, SELFPAY | PROVIDERS: PCP Family Medicine; Visit Provider Internal Medicine Rheumatology | DX: I73.00 Raynaud's syndrome without gangrene (principal); M54.2 Cervicalgia; G56.01 Carpal tunnel syndrome, right upper limb; G56.21 Lesion of ulnar nerve, right upper limb; L93.1 Subacute cutaneous lupus erythematosus | CPT/HCPCS: 99212 ==

== ENCOUNTER 2025-05-28 09:31 | Outpatient (REF) | payer OTHER, SELFPAY ==
[2025-05-28 13:56] LABS: MANUAL DIFF FLAG NO
[2025-05-28 14:01] LABS: Hematocrit 42.7 % (37.0-47.0); Hemoglobin 14.6 g/dl (12.0-16.0); Imm Gran Abs Auto 0.04 X10*3/uL (0.00-0.03); Imm Gran Pct Auto 0.5 % (0.0-0.4); Lymphocytes Absolute Auto 2.2 X10*3/uL (1.2-4.9); Mean Corpuscular HGB Conc 34.2 g/dl (31.0-35.0); Mean Corpuscular Hemoglobin 32.7 pg (27.0-33.0); Mean Corpuscular Volume 95.5 fL (80.0-98.0); NRBC Abs Auto 0.000 X10*3/uL (0.0-0.012); NRBC Pct Auto 0.0 /100WBC (0.0-0.2); Platelet Count 329 X10*3/uL (160-400); Red Blood Count 4.47 X10*6/uL (4.20-5.50); White Blood Count 8.7 X10*3/uL (4.8-10.8)
[2025-05-28 14:15] LABS: Alanine Aminotransferase 25 U/L (0-31); Albumin Level 4.9 g/dL (3.5-5.0); Alkaline Phosphatase 63 U/L (39-117); Anion Gap 9 (12-20); Aspartate Amino Transferase 23 U/L (5-31); Blood Urea Nitrogen 8 mg/dL (9-16); Calcium 9.6 mg/dL (8.4-10.2); Carbon Dioxide 31 mmol/L (22-29); Chloride 104 mmol/L (96-108); Estimated Glomerular Filt Rate > 60; Potassium 4.8 mmol/L (3.3-5.1); Sodium 139 mmol/L (135-145); Total Protein 7.1 g/dL (6.5-8.0)
== END 2025-05-28 09:32 | disposition home or self-care (01) ==
LOC: HO.HKASLDS 09:31
PROVIDERS: PCP Family Medicine; Visit Provider Nurse Practitioner Family
DX: G43.109 Migraine with aura, not intractable, without status migrainosus (principal); R20.2 Paresthesia of skin; G43.821 Menstrual migraine, not intractable, with status migrainosus; I73.00 Raynaud's syndrome without gangrene; D64.9 Anemia, unspecified; Z79.899 Other long term (current) drug therapy
CPT/HCPCS: 36415; 80053; 85025; 99212

== ENCOUNTER 2025-05-28 09:31 | Outpatient (AMB) | payer OTHER, SELFPAY ==
[2025-05-28 09:41] VITALS: BP 100/60; PULSE 104; O2SAT 99; BMI 21.0
--- NOTE | 2025-05-28 09:41 | A.OFFVIS_ITS ---
Vital Signs 05/28/25 09:41 Height 5 ft 2 in Weight 115 lb BMI 21.0 BP 100/60 Blood Pressure Location Lt brachial Position Sitting Pulse 104 H Pulse Source Pulse Oximeter Pulse Oximetry (%) 99 Oxygen Delivery Method Room Air Intake Visit Reasons: Follow up Intake Note: Patient presents follow up paresthesia/migraine medication. Speech eval in chart Visualization Developer Required: No Accompanied by: Self / Same As Patient Allergies acetaminophen (From Percocet) Allergy (Unknown, Verified 05/28/25 09:46) Unknown latex Allergy (Unknown, Verified 05/28/25 09:46) Unknown oxycodone (From Percocet) Allergy (Unknown, Verified 05/28/25 09:46) Unknown lamotrigine (From Lamictal) Allergy (Verified 05/28/25 09:46) Rash mylar cream Allergy (Mild, Uncoded 05/10/24 09:33) Blister Medication List - Last Reconciled 05/28/25 by ALEXIS Fairchild albuterol sulfate 90 mcg/actuation 2 puffs inhalation Q4H PRN arm brace (Wrist Brace) As directed Right cockup wrist brace Dx: carpal tunnel syndrome arm brace (CRICKET Elbow Brace) As directed Right elbow brace Dx: cubital tunnel syndrome arm brace (Wrist Brace) As directed at night Cock up wrist brace bilateral Dx: carpal tunnel syndrome baclofen PO baclofen 5 mg PO BEDTIME PRN cetirizine (Zyrtec) 10 mg PO DAILY PRN clonazepam 0.5 mg PO BID dextroamphetamine-amphetamine 20 mg 1 tab PO BID fluocinonide 0.05% appl topical BID gabapentin 300 mg PO BEDTIME ibuprofen 800 mg PO Q8H omeprazole 20 mg PO DAILY ondansetron 4 mg PO Q8H PRN oxcarbazepine (Trileptal) PO oxcarbazepine 150 mg PO DAILY rizatriptan 5 - 10 mg (0.5 - 1 x 10 mg) PO Q2H PRN 21 days sodium chloride 1,000 mg PO BID 30 days HPI Comments Details: 40-yr-old female presents for f/u of migraine. Patient reports she is about to start PT for cervical neck tightness- referred by rheumatology. 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 Pt reports she has been having increased migraines around her menstrual cycle, which she attributes to stress and increased neck pain. She also notes she has been having increased episodes of right or left posterior neck pain which radiates up into the ipsilateral occipital region Notes psychiatry just increased her trileptal from 150mg bid to 300mg bid. 11/23/2024, HPI: She is still feeling BUE numbness, tingling, weakness, skin color changes, and skin feeling rough. Difficulty opening up a bag of chips or a bottle. Having pins and needles in her back as well. States she had a EMG/NCS which was normal. Plans to f/u w/ [facility] again. Seeing a therapist, psychiatrist, and case management- to help her manage s/s of feeling in a lull, poor motivation, and feeling that her adderall is not working well. She is using medications to help with sleep- recently had issue with her clonazepam refill and had worsened difficulty sleeping. She states she had a recent heart monitor through survey researcher, however those results are pending. She states cardiology has told her to increase her fluids and salt intake, but did not tell her specifically how much. She previously did not tolerate propranolol or nifedipine. She states she is supposed to see a load planner every few years for echocardiogram due to EDS diagnosis. She last saw Rheumatology last year- was advised on strategies to optimize her Raynaud's symptoms. However, she is not sure that her hand symptoms are actually from Raynaud's, as her hand symptoms feel different than her feet. States her feet symptoms can resolve with placing her feet in warm water to warm them up. Rheumatology had suggested she could try amlodipine, however she continues to have low BP and lightheadedness. We had previously discontinued Emgality, and thought that this may be exacerbating Raynaud's symptoms- it does not appear that stopping this has had any positive or negative effect on the symptoms. She states she has had repeated skin biopsies that are positive for cutaneous lupus. She noticed a recent increase in her migraine, which he attributed to not taking fluids and water as well. 05/10/2024 HPI: Pt reports she had CT s/s yrs ago, which were treated. Then a few months ago, she started having increased BUE, R > L, increased hand moving up into her elbows, which includes coldness, numbness, tingling, and seeing small white dots on her fingers. She was having a scraping sensation in her toes and fingertips, maybe like tiny blisters or rash- this did worsen on Propranolol and then improved some after stopping Propranolol. She wonders if some of this sensation is d/t using her hands slightly differently due to the numbness. She feels like her hands and arms feel . She wakes up w/ her hands numb. She states yesterday she had difficulty opening a bag of chips. She has to keep cracking her arms. Since these s/s started, she has seen load planner- dx'd her w/ POTs, rheumatology- dx;d her w/ Raynaud's, and more recently orthopedics at [facility], who advised her to f/u w/ neuro- as they ?'d if her nerves were on overdrive . Recent BUE EMG/NCS was normal. Pt reports that her migraines are much better. She has been drinking more water, more active. But she has been having more photophobia. She has not taken her Emgality in the last few months. Has not needed to take the Rizatriptan often. She was going to take Rizatriptan twice last week, but was driving and was worried she could have side effects. Thinks her migraines have been worse when her menstrual cycle is worse, but this has also been better. Baseline headache characteristics: Severe, aching and throbbing and tightness- some stabbing starts in bi-temporal region and moves up into bifrontal region and up into crown of the head. A/w blurred vision, photophobia, phonophobia, nausea, vomiting, not right in space dizziness, brain fog, fatigue, generalized, red eyes (more so on left), BUE hands and forearms pins and needles. She has noticed more left facial asymmetry. Prodrome symptoms of feels more body tension and congestion. She is noticing a bit more forgetfulness, prone to trailing off when speaking. She feels her speech is more articulate than after the concussion. She is still prone to spacing out. She may be doing everything or nothing at all. 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 [facility] Medical History Monoclonal (M) protein disease, multiple 'M' protein POTS (postural orthostatic tachycardia syndrome) Allergic rhinitis History of ITP Riki-Danlos disease Anemia Sleep difficulties GERD (gastroesophageal reflux disease) Subacute cutaneous lupus erythematosus Insomnia Cutaneous lupus erythematosus ADHD Anxiety Post concussive syndrome Surgical History Hx of colonoscopy History of kidney surgery H/O wisdom tooth extraction History of ankle surgery Family History Maternal Aunt Breast cancer Acute leukemia Mother Breast cancer CAD (coronary artery disease) Lupus Congenital heart defect Osteoporosis Precancerous skin lesion Paternal Grandmother Melanoma Brain cancer Father Hypertension Graves disease Hypercholesterolemia Kidney stones Brother Hypertension Hypercholesterolemia Social History Alcohol intake: current Alcohol intake frequency: a few times a month Patient Tobacco Use Status: Never used Tobacco Substance Use Type: Marijuana 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 Physical Exam Vital Signs: Last Vital Signs Pulse 104 H 05/28/25 09:41 BP 100/60 05/28/25 09:41 Pulse Ox 99 05/28/25 09:41 Oxygen Delivery Method Room Air 05/28/25 09:41 BMI result Body Mass Index 21.0 Const General: cooperative and no acute distress Orientation/consciousness: patient oriented x3 Resp Effort & Inspection: normal respiratory effort and able to speak in complete sentences Neuro General: patient oriented x3 Cognition (Neuro): normal cognition Psych Appearance: grossly normal Mental Status: mental status grossly normal Speech and movement: Normal speech and movement present Affect: normal affect Attitude: cooperative Assessment & Plan Assessment & Plan (1) Migraine with aura: Code(s): G43.109 - Migraine with aura, not intractable, without status migrainosus Category: Medical Qualifiers: Status migrainosus presence: without status migrainosus Intractability: not intractable Qualified Code(s): G43.109 - Migraine with aura, not intractable, without status migrainosus (2) Paresthesia of both hands: Code(s): R20.2 - Paresthesia of skin Category: Medical (3) Raynaud phenomenon: Code(s): I73.00 - Raynaud's syndrome without gangrene Category: Medical Qualifiers: Raynaud?s-associated gangrene presence: without gangrene Qualified Code(s): I73.00 - Raynaud's syndrome without gangrene (4) Post concussive syndrome: Code(s): F07.81 - Postconcussional syndrome Category: Medical (5) Menstrual migraine with status migrainosus, not intractable: Code(s): G43.821 - Menstrual migraine, not intractable, with status migrainosus Category: Medical Plan For hand coldness and paresthesias, POTs: Previous labs- WNL. Tilt-table- read as normal. EEG- normal. Head CT- normal. Sleep study- mild KRANTHI. Pt returned CPAP- not tolerated. PT eval and treat- specifically [facility]. Encouraged to increase fluids and salt intake, with fluid goal of at least 64 oz per day, and sodium goal of greater than 2 g per day- we will order sodium tab 1000 mg- may take half tab q.i.d. with food. If not tolerated can try Thermotabs. Start PT as ordered by rheumatology Check CBC/CMP Follow-up with bellman as scheduled F/u w/ load planner as scheduled. Previous trials: propranolol- helped POTs s/s but appears to have worsened Raynaud's symptoms. Nifedipine not tolerated. Future considerations: Brain MRI. For post-concussive cognitive difficulties: Had EXECUTIVE RELATIONS SPECIALIST evaluation, and it was felt that skilled speech therapy was not indicated at this time. Continue psychiatric and psychotherapy treatment. ? For acute headache treatment: Rizatriptan 10mg tab, 1/2 - 1 tab (5-10mg) at onset of headache, may repeat in 2 hours. Max of 2 tabs (200mg) per 24 hours. May adjunct with OTC Tylenol 650mg q 4 hours, Ibuprofen (liquigel) 600mg q 6 hours, or Naproxen (liquigel) 440mg q 12 hrs prn. Nerivio qd prn- when available Previous acute migraine medication trials: Sinus headache tabs. Sumatriptan- worked but not tolerated. Acute migraine medication contraindications: None at this time For ? occipital neuralgia: PT as ordered Future consderation- ON block For menstrual migraine: Start naratriptan 2.5mg bid x's 6 days, starting 1 day beofre onset of menstrual cycle. May take w/ Ibuprofen, For headache prevention medication: Riboflavin- take 400mg every am Magnesium- goal is 400mg qhs May continue to hold Emgality 120mg. Previous migraine prevention medication trials: Venlafaxine ER 37.5mg- not tolerated caused N/V. Amitriptyline 20mg qhs- ineffective. Venlafaxine ER 37.5mg qd- not tolerated. Migraine prevention medication contraindications: BBs d/t h/o asthma. Topiramate d/t h/o kidney stones. Aimovig d/t h/o Raynaud's. Future considerations: Botox. ? f/u in 6 months or sooner prn. Orders: Orders Complete Blood Count Auto Diff Today D64.9 - Anemia, unspecified, R20.2 - Paresthesia of skin Comprehensive [place]. Panel Fast Today D64.9 - Anemia, unspecified, R20.2 - Paresthesia of skin Medications: New naratriptan 2.5 mg orally BID starting 1 day prior to onset of menstrual cycle. PRN; do not exceed 2 doses per 24 hrs 12 tabs 6RF migraine headache 30 days G43.821 - Menstrual migraine, not intractable, with status migrainosus Changed From oxcarbazepine 150 mg PO DAILY To oxcarbazepine 300 mg PO BID Refilled sodium chloride 1,000 mg PO BID 60 tabs 3RF 30 days Coding Level of Care Code Est Pt Level 4 (75225) Diagnoses Migraine with aura and without status migrainosus, not intractable G43.109 Status migrainosus presence: without status migrainosus Intractability: not intractable Paresthesia of both hands R20.2 Raynaud's phenomenon without gangrene I73.00 Raynaud?s-associated gangrene presence: without gangrene Post concussive syndrome F07.81 Menstrual migraine with status migrainosus, not intractable G43.821
== END 2025-05-28 10:30 | disposition home or self-care (01) ==
LOC: HO.HSMS 09:32
PROVIDERS: PCP Family Medicine; Visit Provider Nurse Practitioner Family
DX: G43.109 Migraine with aura, not intractable, without status migrainosus (principal); R20.2 Paresthesia of skin; I73.00 Raynaud's syndrome without gangrene; F07.81 Postconcussional syndrome; G43.821 Menstrual migraine, not intractable, with status migrainosus
CPT/HCPCS: 99214

== ENCOUNTER 2025-07-31 09:02 | Outpatient (RCR) | payer OTHER, SELFPAY ==
--- NOTE | 2025-06-03 14:16 | MHC.PT.EP ---
[facility] [place] Office [place] Office [place] Office [address] [phone] F: [phone] F: [phone] F: [phone] F: [phone] Physical Therapy Plan of Care Date of Evaluation: 06/03/25 Date of Surgery: NA Diagnosis: Cervicalgia Radiculopathy, cervical region Assessment: Chelsea is a 40 year old female who is referred to PT for cervicalgia, radiculopathy, cervical region . She reports of having h/o tingling and numbness in B hands for about 1.5 years. Her symptoms started traveling up B UE. She was told her symptoms were due to EDS. She has been referred to PT by housing grant analyst for neck pain. On PT examination she presented with TTP all along cervical spine, cervical paraspinals and B UT, 2-6/10 pain in neck with prolonged sitting and activities and cold weather, increased neck ROM, decreased neck and scap strength and altered posture. She lives alone and is independent with all ADLS but has pain with them. 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 She would benefit from skilled PT to address the aforementioned impairments and improve tolerance to functional activities. Frequency and Duration: The patient will be seen 2/week for 5 weeks Short Term Goals: 1. Pt will have 50% decrease in pain which will enable her to sit without pain in 2 weeks 2. Pt will be able to move her neck without any pain which will enable her to drive and dress upper body without pain in 3 weeks Half-Way Goals: 1. Pt will demonstrate an increase in muscle strength by 1 grade which will enable her to perform all ADLs with a pain no more than 1/10 in 5 weeks 2. Pt will be independent with all HEP for symptom management and maintenance following d/c in 5 weeks Treatment Plan: Modalities to reduce pain, spasms and effusion. Manual therapy to restore motion and function. Therapeutic exercise to improve strength and flexibility. Neuromuscular re-education for posture and balance. Therapeutic activities to return to functional activities of daily living. Electronically signed by: Lillian Osborne PT DPT Please sign and return to therapist. Thank you for your referral.
--- NOTE | 2025-08-13 11:21 | MHC.PT.DC ---
[facility] [place] Office [place] Office [place] Office [address] [phone] F: [phone] F: [phone] F: [phone] F: [phone] Physical Therapy Discharge Report Diagnosis: Cervicalgia Radiculopathy, cervical region Date of Surgery: NA Date of Evaluation: 06/03/25 Date of Discharge: 08/13/25 Treatments to Date: 12 Cancellations to Date: 0 No Shows to Date: 0 Discharge Status: Improved Function Independent with HEP Discharge Summary: Chelsea attended 12 PT visits and has made significant improvements with PT. She has achieved all goals set for her and is independent with all HEP. She is therefore being d/c from PT. Chelsea was in agreement with the plan. I reviewed all home exercises with her and re-educated on her importance of continuing HEP and working on strength. Electronically signed by: Lillian Osborne, PT DPT Please sign and return to therapist. Thank you for your referral.
== END 2025-08-13 11:22 | disposition home or self-care (01) ==
LOC: HO.PT 09:02
PROVIDERS: PCP Family Medicine; Visit Provider Internal Medicine Rheumatology
DX: M54.2 Cervicalgia (principal); M54.12 Radiculopathy, cervical region; M47.816 Spondylosis without myelopathy or radiculopathy, lumbar region
CPT/HCPCS: 97110; 97112; 97140; 97161; 97530

== ENCOUNTER 2025-08-27 09:46 | Outpatient (AMB) | payer OTHER, SELFPAY ==
[2025-08-27 09:50] VITALS: BP 110/58; PULSE 83; O2SAT 99; BMI 22.5
--- NOTE | 2025-08-27 09:50 | MHC.OFFVIS ---
Vital Signs 08/27/25 09:50 Height 5 ft 2 in Weight 123 lb 3.814 oz BMI 22.5 BP 110/58 L Blood Pressure Location Rt brachial Position Sitting Pulse 83 Pulse Source Pulse Oximeter Pulse Oximetry (%) 99 Oxygen Delivery Method Room Air Intake Visit Reasons: 3 Months Intake Note: Patient presents today with cutaneous lupus. Allergies acetaminophen (From Percocet) Allergy (Unknown, Verified 05/28/25 09:46) Unknown latex Allergy (Unknown, Verified 05/28/25 09:46) Unknown oxycodone (From Percocet) Allergy (Unknown, Verified 05/28/25 09:46) Unknown lamotrigine (From Lamictal) Allergy (Verified 05/28/25 09:46) Rash mylar cream Allergy (Mild, Uncoded 05/10/24 09:33) Blister HPI HPI 3 Months: Details: A few new skin lesions due to change with mom's detergent. She completed PT for neck strengthening a week ago. She has some benefit with myofascial release. She continues to have stiffness. She has high pain tolerance. She is still an active woman but overall has reduced her activity. She has also managing depression. She feels fatigued. Continues to have numbness in hands. Raynaud's is not active. [facility] Medical History Monoclonal (M) protein disease, multiple 'M' protein POTS (postural orthostatic tachycardia syndrome) Allergic rhinitis History of ITP Riki-Danlos disease Anemia Sleep difficulties GERD (gastroesophageal reflux disease) Subacute cutaneous lupus erythematosus Insomnia Cutaneous lupus erythematosus ADHD Anxiety Post concussive syndrome Surgical History Hx of colonoscopy History of kidney surgery H/O wisdom tooth extraction History of ankle surgery Family History Maternal Aunt Breast cancer Acute leukemia Mother Breast cancer CAD (coronary artery disease) Lupus Congenital heart defect Osteoporosis Precancerous skin lesion Paternal Grandmother Melanoma Brain cancer Father Hypertension Graves disease Hypercholesterolemia Kidney stones Brother Hypertension Hypercholesterolemia Social History Alcohol intake: current Alcohol intake frequency: a few times a month Patient Tobacco Use Status: Never used Tobacco Substance Use Type: Marijuana 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 No discoloration of fingertips or digital ulcerations. MSK: Normal cervical range of motion. Normal range of motion of upper extremities. No thenar muscle wasting. Assessment & Plan Assessment & Plan (1) Subacute cutaneous lupus erythematosus: Comment: In clinical remission at this time. Labs to assess serological activity from SLE are unremarkable 12/2024 and 05/2025. Rheumatology history: Diagnosed with cutaneous lupus 2007 bx confirmed DEYA 2021, 2023/dsDNA/Sm/PRODUCT SAFETY TESTER negative. Presenting with diffuse rash after sun exposure. History of recurrent cutaneous lupus flares confirmed on skin biopsy. She was treated with hydroxychloroquine for 3 years by Dermatology on around the time of initial presentation, which reduced the frequency and severity of her cutaneous lupus. Hx of EDS. Code(s): L93.1 - Subacute cutaneous lupus erythematosus Category: Medical Plan: Continue topical steroid prescribed by KATJA PRN Return to clinic in 3 months (2) Raynaud disease: Comment: Managed conservatively. Not active. Code(s): I73.00 - Raynaud's syndrome without gangrene Category: Medical Qualifiers: Raynaud?s-associated gangrene presence: without gangrene Qualified Code(s): I73.00 - Raynaud's syndrome without gangrene Plan: Continue conservative management (3) Cervicalgia: Comment: With bilateral radiculopathy. Patient reports EMG of upper extremities have been normal on 2 occasions. I have not received EMG report despite 3 requests. She has minimal facet arthrosis on the left at C4-5 and C5-6 and loss of cervical lordosis consistent with muscle strain. She had some benefit with PT. Code(s): M54.2 - Cervicalgia Category: Medical Plan: Continue PT home exercise program Wear wrist braces at night for empiric treatment of carpal tunnel syndrome. New script given to patient. She will purchase wrist braces. If she continues to have radicular symptoms after wearing wrist braces, I will reorder EMG bilateral upper extremities. If cervical radiculopathy does not improve, she will need MRI C-spine for further evaluation of nerve impingement She will try obtaining a massage Return to clinic in 3 months (4) Cervical myofascial strain: Code(s): S16.1XXA - Strain of muscle, fascia and tendon at neck level, initial encounter Category: Medical Plan: see above (5) Radiculopathy of cervical spine: Code(s): M54.12 - Radiculopathy, cervical region Category: Medical Plan: See above (6) Carpal tunnel syndrome of right wrist: Comment: Clinical diagnosis. Positive Phalen's test 05/2025. Discussed empiric treatment Code(s): G56.01 - Carpal tunnel syndrome, right upper limb Category: Medical Plan: Prescription for bilateral cockup wrist brace given to patient to wear at night OT ordered to improve hand strength RTC 3 months (7) Cubital tunnel syndrome on right: Comment: Clinical diagnosis based on patient's symptoms. 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 Discussed conservative management Code(s): G56.21 - Lesion of ulnar nerve, right upper limb Category: Medical Plan: Elbow brace prescribed last visit. Encouraged her to fill rx. OT ordered Return to clinic in 3 months Medications: Changed From arm brace (Wrist Brace) As directed Right cockup wrist brace Dx: carpal tunnel syndrome 1 ea 0RF To arm brace (Wrist Brace) As directed bilateral cockup wrist brace Dx: carpal tunnel syndrome 2 ea 0RF Coding Level of Care Code Est Pt Level 4 (29107) Add On Problem Visit Only Diagnoses Subacute cutaneous lupus erythematosus L93.1 Raynaud's disease without gangrene I73.00 Raynaud?s-associated gangrene presence: without gangrene Cervicalgia M54.2 Cervical myofascial strain S16.1XXA Radiculopathy of cervical spine M54.12 Carpal tunnel syndrome of right wrist G56.01 Cubital tunnel syndrome on right G56.21
== END 2025-08-27 10:21 | disposition home or self-care (01) ==
LOC: HO.RHES 09:47
PROVIDERS: PCP Family Medicine; Visit Provider Internal Medicine Rheumatology
DX: L93.1 Subacute cutaneous lupus erythematosus (principal); I73.00 Raynaud's syndrome without gangrene; M54.2 Cervicalgia; S16.1XXA Strain of muscle, fascia and tendon at neck level, initial encounter; M54.12 Radiculopathy, cervical region; G56.01 Carpal tunnel syndrome, right upper limb; G56.21 Lesion of ulnar nerve, right upper limb
CPT/HCPCS: 99214; G2211

== ENCOUNTER → 2025-08-27 09:46 | Outpatient (BNVA) | payer OTHER, SELFPAY | PROVIDERS: PCP Family Medicine; Visit Provider Internal Medicine Rheumatology | DX: S16.1XXA Strain of muscle, fascia and tendon at neck level, initial encounter (principal); L93.1 Subacute cutaneous lupus erythematosus; I73.00 Raynaud's syndrome without gangrene; M54.2 Cervicalgia; G56.01 Carpal tunnel syndrome, right upper limb; G56.21 Lesion of ulnar nerve, right upper limb; X58.XXXA Exposure to other specified factors, initial encounter; Y93.9 Activity, unspecified; Y92.9 Unspecified place or not applicable; Y99.9 Unspecified external cause status | CPT/HCPCS: 99212 ==